=== PATIENT | male | born 1965 | race Caucasian/White ===

== ENCOUNTER 2021-10-11 10:03 | Outpatient (CLI) | payer MEDICAID, SELFPAY ==
--- NOTE | 2021-10-11 13:46 | SP.MBSS_ITS ---
Modified Barium Swallow - Patient Information Study Date: 10/11/21 Study Time: 10:00 Direct Billable Minutes: 120 Total Minutes procedure & reportin Diagnosis: Cancer of overlapping sites of lip, oral cavity, & pharynx C14.8 Referring Physician: Lacho Alonso Reason for Referral: Objectively assess swallow function, risk for aspiration, and determine recommendations for least restrictive diet texture and compensatory strategies to improve safety of swallow. 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 He had a trach placed after surgery 08/26/2021. The patient utilizes a Passy [place] Speaking Valve. He had healed well from surgery and was approximately 4.5 weeks postop prior to attending a speech therapy evaluation. He had remained NPO for those 4.5 weeks. He began radiation therapy initiated by 6 weeks postop. He was referred for speech consult to assess swallow dysfunction, aspiration risk, and manage dysphagia during and post radiation therapy. After initial speech evaluation 10/05/2021, the patient was recommended to remain NPO with recommendation for MBS study prior to diet advancement. Additionally, pt was to be considered for implementation of Garcia Free Water Protocol pending improved oral care regimen. Pt has increased oral care from 1X daily to 3X daily at this time. He was unable to attend initial MBS study due to inclement weather but has been referred for repeat study 10/11/2021. Current Diet Ordered: NPO Dentition: Edentulous Mental Status: WNL Respiratory Status: Oxygenating on Room Air - Penetration-Aspiration Scale Penetration-Aspiration Scale: OBJECTIVE ASSESSMENT OF SWALLOW FUNCTION (QUANTITATIVE ? PER TRIAL): PENETRATION / ASPIRATION SCALE (ROLAND): 1 = does not enter airway 2 = enters airway/above vocal folds/ejected 3 = enters airway/above vocal folds/not ejected 4 = enters airway/contacts vocal folds/ejected 5 = enters airway/contacts vocal folds/not ejected 6 = enters airway/below vocal folds/ejected 7 = enters airway/below vocal folds/not ejected despite effort 8 = enters airway/below vocal folds/no effort VIDEOFLOROSCOPIC SCALE SCORE (ROLAND): Grade I = aspiration of material that has penetrated into the laryngeal vestibule, intact cough reflex Grade II = aspiration < 10 % of the bolus, intact cough reflex Grade III = aspiration of < 10 % of the bolus, reduced cough reflex or aspiration of > 10 % of the bolus, intact cough reflex Grade IV = aspiration of > 10 % of the bolus, reduced cough reflex - Penetration-Aspiration Scale Score Thin Liquid via teaspoon Result: 2= enter airway/above vocal folds/ejected Thin Liquid via teaspoon Trial 2 Result: 5= enters airways/contacts vocal folds/not ejected Thin Liquid via small single sip from cup Result: 2= enter airway/above vocal folds/ejected Thin Liquid via small single sip from cup Trial 2 Result: 1= does not enter airway Thin Liquid via single sip from straw Result: 2= enter airway/above vocal folds/ejected [place] Thick Liquid via small single sip from cup Result: 1= does not enter airway Honey Thick Liquid via small single sip from cup Result: 2= enter airway/above vocal folds/ejected Pudding with esophageal screen Result: 1= does not enter airway Thin Liquid via small single sip from cup Trial 3 Result: 2= enter airway/above vocal folds/ejected Thin Liquid via small single sip from cup Trial 4 Result: 1= does not enter airway Comment: [employer] cued pt to swish to attempt clearing oral residue of pudding. Minimally effective in clearing oral residue. - Oral Phase Labial Seal: Escape beyond mid-chin Tongue Control During Bolus Hold: Posterior escape of less than half of bolus Bolus Transport/Lingual Motion: Minimal to no tongue motion Oral Residue: Majority of bolus remaining - Pharyngeal Phase Initiation of Pharyngeal Swallow: Bolus head in pyriforms Soft Palate Elevation: No bolus between soft palate and pharyngeal wall Laryngeal Elevation: Partial superior movement thyroid cart/partial apprx aryt- epig petiole Anterior Hyoid Excursion: No anterior movement Epiglottic Movement: Partial inversion Laryngeal Vestibule Closure at Height of Swallow: Incomplete; narrow column of air/contrast in laryngeal vestibule Pharyngeal Stripping Wave: Present - diminished Pharyngoesophageal Segment Opening: Minimal distension and minimal duration; marked obstruction of flow Tongue Base Retraction: Narrow column of contrast between tongue base & post. pharyngeal wall Pharyngeal Residue: Majority of contrast within or on pharyngeal structures - Esophageal Phase Esophageal Clearance: Esophageal retention w/ retrograde flow below pharyngoesophageal seg. - Treatment Strategies Effects of treatment strategies attemped:: Multiple swallows = effective. Liquid wash = little to no impact. Swish to clear oral residue = little to no impact. - Diagnosis/Impression Diagnosis: moderate-severe oropharyngeal phase dysphagia (R13.12) Impression: The patient presents with moderate to severe oral phase deficits primarily marked by poor bolus control and A-P bolus transport due to limited tongue movement s/p resection including anterior mandible, subtotal glossectomy, bilateral floor of mouth and bilateral neck dissection levels 1 through 4 with mandible reconstruction (08/26/2021). The patient was unable to propel pudding bolus to the pharynx and required manual removal of severe oral residue of pudding. Did not trial solid textures to assess mastication abilities at this time due to concerns for poor oral and pharyngeal clearance and increased risk for choking. He presented with moderate pharyngeal phase deficits characterized by decreased airway closure due to little to no anterior hyoid excursion, as well as decreased laryngeal elevation. The patient demonstrated penetration of contrast into the laryngeal vestibule with full ejection when consuming thin liquids and honey thick liquids by cup. She had increased pharyngeal residue with thicker viscosities, especially pudding which required liquid wash and multiple swallows to clear pharyngeal residue. No aspiration observed during the study; however, 1 sip of thin liquids via tsp did penetrate to the vocal folds and fully eject from the airway with subsequent swallows. - Recommendations Diet: Thin Liquids Comment: If wet vocal quality then cough and re-swallow Compensatory Strategies: Small Bites, Small Sips - Sips by cup only, Slow Rate, Multiple Swallows, Sitting upright, Remain sitting upright for 30 minutes after PO intake Recommend Repeat Modified Barium Swallow: Yes - 3 months after completion of radiation treatment in order to monitor dysphagia and aspiration risk. Need for Skilled Speech Therapy Services: Yes Comment: Will recommend the patient for continued outpatient dysphagia therapy to address deficits in oropharyngeal swallow function. Would consider the patient for oropharyngeal strengthening to improve lingual coordination, laryngeal elevation, hyoid excursion, and duration of UES opening. The patient would benefit from thorough education regarding diet recommendations and recommended compensatory strategies. Education Completed: 1. Described result of evaluation., 7. Pt requires further education on strategies & risks. - Status Active ST Patient: Active - Contact Information [facility] Speech Therapy:: Edie Marino M.A. [facility] Speech-Language Pathologist [facility] [address] [place] [address] [email or web address] [phone] 10/11/21 14:01
== END 2021-10-11 23:59 | disposition home or self-care (01) ==
LOC: RAD 10:04
PROVIDERS: Referring Provider Student in an Organized Health Care Education/Training Program; Visit Provider Student in an Organized Health Care Education/Training Program
DX: C14.8 Malignant neoplasm of overlapping sites of lip, oral cavity and pharynx (principal)
CPT/HCPCS: 74230; 92611

== ENCOUNTER → 2022-01-03 | Outpatient (CLI) | payer MEDICAID, SELFPAY ==
--- NOTE | 2022-01-03 10:14 | ST.MBS ---
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 He had a trach placed after surgery 08/26/2021. He had healed well from surgery and was approximately 4.5 weeks postop prior to attending a speech therapy evaluation. He had remained NPO for those 4.5 weeks. He began radiation therapy initiated by 6 weeks postop. He was referred for speech consult to assess swallow dysfunction, aspiration risk, and manage dysphagia during and post radiation therapy. After initial speech evaluation 10/05/2021, the patient was recommended to remain NPO with recommendation for MBS study prior to diet advancement. MBS study completed 10/11/2021 and recommended thin liquids with the following aspiration precautions: If wet vocal quality then cough and re-swallow, Small Sips - Sips by cup only, Slow Rate, Multiple Swallows, Sitting upright, Remain sitting upright for 30 minutes after PO intake. From 10/07/2021 ? 11/17/2021: received 6000 cGy delivered to the tumor bed and reconstruction and 5400 cGy delivered to the bilateral neck and supraclavicular fossa. He did not receive concurrent chemotherapy. He had his trach removed ~1 month s/p radiation. He was referred for repeat MBS study to objectively assess aspiration risk and swallow function as the patient is at risk for worsening dysphagia s/p radiation treatment. Current Diet Ordered: Garcia Free Water Protocol Dentition: Edentulous Mental Status: WNL Respiratory Status: Oxygenating on Room Air - Penetration-Aspiration Scale Penetration-Aspiration Scale: OBJECTIVE ASSESSMENT OF SWALLOW FUNCTION (QUANTITATIVE ? PER TRIAL): PENETRATION / ASPIRATION SCALE (ROLAND): 1 = does not enter airway 2 = enters airway/above vocal folds/ejected 3 = enters airway/above vocal folds/not ejected 4 = enters airway/contacts vocal folds/ejected 5 = enters airway/contacts vocal folds/not ejected 6 = enters airway/below vocal folds/ejected 7 = enters airway/below vocal folds/not ejected despite effort 8 = enters airway/below vocal folds/no effort VIDEOFLOROSCOPIC SCALE SCORE (ROLAND): Grade I = aspiration of material that has penetrated into the laryngeal vestibule, intact cough reflex Grade II = aspiration < 10 % of the bolus, intact cough reflex Grade III = aspiration of < 10 % of the bolus, reduced cough reflex or aspiration of > 10 % of the bolus, intact cough reflex Grade IV = aspiration of > 10 % of the bolus, reduced cough reflex - Penetration-Aspiration Scale Score Thin Liquid via teaspoon Result: 2= enter airway/above vocal folds/ejected Comment: Pt spit out portion of trial due to dislike of taste. Thin Liquid via teaspoon Trial 2 Result: 5= enters airways/contacts vocal folds/not ejected Thin Liquid via small single sip from cup Result: 3= enters airways/above vocal folds/not ejected Thin Liquid via small single sip from cup with cued cough and reswallow Result: 3= enters airways/above vocal folds/not ejected [place] Thick Liquid via small single sip from cup Result: 3= enters airways/above vocal folds/not ejected - reflexive cough elicited - somewhat effective in clearing contrast from laryngeal vestibule Honey Thick Liquid via small single sip from cup Result: 2= enter airway/above vocal folds/ejected Pudding via teaspoon Result: 2= enter airway/above vocal folds/ejected Comment: Little clearance with majority of bolus remaining in oral cavity Thin Liquid via small single sip from cup for liquid wash Result: 2= enter airway/above vocal folds/ejected Comment: Pudding still remained in oral cavity despite use of liquid wash. Per pt, the pudding bolus elicited his gag reflex and pt expectorated remaining thin liquid and pudding residue. DIRECTOR OF VENDOR MANAGEMENT had the patient swish with water to clear oral cavity. Additionally, DIRECTOR OF VENDOR MANAGEMENT assisted pt in removing bolus from oral cavity via spoon. Thin Liquid via single sip from straw Comment: Unable to get sufficient amount from straw to swallow Thin Liquid via single sip from straw Trial 2 Result: 1= does not enter airway Thin Liquid via small single sip from cup Effortful swallow Result: 1= does not enter airway Thin Liquid via small single sip from cup Effortful swallow Trial 2 Result: 1= does not enter airway - Oral Phase Labial Seal: Escape beyond mid-chin Tongue Control During Bolus Hold: Posterior escape of less than half of bolus Bolus Transport/Lingual Motion: Minimal to no tongue motion Oral Residue: Minimal to no clearance - Pharyngeal Phase Initiation of Pharyngeal Swallow: Bolus head at posterior laryngeal surgace of epiglottis Soft Palate Elevation: Trace column of contrast/air between soft palate and pharyngeal wall Laryngeal Elevation: Partial superior movement thyroid cart/partial apprx aryt-epig petiole Anterior Hyoid Excursion: No anterior movement Epiglottic Movement: No inversion Laryngeal Vestibule Closure at Height of Swallow: Incomplete; narrow column of air/contrast in laryngeal vestibule Pharyngeal Stripping Wave: Present - diminished Pharyngoesophageal Segment Opening: Parital distension and partial duration; parital obstruction of flow Tongue Base Retraction: Narrow column of contrast between tongue base & post. pharyngeal wall Pharyngeal Residue: Collection of residue within or on pharyngeal structures - Treatment Strategies Effects of treatment strategies attemped:: Use of straw = not effective, difficult for patient to sip from straw at this time Multiple swallows = effective Effortful swallows = effective Cough and re-swallow = somewhat effective at clearing penetrated contrast from laryngeal vestibule - Diagnosis/Impression Diagnosis: Severe oral dysphagia (R13.11), Moderate oropharyngeal dysphagia (R13.12) Impression: The patient presents with severe oral phase deficits primarily marked by poor bolus control and A-P bolus transport due to limited tongue movement. The patient was unable to propel pudding bolus to the pharynx despite use of thin liquid wash. He benefited from utilizing slight head tilt backwards for A-P transport of liquids. He presents with mild-moderate oral residue after completion of multiple swallows. Did not trial solid textures to assess mastication abilities at this time due to concerns for poor oral and pharyngeal clearance and increased risk for choking. He presented with moderate pharyngeal phase deficits characterized by decreased airway closure due to little to no anterior hyoid excursion, as well as decreased laryngeal elevation. The patient demonstrated penetration of contrast into the laryngeal vestibule without full ejection when consuming thin liquids and nectar thick liquids by cup. Thin liquids via tsp resulted in penetration to the vocal folds without ejection from the laryngeal vestibule. He did not elicit cough reflex when experiencing penetration of thin liquids via tsp to the vocal folds. No aspiration observed during the study; however, the patient is a high aspiration risk consuming liquid consistencies due to decreased bolus control and airway closure. Additionally, DIRECTOR OF VENDOR MANAGEMENT concerned the patient is at risk for silent aspiration as he did not initiate a cough reflex when penetrating thin liquids via tsp to the vocal folds. Will recommend strict adherence to use of effortful swallows on each sip and intermittent cough and re-swallow when consuming liquids to decrease aspiration risk. - Recommendations Diet: Thin Liquids Comment: Cough and re-swallow at reasonable intervals (~every 3-5 sips or if pt is experiencing wet vocal quality) Compensatory Strategies: Small Sips - Effortful swallows with each sip, Slow Rate - Sips one at a time, Multiple Swallows, Sitting upright, Remain sitting upright for 30 minutes after PO intake Recommend Repeat Modified Barium Swallow: Yes Need for Skilled Speech Therapy Services: Yes Education Completed: 1. Described result of evaluation., 7. Pt requires further education on strategies & risks. - Status Active ST Patient: Active - Contact Information [facility] Speech Therapy:: Edie Marino M.A. [facility]-DIRECTOR OF VENDOR MANAGEMENT Speech-Language Pathologist [place] [id number] [place] [address] [email or web address] [phone] 01/03/22 11:49
== END | disposition home or self-care (01) ==
LOC: RAD 09:22
PROVIDERS: PCP Student in an Organized Health Care Education/Training Program; Referring Provider Student in an Organized Health Care Education/Training Program; Visit Provider Student in an Organized Health Care Education/Training Program
DX: C14.8 Malignant neoplasm of overlapping sites of lip, oral cavity and pharynx (principal)
CPT/HCPCS: 74230; 92611

== ENCOUNTER 2022-03-02 10:30 | Outpatient (RCR) | payer MEDICAID, SELFPAY ==
--- NOTE | 2021-10-05 11:35 | HP.SP.AD_ITS ---
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 He appears to have healed well from surgery and is approximately 4-1/2 weeks postop. He was seen by his ENT and felt to be healing well. He has not been working with speech therapy and is not swallowing since his surgery. He is planning for radiation therapy to be initiated by 6 weeks postop. He was referred for speech consult to assess swallow dysfunction, aspiration risk, and manage dysphagia during and post radiation therapy. Smoking Status: Former smoker Hx Smoking: Yes Years Smokin - Pain Is pain an issue with your current prescribed condition?: Yes - Personal Right Hearing Abillity: Normal Left Hearing Abillity: Normal Patients Living Arrangements: Pt's friend who is an RN has assisted w/trach care Patient Allergies - Allergies Allergies No Known Allergies Allergy (Unverified 09/27/21 13:47) Subjective Oral Motor - Subjective Patient Reports: Slurred Speech, Difficulty being Understood - Comments Comments: Patient reports breaking his jaw as a teenager. He stated he has had decreased jaw ROM his whole life. Objective Oral Motor - Oral Status Dentition: Missing Teeth - Labial Impairment: Mild Observation at Rest: WNL Closure: WNL Pucker: WNL Retraction: Mild Involuntary Movement noted: No - Labial Comments Comments: L labial weakness evident upon retraction. - Lingual Impairment: Severe Protrusion: Severe Retraction: Severe Lateralization: Severe - Lingual Comments Comments: Pt is s/p subtotal glossectomy with graft for reconstruction. Tongue presented with minimal anterior-posterior movement. Little to no bilateral movement observed. - Jaw Impairment: Moderate Symmetry, Range, Strength, Tone: Mild deviation L when lowering jaw. Opening: Moderate Closing: WNL Opening Measurement: 25mm (lip to lip) Involuntary Movement: No - Jaw Comments Comments: Pt with sores with some bleeding to bilaterally on lower gumline. BROILER CHEF OR COOK unable to palpate contraction of muscles of mastication with jaw clench. - Oral Motor Comments Comments: The patient presents with edema throughout anterior neck and floor of mouth. - Respiratory Status Respiratory Status: Room Air, Trach, Passy [place] Speaking Valve Comments: BROILER CHEF OR COOK requested the patient place Passy Joseph Speaking Valve (PMSV) at the start of the session. Pt presented with improved loudness and speech clarity with use of PMSV. Subjective Dysphagia - Symptoms Reported Other: No attempt at oral feeding since operation. - NPO NPO - Alternative Nutrition Method: Gastrostomy Tube Objective Dysphagia - Administered by Administered by: BROILER CHEF OR COOK - Thin Liquids Administred via: Spoon Symptoms: Couging, Delayed Laryngeal Elevation: Impaired Positioning: Other (comment below) Other Positioning: Head tilt backwards to assist A-P transport due to deficits in tongue ROM. Oral Holding: No Gagging: No Patient Report: Sensation of oral residue after the swallow. Comments: The patient consumed 4 trials of tsp sips of thin liquids. BROILER CHEF [employer] COOK encouraged pt for head tilt backwards to propel bolus. He required 4-5 swallows to clear each sip. Anterior spillage following 1 sip. Coughing following 1 sip. Pt declined additional trials due to reported pain of 8/10. He additionally declined trials of applesauce. - Results Swallowing Within Normal Limits: No Swallowing Diagnosis: Oropharyngeal Phase Dysphagia Severity: Severe Dysphagia Assessment - Swallowing Impairment Contributing Factors to Swallowing Impairment: Reduced Oral Strength/Coordination/Sensation, Mastication Inefficiency, Impaired Oral- Pharyngeal Transport, Reduced Laryngeal Excursion - Impact Impact on Safety & Functioning: Risk for Aspiration, Risk for Inadequate Nutrition/Hydration - Recommendations Modified Barium Swallow/Cookie Swallow Recommended: Yes Swallowing Treatment: Yes - Diet Texture Recommendations NPO: NPO Other: Would strongly consider implementation of Garcia Free Water Protocol in upcoming sessions pending improved oral care regimen. Pt is currently completing oral care 1X daily. BROILER CHEF [employer] COOK recommended oral care at least 4-5 daily. FOIS - Functional Oral Intake Scale Nothing by mouth: Level 1 SP Oncology PSS-HN - PSS-HN Test Normalcy of Diet: Non-oral feeding-tube fed Scale Result:: 0 Public Eating: Always eats alone Public eating scale: 0 Understandability of Speech: Difficult to understand Understandability of Speech Scale: 25 Plan - Plan Plan: Will recommend the patient for skilled outpatient dysphagia therapy to address oropharyngeal dysphagia related to SCC of anterior tongue, mandibular gingiva, and floor of mouth status post composite resection including anterior mandible, subtotal glossectomy, bilateral floor of mouth and bilateral neck dissection levels 1 through 4 with mandible reconstruction and to provide the patient further education re: prophylactic oropharyngeal and jaw exercise program. Will recommend MBS study prior to initiating diet. Additionally, will provide ongoing assessment of diet tolerance during and post radiation treatment. Without skilled ST services, the patient is at risk for aspiration, weight loss, and malnutrition. - Recommendations MBS: Yes Treatment Warranted: Yes - Frequency Frequency: 1x/Week Duration: 12 Months - Prognosis Prognosis: Fair - Goals that are Established: Determination:: Goals will be added/modified as deemed necessary and appropriate. Therapy will be discontinued when results of re-evaluation indicate therapy is no longer needed or lack of progress has been documented. - Goal #1-5 Goal #1: The patient will consume least restrictive diet textures without overt s/s of aspiration with minimal verbal cues for use of compensatory strategies to decrease risk for aspiration. Goal #2: The patient will complete an oropharyngeal exercise program during and post radiation treatment independently to improve and maintain strength, ROM, and coordination of swallowing mechanism (X10 repetitions, 3-5X daily). Goal #3: The patient will complete jaw strength, coordination, and ROM exercises during and post radiation treatment independently to improve and maintain mastication and speech abilities (X10 repetitions, 3-5X daily). Goal #4: The patient will participate in ongoing education re: short-term and long-term effects of radiation treatment on swallow function and management of symptoms that contribute to dysphagia. Goal #5: The patient will participate in assessment of speech production in upcoming sessions to set additional goals to POC as needed. Education - Patient has Indicated that the Following Identified Educational Needs: None The Patient has indicated that they have no educational or learning abilities that may effect their care.: Yes - Patient Instruction Patient Education: Diagnosis, Treatment Plan, Goals, Diet Level, Home Exercise Program Other Education: Education provided regarding the potential impacts of radiation treatment on swallow function during and post treatment, including effects such as mucositis, dysgeusia, radiation fibrosis, and disuse atrophy which may result in restricted range of motion and weakness of swallowing mechanism. Discussed impaired swallowing and increased risk for aspiration, aspiration related illnesses, weight loss, and malnutrition. Discussed importance for speech therapy to monitor and address dysphagia both pre, during, and post radiation treatment to maintain optimal swallow function through continued education and prophylactic exercise program. Provided the patient a handout and demonstration of prophylactic oropharyngeal exercise program, as well as jaw ROM exercises. The patient provided return demonstration with all exercises with minimal verbal cues and demonstration. The patient would benefit from continued training to monitor proper execution of exercises and encourage strict adherence to exercise program. Educated the patient in recommendation for oral care 4-5X daily. Person Taught: Patient Teaching Method: Discussion, Demonstration, Handout, Teach back Response to teaching: Return demonstration, Verbalize understanding, Reinforcement needed
--- NOTE | 2022-01-04 11:52 | HP.SPREEV_ITS ---
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 He had a trach placed after surgery 08/26/2021. He had healed well from surgery and was approximately 4.5 weeks postop prior to attending a speech therapy evaluation. He had remained NPO for those 4.5 weeks. He began radiation therapy initiated by 6 weeks postop. He was referred for speech consult to assess swallow dysfunction, aspiration risk, and manage dysphagia during and post radiation therapy. After initial speech evaluation 10/05/2021, the patient was recommended to remain NPO with recommendation for MBS study prior to diet advancement. MBS study completed 10/11/2021 and recommended thin liquids with the following aspiration precautions: If wet vocal quality then cough and re-swallow, Small Sips - Sips by cup only, Slow Rate, Multiple Swallows, Sitting upright, Remain sitting upright for 30 minutes after PO intake. From 10/07/2021 ? 11/17/2021: received 6000 cGy delivered to the tumor bed and reconstruction and 5400 cGy delivered to the bilateral neck and supraclavicular fossa. He did not receive concurrent chemotherapy. He had his trach removed ~1 month s/p radiation. He was referred for repeat MBS study 01/03/2022 to objectively assess aspiration risk and swallow function as the patient is at risk for worsening dysphagia s/p radiation treatment. He was recommended for thin liquids with use of strict aspiration precautions (SEE details below in attached copy of the study). Smoking Status: Former smoker Hx Smoking: Yes Years Smokin - Pain Is pain an issue with your current prescribed condition?: Yes - Personal Right Hearing Abillity: Normal Left Hearing Abillity: Normal Patients Living Arrangements: Alone Patient Allergies - Allergies Allergies No Known Allergies Allergy (Verified 12/16/21 11:10) Previous/Current Goals - Goals 1-5 Previous Goal #1: The patient will consume least restrictive diet textures without overt s/s of aspiration with minimal verbal cues for use of compensatory strategies to decrease risk for aspiration. Goal 1 Status: PROGRESSING - Thin liquids with the following Compensatory Strategies: Cough and re-swallow at reasonable intervals (~every 3-5 sips or if pt is experiencing wet vocal quality), Small Sips - Effortful swallows with each sip, Slow Rate - Sips one at a time, Multiple Swallows, Sitting upright, Remain sitting upright for 30 minutes after PO intake. Additionally, RETAIL ACCOUNT REPRESENTATIVE recommends frequent oral care throughout his day to prevent risk for aspiration related illnesses. Previous Goal #2: The patient will complete an oropharyngeal exercise program during and post radiation treatment independently to improve and maintain stre ngth, ROM, and coordination of swallowing mechanism (X10 repetitions, 3-5X daily). Goal 2 Status: PROGRESSING - The patient completes oropharyngeal exercises 0-3X daily depending on pain. He would benefit from strict adherence to exercise program as tolerated to prevent risk for worsening dysphagia and to prevent risk for aspiration. He was provided updated home exercise program 01/04/2022 and he demonstrated the ability to complete increased repetitions of each exercise. He was also able to complete Thomas maneuver, which he was not able to complete earlier in POC. Previous Goal #3: The patient will complete jaw strength, coordination, and ROM exercises during and post radiation treatment independently to improve and maintain mastication and speech abilities (X10 repetitions, 3-5X daily). Goal 3 Status: PROGRESSING - He completes jaw ROM exercises intermittently due to persisting pain in jaw. He would benefit from strict adherence to exercise program as tolerated to prevent risk for worsening trismus. Jaw ROM is currently 27mm (Normal jaw opening = 35-55mm). Previous Goal #4: The patient will participate in ongoing education re: short- term and long-term effects of radiation treatment on swallow function and management of symptoms that contribute to dysphagia. Goal 4 Status: PROGRESSING - Pt verbalizes understanding of education re: long- term effects of radiation treatment that negatively impact swallow function; however, the patient requires continued education to encourage strict adherence to oropharyngeal and jaw exercise programs. Previous Goal #5: The patient will participate in assessment of speech production in upcoming sessions to set additional goals to POC as needed. Goal 5 Status: DISCONTINUE GOAL - Primary focus of therapy to be on severe oral phase dysphagia and moderate pharyngeal phase dysphagia at this time. - Goals 6-10 Previous Goal #6: The patient will participate in MBS study to objectively assess aspiration risk and recommend least restrictive diet textures and strategies to improve safety of swallow. Goal 6 Status: Most recent study 01/04/2022 - Repeat study recommended in 3-6 months. Previous Goal #7: . Objective Dysphagia - Diet Texture Recommendations Other: Would strongly consider implementation of Garcia Free Water Protocol in upcoming sessions pending improved oral care regimen. Pt is currently completing oral care 1X daily. RETAIL ACCOUNT REPRESENTATIVE recommended oral care at least 4-5 daily. Modified Barium Results Hx MBS Report Entered: Yes MBS Results (from prior exam): 01/04/22 11:50 Speech Therapy by Edie Marino [facility] Speech Pathology [address] [place] [address] Modified Barium Swallow Study MR#: [id number] Acct: [id number] Name: JALEEL DUKES Rep #:[id number] 01 : 1965 56 From: Edie Ulloa, [facility]-RETAIL ACCOUNT REPRESENTATIVE Modified Barium Swallow - Patient Information Study Date: 01/03/22 Study Time: 09:30 Direct Billable Minutes: 95 Total Minutes procedure & reportin Diagnosis: Cancer of overlapping sites of lip, oral cavity, & pharynx C14.8 Referring Physician: Lacho Alonso Reason for Referral: Objectively assess swallow function, risk for aspiration, and determine recommendations for least restrictive diet textures and compensatory strategies to improve safety of swallow. 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 He had a trach placed after surgery 08/26/2021. He had healed well from surgery and was approximately 4.5 weeks postop prior to attending a speech therapy evaluation. He had remained NPO for those 4.5 weeks. He began radiation therapy initiated by 6 weeks postop. He was referred for speech consult to assess swallow dysfunction, aspiration risk, and manage dysphagia during and post radiation therapy. After initial speech evaluation 10/05/2021, the patient was recommended to remain NPO with recommendation for MBS study prior to diet advancement. MBS study completed 10/11/2021 and recommended thin liquids with the following aspiration precautions: If wet vocal quality then cough and re-swallow, Small Sips - Sips by cup only, Slow Rate, Multiple Swallows, Sitting upright, Remain sitting upright for 30 minutes after PO intake. From 10/07/2021 ? 11/17/2021: received 6000 cGy delivered to the tumor bed and reconstruction and 5400 cGy delivered to the bilateral neck and supraclavicular fossa. He did not receive concurrent chemotherapy. He had his trach removed ~1 month s/p radiation. He was referred for repeat MBS study to objectively assess aspiration risk and swallow function as the patient is at risk for worsening dysphagia s/p radiation treatment. Current Diet Ordered: Garcia Free Water Protocol Dentition: Edentulous Mental Status: WNL Respiratory Status: Oxygenating on Room Air - Penetration-Aspiration Scale Penetration-Aspiration Scale: OBJECTIVE ASSESSMENT OF SWALLOW FUNCTION (QUANTITATIVE ? PER TRIAL): PENETRATION / ASPIRATION SCALE (ROLAND): 1 = does not enter airway 2 = enters airway/above vocal folds/ejected 3 = enters airway/above vocal folds/not ejected 4 = enters airway/contacts vocal folds/ejected 5 = enters airway/contacts vocal folds/not ejected 6 = enters airway/below vocal folds/ejected 7 = enters airway/below vocal folds/not ejected despite effort 8 = enters airway/below vocal folds/no effort VIDEOFLOROSCOPIC SCALE SCORE (ROLAND): Grade I = aspiration of material that has penetrated into the laryngeal vestibule, intact cough reflex Grade II = aspiration < 10 % of the bolus, intact cough reflex Grade III = aspiration of < 10 % of the bolus, reduced cough reflex or aspiration of > 10 % of the bolus, intact cough reflex Grade IV = aspiration of > 10 % of the bolus, reduced cough reflex - Penetration-Aspiration Scale Score Thin Liquid via teaspoon Result: 2= enter airway/above vocal folds/ejected Comment: Pt spit out portion of trial due to dislike of taste. Thin Liquid via teaspoon Trial 2 Result: 5= enters airways/contacts vocal folds/not ejected Thin Liquid via small single sip from cup Result: 3= enters airways/above vocal folds/not ejected Thin Liquid via small single sip from cup with cued cough and reswallow Result: 3= enters airways/above vocal folds/not ejected [place] Thick Liquid via small single sip from cup Result: 3= enters airways/above vocal folds/not ejected - reflexive cough elicited - somewhat effective in clearing contrast from laryngeal vestibule Honey Thick Liquid via small single sip from cup Result: 2= enter airway/above vocal folds/ejected Pudding via teaspoon Result: 2= enter airway/above vocal folds/ejected Comment: Little clearance with majority of bolus remaining in oral cavity Thin Liquid via small single sip from cup for liquid wash Result: 2= enter airway/above vocal folds/ejected Comment: Pudding still remained in oral cavity despite use of liquid wash. Per pt, the pudding bolus elicited his gag reflex and pt expectorated remaining thin liquid and pudding residue. RETAIL ACCOUNT REPRESENTATIVE had the patient swish with water to clear oral cavity. Additionally, RETAIL ACCOUNT REPRESENTATIVE assisted pt in removing bolus from oral cavity via spoon. Thin Liquid via single sip from straw Comment: Unable to get sufficient amount from straw to swallow Thin Liquid via single sip from straw Trial 2 Result: 1= does not enter airway Thin Liquid via small single sip from cup Effortful swallow Result: 1= does not enter airway Thin Liquid via small single sip from cup Effortful swallow Trial 2 Result: 1= does not enter airway - Oral Phase Labial Seal: Escape beyond mid-chin Tongue Control During Bolus Hold: Posterior escape of less than half of bolus Bolus Transport/Lingual Motion: Minimal to no tongue motion Oral Residue: Minimal to no clearance - Pharyngeal Phase Initiation of Pharyngeal Swallow: Bolus head at posterior laryngeal surgace of epiglottis Soft Palate Elevation: Trace column of contrast/air between soft palate and pharyngeal wall Laryngeal Elevation: Partial superior movement thyroid cart/partial apprx aryt- epig petiole Anterior Hyoid Excursion: No anterior movement Epiglottic Movement: No inversion Laryngeal Vestibule Closure at Height of Swallow: Incomplete; narrow column of air/contrast in laryngeal vestibule Pharyngeal Stripping Wave: Present - diminished Pharyngoesophageal Segment Opening: Parital distension and partial duration; parital obstruction of flow Tongue Base Retraction: Narrow column of contrast between tongue base & post. pharyngeal wall Pharyngeal Residue: Collection of residue within or on pharyngeal structures - Treatment Strategies Effects of treatment strategies attemped:: Use of straw = not effective, difficult for patient to sip from straw at this time Multiple swallows = effective Effortful swallows = effective Cough and re-swallow = somewhat effective at clearing penetrated contrast from laryngeal vestibule - Diagnosis/Impression Diagnosis: Severe oral dysphagia (R13.11), Moderate oropharyngeal dysphagia (R13.12) Impression: The patient presents with severe oral phase deficits primarily marked by poor bolus control and A-P bolus transport due to limited tongue movement. The patient was unable to propel pudding bolus to the pharynx despite use of thin liquid wash. He benefited from utilizing slight head tilt backwards for A-P transport of liquids. He presents with mild-moderate oral residue after completion of multiple swallows. Did not trial solid textures to assess mastication abilities at this time due to concerns for poor oral and pharyngeal clearance and increased risk for choking. He presented with moderate pharyngeal phase deficits characterized by decreased airway closure due to little to no anterior hyoid excursion, as well as decreased laryngeal elevation. The patient demonstrated penetration of contrast into the laryngeal vestibule without full ejection when consuming thin liquids and nectar thick liquids by cup. Thin liquids via tsp resulted in penetration to the vocal folds without ejection from the laryngeal vestibule. He did not elicit cough reflex when experiencing penetration of thin liquids via tsp to the vocal folds. No aspiration observed during the study; however, the patient is a high aspiration risk consuming liquid consistencies due to decreased bolus control and airway closure. Additionally, RETAIL ACCOUNT REPRESENTATIVE concerned the patient is at risk for silent aspiration as he did not initiate a cough reflex when penetrating thin liquids via tsp to the vocal folds. Will recommend strict adherence to use of effortful swallows on each sip and intermittent cough and re-swallow when consuming liquids to decrease aspiration risk. - Recommendations Diet: Thin Liquids Comment: Cough and re-swallow at reasonable intervals (~every 3-5 sips or if pt is experiencing wet vocal quality) Compensatory Strategies: Small Sips - Effortful swallows with each sip, Slow Rate - Sips one at a time, Multiple Swallows, Sitting upright, Remain sitting upright for 30 minutes after PO intake Recommend Repeat Modified Barium Swallow: Yes Need for Skilled Speech Therapy Services: Yes Education Completed: 1. Described result of evaluation., 7. Pt requires further education on strategies & risks. - Status Active ST Patient: Active - Contact Information [facility] Speech Therapy:: Edie Marino M.A. CCC-RETAIL ACCOUNT REPRESENTATIVE Speech-Language Pathologist [place] [address] [place] [address] [email or web address] [phone] 01/03/22 11:49 01/03/22 1248 <Electronically signed by Edie Marino M.A., CCC-RETAIL ACCOUNT REPRESENTATIVE> Date/Time Edie Marino M.A., CCC-RETAIL ACCOUNT REPRESENTATIVE Initialized on 01/04/22 11:50 - END OF NOTE Swallowing Performance Scale - Swallowing Performance Scale Swallowing Performance Scale Result: 7 Severe NQOL FOIS - Functional Oral Intake Scale Nothing by mouth: Level 1 Tube dependent with consistent oral intake of food or liquid: Level 3 SP Oncology PSS-HN - PSS-HN Test Normalcy of Diet: Non-oral feeding-tube fed Scale Result:: 0 Public Eating: Always eats alone Public eating scale: 0 Understandability of Speech: Difficult to understand Understandability of Speech Scale: 25 Plan - Recommendations MBS: Yes Treatment Warranted: Yes - Progress Prognosis: Fair - Frequency Frequency: 1x/Week - Goals that are Established Determination:: Goals will be added/modified as deemed necessary and appropriate. Therapy will be discontinued when results of re-evaluation indicate therapy is no longer needed or lack of progress has been documented. - Goal #1-5 Goal #1: The patient will consume least restrictive diet textures without overt s/s of aspiration with minimal verbal cues for use of compensatory strategies to decrease risk for aspiration. Goal #2: The patient will complete an oropharyngeal exercise program during and post radiation treatment independently to improve and maintain strength, ROM, and coordination of swallowing mechanism (X10 repetitions, 3-5X daily). Goal #3: The patient will complete jaw strength, coordination, and ROM exercises during and post radiation treatment independently to improve and maintain mastication and speech abilities (X10 repetitions, 3-5X daily). Goal #4: The patient will participate in ongoing education re: short-term and long-term effects of radiation treatment on swallow function and management of symptoms that contribute to dysphagia. Goal #5: The patient will participate in MBS study to objectively assess aspiration risk and recommend least restrictive diet textures and strategies to improve safety of swallow. - Goal #6-10 Goal #6: The patient will participate in MBS study to objectively assess aspiration risk and recommend least restrictive diet textures and strategies to improve safety of swallow. Goal #7: .
--- NOTE | 2022-07-26 13:50 | HP.SP.DC_ITS ---
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 He participated in OP speech therapy during treatment and had 2 MBSS completed during POC. Pt had esophageal mass following treatment and had additional chemoradiation. When re- referred to OP ST for re-evaulation, pt declined the evaluation. X [employer]IC recommended repeat MBSS to objectively assess swallow function and aspiration risk. The patient declined MBSS and has not called to reschedule with ST for over a month. Will discharge the patient from ST at this time. Will recommend re-consult to OP ST if the patient wishes to address continued dysphagia.
== END 2022-03-02 19:00 | disposition home or self-care (01) ==
LOC: SP 10:30
PROVIDERS: Referring Provider Student in an Organized Health Care Education/Training Program; Visit Provider Student in an Organized Health Care Education/Training Program
DX: C14.8 Malignant neoplasm of overlapping sites of lip, oral cavity and pharynx (principal)
CPT/HCPCS: 92526; 92610

== ENCOUNTER 2022-03-09 10:30 | Observation (INO) | payer MEDICAID, SELFPAY ==
[2022-03-09] VITALS (7 sets, daily range): BP systolic 130–139; BP diastolic 66–87; PULSE 77–88; RESP 14–18; TEMP 36.6–37.1; O2SAT 95–98; BMI 22.4; BMI 20.5
--- NOTE | 2022-03-09 10:46 | EDS_ITS ---
HPI History of Present Illness Chief Complaint: Nausea/Vomiting/Diarrhea Informant: patient Onset/Context/Timing Onset: Days (3 days) Context: Gradual Onset Current Severity: Moderate Maximum Severity: Moderate Narrative Narrative: Patient presents with 3-day history of nausea, vomiting, diarrhea. He has a history of oropharyngeal cancer. He has a PEG tube that was placed around the first of the year. He states since that time has had 3 different episodes where he gets nausea, vomiting, and diarrhea. This particular episode started 3 days ago. He states he will get sweaty but has not noticed a fever. [facility] Medical History Multiple pigmented nevi Oropharyngeal cancer Right shoulder pain Home Medications ondansetron HCl 4 mg tablet 4 mg PO Q8H PRN nausea and vomiting #30 tabs 10/25/21 [Rx Last Taken Unknown] oxycodone 20 mg/mL oral concentrate 20 mg PO DAILY pain 11/03/21 [History Last Taken Unknown] silver sulfadiazine 1 % topical cream (Silvadene) 1 applic topical TID desquamation #85 grams 11/08/21 [Rx Last Taken Unknown] oxycodone 5 mg/5 mL oral solution 10 mg PO Q4H PRN Pain 12/16/21 [History Last Taken Unknown] sennosides 8.8 mg/5 mL oral syrup (senna) 10 ml PO QHS PRN stool 01/11/22 [History Last Taken Unknown] sertraline 50 mg tablet 1 tab feeding tube DAILY 03/09/22 [History Last Taken Unknown] Allergy/AdvReac Type Severity Reaction Status Date / Time No Known Allergies Allergy Verified 03/09/22 10:31 Family History Father Cancer LUNG Brother Cancer ESOPHAGEAL Surgical History Status post reconstruction procedure Social History Smoking Status: Former smoker Tobacco: How many years used: 30 do you feel safe at home: Yes ROS ROS ED Constitutional Constitutional ED: Reports sweats; Denies chills or fever(s) Eyes Eyes: Denies change in vision or discharge from eye(s) ENT ENT ED: Denies discharge from eye(s), rhinorrhea or sore throat Cardiovascular Cardiovascular: Denies chest pain or palpitations Respiratory/Chest Respiratory/Chest: Reports cough; Denies dyspnea Gastrointestinal Gastrointestinal: Reports abdominal pain, diarrhea, nausea and vomiting Genitourinary Genitourinary ED: Denies difficulty urinating or dysuria Musculoskeletal Musculoskeletal: Denies back pain or extremity pain Integumentary Denies Abrasions or rash Neurologic Neurologic: Reports weakness; Denies headache(s) Psychiatric Psychiatric: Denies anxiety or depression Allergic/Immunologic Allergic/Immunologic ED: Denies lip swelling or urticaria EXAM Physical Exam Const Vital Signs: 03/09/22 10:31 03/09/22 12:38 Temperature 98.6 F Temperature Source Temporal Pulse Rate 85 88 Respiratory Rate 16 16 Blood Pressure 131/85 H 137/79 H Blood Pressure Mean 100 98 Pulse Ox 97 98 Oxygen Delivery Method Room Air Room Air Positive well nourished and well developed General Appearance ED: well developed HEENT Reports normocephalic and head/scalp atraumatic Eyes PERRL and EOMs intact bilaterally Neck supple Chest Wall inspection of chest normal and palpation of chest normal Resp normal respiratory effort and clear to auscultation bilaterally Cardio regular rate and regular rhythm GI non-tender Auscultation: hypoactive bowel sounds Palpation: soft Extremity normal to inspection Neuro oriented x3 and no sensory deficits noted Sensorium / Orientation: alert Motor Exam: strength 5/5 throughout Psych mental status grossly normal Skin no rashes or lesions noted MDM MDM MDM Narrative Medical decision making narrative: Patient was given IV fluids along with Reglan and Benadryl. Lab work obtained. Lab Data Attestation: I reviewed the patient's lab results. Labs: Laboratory Results - last 24 hr 03/09/22 03/09/22 10:52 10:52 WBC 6.9 RBC 4.63 Hgb 14.4 Hct 41.9 MCV 90.5 MCH 31.1 MCHC 34.4 RDW Std Deviation 41.5 RDW Coeff of Jose 12.8 Plt Count 206 MPV 9.3 Immature Gran % (Auto) 0.300 Neut % (Auto) 82.4 H Lymph % (Auto) 9.8 L [place] % (Auto) 7.4 Eos % (Auto) 0.0 Baso % (Auto) 0.1 Absolute Neuts (auto) 5.7 Absolute Lymphs (auto) 0.67 L Nucleated RBC % 0 Sodium 143 Potassium 3.1 L Chloride 107 Carbon Dioxide 27.0 Anion Gap 9 BUN 23 H Creatinine 1.04 Estim Creat Clear Calc 84.96 Est GFR (MDRD) Af Amer 95 Est GFR (MDRD) Non-Af 79 BUN/Creatinine Ratio 22.1 H Glucose 129 H Calcium 10.3 H Total Bilirubin 0.70 Direct Bilirubin 0.18 AST 14 L ALT 29 Alkaline Phosphatase 50 Total Protein 8.1 Albumin 4.1 Globulin 4.0 Lipase 53 L Treatment and Re-Evaluation Narrative: CBC is unremarkable. Chemistry studies significant for potassium of 3.1. BUN is slightly elevated at 23. LFTs and lipase normal. On repeat evaluation patient resting comfortably and does feel somewhat improved after the Reglan. IV potassium replacement is initiated. We had decided to give patient a fluid challenge through his PEG tube to see if he could tolerate feeds at home. Before this could even be done patient began vomiting again. At this time he will be given a dose of Zofran and also with hospitalist regarding admission. Discharge Plan Triage Chief Complaint: Nausea/Vomiting/Diarrhea ED Provider: Caty Blakely Dx/Rx/DC Orders Clinical Impression: Vomiting, Hypokalemia Prescriptions: No Action oxycodone 5 mg/5 mL solution 10 mg PO Q4H PRN (Reason: Pain) oxycodone 20 mg/mL concentrate 20 mg PO DAILY sennosides [senna] 8.8 mg/5 mL syrup 10 ml PO QHS PRN (Reason: stool) sertraline 50 mg tablet 1 tab feeding tube DAILY Label Comments: TAKE 1 TABLET BY MOUTH DAILY 03/01/22 ondansetron HCl 4 mg tablet 4 mg PO Q8H PRN (Reason: nausea and vomiting) Qty: 30 0RF Rx Instructions: take one tab PO prior to radiation treatment silver sulfadiazine [Silvadene] 1 % cream 1 applic topical TID Qty: 85 2RF Rx Instructions: apply a 1.5 mm thickness of areas of peeling Primary Care Provider: Shailesh Jennings Referrals: Shailesh Jennings DO [Primary Care Provider] - Disposition Disposition: [facility]
[2022-03-09] MEDS: 0.9% Normal Saline 1,000 ML 1000 ML IV (10:53)
[2022-03-09] MEDS: DiphenhydrAMINE 50 MG/ML Syringe 12.5 MG IV (10:53)
[2022-03-09] MEDS: Metoclopramide 10 MG/2 ML Vial IV (10:54)
[2022-03-09 10:59] LABS: Absolute Lymphocyte Count 0.67 X10^3/uL (0.83-4.51); Absolute Neutrophil Count 5.7 X10^3/uL (2.0-7.7); Basophil# 0.01 X10^3/uL; Basophil% 0.1 % (0-1); Hematocrit 41.9 % (40-54); Hemoglobin 14.4 g/dL (13.0-16.5); Lymphocyte # 0.67 X10^3/ul (0.83-4.51); Lymphocyte % 9.8 % (19-41); Mean Corp Hgb Conc 34.4 g/dL (32-36); Mean Corpuscular Hgb 31.1 pg (27.0-32.0); Mean Corpuscular Volume 90.5 fL (80-94); Mean Platelet Vol. 9.3 fl (6.2-12.0); Monocyte# 0.51 X10^3/uL; Monocyte% 7.4 % (0-10); NRBC Flagged by Analyzer 0 % (0-5); Neutrophil # 5.66 X10^3/uL (2.7-7.7); Neutrophil % 82.4 % (47-70); Platelet Count 206 K/mm3 (150-450); RBC Distribution Width CV 12.8 % (11.6-14.6); RBC Distribution Width SD 41.5 fl (35.1-43.9); Red Blood Count 4.63 M/mm3 (4.6-6.2); White Blood Count 6.9 K/mm3 (4.4-11.0)
[2022-03-09 11:13] LABS: AST(SGOT) 14 U/L (15-37); Alanine Aminotransfer ALT/SGPT 29 U/L (16-61); Albumin, Serum 4.1 g/dL (3.2-5.0); Alkaline Phosphatase 50 U/L (45-117); Anion Gap 9 (5-15); BUN 23 mg/dL (7-18); BUN/Creat Ratio 22.1 RATIO (10-20); Bilirubin, Direct 0.18 mg/dL (0.00-0.30); Calcium,Total 10.3 mg/dL (8.5-10.1); Chloride 107 mmol/L (98-107); Creatinine, Serum 1.04 mg/dL (0.70-1.30); EST Glomerular Filtration Rate 79 mL/min (>60); Est Glom Filt Rate - Afr Amer 95 mL/min (>60); Estimated Creatinine Clearance 84.96 ml/min; Glucose 129 mg/dL (74-106); Lipase 53 U/L (73-393); Potassium 3.1 mmol/L (3.5-5.1); Protein, Total 8.1 g/dL (6.4-8.2); Sodium Level 143 mmol/L (136-145)
[2022-03-09] MEDS: Potassium Chloride 10mEq/100mL 10 MEQ/100 ML IV.SOLN. 100 MEQ IV BOLUS ×2 (11:57→15:33)
[2022-03-09] MEDS: Potassium Chloride 10mEq/100mL 10 MEQ/100 ML IV.SOLN. 75 MEQ IV BOLUS ×2 (13:08→14:17)
[2022-03-09] MEDS: Ondansetron 4 MG/2 ML Vial IV (14:31)
[2022-03-09] MEDS: 0.9% Normal Saline 1,000 ML 150 ML IV (14:33)
--- NOTE | 2022-03-09 14:35 | NURSING ---
MED SURG OBS BOB VOMITING, HYPOKALEMIA
--- NOTE | 2022-03-09 14:43 | ED.RN ---
PT HAS 100 ML OF EMESIS AT THIS TIME. COLOR NOT OBSERVED BY THIS RN.
--- NOTE | 2022-03-09 14:44 | NURSING ---
DR ROJAS IN ER
--- NOTE | 2022-03-09 14:55 | PCM.HP.STD ---
HPI - General General Date of Admission: 03/09/22 Date of Service: 03/09/22 Chief Complaint: Nausea and vomiting HPI Narrative ORTEGA DUKES, is a 56 M who presented to the emergency department [facility] on 03/09/2022 with intractable nausea and vomiting that has been ongoing for approximately 3 days. The patient has a history of oropharyngeal cancer and has had chemo and radiation to the site as well as surgery. He has had 4 episodes now of this intractable nausea and vomiting since his PEG tube was placed at the end of July. He states typically these episodes last approximately 2 days and then they resolve. He recently followed up with gastroenterology in mid December for similar issues and it was felt that his nausea vomiting is multifactorial and they recommended an dilation of his upper GI tract with an EGD as there is significant concerns for oropharyngeal and esophageal strictures related to his radiation. He denies any concomitant fever or chills, hematemesis, coffee-ground emesis, melena or hematochezia. He reports diarrhea but only reports 2 loose stools daily and states he typically has 1 bowel movement daily. He indicates the vomitus has been blue but he is not taking any blue medications and he was most concerned about the color of the emesis and that is why presented to the emergency department today. He typically takes tube feed 7 boxes daily but indicated he would like to talk to the dietitian about possibly increasing to 8 boxes a day. He states he had been on a boxes and increased his weight some and felt like he had more energy. He does not report any ongoing weight loss at this time. He has had no sick contacts and had no abdominal pain. He indicates otherwise he has been feeling fine. Vital signs in the emergency department showed a temperature of 98.6, heart rate of 85, blood pressure 131/85, respiratory rate of 16, and a oxygen saturation 97% on room air. His CBC was unremarkable. His chemistry panel showed mild hypokalemia with potassium of 3.1, a slightly elevated BUN and creatinine however I have no baseline lab work to compare it to. His lipase is unremarkable. In the emergency department the patient was given Reglan and appeared to be improved with regards to his nausea and vomiting and IV potassium replacement was initiated. They attempted to give a fluid challenge through his PEG to see if he can tolerate feeds at home in preparation for discharge however before this could even be initiated he began vomiting again. Given the fact he is in been unable to keep down nutrition and fluids request for admission was made. [facility] Medical History (Updated 03/09/22 @ 15:[address] 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 Oropharyngeal cancer Radiation dermatitis Right shoulder pain Home Medications ondansetron HCl 4 mg tablet 4 mg PO Q8H PRN nausea and vomiting #30 tabs 10/25/21 [Rx Last Taken 03/07/22] oxycodone 5 mg/5 mL oral solution 100 mg PO Q4H PRN Pain 12/16/21 [History Last Taken 03/07/22] sennosides 8.8 mg/5 mL oral syrup (senna) 10 ml PO BID 01/11/22 [History Last Taken 03/07/22] gabapentin 250 mg/5 mL oral solution 6 ml feeding tube TID nerve pain 03/09/22 [History Last Taken 03/04/22] sertraline 50 mg tablet 1 tab feeding tube DAILY 03/09/22 [History Last Taken 03/07/22] Allergy/AdvReac Type Severity Reaction Status Date / Time No Known Allergies Allergy Verified 03/09/22 10:31 Family History Father Cancer LUNG Brother Cancer ESOPHAGEAL Surgical History Status post reconstruction procedure Social History (Updated 03/09/22 @ 15:[address] Carmina Milligan DO) Smoking Status: Former smoker Tobacco: How many years used: 30 substance use type: does not use do you feel safe at home: Yes ROS Constitutional Constitutional: Denies anorexia, change in weight, chills, fatigue, fever(s), malaise, night sweats, weakness or other Eyes Eyes: Denies blurry vision, change in eye color, change in vision, discharge from eye(s), double vision, erythema, eye pain, loss of vision or other ENT HEENT: Denies abnormal hearing, dysphagia, ear pain, epistaxis, headache(s), hearing loss, nasal congestion, nasal discharge, post nasal drip, sinus pressure, sore throat or other Cardiovascular Cardiovascular: Denies chest pain, claudication, dyspnea on exertion, edema, lightheadedness, orthopnea, palpitations, paroxysmal nocturnal dyspnea, rapid heart rate, syncope or other Respiratory/Chest Respiratory/Chest: Denies cough, dyspnea, excessive phlegm production, hemoptysis, productive cough, shortness of breath at rest, shortness of breath with exertion, wheezing or other Gastrointestinal Gastrointestinal: Reports loose stools, nausea and vomiting; Denies abdominal pain, coffee ground emesis, constipation, diarrhea, dyspepsia, hematemesis, hematochezia, melena or other Genitourinary Genitourinary: Denies burning urination, difficulty urinating, dysuria, hematuria, nocturia, urinary frequency, urinary hesitancy, urinary incontinence, urinary urgency or other Musculoskeletal Musculoskeletal: Denies arthralgias, back pain, joint pain, joint stiffness, joint swelling, myalgias, neck pain or other Neurologic Neurologic: Denies abnormal gait, abnormal speech, confusion, disequilibrium, dizziness, focal weakness, headache(s), numbness, paresthesias, seizure-like activity, seizures, syncope, tingling, tremor(s) or other Psychiatric Psychiatric: Denies anxiety, depression, homicidal ideation, suicidal ideation or other Endocrine Endocrinology: Denies change in body appearance, cold intolerance, excessive sweating, heat intolerance, polydipsia, polyuria or other Hematologic/Lymphatic Hematologic/Lymphatic: Denies anemia, easy bleeding, easy bruising, lymphadenopathy or other Allergic/Immunologic Allergic/Immunologic: Denies rhinitis, hives, eczemia, asthma or other Vital Signs Vital Signs Vital Signs: 03/09/22 10:31 03/09/22 12:38 03/09/22 14:00 Temperature 98.6 F Temperature Source Temporal Pulse Rate 85 88 80 Respiratory Rate 16 16 14 Blood Pressure 131/85 H 137/79 H 130/66 H Blood Pressure Mean 100 98 87 Pulse Ox 97 98 95 Oxygen Delivery Method Room Air Room Air Room Air Weight Weight: 74.843 kg Body Mass Index (BMI) 22.4 Physical Exam Const alert, oriented x3, no apparent distress and average body habitus Constitutional Narrative: Normal weight, middle-aged white male sitting up in bed, appears comfortable nontoxic, appears older than stated age General Appearance: cooperative HEENT normocephalic, head/scalp atraumatic and hearing grossly normal bilaterally HEENT Narrative: Mucous membranes seem to have excessive saliva, tongue mobility is diminished secondary to resection, no drooling, speech is abnormal, Mallampati is 2, no thrush, patient is a dentulous Eyes PERRL, EOMs intact bilaterally and conjunctivae normal Neck no lymphadenopathy, supple and no JVD Neck Narrative: Trachea midline, no thyroid enlargement Resp normal respiratory effort, no retractions, no use of accessory muscles and clear to auscultation bilaterally Resp Narrative: Diffusely diminished but clear Auscultation: Negative for crackles, rales, rhonchi or wheezes Cardio regular rate, regular rhythm, S1 normal heart sound, S2 normal heart sound, no murmurs, no rub, no gallops, no clicks and no JVD GI normal to inspection, nondistended, normoactive bowel sounds, soft to palpation, non-tender and non-distended GI Narrative: Tube in place left upper quadrant-no significant erythema or drainage, no signs of infection Extremity no clubbing, cyanosis or edema Neuro oriented x3, CN's II-XII intact bilaterally, moves all extremities and no focal motor deficits Sensorium / Orientation: awake, alert, oriented to person, oriented to place and oriented to time Speech: speech normal Psych affect normal Results Lab / Micro Data Result Diagrams: 03/09/22 10:52 03/09/22 10:52 Labs: Laboratory Results - last 24 hr 03/09/22 10:52: WBC 6.9, RBC 4.63, Hgb 14.4, Hct 41.9, MCV 90.5, MCH 31.1, MCHC 34.4, RDW Std Deviation 41.5, RDW Coeff of Jose 12.8, Plt Count 206, MPV 9.3, Immature Gran % (Auto) 0.300, Neut % (Auto) 82.4 H, Lymph % (Auto) 9.8 L, Charlton % (Auto) 7.4, Eos % (Auto) 0.0, Baso % (Auto) 0.1, Absolute Neuts (auto) 5.7, Absolute Lymphs (auto) 0.67 L, Nucleated RBC % 0 03/09/22 10:52: Sodium 143, Potassium 3.1 L, Chloride 107, Carbon Dioxide 27.0, Anion Gap 9, BUN 23 H, Creatinine 1.04, Estim Creat Clear Calc 84.96, Est GFR (MDRD) Af Amer 95, Est GFR (MDRD) Non-Af 79, BUN/Creatinine Ratio 22.1 H, Glucose 129 H, Calcium 10.3 H, Total Bilirubin 0.70, Direct Bilirubin 0.18, AST 14 L, ALT 29, Alkaline Phosphatase 50, Total Protein 8.1, Albumin 4.1, Globulin 4.0, Lipase 53 L Assessment & Plan Assessment/Plan (1) Hypokalemia: (2) Dysphagia: (3) Nausea: (4) Vomiting: (5) Dehydration: PLAN: Plan Intractable nausea and vomiting -Recurrent with probably 4 episodes since initiation of PEG tube at the end of July -Has been evaluated by GI and suspicion is for esophageal stricture -Check CT of the abdomen and pelvis with oral and IV contrast -IM Haldol as needed for nausea vomiting -IV fluids at 75 cc/h -We will consult GI for EGD to be performed hopefully tomorrow morning Hypokalemia -Patient was given 40 mill equivalents IV potassium in the emergency department -Repeat lab in a.m. -Check a.m. magnesium level Dehydration -BUN is up slightly however baseline BUN and creatinine are unclear as we have no previous lab -We will hydrate with IV fluids at 75 cc/h -Recheck CMP in a.m. Dysphagia -Patient has been working with speech therapy as an outpatient -Would continue outpatient speech therapy after discharge Chronic pain -Hold oral pain medication -IV as needed pain medication ordered History of oropharyngeal cancer -Patient currently at tube feed dependent -Working with speech therapy to increase oral intake and improve dysphagia -Consult dietitian as patient would like to discuss increasing amount of tube feed that he is currently on from 7 to 8 boxes daily Depression -Continue sertraline DVT prophylaxis -Lovenox CODE STATUS -Full code Charges/Coding Visit Charges Inpatient E&M: 59853 Init Hosp L3
[2022-03-09] MEDS: Haloperidol Lactate 5 MG/ML Vial 2 MG IV (14:57)
--- NOTE | 2022-03-09 15:40 | ED.RN ---
PER PT REQUEST CAREGIVER/FRIEND MUSA CALLED TO UPDATE ON ADMISSION.
[2022-03-09] MEDS: Lactated Ringers 1,000 ML 75 ML IV (17:02)
--- NOTE | 2022-03-09 17:06 | CT_ITS ---
STUDY: CT ABDOMEN AND PELVIS WITH CONTRAST REASON FOR EXAM: Male, 56 years old. intractable nausea and vomiting -- give contrast via PEG RADIATION DOSAGE (If Supplied By Facility): CTDIvol = ( 13.77 ) mGy, DLP = ( 931.17 ) mGycm TECHNIQUE: Transaxial images were obtained from the dome of the diaphragm to the symphysis pubis with oral contrast. Oral and amp; IV Gastrografin and amp; 100mL Isovue-300 was administered. Sagittal and coronal images were reconstructed. Individualized dose optimization techniques were used for this CT. COMPARISON: None. FINDINGS: The visualized lung bases are unremarkable. The visualized portions of the heart are within normal limits. Normal liver. Normal gallbladder and extrahepatic biliary system. Normal spleen. Normal pancreas. Normal bilateral adrenal glands. Normal right kidney. Normal left kidney. Percutaneous gastrostomy tube. Normal small intestine. Normal colon. The appendix is visualized and appears normal. Normal abdominal aorta. Normal inferior vena cava. Normal retroperitoneum. Normal urinary bladder. There is a small umbilical hernia containing fat. Normal osseous structures. CT/Abdomen/Pelvis WITH Contrast IMPRESSION: No acute abnormality. Electronically Signed: Esteban Dietrich MD at 17:27 EDT ,
--- NOTE | 2022-03-09 17:45 | CON.PCM_ITS ---
Assessment & Plan Assessment/Plan (1) Dysphagia: PLAN: The differential diagnosis for esophageal dysphagia and does include stricture secondary to radiation therapy, mucositis, La esophagitis, erosive esophagitis, esophageal ring or esophageal web. He should undergo an upper endoscopy with possible esophageal dilation. Would recommend to put him on a PPI drip while he is in the hospital we will start that. (2) Vomiting: PLAN: His vomiting sounds as if he has possibly a buried bumper syndrome from the PEG tube that was placed versus an outlet obstruction from the PEG tube that can obstruct the pyloric sphincter versus an acute gastroenteritis associated with gastroparesis from inability of the stomach to contract properly secondary to a functional PEG tube. He is feeling a little bit better. We can try to give him tube feedings and if he cannot tolerate it and he ends up having more vomiting then we can place his PEG tube to lower intermittent suction. HPI Consult Data Date of Consult: 03/09/22 HPI Narrative Reason for Consultation: dysphagia/nausea and vomiting HPI Narrative: ORTEGA DUKES, is a 56 M who presents 3-day history of nausea, vomiting, diarrhea.? He has a history of oropharyngeal cancer. He established with this clinic 02.23.22 with referral from PCP for evaluation of recurrent morning nausea with periodic emesis every 7-10 days and lasting for a day with a history of oropharyngeal cancer seen on 08.05.21 scan with ED presentation 08.18.21 r/t significant discomfort and inability to swallow with a feeding tube in place and history of tracheostomy. Some antiemetics utilized with effectiveness. Declined CT scan with PCP. Since surgery he has been having difficulty swallowing; continues with ST. Reports very thick saliva with an increase in quantity in the morning; also feels there is something causing him to gag in the morning. Zofran prescribed; unsure if it is helpful but did have increase symptoms when he was out of the medication. 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 Radiation treatments 10.07.21-11.17.21 with feeding tube placed with all of his nutrition through this; formula Isosource 1.5 2 boxes breakfast, lunch, dinner with additional 1box 10PM and 2AM. No chemotherapy. His weight initially was reduced during cancer treatment. 165lbs is his normal weight, reduce to 133lbs and is now back to 156lbs. Smoker for 30 years. History of drinking 6 beers a day until 08.16.21. Depression (Zoloft 50mg). 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 Oropharyngeal cancer Radiation dermatitis Right shoulder pain Home Medications ondansetron HCl 4 mg tablet 4 mg PO Q8H PRN nausea and vomiting #30 tabs 10/25/21 [Rx Last Taken 03/07/22] oxycodone 5 mg/5 mL oral solution 20 mg PO Q4H PRN Pain 12/16/21 [History Last Taken 03/07/22] sennosides 8.8 mg/5 mL oral syrup (senna) 10 ml PO BID 01/11/22 [History Last Taken 03/07/22] gabapentin 250 mg/5 mL oral solution 6 ml feeding tube TID nerve pain 03/09/22 [History Last Taken 03/04/22] sertraline 50 mg tablet 1 tab feeding tube DAILY 03/09/22 [History Last Taken 03/07/22] Allergy/AdvReac Type Severity Reaction Status Date / Time No Known Allergies Allergy Verified 03/09/22 10:31 Family History Father Cancer LUNG Brother Cancer ESOPHAGEAL Surgical History Status post reconstruction procedure Social History (Updated 03/09/22 @ 15:[address] Carmina Milligan DO) Smoking Status: Former smoker Tobacco: How many years used: 30 substance use type: does not use do you feel safe at home: Yes ROS Constitutional Constitutional: Denies anorexia, change in weight, chills, fatigue, fever(s), malaise, night sweats, weakness or other Eyes Eyes: Denies blurry vision, change in eye color, change in vision, discharge from eye(s), double vision, erythema, eye pain, loss of vision or other ENT HEENT: Denies abnormal hearing, dysphagia, ear pain, epistaxis, headache(s), hearing loss, nasal congestion, nasal discharge, post nasal drip, sinus pressure, sore throat or other Cardiovascular Cardiovascular: Denies chest pain, claudication, dyspnea on exertion, edema, lightheadedness, orthopnea, palpitations, paroxysmal nocturnal dyspnea, rapid heart rate, syncope or other Respiratory/Chest Respiratory/Chest: Denies cough, dyspnea, excessive phlegm production, hemoptysis, productive cough, shortness of breath at rest, shortness of breath with exertion, wheezing or other Gastrointestinal Gastrointestinal: Reports loose stools, nausea and vomiting; Denies abdominal pain, coffee ground emesis, constipation, diarrhea, dyspepsia, hematemesis, hematochezia, melena or other Genitourinary Genitourinary: Denies burning urination, difficulty urinating, dysuria, hematuria, nocturia, urinary frequency, urinary hesitancy, urinary incontinence, urinary urgency or other Musculoskeletal Musculoskeletal: Denies arthralgias, back pain, joint pain, joint stiffness, joint swelling, myalgias, neck pain or other Neurologic Neurologic: Denies abnormal gait, abnormal speech, confusion, disequilibrium, dizziness, focal weakness, headache(s), numbness, paresthesias, seizure-like activity, seizures, syncope, tingling, tremor(s) or other Psychiatric Psychiatric: Denies anxiety, depression, homicidal ideation, suicidal ideation or other Endocrine Endocrinology: Denies change in body appearance, cold intolerance, excessive sweating, heat intolerance, polydipsia, polyuria or other Hematologic/Lymphatic Hematologic/Lymphatic: Denies anemia, easy bleeding, easy bruising, lymphad enopathy or other Allergic/Immunologic Allergic/Immunologic: Denies rhinitis, hives, eczemia, asthma or other Physical Exam Const alert, oriented x3, no apparent distress and average body habitus Constitutional Narrative: Normal weight, middle-aged white male sitting up in bed, appears comfortable nontoxic, appears older than stated age General Appearance: cooperative HEENT normocephalic, head/scalp atraumatic and hearing grossly normal bilaterally HEENT Narrative: Mucous membranes seem to have excessive saliva, tongue mobility is diminished secondary to resection, no drooling, speech is abnormal, Mallampati is 2, no thrush, patient is a dentulous Eyes PERRL, EOMs intact bilaterally and conjunctivae normal Neck no lymphadenopathy, supple and no JVD Neck Narrative: Trachea midline, no thyroid enlargement Resp normal respiratory effort, no retractions, no use of accessory muscles and clear to auscultation bilaterally Resp Narrative: Diffusely diminished but clear Auscultation: Negative for crackles, rales, rhonchi or wheezes Cardio regular rate, regular rhythm, S1 normal heart sound, S2 normal heart sound, no murmurs, no rub, no gallops, no clicks and no JVD GI normal to inspection, nondistended, normoactive bowel sounds, soft to palpation, non-tender and non-distended GI Narrative: Tube in place left upper quadrant-no significant erythema or drainage, no signs of infection Extremity no clubbing, cyanosis or edema Neuro oriented x3, CN's II-XII intact bilaterally, moves all extremities and no focal motor deficits Sensorium / Orientation: awake, alert, oriented to person, oriented to place and oriented to time Speech: speech normal Psych affect normal Lab / Micro Data Result Diagrams: 03/09/22 10:52 03/09/22 10:52 Labs: Laboratory Results - last 24 hr 03/09/22 10:52: WBC 6.9, RBC 4.63, Hgb 14.4, Hct 41.9, MCV 90.5, MCH 31.1, MCHC 34.4, RDW Std Deviation 41.5, RDW Coeff of Jose 12.8, Plt Count 206, MPV 9.3, Immature Gran % (Auto) 0.300, Neut % (Auto) 82.4 H, Lymph % (Auto) 9.8 L, [place]clennan % (Auto) 7.4, Eos % (Auto) 0.0, Baso % (Auto) 0.1, Absolute Neuts (auto) 5.7, Absolute Lymphs (auto) 0.67 L, Nucleated RBC % 0 03/09/22 10:52: Sodium 143, Potassium 3.1 L, Chloride 107, Carbon Dioxide 27.0, Anion Gap 9, BUN 23 H, Creatinine 1.04, Estim Creat Clear Calc 84.96, Est GFR (MDRD) Af Amer 95, Est GFR (MDRD) Non-Af 79, BUN/Creatinine Ratio 22.1 H, Glucose 129 H, Calcium 10.3 H, Total Bilirubin 0.70, Direct Bilirubin 0.18, AST 14 L, ALT 29, Alkaline Phosphatase 50, Total Protein 8.1, Albumin 4.1, Globulin 4.0, Lipase 53 L Radiology Impression Abdomen/Pelvis CT 03/09/22 17:06 IMPRESSION: No acute abnormality. Electronically Signed: Esteban Dietrich MD at 17:27 EDT , Charges/Coding Visit Charges Inpatient E&M: 46272 Init Hosp L3
[2022-03-09] MEDS: Ensure Clear 120 ML Liquid GT ×2 (18:45→23:53)
[2022-03-09] MEDS: HYDROmorphone 1 MG/ML Syringe IV (20:40)
[2022-03-09] MEDS: Silver Sulfadiazine 1% Crm 50 gm Bottle 1 APPLIC TOPICAL (21:44)
[2022-03-09] MEDS: Gabapentin 300 MG Capsule GT (23:07)
[2022-03-09] MEDS: oxyCODONE Soln 5 MG/0.25 ML PO.SYRINGE 20 MG GT (23:08)
[2022-03-10] VITALS (9 sets, daily range): BP systolic 111–142; BP diastolic 64–87; PULSE 57–92; RESP 16–18; TEMP 36.4–37.6; O2SAT 93–98
--- NOTE | 2022-03-10 | IMM_PTH ---
PATIENT: ORTEGA DUKES LOC: MS3 U#:[id number] AGE/SX: 56/M ROOM: [facility] [place] RE03/09/[address]: Dr. Carmina Milligan DO : 1965 BED: 1 DIS: 03/11/2022 SPEC #: [id number] RECD: 03/11/22 11:28 STATUS: SOILA REQ #: [id number] KAILASH: 03/10/22 00:[address]: Yossi Hartmann DEPT: IMMUNOHISTOCHEMISTRY RECD BY: Patty Prado ENTERED: 03/11/22 11:31 SP TYPE: IMMUNO OTHR DR: DO Dr. Carmina Caldera DO Tissues: Esophageal mucous membrane Procedures: p16 (initial) KI-67 (add) PHYSICIAN & INSTITUTION [place] [id number] SPECIMEN INFORMATION: Tissue Source: Mid esophagus biopsy Clinical Info: Dysphagia, vomiting Specimen Number: [id number] CPT code: 39854, 02763 METHODOLOGY: Deparaffinized sections of prefer/formalin-fixed tissue or PAP/DQ stained slides are incubated with monoclonal/polyclonal antibodies/oligonucleotide probes. Localization is made via biotin free immunoperoxidase method. Appropriate controls are performed and reacted as expected. Results on target cell population are indicated in the following table: RESULTS: ANTIBODY / CLONE RESULT P16 (E6H4) positive, rare Ki-67 (30-9) positive, 70% These tests were developed and their performance characteristics determined by [facility]. They may not have been cleared or approved by the U.S. Food and Drug Administration. The FDA has determined that such clearance or approval is not necessary. The above immunohistochemical/dualISH markers are ordered and reviewed by the Pathologist. INTERPRETATION: Mid esophagus, biopsy: Squamous cell carcinoma. AM:zahraa 03/14/2022
[2022-03-10] MEDS: Silver Sulfadiazine 1% Crm 50 gm Bottle 1 APPLIC TOPICAL ×2 (04:04→16:04)
[2022-03-10] MEDS: Lactated Ringers 1,000 ML 75 ML IV ×2 (04:04→20:55)
[2022-03-10 04:44] LABS: Absolute Lymphocyte Count 1.29 X10^3/uL (0.83-4.51); Absolute Neutrophil Count 3.4 X10^3/uL (2.0-7.7); Basophil# 0.02 X10^3/uL; Basophil% 0.4 % (0-1); Eosinophil# 0.02 X10^3/uL; Eosinophils% 0.4 % (0-5); Hemoglobin 12.5 g/dL (13.0-16.5); Lymphocyte # 1.29 X10^3/ul (0.83-4.51); Lymphocyte % 24.2 % (19-41); Mean Corp Hgb Conc 33.8 g/dL (32-36); Mean Corpuscular Hgb 30.5 pg (27.0-32.0); Mean Corpuscular Volume 90.2 fL (80-94); Mean Platelet Vol. 9.6 fl (6.2-12.0); Monocyte# 0.63 X10^3/uL; Monocyte% 11.8 % (0-10); NRBC Flagged by Analyzer 0 % (0-5); Neutrophil # 3.36 X10^3/uL (2.7-7.7); Platelet Count 172 K/mm3 (150-450); RBC Distribution Width CV 12.5 % (11.6-14.6); RBC Distribution Width SD 40.8 fl (35.1-43.9); White Blood Count 5.3 K/mm3 (4.4-11.0)
[2022-03-10 05:36] LABS: AST(SGOT) 14 U/L (15-37); Alanine Aminotransfer ALT/SGPT 25 U/L (16-61); Albumin, Serum 3.2 g/dL (3.2-5.0); Alkaline Phosphatase 40 U/L (45-117); Anion Gap 5 (5-15); BUN 17 mg/dL (7-18); BUN/Creat Ratio 27.7 RATIO (10-20); Calcium,Total 8.8 mg/dL (8.5-10.1); Chloride 108 mmol/L (98-107); Creatinine, Serum 0.61 mg/dL (0.70-1.30); EST Glomerular Filtration Rate 145 mL/min (>60); Est Glom Filt Rate - Afr Amer 175 mL/min (>60); Estimated Creatinine Clearance 132.96 ml/min; Globulin 3.2 g/dL (2.2-4.2); Glucose 80 mg/dL (74-106); Magnesium 1.8 mg/dL (1.6-2.6); Phosphorus 3.3 mg/dL (2.5-4.9); Protein, Total 6.4 g/dL (6.4-8.2); Sodium Level 141 mmol/L (136-145); Thyroid Stim Hormone (TSH) 3.77 uIU/mL (0.358-3.74)
--- NOTE | 2022-03-10 06:00 | EKG12_ITS ---
Test Reason : PRE-OP Blood Pressure : / mmHG Vent. Rate : 073 BPM Atrial Rate : 073 BPM P-R Int : 138 ms QRS Dur : 078 ms QT Int : 398 ms P-R-T Axes : 065 066 075 degrees QTc Int : 438 ms Normal sinus rhythm Nonspecific ST-T changes Abnormal ECG No previous ECGs available Confirmed by JOE FRAZIER, CELI ([id number]), newspaper managing editor BRITTANY JIN ([id number]) on 03/10/2022 1:34:04 PM Referred By: JAZZY Confirmed By:LAKISHA DIAZ MD
[2022-03-10] MEDS: Lactated Ringers 1,000 ML 15 ML IV (07:05)
--- NOTE | 2022-03-10 07:15 | EGD_PTH ---
PATIENT: ORTEGA DUKES LOC: MS3 U#:[id number] AGE/SX: 56/M ROOM: [facility] [place] [facility] [place] RE03/09/[address]: Dr. Carmina Milligan DO : 1965 BED: 1 DIS: 03/11/2022 SPEC #: [id number] RECD: 03/10/22 10:25 STATUS: SOILA REQ #: [id number] KAILASH: 03/10/22 07:[address]: Yossi Hartmann DEPT: SURGICAL PATHOLOGY RECD BY: Tiff Prieto ENTERED: 03/10/22 11:07 SP TYPE: EGD BIOPSY OTHR DR: DO Dr. 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 See comment. ALEXANDER:zahraa 03/11/2022 COMMENT Extensive ulceration is also noted. Results from immunohistochemistry ([id number]) for surrogate HPV marker (p16) will be reported separately. Case has been reviewed in consultation with Dr. Montes who concurs with the above diagnosis. IDC:AM MICROSCOPIC DESCRIPTION Slides are reviewed. GROSS DESCRIPTION Received in fixative is one container labeled with the patient's name and designated mid esophagus biopsy. The specimen consists of multiple irregular fragments of light soft tissue that in aggregate measure 1.5 x 0.5 x 0.1 cm. The specimen is totally submitted in one cassette. / ALEXANDER:zahraa 03/10/2022 TC:0 CPT: 82366
--- NOTE | 2022-03-10 07:53 | OP.EGD_ITS ---
Patient Name: Jaleel Esparza Procedure Date: 03/10/2022 7:12 AM Date of : 1965 Age: 56 Procedure: Upper GI endoscopy Indications: Dysphagia Providers: Yossi Hartmann DO Medicines: Monitored Anesthesia Care Patient Profile: This is a 56 year old male. Refer to note in patient chart for documentation of history and physical. Patient has symptoms of acute nausea and acute vomiting. Complications: No immediate complications. Procedure: Pre-Anesthesia Assessment: - Prior to the procedure, a History and Physical was performed, and patient medications and allergies were reviewed. The risks and benefits of the procedure and the sedation options and risks were discussed with the patient. All questions were answered and informed consent was obtained. Patient identification and proposed procedure were verified by the physician in the pre-procedure area. Mental Status Examination: alert and oriented. Airway Examination: normal oropharyngeal airway and neck mobility. Respiratory Examination: clear to auscultation. CV Examination: normal. Prophylactic Antibiotics: The patient does not require prophylactic antibiotics. Prior Anticoagulants: The patient has taken no previous anticoagulant or antiplatelet agents. After reviewing the risks and benefits, the patient was deemed in satisfactory condition to undergo the procedure. The anesthesia plan was to use moderate sedation / analgesia (conscious sedation). Immediately prior to administration of medications, the patient was re-assessed for adequacy to receive sedatives. The heart rate, respiratory rate, oxygen saturations, blood pressure, adequacy of pulmonary ventilation, and response to care were monitored throughout the procedure. The physical status of the patient was re-assessed after the procedure. After obtaining informed consent, the endoscope was passed under direct vision. Throughout the procedure, the patient's blood pressure, pulse, and oxygen saturations were monitored continuously. The gastroscope was introduced through the mouth, and advanced to the second part of duodenum. The upper GI endoscopy was accomplished without difficulty. The patient tolerated the procedure well. Scope In: 7:18:57 AM Scope Out: 7:43:04 AM Total Procedure Duration Time 0 hours 24 minutes 7 seconds Findings: The nasopharynx and oropharynx are abnormal. A large, ulcerating mass with bleeding and stigmata of recent bleeding was found in the middle third of the esophagus, 28 cm from the incisors. The mass was partially obstructing and partially circumferential (involving two thirds of the lumen circumference). Biopsies were taken with a cold forceps for histology. Verification of patient identification for the specimen was done. Estimated blood loss was minimal. Coagulation for hemostasis using argon plasma at 0.3 liters/minute and 25 arriaga was unsuccessful. Therefore HemoSplit was used in order to stop the bleeding successfully. The entire examined stomach was normal. Many non-bleeding superficial duodenal ulcers with no stigmata of bleeding were found in the entire duodenum. The largest lesion was 6 mm in largest dimension. There was evidence of an intact gastrostomy with a patent G-tube present in the gastric antrum. Impression: - The nasopharynx and oropharynx are abnormal. 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 Biopsied. Treatment not successful. Treated with argon plasma coagulation (APC). - Normal stomach. - Multiple non-bleeding duodenal ulcers with no stigmata of bleeding. - Intact gastrostomy with a patent G-tube present. Recommendation: - [facility] - NPO today. - Give Protonix (pantoprazole): initiate therapy with 80 mg IV bolus, then 8 mg/hr IV by continuous infusion today. - Administer an IV bolus of 50 micrograms of octreotide followed by an infusion of 50 micrograms per hour today. - The patient has taken no previous anticoagulant or antiplatelet agents. Procedure Code(s): --- Professional --- 34243, 59, Esophagogastroduodenoscopy, flexible, transoral; with control of bleeding, any method 62349, 51, Esophagogastroduodenoscopy, flexible, transoral; with biopsy, single or multiple CPT copyright 2017 [employer]. All rights reserved. The codes documented in this report are preliminary and upon professional fee coder review may be revised to meet current compliance requirements. Yossi Hartmann DO 03/10/2022 7:52:52 AM This report has been signed electronically. Number of Addenda: 1 Note Initiated On: 03/10/2022 7:12 AM Addendum Number: 1 Addendum Date: 06/01/2022 6:19:23 AM MAC was used as sedation for this procedure. Yossi Hartmann DO 06/01/2022 6:19:27 AM This report has been signed electronically.
--- NOTE | 2022-03-10 07:53 | OP.CCLET_ITS ---
06/01/2022 Shailesh Jennings Do Re : Upper GI endoscopy procedure for Jaleel Esparza Dear Michaela This procedure was performed on February. My impressions and recommendations are as follows: Impressions : - The nasopharynx and oropharynx are abnormal. 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 Biopsied. Treatment not successful. Treated with argon plasma coagulation (APC). - Normal stomach. - Multiple non-bleeding duodenal ulcers with no stigmata of bleeding. - Intact gastrostomy with a patent G-tube present. Recommendations : - [facility]. - NPO today. - Give Protonix (pantoprazole): initiate therapy with 80 mg IV bolus, then 8 mg/hr IV by continuous infusion today. - Administer an IV bolus of 50 micrograms of octreotide followed by an infusion of 50 micrograms per hour today. - The patient has taken no previous anticoagulant or antiplatelet agents. My findings are described in the full procedure note, which is enclosed. If I can be of further assistance, please feel free to contact me at . Sincerely, Yossi Hartmann DO 03/10/2022 7:52:52 AM This report has been signed electronically.
--- NOTE | 2022-03-10 08:27 | NURSING ---
Arrived back to room from [facility] at this time.
[2022-03-10] MEDS: 0.9% Saline Lock 10 ML Syringe IV ×4 (08:54→18:18)
[2022-03-10] MEDS: Sertraline 50 MG Tablet GT (08:56)
[2022-03-10] MEDS: Potassium Chloride Oral Soln 20 MEQ/15 ML UDC 60 MEQ GT (08:59)
--- NOTE | 2022-03-10 11:17 | PCM.PN.HOSP ---
Subjective Subjective Acute issues overnight. Patient tolerated clears Nikhil through his PEG tube last evening without any emesis. EGD done this morning and per discussion with Dr. Hartmann from gastroenterology the patient has a large mid esophageal mass that was friable and bleeding. Bleeding has stopped after intervention but is suspected this is likely going to be squamous cell carcinoma. Objective Data Objective Data Vital Signs: Vital Signs Temp Pulse Resp BP Pulse Ox O2 Del Method 99.1 F 76 18 132/66 H 93 Room Air 03/10/22 08:27 03/10/22 08:27 03/10/22 08:27 03/10/22 08:27 03/10/22 08:27 03/10/22 08:27 Oxygen Delivery Method Room Air Weight: 68.7 kg Body Mass Index (BMI) 20.5 Intake & Output: Intake and Output for Last 24 Hours 03/08/22 03/09/22 03/10/22 23:59 23:59 23:59 Intake Total 2926.25 / 2926.25 1926.50 / 1926.50 Balance 2926.25 / 2926.25 1926.50 / 1926.50 Lab / Micro Data Result Diagrams: 03/10/22 03:51 03/10/22 03:51 Labs: Laboratory Results - last 24 hr 03/10/22 03:51: WBC 5.3, RBC 4.10 L, Hgb 12.5 L, Hct 37.0 L, MCV 90.2, MCH 30.5, MCHC 33.8, RDW Std Deviation 40.8, RDW Coeff of Jose 12.5, Plt Count 172, MPV 9.6, Immature Gran % (Auto) 0.200, Neut % (Auto) 63.0, Lymph % (Auto) 24.2, Alcorn % (Auto) 11.8 H, Eos % (Auto) 0.4, Baso % (Auto) 0.4, Absolute Neuts (auto) 3.4, Absolute Lymphs (auto) 1.29, Nucleated RBC % 0 03/10/22 03:51: Sodium 141, Potassium 3.0 L, Chloride 108 H, Carbon Dioxide 28.0, Anion Gap 5, BUN 17, Creatinine 0.61 L, Estim Creat Clear Calc 132.96, Est GFR (MDRD) Af Amer 175, Est GFR (MDRD) Non-Af 145, BUN/Creatinine Ratio 27.7 H, Glucose 80, Calcium 8.8, Phosphorus 3.3, Magnesium 1.8, Total Bilirubin 0.70, AST 14 L, ALT 25, Alkaline Phosphatase 40 L, Total Protein 6.4, Albumin 3.2, Globulin 3.2, Albumin/Globulin Ratio 1.0, TSH 3.77 H Radiography Diagnostic Testing: Radiology Impression Abdomen/Pelvis CT 03/09/22 17:06 IMPRESSION: No acute abnormality. Electronically Signed: Esteban Dietrich MD at 17:27 EDT , Physical Exam Const alert, oriented x3, no apparent distress and average body habitus Constitutional Narrative: Normal weight, middle-aged white male sitting up in bed, nursing at bedside, patient is just returned from his EGD General Appearance: cooperative HEENT normocephalic, head/scalp atraumatic and hearing grossly normal bilaterally HEENT Narrative: Old trach site noted and well-healed, trachea midline, no lymphadenopathy receded Eyes PERRL, EOMs intact bilaterally and conjunctivae normal Neck no lymphadenopathy, supple and no JVD Neck Narrative: Trachea midline, no thyroid enlargement Resp normal respiratory effort, no retractions, no use of accessory muscles and clear to auscultation bilaterally Resp Narrative: Diffusely diminished but clear Auscultation: Negative for crackles, rales, rhonchi or wheezes Cardio regular rate, regular rhythm, S1 normal heart sound, S2 normal heart sound, no murmurs, no rub, no gallops, no clicks and no JVD GI normal to inspection, nondistended, normoactive bowel sounds, soft to palpation, non-tender and non-distended GI Narrative: Tube in place left upper quadrant-no significant erythema or drainage, no signs of infection Extremity no clubbing, cyanosis or edema Neuro oriented x3, CN's II-XII intact bilaterally, moves all extremities and no focal motor deficits Sensorium / Orientation: awake, alert, oriented to person, oriented to place and oriented to time Speech: speech normal Psych affect normal Assessment & Plan Assessment/Plan (1) Hypokalemia: (2) Dysphagia: (3) Nausea: (4) Vomiting: (5) Dehydration: PLAN: Plan Esophageal mass -Patient with intermittent and recurrent nausea and vomiting with probably 4 episodes since initiation of PEG tube at the end of July -CT of the abdomen pelvis with IV and oral contrast was unremarkable -EGD done today and mid esophageal mass noted--> bleeding treated with argon beam and biopsies taken, patient also noted to have significant circumferential duodenal ulcers that were nonbleeding on exam -Suspect that this is new primary -Start Protonix drip Start octreotide drip -Continue IM Haldol as needed for nausea vomiting -Continue IV fluids at 75 cc/h -Discussed case with his primary radiation oncologist Dr. Alonso and he requested we get a CT of his chest at this time and he will follow up with him next Monday as an outpatient on 03/15/2022 at 11 AM and arrange for medical oncology appointment as well Hypokalemia -Repeat potassium bolus and use PEG -Repeat lab in a.m. -Magnesium level is normal Dehydration -Improved -We will continue IV fluids as patient remains n.p.o. Dysphagia -Secondary to the history of oropharyngeal cancer and now likely related to esophageal cancer Chronic pain -Hold oral pain medication -IV as needed pain medication ordered History of oropharyngeal cancer -Patient currently at tube feed dependent -Working with speech therapy to increase oral intake and improve dysphagia -Consult dietitian as patient would like to discuss increasing amount of tube feed that he is currently on from 7 to 8 boxes daily Depression -Continue sertraline DVT prophylaxis -Lovenox CODE STATUS -Full code Charges/Coding Visit Charges Inpatient E&M: 02799 Subs Hosp L3
--- NOTE | 2022-03-10 11:24 | CT_ITS ---
STUDY: CT CHEST WITH CONTRAST REASON FOR EXAM: Male, 56 years old. Intractable nausea and vomiting. cancer RADIATION DOSAGE (If Supplied By Facility): CTDIvol = ( 12.53 ) mGy, DLP = ( 316.46 ) mGycm TECHNIQUE: Transaxial imaging was performed following intravenous administration of IV 100mL Isovue-300. Multiplanar coronal and sagittal images were reformatted. Individualized dose optimization techniques were used for this CT. COMPARISON: No relevant priors. FINDINGS: CHEST Hyperinflation. Scarring at both lung apices. Emphysematous changes worse in the upper lobes. Findings suggest some scarring at the lung bases mild bibasilar atelectasis. There is no demonstrated pleural abnormality. Normal heart and pericardium. Normal mediastinum. Normal hilar regions. Normal unenhanced pulmonary arteries. Normal aorta arch and descending thoracic aorta. There is demineralization of the thoracic spine. Heterogeneous appearance of the T11 vertebrae. There is a 1.5 cm hypodensity within it. Correlation with a bone scan is recommended. There is diffuse circumferential wall thickening of the proximal and mid esophagus. A neoplastic process should be ruled out. CT/Chest WITH Contrast IMPRESSION: Diffuse circumferential wall thickening of the proximal and mid esophagus. Neoplastic process should be ruled out. Mild degree of scarring in the upper and lower lobes of the lungs and emphysematous changes. Abnormal appearance of the T11 vertebrae. Correlation with a bone scan is recommended. Electronically Signed: John Sanchez MD at 8:29 EDT ,
--- NOTE | 2022-03-10 11:35 | CASEMGMT ---
RN ALISSON DISASTER OR DAMAGE CONTROL SPECIALIST CM to room to meet with patient for initial transition planning/care coordination assessment. ALEC VINSON introduced self and role at [facility].? Pt voices understanding and consents to assessment at this time.? Pt resting in bed in no distress at this time.? Pt is A/O at this time and answers all questions appropriately.?? Care providers, pharmacy, and demographics verified/updated at this time. PCP: Dr Jennings Specialists: Dr Hartmann-GI. Pt states he used to see Dr Alonso-radiation oncology but states he does not f/u with him any longer. Preferred Pharmacy: [facility] Retail Insurance: [facility] Community Plan [place] Prescription Benefit:?Yes Living Will/HPOA:? Pt does not currently have LW/HCPOA and declines info at this time.? Pt made aware that he can contact SW as an out-pt and make appt in the future if he decides he would like to talk with someone about this or would like to utilize [facility] social work for advanced directive completion.???Pt has [employer] card with information and contact number. Pt expresses understanding.? LNOK: Father, Angeline Esparza. Pt states he does not want anyone listed on demographics except for friend/caregiver, Randa. He states his dad is aware he is in the hospital and Randa would know how to contact him, if needed. Living Arrangements: Lives alone in 2-story home. Has bedroom and bathroom on 2nd floor. Able to do FFSU, if needed. Independent w/ADL's and IADL's. Randa assists w/some home mgmt tasks, if needed, and drives pt to appts/stores, if needed. Transportation:?Pt states drives self and states no transportation concerns at this time.? Randa will provide transportation at times, when needed. DME: States has the following DME:?PEG tube feeding and supplies from [place]. Pt administers own tube feedings. Per physician note, pt requesting to talk to bakery and deli sales manager re: increasing frequency of feedings. Pt states the bakery and deli sales manager was just in to talk w/him prior to this assessment. Pt states no need for further DME at this time.? HHC/SNF: No hx of either. Pt declines need for HHC. Pt sees Edie for OP S.T @ [facility] every other week. Pt wishes to return home and states has no concerns with going home at time of discharge.? CM to follow for any further discharge planning/needs.? Pt voices no further concerns/needs at this time.? Advised pt to ask for CM if any further questions/concerns/needs arise.? Voices understanding. PLAN:??Home w/OP S.T, support of caregiver, and discharge plans in place. Mariajose SHARPN RN CM
[2022-03-10] MEDS: HYDROmorphone 1 MG/ML Syringe IV ×3 (12:59→21:03)
--- NOTE | 2022-03-10 15:54 | NURSING ---
Pt has only voided once today thus far but was mixed with stool. this RN bladder scanned and there was no urine scanned. Will continue to monitor. Pt has been drinking water frequently.
[2022-03-10] MEDS: Contrast Allergy Safety Check IV (16:04)
[2022-03-10] MEDS: Gabapentin 300 MG Capsule GT ×2 (16:04→23:09)
[2022-03-10] MEDS: oxyCODONE Soln 5 MG/0.25 ML PO.SYRINGE 20 MG GT ×2 (18:19→23:09)
[2022-03-11] VITALS (8 sets, daily range): BP systolic 111–134; BP diastolic 64–81; PULSE 59–67; RESP 16–18; TEMP 36.6–37.2; O2SAT 91–98
[2022-03-11] MEDS: Silver Sulfadiazine 1% Crm 50 gm Bottle 1 APPLIC TOPICAL ×2 (03:13→14:23)
[2022-03-11] MEDS: 0.9% Saline Lock 10 ML Syringe IV ×3 (03:16→17:19)
[2022-03-11] MEDS: HYDROmorphone 1 MG/ML Syringe IV ×3 (03:16→17:17)
[2022-03-11 06:24] LABS: Anion Gap 6 (5-15); BUN 14 mg/dL (7-18); BUN/Creat Ratio 21.8 RATIO (10-20); Calcium,Total 8.6 mg/dL (8.5-10.1); Chloride 106 mmol/L (98-107); Creatinine, Serum 0.64 mg/dL (0.70-1.30); EST Glomerular Filtration Rate 137 mL/min (>60); Est Glom Filt Rate - Afr Amer 166 mL/min (>60); Estimated Creatinine Clearance 126.73 ml/min; Glucose 101 mg/dL (74-106); Potassium 3.3 mmol/L (3.5-5.1); Sodium Level 140 mmol/L (136-145)
[2022-03-11] MEDS: Lactated Ringers 1,000 ML 75 ML IV (06:28)
[2022-03-11] MEDS: oxyCODONE Soln 5 MG/0.25 ML PO.SYRINGE 20 MG GT ×2 (06:32→14:23)
[2022-03-11] MEDS: Gabapentin 300 MG Capsule GT ×2 (06:32→14:22)
[2022-03-11 07:16] LABS: Absolute Lymphocyte Count 0.92 X10^3/uL (0.83-4.51); Absolute Neutrophil Count 2.8 X10^3/uL (2.0-7.7); Basophil# 0.02 X10^3/uL; Basophil% 0.5 % (0-1); Eosinophil# 0.07 X10^3/uL; Eosinophils% 1.7 % (0-5); Hematocrit 35.9 % (40-54); Hemoglobin 12.4 g/dL (13.0-16.5); Lymphocyte # 0.92 X10^3/ul (0.83-4.51); Lymphocyte % 21.7 % (19-41); Mean Corp Hgb Conc 34.5 g/dL (32-36); Mean Corpuscular Hgb 31.2 pg (27.0-32.0); Mean Corpuscular Volume 90.4 fL (80-94); Mean Platelet Vol. 9.5 fl (6.2-12.0); Monocyte# 0.46 X10^3/uL; Monocyte% 10.8 % (0-10); NRBC Flagged by Analyzer 0 % (0-5); Neutrophil # 2.77 X10^3/uL (2.7-7.7); Neutrophil % 65.3 % (47-70); Platelet Count 146 K/mm3 (150-450); RBC Distribution Width CV 12.1 % (11.6-14.6); RBC Distribution Width SD 39.8 fl (35.1-43.9); Red Blood Count 3.97 M/mm3 (4.6-6.2); White Blood Count 4.2 K/mm3 (4.4-11.0)
[2022-03-11] MEDS: Potassium Chloride 10mEq/100mL 10 MEQ/100 ML IV.SOLN. 100 MEQ IV BOLUS ×3 (08:10→15:56)
[2022-03-11] MEDS: Sertraline 50 MG Tablet GT (08:13)
[2022-03-11] MEDS: Potassium Chloride 10mEq/100mL 10 MEQ/100 ML IV.SOLN. 80 MEQ IV BOLUS (10:15)
[2022-03-11] MEDS: Lactated Ringers 1,000 ML 15 ML IV (11:10)
--- NOTE | 2022-03-11 11:54 | OP.EGD_ITS ---
Patient Name: Jaleel Esparza Procedure Date: 03/11/2022 11:27 AM Date of : 1965 Age: 56 Procedure: Upper GI endoscopy Indications: Persistent vomiting of unknown cause, Dysphagia Providers: Yossi Hartmann DO Medicines: Monitored Anesthesia Care Patient Profile: This is a 56 year old male. Refer to note in patient chart for documentation of history and physical. Patient has symptoms of acute vomiting. Complications: No immediate complications. Procedure: Pre-Anesthesia Assessment: - Prior to the procedure, a History and Physical was performed, and patient medications and allergies were reviewed. The risks and benefits of the procedure and the sedation options and risks were discussed with the patient. All questions were answered and informed consent was obtained. Patient identification and proposed procedure were verified by the physician in the pre-procedure area. Mental Status Examination: alert and oriented. Airway Examination: normal oropharyngeal airway and neck mobility. Respiratory Examination: clear to auscultation. CV Examination: normal. Prophylactic Antibiotics: The patient does not require prophylactic antibiotics. Prior Anticoagulants: The patient has taken no previous anticoagulant or antiplatelet agents. ASA Grade Assessment: II - A patient with mild systemic disease. After reviewing the risks and benefits, the patient was deemed in satisfactory condition to undergo the procedure. The anesthesia plan was to use moderate sedation / analgesia (conscious sedation). Immediately prior to administration of medications, the patient was re-assessed for adequacy to receive sedatives. The heart rate, respiratory rate, oxygen saturations, blood pressure, adequacy of pulmonary ventilation, and response to care were monitored throughout the procedure. The physical status of the patient was re-assessed after the procedure. After obtaining informed consent, the endoscope was passed under direct vision. Throughout the procedure, the patient's blood pressure, pulse, and oxygen saturations were monitored continuously. The gastroscope was introduced through the mouth, and advanced to the second part of duodenum. The upper GI endoscopy was accomplished without difficulty. The patient tolerated the procedure well. Moderate Sedation: Moderate (conscious) sedation was personally administered by an anesthesia professional. The following parameters were monitored: oxygen saturation, heart rate, blood pressure, respiratory rate, EKG, adequacy of pulmonary ventilation, and response to care. Total physician intraservice time was 15 minutes. Scope In: 11:39:34 AM Scope Out: 11:41:21 AM Total Procedure Duration Time 0 hours 1 minute 47 seconds Findings: A large, ulcerating mass with no bleeding and no stigmata of recent bleeding was found in the mid esophagus, 28 cm from the incisors. The mass was partially obstructing and partially circumferential (involving two thirds of the lumen circumference). The entire examined stomach was normal. The cardia and gastric fundus were normal on retroflexion. Many non-bleeding superficial duodenal ulcers with no stigmata of bleeding were found in the duodenal bulb. The largest lesion was 3 mm in largest dimension. Impression: - Partially obstructing, malignant esophageal tumor was found in the mid esophagus. - Normal stomach. - Multiple non-bleeding duodenal ulcers with no stigmata of bleeding. - No specimens collected. Recommendation: - [facility]. - Clear liquid diet. - Continue present medications. Procedure Code(s): --- Professional --- 26773, Esophagogastroduodenoscopy, flexible, transoral; diagnostic, including collection of specimen(s) by brushing or washing, when performed (separate procedure) CPT copyright 2017 [employer]. All rights reserved. The codes documented in this report are preliminary and upon computer technical support specialist review may be revised to meet current compliance requirements. Yossi Hartmann DO 03/11/2022 11:53:38 AM This report has been signed electronically. Number of Addenda: 1 Note Initiated On: 03/11/2022 11:27 AM Addendum Number: 1 Addendum Date: 06/01/2022 6:19:09 AM MAC was used as sedation for this procedure. Yossi Hartmann DO 06/01/2022 6:19:14 AM This report has been signed electronically.
--- NOTE | 2022-03-11 11:54 | OP.CCLET_ITS ---
06/01/2022 Shailesh Jennings Do Re : Upper GI endoscopy procedure for Jaleel Esparza Dear Michaela This procedure was performed on Friday, March 11, 2022. My impressions and recommendations are as follows: Impressions : - Partially obstructing, malignant esophageal tumor was found in the mid esophagus. - Normal stomach. - Multiple non-bleeding duodenal ulcers with no stigmata of bleeding. - No specimens collected. Recommendations : - [facility]. - Clear liquid diet. - Continue present medications. My findings are described in the full procedure note, which is enclosed. If I can be of further assistance, please feel free to contact me at . Sincerely, Yossi Hartmann DO 03/11/2022 11:53:38 AM This report has been signed electronically.
--- NOTE | 2022-03-11 12:01 | DS.PCM_ITS ---
Providers Date of Admission: 03/09/22 Date of Discharge: 03/11/22 Primary Care Physician: Dr. Shailesh Jennings, DO Consultations 03/09/22 16:29 Consult: Gastroenterology Routine Consulting Provider: [facility] Reason for Consult: Nausea and Vomiting EMERGENT Consult: No MD Notified: Yes Date Notified: 03/09/22 Time Notified: 14:54 Method of Notification: Verbal Reason For Visit: INTRACTABLE NAUSEA, VOMITING, DIARRHEA Diagnosis Discharge Diagnosis (1) Hypokalemia: Status: Acute Code(s): E87.6 - Hypokalemia (2) Dysphagia: Status: Acute Code(s): R13.10 - Dysphagia, unspecified (3) Nausea: Status: Acute Code(s): R11.0 - Nausea (4) Vomiting: Status: Acute Code(s): R11.10 - Vomiting, unspecified (5) Dehydration: Status: Acute Code(s): E86.0 - Dehydration Plan Esophageal mass -Patient with intermittent and recurrent nausea and vomiting with probably 4 episodes since initiation of PEG tube at the end of July -CT of the abdomen pelvis with IV and oral contrast was unremarkable -EGD done today and mid esophageal mass noted--> bleeding treated with argon beam and biopsies taken, patient also noted to have significant circumferential duodenal ulcers that were nonbleeding on exam -Suspect that this is new primary -Start Protonix drip Start octreotide drip -Continue IM Haldol as needed for nausea vomiting -Continue IV fluids at 75 cc/h -Discussed case with his primary radiation oncologist Dr. Alonso and he requested we get a CT of his chest at this time and he will follow up with him next Monday as an outpatient on 03/15/2022 at 11 AM and arrange for medical oncology appointment as well Hypokalemia -Repeat potassium bolus and use PEG -Repeat lab in a.m. -Magnesium level is normal Dehydration -Improved -We will continue IV fluids as patient remains n.p.o. Dysphagia -Secondary to the history of oropharyngeal cancer and now likely related to esophageal cancer Chronic pain -Hold oral pain medication -IV as needed pain medication ordered History of oropharyngeal cancer -Patient currently at tube feed dependent -Working with speech therapy to increase oral intake and improve dysphagia -Consult dietitian as patient would like to discuss increasing amount of tube feed that he is currently on from 7 to 8 boxes daily Depression -Continue sertraline DVT prophylaxis -Lovenox CODE STATUS -Full code Medications at Discharge Home Medications ondansetron HCl 4 mg tablet 4 mg PO Q8H PRN nausea and vomiting #30 tabs 10/25/21 oxycodone 5 mg/5 mL oral solution 20 mg PO Q4H PRN Pain 12/16/21 sennosides 8.8 mg/5 mL oral syrup (senna) 10 ml PO BID 01/11/22 gabapentin 250 mg/5 mL oral solution 6 ml feeding tube TID nerve pain 03/09/22 escitalopram oxalate 10 mg tablet 10 mg G-tube DAILY #30 tabs 03/11/22 lansoprazole 30 mg delayed release,disintegrating tablet 60 mg feeding tube BID #120 tabs 03/11/22 lidocaine HCl 2 % mucosal solution (Lidocaine Viscous) 10 ml PO Q6H #100 mL 0 03/11/22 Hospital Course Procedures EGD (X2) and - (CT of the abdomen pelvis/CT of the chest) Summary of Care Provided Minutes Spent on Discharge: 38 Hospital Course: ORTEGA DUKES, is a 56 M who presented to the emergency department [facility] on 03/09/2022 with intractable nausea and vomiting that has been ongoing for approximately 3 days.? The patient has a history of oropharyngeal cancer and has had chemo and radiation to the site as well as surgery.? He had 4 episodes now of this intractable nausea and vomiting since his PEG tube was placed at the end of July.? He stateed typically these episodes last approximately 2 days and then they resolve.? He recently followed up with gastroenterology in mid December for similar issues and it was felt that his nausea/vomiting is multifactorial and they recommended an dilation of his upper GI tract with an EGD as there is significant concerns for oropharyngeal and esophageal strictures related to his radiation.? He denied any concomitant fever or chills, hematemesis, coffee-ground emesis, melena or hematochezia.? He reported diarrhea but only reports 2 loose stools daily and states he typically has 1 bowel movement daily.? He indicated the vomitus had been blue but he is not taking any blue medications and he was most concerned about the color of the emesis and that is why presented to the emergency department.? He reported that he typically takes tube feed 7 boxes daily but indicated he would like to talk to the dietitian about possibly increasing to 8 boxes a day.? He stated he had been on 8 boxes and increased his weight some and felt like he had more energy.? He did not report any ongoing weight loss.? He had no sick contacts and had no abdominal pain.? He indicated otherwise he has been feeling fine. Vital signs in the emergency department showed a temperature of 98.6, heart rate of 85, blood pressure 131/85, respiratory rate of 16, and a oxygen saturation 97% on room air.? His CBC was unremarkable.? His chemistry panel showed mild hypokalemia with potassium of 3.1, a slightly elevated BUN and creatinine however I had no baseline lab work to which to compare it.? His lipase is unremarkable. In the emergency department the patient was given Reglan and appeared to be improved with regards to his nausea and vomiting and IV potassium replacement was initiated.? They attempted to give a fluid challenge through his PEG to see if he can tolerate feeds at home in preparation for discharge however before this could even be initiated he began vomiting again.? Given the fact he is in been unable to keep down nutrition and fluids, and he was admitted to the medical surgical floor for further work-up. Patient was placed on IV fluids and given antiemetics and started on PPI. The patient was evaluated by gastroenterology and taken for an EGD on 03/10/2022 at which time they found a partially obstructing, likely malignant, esophageal tumor in the middle third of the esophagus. This was biopsied and treated with argon plasma coagulation. His stomach was found to be normal and multiple nonbleeding duodenal ulcers that were circumferential in nature were noted with no stigmata of recent bleeding. His G-tube appeared to be intact. At that time he remained n.p.o. and was started on a Protonix drip as well as an octreotide drip. I discussed the case with his radiation oncologist who requested a CT of his chest be performed in addition to the CT of his abdomen and pelvis that we did on admission which was unremarkable and this demonstrated a diffuse circumferential wall thickening of the proximal and mid esophagus as well as a mild degree of scarring in the upper and lower lobes of the lung with emphysematous changes and an abnormal appearance of the T11 vertebrae. There were concerns for recurrent bleeding despite normal hemoglobin so he was taken back for an EGD on 03/11/2022 to reassess previous areas at which argon beam were utilized. Again a large ulcerating mass with no signs of bleeding or stigmata of recent bleeding was found in the middle esophagus 2 8 cm from the incisors and this was partially obstructing and partially circumferential involving the two thirds of the luminal circumference. The stomach was normal and again many nonbleeding superficial duodenal ulcers were noted in the duodenal bulb. The patient had no episodes of emesis but was having some throat discomfort related to his radiation and scope. Viscous lidocaine did help with this and Dr. Hartmann felt he was safe to continue with this upon discharge. A trial of tube feed was performed and he tolerated this well without any emesis. We also discharged him lansoprazole 60 mg via PEG tube twice daily and we switched his antidepressant from Zoloft to Lexapro 10 mg daily. Patient will have a palliative care consultation after discharge and has a follow-up appointment to see Dr. Alonso on 03/15/2022 at 11 AM. He will set up a medical oncology appointment for the patient to be seen that week as well. He is to call Dr. Hartmann's office as soon as possible to arrange for follow-up to be seen within the next 2 weeks.? There is concern that the patient may need esophageal stenting. Mr. Donovan somers was discharged in stable condition on 03/11/2022 to home. Discharge diagnoses: Esophageal mass-suspected primary malignancy Duodenal ulcers Mild anemia Proximal esophageal narrowing status post radiation Hypokalemia-resolved Dehydration-resolved Dysphagia Chronic pain History of oropharyngeal cancer Depression Physical Exam Const alert, oriented x3, no apparent distress and average body habitus Constitutional Narrative: Normal weight, middle-aged white male sitting up in bed, nursing and Dr. Hartmann at bedside General Appearance: cooperative, comfortable, well kempt and well developed Orientation / Consciousness: awake Nutritional Appearance: thin HEENT normocephalic, head/scalp atraumatic and hearing grossly normal bilaterally HEENT Narrative: Edentulous, poor tongue mobility secondary to resection, noted skin changes from radiation Eyes PERRL, EOMs intact bilaterally and conjunctivae normal Neck no lymphadenopathy, supple and no JVD Neck Narrative: Trachea midline, no thyroid enlargement, evidence of old tracheostomy site Resp normal respiratory effort, no retractions, no use of accessory muscles and clear to auscultation bilaterally Resp Narrative: Diffusely diminished but clear Auscultation: Negative for crackles, rales, rhonchi or wheezes Cardio regular rate, regular rhythm, S1 normal heart sound, S2 normal heart sound, no murmurs, no rub, no gallops, no clicks and no JVD GI normal to inspection, nondistended, normoactive bowel sounds, soft to palpation, non-tender and non-distended GI Narrative: Tube in place left upper quadrant-no significant erythema or drainage, no signs of infection Extremity no clubbing, cyanosis or edema Extremity Narrative: Decreased lean muscle mass Skin no rashes or lesions noted, no wounds, skin turgor normal and no jaundice Neuro oriented x3, CN's II-XII intact bilaterally, moves all extremities and no focal motor deficits Sensorium / Orientation: awake, alert, oriented to person, oriented to place and oriented to time Speech: speech normal Psych Psych Narrative: Affect is flattened mood is depressed Mood & Affect: depressed Weight / BMI Weight Weight: 68.7 kg Body Mass Index (BMI) 20.5 ABG / Lab / Microbiology Data Result Diagrams: 03/11/22 05:39 03/11/22 05:39 Laboratory: Laboratory Results - last 24 hr 03/11/22 05:39: Sodium 140, Potassium 3.3 L, Chloride 106, Carbon Dioxide 28.0, Anion Gap 6, BUN 14, Creatinine 0.64 L, Estim Creat Clear Calc 126.73, Est GFR (MDRD) Af Amer 166, Est GFR (MDRD) Non-Af 137, BUN/Creatinine Ratio 21.8 H, Glucose 101, Calcium 8.6 03/11/22 05:39: WBC 4.2 L, RBC 3.97 L, Hgb 12.4 L, Hct 35.9 L, MCV 90.4, MCH 31.2, MCHC 34.5, RDW Std Deviation 39.8, RDW Coeff of Jose 12.1, Plt Count 146 L, MPV 9.5, Immature Gran % (Auto) 0.000, Neut % (Auto) 65.3, Lymph % (Auto) 21.7, [place] % (Auto) 10.8 H, Eos % (Auto) 1.7, Baso % (Auto) 0.5, Absolute Neuts (auto) 2.8, Absolute Lymphs (auto) 0.92, Nucleated RBC % 0 Radiography Diagnostic Testing: Radiology Impression Chest CT 03/10/22 11:24 IMPRESSION: Diffuse circumferential wall thickening of the proximal and mid esophagus. Neoplastic process should be ruled out. Mild degree of scarring in the upper and lower lobes of the lungs and emphysematous changes. Abnormal appearance of the T11 vertebrae. Correlation with a bone scan is recommended. Electronically Signed: John Sanchez MD at 8:29 EDT , D/C Instructions Discharge Diet: - (NPO except for viscous lidocaine) Discharge Activity: Return to Normal Activity Meaningful Use Info Meaningful Use Diagnoses (Choose all that apply): None applicable Discharge Plan Admission Admit Date/Time: 03/09/22 14:32 Attending Provider: Carmina Milligan Primary Care Provider: Shailesh Jennings Discharge Orders/Prescriptions Prescriptions: New escitalopram oxalate 10 mg Tablet 10 mg G-tube DAILY Qty: 30 1RF lansoprazole 30 mg tablet,disintegrat, delay rel 60 mg feeding tube BID Qty: 120 1RF lidocaine HCl [Lidocaine Viscous] 2 % solution 10 ml PO Q6H Qty: 100 1RF Continued oxycodone 5 mg/5 mL solution 20 mg PO Q4H PRN (Reason: Pain) sennosides [senna] 8.8 mg/5 mL syrup 10 ml PO BID gabapentin 250 mg/5 mL solution 6 ml feeding tube TID Label Comments: TAKE 6ML (300MG) PER PEG THREE TIMES A DAY SCHEDULED ondansetron HCl 4 mg tablet 4 mg PO Q8H PRN (Reason: nausea and vomiting) Qty: 30 0RF Rx Instructions: take one tab PO prior to radiation treatment Discontinued sertraline 50 mg tablet 1 tab feeding tube DAILY Label Comments: TAKE 1 TABLET BY MOUTH DAILY 03/01/22 Referrals / Follow Up: Shailesh Jennings DO [Primary Care Provider] - Within 1 Month FriendYossi DO [STAFF PHYSICIAN] - Within 2 Weeks (call travon for appt to be seen within the next 2 weeks) Lacho Alonso DO [NON-STAFF] - 03/15/22 11:00 am Disposition Disposition (needs filled in before D/C Order can be placed): Home, Self Care Charges/Coding Visit Charges Inpatient E&M: 97436 Disch Hosp
--- NOTE | 2022-03-11 12:12 | CASEMGMT ---
Pt screened with [facility] Palliative Care Screening Tool pt met criteria. Order received, emailed referral to Palliative Care. Pt is down for EGD currently.
--- NOTE | 2022-03-11 13:36 | CASEMGMT ---
Notified by pharmacy that pt lansoprazole needs PA. Per pharmacy, a liquid could be compounded for $80/month but it is not covered by insurance. Otherwise pt needs to mix tablets in 10ml each of water to put down peg with a flush before and after. Spoke with hospitalist, she is fine with either. ALEC CM in to pt room, explained options to pt. He states he wants the tablets. TC to complete PA. Reference #[id number]. Rep states this will be sent to clinician to review and the turn around time is 24 hours. Updated pt.
[2022-03-11] MEDS: Pivot 1.5 Cal 1,000 ML BOTTLE 310 ML GT (14:41)
--- NOTE | 2022-03-11 17:01 | NURSING ---
310cc Bolus of Pivot given today at 1440. Flushed with tap water with 115cc before and after bolus. This RN checked residual at this time and got 300cc. Dr. Karly Milligan is aware and is okay with pt still going home.
--- NOTE | 2022-03-14 15:21 | CASEMGMT ---
TC to pharmacy, they are still unable to run the lansoprazole. RN CM to check back tomorrow as this was completed late in the day on Monday.
--- NOTE | 2022-03-15 15:45 | CASEMGMT ---
TC to [facility] Retail pharmacy, spoke with John, pt lansoprazole when trying to fill states there is a max daily dose of 1. TC to check on PA at , PA was denied. TC to pt, he does not want to pay for the liquid form. He is aware of the denial and would like his PCP to be notified. TC to 's office, left message on nurse line regarding the information and pt request to see if there is another medication that the patient could be on instead. Asked the physician's office to follow up with the patient and provided RN CM phone number for any questions.
== END 2022-03-11 17:59 | disposition home or self-care (01) | DRG 240 ==
LOC: ED 14:25 → MS3 03-10 06:22
PROVIDERS: Internal Medicine Gastroenterology; Admitting Provider Internal Medicine; Emergency Provider Emergency Medicine; PCP Student in an Organized Health Care Education/Training Program; Visit Provider Internal Medicine
PROC: 0DJ08ZZ Inspection of Upper Intestinal Tract, Via Natural or Artificial Opening Endoscopic (ICD-10-PCS; CPT 43235; principal; 2022-03-10 07:10)
DX: C15.4 Malignant neoplasm of middle third of esophagus (principal); Z93.1 Gastrostomy status; E86.0 Dehydration; E87.6 Hypokalemia; D64.9 Anemia, unspecified; R11.2 Nausea with vomiting, unspecified; K26.9 Duodenal ulcer, unspecified as acute or chronic, without hemorrhage or perforation; F32.A Depression, unspecified; R13.10 Dysphagia, unspecified; Z87.891 Personal history of nicotine dependence; Z92.21 Personal history of antineoplastic chemotherapy; Z92.3 Personal history of irradiation; G89.29 Other chronic pain; Z79.899 Other long term (current) drug therapy
CPT/HCPCS: 43255; 43239; 43235; 36415; 71260; 74177; 80048; 80053; 80076; 83690; 83735; 84100; 84443; 85025; 88305; 88341; 88342; 93005; 96365; 96366; 96367; 96368; 96375; 96376; 97802; 97803; 99221; 99251; 99285; J7030; J7050; J7120; Q9967; A4216; G0378; G0463; J2405

== ENCOUNTER 2022-04-08 06:02 | Day surgery (SDC) | payer MEDICAID, SELFPAY ==
[2022-04-08] VITALS (7 sets, daily range): BP systolic 121–142; BP diastolic 78–91; PULSE 80–93; RESP 14–18; TEMP 36.9–37.3; O2SAT 93–97; BMI 21.2
[2022-04-08] MEDS: Lactated Ringers 1,000 ML 15 ML IV (06:43)
--- NOTE | 2022-04-08 07:16 | PCM.HP.BLA ---
History and Physical Date of Admission: 04/08/22 Date of Service:? 04/07/22 MR#: [id number] Acct: [id number] Name:ORTEGA ROBISON Rep #: [id number] : 1965 ? ? Provider: Dr. Lucía Masterson MD Age/Sex:? 56/M ? ? Location: [facility] Status: Signed Intake Vital Signs ? 04/07/2210:34 Height 6 ft Weight: 157 lb BMI 21.2 BP 127/85 H Blood Pressure Location Rt brachial Position Sitting Respiration 16 Pulse 57 L Pulse Source Monitor Temp 97.7 F L Temp Source Temporal Pulse Oximetry (%) 97 Oxygen Delivery Method room air Intake Visit Reasons:?PORT PLACEMENT Chief Complaint: port placement consult Community Fundraiser Required: No Is patient in pain?: No Allergies No Known Allergies Allergy (Verified 04/07/22 10:35) Medications oxycodone 5 mg/5 mL oral solution 20 mg PO Q4H PRN Pain 12/16/21 [History Confirmed 04/07/22] sennosides 8.8 mg/5 mL oral syrup (senna) 10 ml PO BID 01/11/22 [History Confirmed 04/07/22] gabapentin 250 mg/5 mL oral solution 6 ml feeding tube TID nerve pain 03/09/22 [History Confirmed 04/07/22] escitalopram oxalate 10 mg tablet 10 mg G-tube DAILY #30 tabs 03/11/22 [Rx Confirmed 04/07/22] lidocaine HCl 2 % mucosal solution (Lidocaine Viscous) 10 ml PO Q6H #100 mL 03/11/22 [Rx Confirmed 04/07/22] lansoprazole 30 mg delayed release,disintegrating tablet 60 mg feeding tube BID #120 tabs 03/23/22 [Rx Confirmed 04/07/22] metoclopramide HCl 5 mg tablet (Reglan) 5 mg PO BID #60 tabs 04/01/22 [Rx Confirmed 04/07/22] ondansetron 8 mg disintegrating tablet 8 mg PO Q8H PRN nausea and vomiting #90 tabs 04/01/22 [Rx Confirmed 04/07/22] scopolamine base 1 mg over 3 days transdermal patch 1 patch transdermal Q72H #10 ea 04/01/22 [Rx Confirmed 04/07/22] PFSH Medical History? 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 History of mandibular surgery Status post insertion of percutaneous endoscopic gastrostomy (PEG) tube Status post reconstruction procedure Family History? Father Cancer ?? ? LUNG ?? ?Brother Cancer ?? ? ESOPHAGEAL ?? ? Social History? Smoking Status:? Former smoker quit date: 07/28/21 pack-years: 60 Tobacco: How many years used:? 30 how long ago did patient quit smoking:? July 2021, smoked [id number] substance use type:? does not use do you feel safe at home:? Yes HPI HPI HPI: ORTEGA DUKES, is a 56 M who presents to the office today for discussion of placement due to squamous cell carcinoma of esophagus as well as history of oropharyngeal cancer.? Did have discussions with Dr. Parham as well as Dr. Alonso?Dr. Alonso was able to meet with him after my appointment to talk more about his prognosis with him.? Plan for patient to start treatment on Monday.? Patient is currently having issues swallowing even his saliva and does come to the office with a bucket. ROS General General: Yes fatigue; No weight change, appetite, colon cancer or breast cancer HEENT HEENT: Yes difficulty swallowing; No eye injury, eye surgery, swollen glands or hoarseness Endo Endocrine: No thyroid disease, diabetes mellitus, thyroid cancer, Hair loss, heat intolerance or cold intolerance Skin Skin: No rash or changing moles Musc Musculoskeletal: No back problems, arthritis, rheumatoid arthritis, gout or joint pain Cardio Cardiovascular: No murmur, pacemaker, heart disease, atrial fibrillation, high blood pressure, heart attack, heart stent, palpitations, shortness of breat with exertion or chest pain Psych Psychiatric: No depression, anxiety or hearing voices Resp Respiratory: No shortness of breath, No sleep apnea, No cough, No COPD, No asthma, No emphysema and No wheezing Gastro Gastrointestinal: No abdominal pain, Yes nausea or vomiting, Yes diarrhea, No constipation, No blood in stool, Yes acid reflux, No hemorrhoids, No ulcers, No gallbladder problem and No black,tarry stools Darnell Hematologic: No blood thinners, No blood disorders, No bleeding, No anemia and No blood clots Neuro Neurologic: No confusion Exam Const General: cooperative Nutritional Appearance: thin Neck Other: Lower neck supple above clavicles, previous tracheostomy scar, superior neck incision well-healed Chest Other: Normal palpation of bilateral upper chest Resp Effort & Inspection: normal respiratory effort Cardio Rate: regular rate GI Other: Soft, nondistended, nontender, PEG tube in place Skin General: no rashes or lesions noted Neuro General: patient oriented x3 Psych Affect: flat Assessment and Plan Assessment and Plan (1) Encounter for insertion of venous access port: ?Status:?Acute (2) 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 Patient will meet with Dr. Alonso today after this appointment to further discuss his prognosis.? He will contact me and let me know if they still plan to get the port placed tomorrow. I have discussed above with the patient- Port-a-Cath placement.? Right possible left Patient has been counseled as to the risks/benefits of the procedure. I have explained the risks of the surgery, including but not limited to: infection, bleeding, injury to any blood vessels/nerves, injury to lungs (such as pneumothorax or hemothorax and need for chest tube), not having any access, nonfunctioning of port due to thrombosis, infection of port, etc.? the patient understands and agrees to proceed. I have answered all the patient's questions to the patient?s satisfaction and the patient has no further questions. Addendum: Patient is planning to have a port placed tomorrow. Lucía Masterson M.D. Pager: [phone] [facility] [address] [place] [address], [address] [place] [address] Office: [phone] Coding Level of Care Code Off vis,new,level 4 Diagnoses Encounter for insertion of venous access port? Z45.2 Squamous cell carcinoma of esophagus? C15.9 Cancer of overlapping sites of lip, oral cavity and pharynx? C14.8 04/07/22 1224 <Electronically signed by Lucía Masterson MD> Date Lucía Masterson MD
[2022-04-08] MEDS: Cefazolin 2 GM in 0.9% Normal Saline 100 ML IV (07:30)
[2022-04-08] MEDS: Lidocaine 1% /Epi 1:100 (20ml) 20 ML Vial (07:45)
[2022-04-08] MEDS: Bupivacaine 0.25% 30 ML Vial (07:45)
--- NOTE | 2022-04-08 08:14 | OP.PCM_ITS ---
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 Placement of right IJ Port-A-Cath 2. Use of fluoroscopy 3. Use of ultrasound Surgeon: Lucía Masterson Type of Anesthesia: Local MAC Anesthesiologist: Peterson Pizano Special Medications: Ancef 2 g IV x1 Estimated Blood Loss (mL): < 10 cc Description of Procedure: After informed consent was given, the patient was brought to the operating room and placed in the supine position. Appropriate time out protocol was followed. Patient was then given IV conscious sedation for anesthesia. The patient's right upper chest and neck were then prepped with a surgical skin preparation and sterile surgical drapes were placed. After proper landmarks were ascertained, the skin at the upper right chest area was then infiltrated with 1:1 mixture of 1% lidocaine with epinephrine and 0.25% marcaine. A needle trocar was then inserted into the right internal jugular vein with ultrasound guidance-multiple vessels were viewed with u/s and the right IJ was chosen-- and there was good aspiration of venous blood. A wire was then threaded into the needle trocar and this was visualized under fluoroscopy to ensure that the wire was in the superior vena cava. Once this was done, then the needle trocar was removed. A small skin michaelle was made with an 11 blade knife at the wire entrance site. The dilator with the introducer sheath attach ed was then placed over the wire into the right internal jugular vein via the Seldinger technique and this was visualized under fluoroscopy. The dilator and sheath were in proper position as visualized by fluoroscopy. A subcutaneous pocket was then created caudad to the catheter insertion site. A transverse skin incision was made after the skin and subcutaneous tissues were infiltrated with local anesthetic. Blunt dissection was then used to create a space large enough for placement of the subcutaneous port. The catheter was then tunneled into the subcutaneous pocket. The wire and dilator were then removed. The catheter was then threaded into the introducer sheath and was positioned with its tip at the junction of the superior vena cava and the right atrium as visualized under fluoroscopy. The excess catheter was transected. The catheter was then attached to the subcutaneous port using manufacturers guidelines. The catheter was flushed with a heparin saline mixture prior to placement. Hemostasis was carefully controlled with electrocautery. The port was sutured to the subcutaneous fascia using 2-0 Vicryl suture at two sites. The port was then placed in the subcutaneous pocket. The incision were reapproximated with interrupted subdermal 3-0 vicryl sutures. The skin was reapproximated with 3-0 nylon suture in a interrupted fashion. Steristrips were used for reinforcement of the skin closure at IJ insertion site and a sterile opsite dressings were applied. The patient tolerated the procedure well. Implants Used: [employer] PowerPort isp M.R.I. 6Fr Lot [id number] Complications none
--- NOTE | 2022-04-08 08:17 | DCINST_ITS ---
Discharge Instructions Procedure Port-A-Cath Diet Discharge Diet: Light diet - advance as tolerated Activity May shower in (days): 5 (Keep port site clean and dry x5 days. Neck incision okay to get wet after 1 day. Okay to lower shower and upper sponge bath. OR okay to taper off port site with a Ziploc bag to shower) Lifting Restrictions: No lifting > 15 pounds for 3 days with the arm on the side of the port Dressing / Incision Call your doctor if your incision/area has: Continuous Slow Oozing, Sudden Increased Bleeding, Increased Pain/ Swelling, Increased Redness, Foul Smelling Discharge and Swelling at the incision site Call your doctor if you observe: Fever of 101 or Higher Change Dressing in: 2 days Follow Up Care Please Follow Up With: Lucía Masterson MD When: In 10 days for permanent suture removal?call office for appointment Test Results: Test results from this visit will be discussed in further detail at your follow- up appointment, if applicable. Discharge Plan Admission Attending Provider: Lucía Masterson Primary Care Provider: Shailesh Jennings Discharge Orders/Prescriptions Prescriptions: Continued oxycodone 5 mg/5 mL solution 20 mg PO Q4H PRN (Reason: Pain) sennosides [senna] 8.8 mg/5 mL syrup 10 ml feeding tube BID ondansetron 8 mg tablet,disintegrating 8 mg PO Q8H PRN (Reason: nausea and vomiting) Qty: 90 3RF scopolamine base 1 mg over 3 days patch 3 day 1 patch transdermal Q72H Qty: 10 0RF gabapentin 250 mg/5 mL solution 6 ml feeding tube TID Label Comments: TAKE 6ML (300MG) PER PEG THREE TIMES A DAY SCHEDULED lidocaine HCl [Lidocaine Viscous] 2 % solution 10 ml PO Q6H Qty: 100 1RF lorazepam 0.5 mg tablet 0.5 mg feeding tube PRN MDD ANXIETY PRN (Reason: BID) Label Comments: TAKE 1 TABLET BY MOUTH TWICE DAILY NEEDED FOR PANIC/ANXIETY sertraline 25 mg tablet 50 mg feeding tube DAILY Label Comments: GIVE 1 TABLET VIA PEG TUBE DAILY metoclopramide HCl [Reglan] 5 mg tablet 5 mg feeding tube BID Rx Instructions: administer 30 minutes before meals lansoprazole 30 mg tablet,disintegrat, delay rel 60 mg feeding tube BID Qty: 120 1RF Referrals / Follow Up: Shailesh Jennings DO [Primary Care Provider] - Disposition Disposition (needs filled in before D/C Order can be placed): Home, Self Care
--- NOTE | 2022-04-08 08:30 | RAD_ITS ---
STUDY: X-RAY CHEST REASON FOR EXAM: Male, 56 years old. Chest pain/pressure TECHNIQUE: Single AP portable view of the chest. COMPARISON: None. FINDINGS: EKG leads overlie the chest. Satisfactory appearance of a right subclavian port The lungs are clear and expanded. There is no demonstrated pleural abnormality. Normal size heart. Normal mediastinum and janett. Normal visualized pulmonary arteries. Normal visualized aortic arch and descending thoracic aorta. Normal visualized thoracic spine. Normal visualized ribs, clavicles, and shoulders. There is no demonstrated abnormality of the visualized soft tissue structures of the upper abdomen. RAD/CXR for Line Placement IMPRESSION: No acute pulmonary process Electronically Signed: Alvaro Brown MD at 8:47 EDT ,
[2022-04-08] MEDS: HYDROCODONE/APAP 7.5-325/15ML 15 ML UDC 20 ML PO (09:27)
== END 2022-04-08 09:43 | disposition home or self-care (01) ==
LOC: SDC 06:03 → AC 06:05
PROVIDERS: PCP Student in an Organized Health Care Education/Training Program; Referring Provider Surgery; Visit Provider Surgery
PROC: (CPT 36561; principal; 2022-04-08 07:15)
DX: Z45.2 Encounter for adjustment and management of vascular access device (principal); C15.9 Malignant neoplasm of esophagus, unspecified; Z93.1 Gastrostomy status; C14.8 Malignant neoplasm of overlapping sites of lip, oral cavity and pharynx; Z87.891 Personal history of nicotine dependence
CPT/HCPCS: 36561; 00532; 71045; 77001; J7120; J2405

== ENCOUNTER 2022-04-18 15:24 | Emergency (ER) | payer MEDICAID, SELFPAY ==
[2022-04-18 15:25] VITALS: BP 131/87; PULSE 113; RESP 16; TEMP 36.6; O2SAT 98; BMI 20.3
--- NOTE | 2022-04-18 15:51 | EDS_ITS ---
HPI History of Present Illness Chief Complaint: Nausea/Vomiting Informant: patient and family Narrative Narrative: Patient presents with gagging nausea vomiting anxiety. He has had this problem for a while. 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 It has involvement now in the esophagus. He did have surgery. He had radiation. Because of the local recurrence he is starting radiation again. He just had a recent surgical radiation this past week. He states his saliva is hard to swallow. This has been a problem. This causes him to gag. Because he gags he actually still is able to vomit up tube feeds. When he puts tube feeds in his stomach it seems to worsen sometimes but not always. He has not been able to take the Zofran because it makes him gag. He has not been able to take the Ativan. On Monday he got these meds and he felt much better. But the day or 2 before that she had yesterday and today he cannot get them in. He does not want to even try. He is wearing a scopolamine patch. He also wants to get s utures out of his med port that was placed in his right upper chest 10 days ago. He is having no symptoms or complaints related to this. He was due today to be seen in the office for suture removal. He is still moving bowels. He states his stomach hurts due to the gagging but not really having pain. [facility] Medical History Anemia Anxiety Back pain Cancer Cancer of overlapping sites of lip, oral cavity and pharynx Depression Dysphagia Ex-cigarette smoker Former smoker Gastric reflux History of GI bleed Mucositis due to radiation therapy Multiple pigmented nevi Oropharyngeal cancer Radiation dermatitis Right shoulder pain Wears glasses Home Medications oxycodone 5 mg/5 mL oral solution 20 mg PO Q4H PRN Pain 12/16/21 [History Last Taken 03/07/22] sennosides 8.8 mg/5 mL oral syrup (senna) 10 ml feeding tube BID 01/11/22 [History Last Taken 03/07/22] gabapentin 250 mg/5 mL oral solution 6 ml feeding tube TID nerve pain 03/09/22 [History Last Taken 03/04/22] lidocaine HCl 2 % mucosal solution (Lidocaine Viscous) 10 ml PO Q6H #100 mL 03/11/22 [Rx Last Taken Unknown] lansoprazole 30 mg delayed release,disintegrating tablet 60 mg feeding tube BID #120 tabs 03/23/22 [Rx Last Taken Unknown] ondansetron 8 mg disintegrating tablet 8 mg PO Q8H PRN nausea and vomiting #90 tabs 04/01/22 [Rx Last Taken Unknown] lorazepam 0.5 mg tablet 0.5 mg feeding tube PRN PRN BID 04/07/22 [History Last Taken Unknown] metoclopramide HCl 5 mg tablet (Reglan) 5 mg feeding tube BID 04/07/22 [History Last Taken Unknown] sertraline 25 mg tablet 50 mg feeding tube DAILY 04/07/22 [History Last Taken Unknown] guaifenesin 100 mg/5 mL oral liquid 200 mg PO Q4H PRN 04/13/22 [History Last Taken Unknown] scopolamine base 1 mg over 3 days transdermal patch 1 patch transdermal Q72H #10 ea 04/14/22 [Rx Last Taken Unknown] promethazine 25 mg rectal suppository (Promethegan) 25 mg RECTAL Q6H PRN PRN Nausea ##6 04/18/22 [Rx Last Taken Unknown] Allergy/AdvReac Type Severity Reaction Status Date / Time No Known Allergies Allergy Verified 04/13/22 09:28 Family History Father Cancer LUNG Brother Cancer ESOPHAGEAL Surgical History History of mandibular surgery Status post insertion of percutaneous endoscopic gastrostomy (PEG) tube Status post reconstruction procedure Social History Smoking Status: Former smoker quit date: 07/28/21 pack-years: 60 Tobacco: How many years used: 30 how long ago did patient quit smoking: July 2021, smoked [id number] substance use type: does not use do you feel safe at home: Yes ROS ROS ED Constitutional Constitutional ED: Denies chills, fever(s) or subjective Eyes Eyes: Denies change in vision ENT ENT ED: Reports other Details: See history of present illness Cardiovascular Cardiovascular: Denies chest pain Respiratory/Chest Respiratory/Chest: Denies cough or dyspnea Gastrointestinal Gastrointestinal: Reports nausea and vomiting; Denies abdominal pain, constipat ion, diarrhea or melena Genitourinary Genitourinary ED: Denies dysuria Musculoskeletal Musculoskeletal: Denies arthralgias Integumentary Denies rash Neurologic Neurologic: Denies headache(s) Psychiatric Psychiatric: Reports anxiety Endocrine Endocrinology: Denies polydipsia or polyuria Hematologic/Lymphatic Hematologic/Lymphatic: Denies easy bleeding EXAM Physical Exam Const Vital Signs: 04/18/22 15:25 04/18/22 16:15 Temperature 97.8 F Temperature Source Temporal Pulse Rate 113 H 101 H Respiratory Rate 16 18 Blood Pressure 131/87 H 129/86 H Blood Pressure Mean 101 100 Pulse Ox 98 96 Oxygen Delivery Method Room Air Room Air Positive well nourished Constitutional Narrative: Patient looks as though he does not feel well. He is nontoxic though. HEENT HEENT Narrative: Moist oral cavity. Speech is intact. He does have a little trouble managing all his saliva. But he is having no issues breathing. No sign of abscess or infection. Eyes General Eye ED: Negative for scleral icterus Neck Neck Narrative: No stridor. No JVD Chest Wall inspection of chest normal Chest Narrative: Med port is visible in the upper right chest. Site looks clean. He also has an area at the base of the right neck that looks clean. Resp normal respiratory effort and clear to auscultation bilaterally Cardio regular rhythm and no murmurs Rate: tachycardic GI Negative for normal to inspection, nondistended, normoactive bowel sounds, non- tender, non-distended, hepatosplenomegaly or no masses GI Narrative: PEG tube is intact. There is some tube feeds in the tube. Site is not infected. Abdomen is not distended. Bowel sounds are normal. No notable tenderness. Back/Spine no CVA tenderness Extremity normal to inspection Neuro oriented x3 Psych mental status grossly normal Psych Narrative: Patient does admit to feeling anxious. He has not been getting his Ativan and and would like to try to get some of this. Mood & Affect: anxious Skin no rashes or lesions noted MDM MDM MDM Narrative Medical decision making narrative: Patient's blood work overall looks good. No sign of significant dehydration. Minimal rise of ALT and alk phos but his abdomen is benign and is not having pain. I went and rechecked the patient. He was relaxed and resting. He was easily woken. He admits he is feeling much better. He thinks that the Ativan may be doing a lot of the relaxation. He would prefer to try to go home. He has Ativan meds for pain as well as Zofran. We discussed ways that he can take Zofran. I will also write for Phenergan that he can use as an option. We discussed returning if he is worsening. He does have another radiation treatment tomorrow. Of note, he is also is handling his secretions fine now. I think the relaxation has helped him quite a bit. Lab Data Attestation: I reviewed the patient's lab results. Labs: Laboratory Results - last 24 hr 04/18/22 04/18/22 15:57 15:57 WBC 5.6 RBC 3.97 L Hgb 12.4 L Hct 35.3 L MCV 88.9 MCH 31.2 MCHC 35.1 RDW Std Deviation 36.5 RDW Coeff of Jose 11.3 L Plt Count 166 MPV 9.5 Immature Gran % (Auto) 0.500 Neut % (Auto) 90.1 H Lymph % (Auto) 2.9 L Dolores % (Auto) 5.9 Eos % (Auto) 0.2 Baso % (Auto) 0.4 Absolute Neuts (auto) 5.0 Absolute Lymphs (auto) 0.16 L Nucleated RBC % 0 Differential Comment SEE COMMENT Platelet Estimate ADEQUATE RBC Morphology N CHROM Anisocytosis RARE Sodium 137 Potassium 3.8 Chloride 101 Carbon Dioxide 29.0 Anion Gap 7 BUN 15 Creatinine 0.56 L Estim Creat Clear Calc 143.44 Est GFR (MDRD) Af Amer 192 Est GFR (MDRD) Non-Af 159 BUN/Creatinine Ratio 26.5 H Glucose 118 H Calcium 9.5 Total Bilirubin 0.70 AST 92 H ALT 276 H Alkaline Phosphatase 141 H Total Protein 7.9 Albumin 3.3 Globulin 4.6 H Albumin/Globulin Ratio 0.7 L Lipase 79 Discharge Plan Triage Chief Complaint: Nausea/Vomiting ED Provider: Wilver Lorenzo Dx/Rx/DC Orders Clinical Impression: Nausea & vomiting, SCC (squamous cell carcinoma of esophagus) Instructions: ED Vomiting (Adult) Prescriptions: New promethazine [Promethegan] 25 mg suppository 25 mg RECTAL Q6H PRN PRN (Reason: Nausea) Qty: 6 0RF No Action oxycodone 5 mg/5 mL solution 20 mg PO Q4H PRN (Reason: Pain) sennosides [senna] 8.8 mg/5 mL syrup 10 ml feeding tube BID ondansetron 8 mg tablet,disintegrating 8 mg PO Q8H PRN (Reason: nausea and vomiting) Qty: 90 3RF guaifenesin 100 mg/5 mL liquid 200 mg PO Q4H PRN gabapentin 250 mg/5 mL solution 6 ml feeding tube TID Label Comments: TAKE 6ML (300MG) PER PEG THREE TIMES A DAY SCHEDULED lidocaine HCl [Lidocaine Viscous] 2 % solution 10 ml PO Q6H Qty: 100 1RF lorazepam 0.5 mg tablet 0.5 mg feeding tube PRN MDD ANXIETY PRN (Reason: BID) Label Comments: TAKE 1 TABLET BY MOUTH TWICE DAILY NEEDED FOR PANIC/ANXIETY sertraline 25 mg tablet 50 mg feeding tube DAILY Label Comments: GIVE 1 TABLET VIA PEG TUBE DAILY metoclopramide HCl [Reglan] 5 mg tablet 5 mg feeding tube BID Rx Instructions: administer 30 minutes before meals lansoprazole 30 mg tablet,disintegrat, delay rel 60 mg feeding tube BID Qty: 120 1RF scopolamine base 1 mg over 3 days patch 3 day 1 patch transdermal Q72H Qty: 10 11RF Primary Care Provider: Shailesh Jennings Referrals: Shailesh Jennings DO [Primary Care Provider] - 1-2 Days if not improving Disposition Disposition: Home, Self Care
[2022-04-18] MEDS: LORazepam 2 MG/ML Syringe 1 MG IV (16:05)
[2022-04-18] MEDS: 0.9% Normal Saline 1,000 ML 1000 ML IV (16:05)
[2022-04-18] MEDS: Ondansetron 4 MG/2 ML Vial IV (16:05)
[2022-04-18] MEDS: Morphine 4 MG/ML Syringe IV (16:06)
[2022-04-18 16:07] LABS: Absolute Lymphocyte Count 0.16 X10^3/uL (0.83-4.51); Basophil# 0.02 X10^3/uL; Basophil% 0.4 % (0-1); Eosinophil# 0.01 X10^3/uL; Eosinophils% 0.2 % (0-5); Hematocrit 35.3 % (40-54); Hemoglobin 12.4 g/dL (13.0-16.5); Lymphocyte # 0.16 X10^3/ul (0.83-4.51); Lymphocyte % 2.9 % (19-41); Mean Corp Hgb Conc 35.1 g/dL (32-36); Mean Corpuscular Hgb 31.2 pg (27.0-32.0); Mean Corpuscular Volume 88.9 fL (80-94); Mean Platelet Vol. 9.5 fl (6.2-12.0); Monocyte# 0.33 X10^3/uL; Monocyte% 5.9 % (0-10); NRBC Flagged by Analyzer 0 % (0-5); Neutrophil # 5.01 X10^3/uL (2.7-7.7); Neutrophil % 90.1 % (47-70); POSITIVE DIFFERENTIAL YES; Platelet Count 166 K/mm3 (150-450); RBC Distribution Width CV 11.3 % (11.6-14.6); RBC Distribution Width SD 36.5 fl (35.1-43.9); Red Blood Count 3.97 M/mm3 (4.6-6.2); White Blood Count 5.6 K/mm3 (4.4-11.0)
[2022-04-18 16:08] LABS: Differential Indicated SCAN CRITERIA MET
[2022-04-18 16:15] VITALS: BP 129/86; PULSE 101; RESP 18; O2SAT 96
[2022-04-18 16:21] LABS: ALB/GLOB Ratio 0.7 RATIO (0.9-2.4); AST(SGOT) 92 U/L (15-37); Alanine Aminotransfer ALT/SGPT 276 U/L (16-61); Albumin, Serum 3.3 g/dL (3.2-5.0); Alkaline Phosphatase 141 U/L (45-117); Anion Gap 7 (5-15); BUN 15 mg/dL (7-18); BUN/Creat Ratio 26.5 RATIO (10-20); Calcium,Total 9.5 mg/dL (8.5-10.1); Chloride 101 mmol/L (98-107); Creatinine, Serum 0.56 mg/dL (0.70-1.30); EST Glomerular Filtration Rate 159 mL/min (>60); Est Glom Filt Rate - Afr Amer 192 mL/min (>60); Estimated Creatinine Clearance 143.44 ml/min; Globulin 4.6 g/dL (2.2-4.2); Glucose 118 mg/dL (74-106); Lipase 79 U/L (73-393); Potassium 3.8 mmol/L (3.5-5.1); Protein, Total 7.9 g/dL (6.4-8.2); Sodium Level 137 mmol/L (136-145)
[2022-04-18 16:36] LABS: Anisocytosis RARE; Platelet Estimate ADEQUATE (ADEQ); Red Cell Morphology N CHROM NORMAL (NORM C&C)
[2022-04-18 17:49] VITALS: BP 142/96; PULSE 114; RESP 18; O2SAT 98
== END 2022-04-18 19:03 | disposition home or self-care (01) ==
PROVIDERS: Emergency Provider Emergency Medicine; PCP Student in an Organized Health Care Education/Training Program; Visit Provider Emergency Medicine
DX: R11.2 Nausea with vomiting, unspecified (principal); C15.9 Malignant neoplasm of esophagus, unspecified; Z87.891 Personal history of nicotine dependence
CPT/HCPCS: 36415; 80053; 83690; 85025; 96361; 96374; 96375; 99282; J7030; A4216; J2405

== ENCOUNTER → 2022-04-28 | Outpatient (CLI) | payer MEDICAID, SELFPAY ==
--- NOTE | 2022-04-28 12:28 | CT_ITS ---
STUDY: CT CHEST WITH CONTRAST REASON FOR EXAM: Male, 56 years old. Follow up treated locally advanced H N SCC RADIATION DOSAGE (If Supplied By Facility): CTDIvol = ( 9.52 ) mGy, DLP = ( 608.92 ) mGycm TECHNIQUE: Transaxial imaging was performed following intravenous administration of IV 75mL Isovue-370. Multiplanar coronal and sagittal images were reformatted. Individualized dose optimization techniques were used for this CT. COMPARISON: No relevant priors. FINDINGS: CHEST A right-sided port catheter is seen with the tip in the superior vena cava. Diffuse circumferential wall thickening of the esophagus with narrowing of the esophageal lumen more prominent in the upper and midportion of the esophagus. Hyperinflation. Mild degree of emphysematous changes. Stable mild scarring at the lung bases slightly worse on the right lung base. There is no demonstrated pleural abnormality. Normal heart and pericardium. Normal mediastinum. Normal hilar regions. Normal unenhanced pulmonary arteries. Normal aorta arch and descending thoracic aorta. There is demineralization of the thoracic spine. Heterogeneous appearance of the T11 vertebrae. This is more pronounced in the superior endplate with a lytic lesion within it. CT/Chest WITH Contrast IMPRESSION: Stable examination. Electronically Signed: John Sanchez MD at 13:41 EDT ,
--- NOTE | 2022-04-28 12:28 | CT_ITS ---
STUDY: CT SOFT TISSUE NECK WITH CONTRAST REASON FOR EXAM: Male, 56 years old. Follow up treated locally advanced H N SCC RADIATION DOSAGE (If Supplied By Facility): CTDIvol = ( 9.52 ) mGy, DLP = ( 608.92 ) mGycm TECHNIQUE: The patient was scanned in a multi-detector CT scanner. High resolution transaxial imaging was performed following intravenous administration of IV 75mL Isovue-370. Sagittal and coronal images were reconstructed. Individualized dose optimization techniques were used for this CT. COMPARISON: None. FINDINGS: Diffuse circumferential thickening of the visualized portion of the mid and upper esophagus with narrowing of the esophageal lumen. There is evidence of prior open reduction and internal fixation with screw and plate fixation device of the mandibular fractures. The fracture of the left mandible is not healed. Surgical clips are seen in the cervical regions bilaterally. Normal bilateral parotid glands. Normal bilateral automobile damage field appraiser spaces. Normal bilateral parapharyngeal spaces. Normal bilateral carotid spaces. Normal bilateral sublingual and submandibular glands and spaces. There is a 2.2 cm x 4 cm slightly hyperdense mass in the posterior aspect of the oral cavity extending to the left side of midline and involves the tongue base. The visualized cervical lymph nodes (levels I-) are within normal size limits, and maintain normal morphology. There is no demonstrated solid or cystic mass lesion. There is no abnormal contrast enhancement. Normal epiglottis, bilateral vallecula and hypopharynx. The pre-epiglottic and paraglottic adipose spaces are normal. Normal visualized bilateral piriform sinuses, aryepiglottic folds, vocal cords, and arytenoid-cricoid articulations. Normal subglottic trachea. Normal bilateral lobes of the thyroid gland. Mild scarring at the lung apices. Normal visualized paranasal sinuses. There is mild degenerative changes of the cervical spine. CT/Soft Tissue Neck WITH Contrast IMPRESSION: Diffuse circumferential wall thickening of the visualized portion of the esophagus with narrowing of the esophageal lumen. 2.2 sign by 4 cm hyperdense mass in the posterior aspect of the oral cavity extending to the left-sided Interval history left lung base. Electronically Signed: John Sanchez MD at 13:36 EDT ,
[2022-04-28] MEDS: 0.9% Saline Lock 10 ML Syringe IV (12:50)
== END | disposition home or self-care (01) ==
PROVIDERS: PCP Student in an Organized Health Care Education/Training Program; Referring Provider Student in an Organized Health Care Education/Training Program; Visit Provider Student in an Organized Health Care Education/Training Program
DX: C14.8 Malignant neoplasm of overlapping sites of lip, oral cavity and pharynx (principal)
CPT/HCPCS: 70491; 71260; Q9967

== ENCOUNTER 2022-08-02 11:38 | Day surgery (SDC) | payer MEDICAID, SELFPAY ==
[2022-08-02] VITALS (7 sets, daily range): BP systolic 119–142; BP diastolic 78–95; PULSE 78–92; RESP 18; TEMP 36.6–37.2; O2SAT 94–99; BMI 24.9
--- NOTE | 2022-08-02 | ESO_PTH ---
PATIENT: ORTEGA DUKES LOC: [facility] U#:[id number] AGE/SX: 56/M ROOM: RE08/02/[address]: Dr. Yossi Hartmann DO : 1965 BED: DIS: 08/02/2022 SPEC #: [id number] RECD: 08/02/22 13:45 STATUS: SOILA REJoan #: [id number] KAILASH: 08/02/22 00:[address]: Yossi Hartmann DEPT: SURGICAL PATHOLOGY RECD BY: Charles Ansari ENTERED: 08/02/22 13:45 SP TYPE: KENTRELL RYAN DR: Dr. Shailesh Jennings DO Tissues: A - Esophagus, NOS B - Esophageal mucous membrane Procedures: Special Stain Group I Surgery Specimen Level IV GMS Stain (control) HEADER OPERATION: EGD (MAC), biopsy, APC, dilation PRE-OP DIAGNOSIS: Follow up esophageal carcinoma TISSUE SUBMITTED: A ? Esophageal stricture biopsy, B ? Random esophagus biopsy MICROSCOPIC DIAGNOSIS A. Esophageal stricture, biopsy: Fragments of squamous mucosa with ulceration, acute and chronic inflammation and granulation tissue reaction. Negative for malignancy. See comment. B. Esophagus, random biopsy: Fragments of squamous mucosa with ulceration, acute and chronic inflammation and granulation tissue reaction. Negative for malignancy. See comment. SJ:zahraa 08/03/2022 COMMENT A & B. Special stain for fungi is negative for organisms; matched control is appropriate. The specimen also shows reactive changes consistent with clinical history of status post chemoradiation therapy. Correlation with clinical, endoscopic findings and appropriate follow up are necessary. 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 MICROSCOPIC DESCRIPTION Slides are reviewed. GROSS DESCRIPTION A - Received in fixative is one container labeled with the patient's name and designated esophageal stricture biopsy. The specimen consists of multiple irregular fragments of light soft tissue that in aggregate measure 0.5 x 0.1 x 0.1 cm. The specimen is totally submitted in one cassette. B - Received in fixative is one container labeled with the patient's name and designated random esophageal biopsy. The specimen consists of multiple irregular fragments of light soft tissue that in aggregate measure 1 x 0.2 x 0.1 cm. The specimen is totally submitted in one cassette. / SJ:rg 08/02/2022 TC:2 CPT: 65596 x2, 02917 x2
[2022-08-02] MEDS: Lactated Ringers 1,000 ML 15 ML IV (12:10)
--- NOTE | 2022-08-02 13:11 | OP.EGD_ITS ---
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 Refer to note in patient chart for documentation of history and physical. Patient has symptoms of dysphagia with both liquids and solids. Complications: No immediate complications. Procedure: Pre-Anesthesia Assessment: - Prior to the procedure, a History and Physical was performed, and patient medications and allergies were reviewed. The patient is competent. The risks and benefits of the procedure and the sedation options and risks were discussed with the patient. All questions were answered and informed consent was obtained. Patient identification and proposed procedure were verified by the physician. Mental Status Examination: alert and oriented. Airway Examination: normal oropharyngeal airway and neck mobility. Respiratory Examination: clear to auscultation. CV Examination: normal. Prophylactic Antibiotics: The patient does not require prophylactic antibiotics. Prior Anticoagulants: The patient has taken no previous anticoagulant or antiplatelet agents. ASA Grade Assessment: II - A patient with mild systemic disease. After reviewing the risks and benefits, the patient was deemed in satisfactory condition to undergo the procedure. The anesthesia plan was to use monitored anesthesia care (MAC). Immediately prior to administration of medications, the patient was re-assessed for adequacy to receive sedatives. The heart rate, respiratory rate, oxygen saturations, blood pressure, adequacy of pulmonary ventilation, and response to care were monitored throughout the procedure. The physical status of the patient was re-assessed after the procedure. After obtaining informed consent, the endoscope was passed under direct vision. Throughout the procedure, the patient's blood pressure, pulse, and oxygen saturations were monitored continuously. The gastroscope was introduced through the mouth, and advanced to the second part of duodenum. The upper GI endoscopy was accomplished without difficulty. The patient tolerated the procedure well. Scope In: 12:45:18 PM Scope Out: 1:01:01 PM Total Procedure Duration Time 0 hours 15 minutes 43 seconds Findings: One benign-appearing, intrinsic stenosis was found 27 to 32 cm from the incisors. This stenosis was severe (stenosis; an endoscope cannot pass) and measured 3 mm (inner diameter) x 4 cm (in length). The stenosis was traversed after dilation. A TTS dilator was passed through the scope. Dilation with a 12-13.5-15 mm balloon dilator was performed to 15 mm under fluoroscopic guidance. The dilation site was examined following endoscope reinsertion and showed complete resolution of luminal narrowing. Biopsies were taken with a cold forceps for histology. Verification of patient identification for the specimen was done. Estimated blood loss was minimal. Coagulation for hemostasis using argon plasma at 0.5 liters/minute and 20 arriaga was successful. Estimated blood loss was minimal. A medium-sized hiatal hernia was present. There was evidence of an intact gastrostomy with a patent G-tube present in the gastric body. This was characterized by healthy appearing mucosa. No gross lesions were noted in the duodenal bulb. Impression: - Benign-appearing esophageal stenosis. Dilated. Biopsied. Treated with argon plasma coagulation (APC). - Medium-sized hiatal hernia. - Intact gastrostomy with a patent G-tube present characterized by healthy appearing mucosa. - No gross lesions in the duodenal bulb. Recommendation: - Discharge patient to home. - Resume previous diet. - Continue present medications. - Await pathology results. - Repeat upper endoscopy in 3 months for surveillance. Procedure Code(s): --- Professional --- 52364, 59, Esophagogastroduodenoscopy, flexible, transoral; with control of bleeding, any method 04563, 51, Esophagogastroduodenoscopy, flexible, transoral; with transendoscopic balloon dilation of esophagus (less than 30 mm diameter) 20368, 59, Esophagogastroduodenoscopy, flexible, transoral; with biopsy, single or multiple 85358, 26, Intraluminal dilation of strictures and/or obstructions (eg, esophagus), radiological supervision and interpretation CPT copyright 2017 [employer]. All rights reserved. The codes documented in this report are preliminary and upon upfitter review may be revised to meet current compliance requirements. Yossi Hartmann DO 08/02/2022 1:10:52 PM This report has been signed electronically. Number of Addenda: 0 Note Initiated On: 08/02/2022 12:26 PM
--- NOTE | 2022-08-02 13:11 | OP.CCLET_ITS ---
08/02/2022 Shailesh Jennings Do Re : Upper GI endoscopy procedure for Jaleel Esparza Dear Michaela This procedure was performed on Tuesday, August 02, 2022. My impressions and recommendations are as follows: Impressions : - Benign-appearing esophageal stenosis. Dilated. Biopsied. Treated with argon plasma coagulation (APC). - Medium-sized hiatal hernia. - Intact gastrostomy with a patent G-tube present characterized by healthy appearing mucosa. - No gross lesions in the duodenal bulb. Recommendations : - Discharge patient to home. - Resume previous diet. - Continue present medications. - Await pathology results. - Repeat upper endoscopy in 3 months for surveillance. My findings are described in the full procedure note, which is enclosed. If I can be of further assistance, please feel free to contact me at . Sincerely, Yossi Hartmann, 08/02/2022 1:10:52 PM This report has been signed electronically.
[2022-08-02] MEDS: 0.9% Saline Lock 10 ML Syringe IV (14:00)
--- NOTE | 2022-08-04 07:13 | HP.PCM_ITS ---
History and Physical Date of Admission: 08/02/22 ORTEGA DUKES, is a 56 M who presents to the office today for Follow up. Ortega established with this clinic 01.11.22 with referral from PCP for evaluation of recurrent morning nausea with periodic emesis every 7-10 days and lasting for a day with a history of oropharyngeal cancer seen on 08.05.21 scan with ED presentation 08.18.21 r/t significant discomfort and inability to swallow with a feeding tube in place and history of tracheostomy. Antiemetics utilized with effectiveness. Declined CT scan with PCP. Since surgery he has been having difficulty swallowing; continues with ST. Reports very thick saliva with an increase in quantity in the morning; also feels there is something causing him to gag in the morning. Zofran prescribed; unsure if it is helpful but did have increase symptoms when he was out of the medication. 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 Radiation treatments 10.07.21-11.17.21 with feeding tube placed with all of his nutrition through this; formula Isosource 1.5 2 boxes breakfast, lunch, dinner with additional 1box 10PM and 2AM. No chemotherapy. Weight was reduced during cancer treatment. 165lbs is his normal weight, reduce to 133lbs and is now back to 156lbs. Smoker for 30 years. History of drinking 6 beers a day until 08.16.21. [facility] ED presentation 03.09.22 with nausea/vomiting/diarrhea resulting in dehydration requiring admission. 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 He was discharged 03.11.22. CT abd/pel 03.09.22 without acute/chronic abnormality noted. EGD 03.10.22 finding nasopharynx and oropharynx abnormal; partially obstructing, likely malignant esophageal tumor in middle third of the esophagus, treatment with APC not successful, squamous cell carcinoma; multiple non-bleeding duodenal ulcer without stigmata of bleeding; intact gastrostomy with patent G-tube present. EGD 03.11.22 with partially obstructing, malignant esophageal tumor found mid esophagus; multiple non-bleeding duodenal ulcers without stigmata of bleed. No specimens collected. PET CT scan 03.23.22 with abnormal exam indicative of malignant viable neoplasm. He has been having daily nausea that lasts whenever he is awake. Zofran has been mildly effective. Reports thick white sputum that is difficult to clear. Denies active bleed at this time. ROS Const Constitutional: No anorexia, fatigue, fever(s), weight change or sleep problems Eyes Eyes: No change in vision ENT ENT: Positive for difficulty swallowing; No abnormal hearing, tongue swelling or throat swelling Resp Respiratory: No cough or shortness of breath Cardio Cardiology: No chest pain at rest, chest pain with exertion, shortness of breath or dyspnea on exertion Gastro GI: Positive for difficulty swallowing Genitourinary Male: No difficulty urinating or burning urination Musc Musculoskeletal: No joint pain, joint swelling, muscle weakness or decreased muscle mass Skin Skin: No hair loss in leg, yellowing of the eye, itchy eyes, rash, skin ulcer or skin swelling Neuro Neurology: No abnormal hearing, abnormal movements, confusion, unsteady gait/balance or memory loss Psych Psychiatric: No anxiety, No confusion and No memory loss Endo Endocrine: No fatigue or weight change Aller/Imm Allergy/Immunologic: No itchy eyes, throat swelling or tongue swelling Darnell/Lymp Hematologic/Lymphatic: No easy bleeding, easy bruising or enlarged lymph nodes Exam Const General: cooperative and comfortable Nutritional Appearance: average body habitus and well nourished [facility] Head: normal to inspection Ears: hearing grossly normal bilaterally Nose: external nose normal Face and sinus: normal facial exam Mouth: oral mucosae normal Throat: posterior oropharynx normal Eyes General: appearance normal, both eyes and all related structures Neck Neck: normal visual inspection Chest Chest palpation & inspection: normal inspection of the chest and normal palpation of entire chest wall Resp Effort & Inspection: normal respiratory effort Auscultation: Bilateral: Clear to Auscultation Cardio Palpation: normal PMI Rate: regular rate Rhythm: regular rhythm GI Inspection: normal to inspection Auscultation: normal bowel sounds Percussion: normal to percussion Palpation: no hepatosplenomegaly Skin General: no rashes or lesions noted Neuro General: patient alert Extrem General: normal to inspection Psych Affect: normal affect Quality Reporting Tobacco Screening ([facility] 138) Smoking Status: Former smoker Assessment and Plan Assessment and Plan (1) Squamous cell carcinoma of esophagus: ?Status:?Chronic ?Plan: I will talk to his oncologist and radiation oncologist and regarding a plan for chemotherapy and radiation.? I think he would benefit from a esophageal stent due to the fact that most of his nausea and his symptoms come from his inability to swallow his secretions. (2) Nausea: ?Status:?Chronic ?Plan: I will give him a scopolamine patch and he can continue the as needed Reglan and and Zofran that was already started as an outpatient. ? ? ? Medications: New metoclopramide HCl (Reglan) ?? administer 30 minutes before meals 5 mg PO BID 60 tabs 3RF ? ? ondansetron 8 mg PO Q8H PRN 90 tabs 3RF nausea and v omiting ? ? Discontinued ondansetron HCl ?? take one tab PO prior to radiation treatment ?? Discontinued Reason:? Order Changed 4 mg? PO Q8H PRN 30 tabs 0RF nausea and vomiting R11.0 - Nausea ? I have examined the patient and the H&P has been reviewed. There are no clinical changes since date of exam.
== END 2022-08-02 14:17 | disposition home or self-care (01) ==
LOC: EN 11:38 → AC 11:40
PROVIDERS: PCP Student in an Organized Health Care Education/Training Program; Referring Provider Student in an Organized Health Care Education/Training Program; Visit Provider Internal Medicine Gastroenterology
PROC: 0DJ08ZZ Inspection of Upper Intestinal Tract, Via Natural or Artificial Opening Endoscopic (ICD-10-PCS; CPT 43235; principal; 2022-08-02 12:40)
DX: K22.2 Esophageal obstruction (principal); Z93.1 Gastrostomy status; K44.9 Diaphragmatic hernia without obstruction or gangrene; F41.9 Anxiety disorder, unspecified; F32.A Depression, unspecified; K21.9 Gastro-esophageal reflux disease without esophagitis; Z79.899 Other long term (current) drug therapy; Z87.891 Personal history of nicotine dependence
CPT/HCPCS: 43239; 43249; 43255; 88305; 88312; 97803; J7120; A4216; J2405

== ENCOUNTER 2022-10-13 08:28 | Day surgery (SDC) | payer MEDICAID, SELFPAY ==
[2022-10-13 08:56] VITALS: BP 126/84; PULSE 109; RESP 18; TEMP 36.9; O2SAT 98; BMI 27.3
[2022-10-13] MEDS: Lactated Ringers 1,000 ML 15 ML IV (09:06)
--- NOTE | 2022-10-13 09:24 | HP.PCM_ITS ---
History and Physical Date of Admission: 10/13/22 08/05/2021: CT neck soft tissue was completed.? There is a heterogeneous lobulated hyperdense/enhancing mass involving the oral tongue, genioglossus muscle complex and floor of mouth eccentric to the right.? This erodes through the mandibular alveolar ridge near midline and measures 5.5 x 4.5 x 4.4 cm in aggregate.? Mass effaces the fatty lingual septum and extends into the right sublingual space with effacement of the fat.? There is involvement of the right hyoglossus muscle suggests encroachment on the right neurovascular bundle, the lesion abuts the right aspect of the mild hyoid with possible invasion, there is no direct extension into the right submandibular space identified.? There is prominence of the bilateral lingual tonsils, palatine tonsils and adenoid tissues are within normal limits.? Nasopharynx and oropharynx are otherwise unremarkable.? There are several bilateral prominent rounded lymph nodes with loss of fatty janett suspicious for metastatic lymph node involvement. 08/18/2021: Patient was sent to the emergency room due to having a large oral cavity cancer with significant discomfort and not being on to swallow properly.? Patient had lost about 25 pounds.? On exam there is a large lesion involving the floor of mouth and anterior tongue, on palpation there is induration to the posterior tongue.? There is good mandibular excursion.? Palpation of the neck demonstrated probable level 2 adenopathy on the right.? NPL was completed which demonstrated no further evidence of mucosal lesions. 08/18/2021: CT chest with contrast was performed.? This demonstrated a couple of enlarged lymph nodes in the lower paraesophageal region.? No suspicious pulmonary nodules are seen. 08/19/2021: Underwent DL and biopsy of tongue.? Also underwent bronchoscopy and esophagoscopy.? There was a large lesion noted involving the anterior floor of mouth on both sides anteriorly but extending more so to the right posteriorly and involving the anterior gum.? It also extends submucosally into the substance of most of the anterior tongue on both sides.? No other abnormalities were noted.? 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 08/26/2021: Patient underwent tracheotomy, composite resection including anterior mandible, subtotal glossectomy, and bilateral floor of mouth resection, bilateral neck dissection of levels 1 through 4 and mandibular reconstruction.? Pathology demonstrated a 3.6 cm unifocal conventional/keratinizing poorly diff erentiated squamous cell carcinoma involving the anterior tongue, mandibular gingiva, and floor of mouth.? There is at least 11 mm depth of invasion, margins negative with the closest margin being 4 mm, perineural invasion is present, lymph vascular invasion is not present, 0/62 lymph nodes contained metastatic disease.? pT4a pN0? From 10/07/2021 ? 11/17/2021: received 6000 cGy delivered to the tumor bed and reconstruction and 5400 cGy delivered to the bilateral neck and supraclavicular fossa.? He did not receive concurrent chemotherapy. 11/24/2021: Patient was evaluated by ENT.? No evidence of disease was noted on exam.? Plan was to continue with trach for 1 more month prior to removal. 03/09/2022: Patient presented to the emergency room with 3-day history of nausea and vomiting. 03/09/2022: CT abdomen/pelvis with contrast was performed.? This demonstrated no acute abnormalities. 03/10/2022: Due to suspicion for esophageal stricture EGD was completed.? This demonstrated a large ulcerating mass with bleeding and stigmata of recent bleeding found at the middle third of the esophagus 20 cm from the incisors.? The mass was partially obstructing and partially circumferential involving about two thirds of the lumen circumference.? Biopsies were taken.? The entire stomach exam was normal.? Many nonbleeding superficial duodenal ulcers were demonstrated in the duodenum and G-tube was present in the gastric antrum. 03/10/2022: CT chest with contrast was performed.? This demonstrated diffuse circumferential wall thickening of the proximal and mid esophagus.? There is mild degree of scarring in the upper and lower lobes of the lungs and emphysematous changes.? There is an abnormal appearance of the T11 vertebral body.? Recommend correlation with bone scan. From ? 05/20/2022: received definitive chemoradiation consisting of 5400 cGy delivered to the gross esophageal/LN disease and 4860 cGy delivered at risk esophagus and paraesophageal lymphatics in 27 fractions with concurrent carbo/Taxol.? He was treated with a simultaneous integrated boost technique using a VMAT plan with 6 MV photons.? There was minimal overlap with his prior radiation therapy which was evaluated using a plan sum. 06/01/2022: EGD was performed.? This demonstrated a large ulcerating mass with no bleeding and no stigmata of recent bleeding found in the mid esophagus about 28 cm from the incisors, the mass was partially obstructing and partially circumferential involving about two thirds of the lumen.? Biopsies were taken. 08/02/2022: EGD was completed.? There was a benign-appearing intrinsic stenosis found at 27 to 32 cm from the incisors the stenosis was fairly severe and was traversed after dilation.? A medium size hiatal hernia was present.? G-tube is present.? Area of stenosis was biopsied and was consistent with fragments of squamous mucosa with ulceration, acute and chronic inflammation and granulation tissue and no malignancy. 08/24/2022: PET scan was performed.? This demonstrated persistent increased radiopharmaceutical concentration redefined in the mid esophagus for filling quantitative criteria for viable neoplasm but there has been interval quantitative partial metabolic response.? There is continued increased uptake noted in the pharyngeal mucosal space/tongue base region with the current calculated maximum SUV of 10.8 compared to 10.06 on the prior exam with the largest axial diameter of the abnormality being 2.9 cm compared to 2.1 cm on the prior exam.? This may warrant direct visualization.? No other evidence of disease is identified. Radiation Treatment History:? 1) From 10/07/2021 ? 11/17/2021: received 6000 cGy delivered to the tumor bed and reconstruction and 5400 cGy delivered to the bilateral neck and supraclavicular fossa.? He did not receive concurrent chemotherapy. 2) From ? 05/20/2022: received definitive chemoradiation consisting of 5400 cGy delivered to the gross esophageal/LN disease and 4860 cGy delivered at risk esophagus and paraesophageal lymphatics in 27 fractions with concurrent carbo/Taxol.? He was treated with a simultaneous integrated boost technique using a VMAT plan with 6 MV photons.? There was minimal overlap with his prior radiation therapy which was evaluated using a plan sum. Interval History:? Patient presents for follow-up approximately 10 months after completing adjuvant radiation therapy to head and neck cancer and about 3 month after completing radiation therapy for mid esophageal SCC.? He does not swallow any liquids by mouth and does struggle with his saliva as well.? He spits into a bucket most of the time.? He is taking about 8 PEG tube feedings per day and has gained weight and now is up to 186 pounds.? He has chronic pain in the head and neck area with some referred pain to the right ear, he is taking 25 mg oxycodone every 3 hours per palliative care and this does control his pain to be about 4/10.? With PEG tube feedings he does have some nausea and occasional regurgitation.? He denies having shortness of breath, cough, hemoptysis.? He also continues to have fairly severe dysfunction with his right shoulder and has a hard time raising it and this remains stable.? He denies shortness of breath, chest pain.? His energy level also remains relatively stable.? He continues to have a high amount of thick mucus production and is using Mucinex and rinses for some relief.? He denies hoarseness, headaches, vision changes, bone pain.? He completes all ADLs without much difficulty and denies having other problems or concerns at this time. Review of Systems: A 12-point review of systems was completed and was negative except for what is noted in the HPI/Interval History and by the nurse. Physical Exam: Weight: 186 lbs 4 oz (weight at end of treatment 11/17/21: 139 lbs 3 oz) ECO KARNOFSKY SCORE: 80% CONSTITUTIONAL: Well-developed, well-nourished, and in no apparent distress. HEENT: Mucous membranes moist. No evidence of thrush or lesions within the visualized oropharynx or oral cavity.? Well-healed flap based reconstruction, no apparent disease with palpation of BOT area, does have some diffuse oral cavity pain.? 3 finger trismus.? Edentulous.? Pupils are equal, round, and reactive to light and accommodation. Extraocular movements are intact. Sclerae are anicteric. NECK: Supple, no thyromegaly, and non-tender. Trachea midline. Tracheostomy removed and well healed.? No cervical or supraclavicular adenopathy noted.? Mildly reduced ROM with left rotation, otherwise intact. No lymphedema. CARDIAC: Regular rate and rhythm. Normal S1, S2. No murmurs, rubs, or gallops. PULMONARY/CHEST: Lungs are clear to auscultation and percussion bilaterally. No wheezes, rhonchi, or crackles noted. No increased work of breathing. ABDOMINAL: Abdomen soft, non-tender, non-distended. No hepatomegaly. Normoactive bowel sounds in all four quadrants. No guarding, rebound. BACK: Straight and aligned. No CVA tenderness. Axial skeleton non-tender to percussion. EXTREMITIES: Reduced right arm ROM and weakness.? Otherwise full range of motion in all four extremities. No evidence of edema. NEUROLOGICAL EXAM: Alert and oriented x 3. Answers questions and follows commands appropriately.? Cranial nerves II through XII are grossly intact.? No focal neurological deficit. Speech is fluent.? Muscle strength is 5/5 in all muscle groups. Gait and posture without abnormality. PSYCHIATRIC: Appropriate mood and affect for the clinical situation. Imaging:? 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 From 10/07/2021 ? 11/17/2021 he received adjuvant radiation therapy.? Due to nausea and vomiting with some increase in dysphagia he had EGD (03/10/2022) demonstrating an ulcerating mass in the middle third of the esophagus with pathology consistent for squamous cell carcinoma and has had CT abdomen/pelvis (03/09/2022), CT chest (03/10/2022), and PET scan (03/23/2022).? From ? 05/20/2022 he received definitive chemoradiation to the esophageal SCC. Plan: Patient returns for follow-up approximately 4 months after completing definitive chemoradiation for midesophagus squamous cell carcinoma, he is about 11 months status post completion of adjuvant radiation therapy for locally advanced squamous cell carcinoma of the oral cavity.? There is no evidence of disease on exam.? Interval PET scan was completed on 08/24/2022, I reviewed this study and also compared it with prior studies.? There does not appear to be a very nice response with decreased PET avidity and size of the mid esophageal squamous cell carcinoma, persistent activity in the oral cavity and oropharynx remains stable to may be slightly improved.? There is no evidence for metastatic disease.? Overall there is activity remaining in the mid esophagus but I am encouraged that this activity has significantly improved and his prior EGD completed in early July demonstrated stenosis which was benign-appearing and biopsied did not demonstrate malignancy.? He does have persistent extreme difficulty with swallowing and is taking all nutrition through his PEG tube, we discussed the potential benefits of considering an esophageal stent.? He also has persistent mucus production and oral cavity pain, continues to have pain management per palliative care and this is adequate.? PET activity within the head and neck area is stable and does not appear to be disease, he is no longer seeing ENT and is unwilling to go back to see his ENT at this time.? He is also no longer seeing speech therapy due to personal preference.? Overall I do feel like he has had a nice disease response as determined by imaging and physical exam but recommend continued close observation, he is planned to have repeat EGD and likely dilation with GI in September? I have examined the patient and the H&P has been reviewed. There are no clinical changes since date of exam.
--- NOTE | 2022-10-13 09:30 | EGD_PTH ---
PATIENT: ORTEGA DUKES LOC: EN U#:[id number] AGE/SX: 57/M ROOM: RE10/13/[address]: Dr. Yossi Hartmann DO : 1965 BED: DIS: 10/13/2022 SPEC #: [id number] RECD: 10/13/22 13:35 STATUS: SOILA TYLERJoan #: [id number] KAILASH: 10/13/22 09:[address]: Yossi Hartmann DEPT: SURGICAL PATHOLOGY RECD BY: Tiff Prieto ENTERED: 10/13/22 14:06 SP TYPE: EGD BIOPSY OT DR: Dr. Shailesh Jennings DO Tissues: Esophagus, NOS Procedures: Special Stain Group I Surgery Specimen Level IV GMS Stain (control) HEADER OPERATION: Esophagoscopy RFA, EGD with biopsy and dilation PRE-OP DIAGNOSIS: Squamous cell carcinoma of esophagus TISSUE SUBMITTED: Esophageal stricture MICROSCOPIC DIAGNOSIS Esophageal stricture, biopsy: Fragments of squamous mucosa with focal ulceration, fibrinous exudation and acute and chronic inflammation. Negative for malignancy. See comment. ALEXANDER:zahraa 10/14/2022 COMMENT Special stain for fungi is negative for organisms; matched control is appropriate. Correlation with clinical, endoscopic findings and appropriate follow up are necessary. Please make reference to previous specimen ([id number]), mid esophagus, biopsy with diagnosis of ?squamous cell carcinoma in situ with focal area highly suspicious for invasive squamous cell carcinoma? and ([id number]), esophageal stricture, biopsy with diagnosis of ?fragments of squamous mucosa with ulceration, acute and chronic inflammation and granulation tissue reaction? and esophagus, random biopsy with diagnosis of ?fragments of squamous mucosa with ulceration, acute and chronic inflammation and granulation tissue reaction.? MICROSCOPIC DESCRIPTION Slides are reviewed. GROSS DESCRIPTION Received in fixative is one container labeled with the patient's name and designated esophageal stricture biopsy. The specimen consists of multiple irregular fragments of light soft tissue that in aggregate measure 1.0 x 0.3 x 0.1 cm. The specimen is totally submitted in one cassette. / SJ:zahraa 10/13/2022 TC:2 CPT: 18348, 95980
[2022-10-13 10:00] VITALS: BP 116/76; BP 126/84; PULSE 107; RESP 16; TEMP 36.3; O2SAT 95
[2022-10-13 10:05] VITALS: BP 116/79; BP 126/84; PULSE 108; RESP 16; O2SAT 91
--- NOTE | 2022-10-13 10:09 | OP.EGD_ITS ---
Patient Name: Jaleel Esparza Procedure Date: 10/13/2022 9:04 AM Date of : 1965 Age: 57 Procedure: Upper GI endoscopy Indications: Dysphagia Providers: Yossi Hartmann DO Medicines: Monitored Anesthesia Care Patient Profile: This is a 57 year old male. Refer to note in patient chart for documentation of history and physical. Patient has symptoms of chronic dysphagia. He is status post EGD for dilation and EGD for PEG placement within the past three months. Complications: No immediate complications. Procedure: Pre-Anesthesia Assessment: - Prior to the procedure, a History and Physical was performed, and patient medications and allergies were reviewed. The patient is competent. The risks and benefits of the procedure and the sedation options and risks were discussed with the patient. All questions were answered and informed consent was obtained. Patient identification and proposed procedure were verified by the physician in the pre-procedure area. Mental Status Examination: alert and oriented. Airway Examination: normal oropharyngeal airway and neck mobility. Prophylactic Antibiotics: The patient does not require prophylactic antibiotics. Prior Anticoagulants: The patient has taken no previous anticoagulant or antiplatelet agents. ASA Grade Assessment: III - A patient with severe systemic disease. After reviewing the risks and benefits, the patient was deemed in satisfactory condition to undergo the procedure. The anesthesia plan was to use monitored anesthesia care (MAC). Immediately prior to administration of medications, the patient was re-assessed for adequacy to receive sedatives. The heart rate, respiratory rate, oxygen saturations, blood pressure, adequacy of pulmonary ventilation, and response to care were monitored throughout the procedure. The physical status of the patient was re-assessed after the procedure. After obtaining informed consent, the endoscope was passed under direct vision. Throughout the procedure, the patient's blood pressure, pulse, and oxygen saturations were monitored continuously. The gastroscope was introduced through the mouth, and advanced to the second part of duodenum. The upper GI endoscopy was accomplished without difficulty. The patient tolerated the procedure well. Scope In: 9:33:21 AM Scope Out: 9:50:18 AM Total Procedure Duration Time 0 hours 16 minutes 57 seconds Findings: One benign-appearing, intrinsic stenosis was found 27 to 31 cm from the incisors. This stenosis was severe and measured 4 cm (in length). The stenosis was traversed after dilation. A TTS dilator was passed through the scope. Dilation with a 15-16.5-18 mm balloon dilator was performed to 15 mm. The dilation site was examined following endoscope reinsertion and showed complete resolution of luminal narrowing. Estimated blood loss was minimal. A TTS dilator was passed through the scope. Dilation with a 15-16.5-18 mm balloon dilator was performed to 15 mm. The dilation site was examined and showed complete resolution of luminal narrowing. Estimated blood loss was minimal. LA Grade D (one or more mucosal breaks involving at least 75% of esophageal circumference) esophagitis with bleeding was found 33 to 40 cm from the incisors. Biopsies were taken with a cold forceps for histology. 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 The maximum longitudinal extent of these mucosal changes was 3 cm in length. Focal radiofrequency ablation of Anton's esophagus was performed. With the endoscope in place, the position and extent of the Anton's mucosa and the anatomic landmarks including proximal and distal extent of Anton's mucosa were noted. Endoscopic visualization identified an ablation site including the entire visible Anton's segment. The Anton's mucosa was irrigated with N-acetylcysteine (Mucomyst) 1% mixed with water. Esophageal contents were suctioned. The endoscope was then removed from the patient. The Barrx-90 radiofrequency ablation catheter was attached to the tip of the endoscope. The endoscope with the attached radiofrequency ablation catheter was then passed transorally under direct vision into the esophagus and advanced to the areas of Naton's mucosa. The areas included circumferential areas of Anton's mucosa. The radiofrequency ablation catheter was placed in contact with the surface of the Anton's mucosa under direct visualization and energy was applied twice at 12 J/cm2. The ablation zone was cleaned of coagulative debris. The ablation catheter and endoscope were then removed and the catheter was cleaned. The catheter and endoscope were reinserted into the esophagus. A second round of ablation was then performed. Energy was applied twice at 12 J/cm2 to retreat the areas of Anton's epithelium that had been treated with the first series of ablation. The areas of the esophagus where Anton's mucosa had been ablated were examined. Areas of Anton's esophagus were partially ablated. Estimated blood loss was minimal. There was evidence of a patent gastrostomy with no G-tube present in the gastric body. No gross lesions were noted in the first portion of the duodenum. Impression: - Benign-appearing esophageal stenosis. Dilated. - LA Grade D erosive esophagitis. Biopsied. - Esophageal mucosal changes secondary to established short-segment Anton's disease. Treated with radiofrequency ablation. - Patent gastrostomy with no G-tube present. - No gross lesions in the first portion of the duodenum. Recommendation: - Discharge patient to home. - Full liquid diet. - Continue present medications. Procedure Code(s): --- Professional --- 58241, Esophagogastroduodenoscopy, flexible, transoral; with ablation of tumor(s), polyp(s), or other lesion(s) (includes pre- and post-dilation and guide wire passage, when performed) 07007, 59, Esophagogastroduodenoscopy, flexible, transoral; with biopsy, single or multiple CPT copyright 2017 [employer]. All rights reserved. The codes documented in this report are preliminary and upon inpatient care manager rn review may be revised to meet current compliance requirements. Yossi Hartmann DO 10/13/2022 10:08:49 AM This report has been signed electronically. Number of Addenda: 0 Note Initiated On: 10/13/2022 9:04 AM
--- NOTE | 2022-10-13 10:09 | OP.CCLET_ITS ---
10/13/2022 Shailesh Jennings Do Re : Upper GI endoscopy procedure for Jaleel Esparza Dear Michaela This procedure was performed on September. My impressions and recommendations are as follows: Impressions : - Benign-appearing esophageal stenosis. Dilated. - LA Grade D erosive esophagitis. Biopsied. - Esophageal mucosal changes secondary to established short-segment Anton's disease. Treated with radiofrequency ablation. - Patent gastrostomy with no G-tube present. - No gross lesions in the first portion of the duodenum. Recommendations : - Discharge patient to home. - Full liquid diet. - Continue present medications. My findings are described in the full procedure note, which is enclosed. If I can be of further assistance, please feel free to contact me at . Sincerely, Yossi Hartmann, 10/13/2022 10:08:49 AM This report has been signed electronically.
[2022-10-13 10:10] VITALS: BP 120/79; BP 126/84; PULSE 98; RESP 16; O2SAT 92
[2022-10-13 10:16] VITALS: BP 122/83; BP 126/84; PULSE 102; RESP 16; TEMP 37; O2SAT 92
[2022-10-13 10:28] VITALS: BP 126/84
== END 2022-10-13 10:43 | disposition home or self-care (01) ==
LOC: EN 08:29 → AC 08:30
PROVIDERS: PCP Student in an Organized Health Care Education/Training Program; Referring Provider Student in an Organized Health Care Education/Training Program; Visit Provider Internal Medicine Gastroenterology
PROC: 0DJ08ZZ Inspection of Upper Intestinal Tract, Via Natural or Artificial Opening Endoscopic (ICD-10-PCS; CPT 43235; principal; 2022-10-13 09:25)
DX: C02.3 Malignant neoplasm of anterior two-thirds of tongue, part unspecified (principal); K22.2 Esophageal obstruction; K20.80 Other esophagitis without bleeding; R13.10 Dysphagia, unspecified; R11.2 Nausea with vomiting, unspecified; Z92.3 Personal history of irradiation
CPT/HCPCS: 43239; 43270; 88305; 88312; J7120; A4216; J2405

== ENCOUNTER 2022-10-21 15:10 | Inpatient (IN) | payer MEDICAID, SELFPAY ==
[2022-10-21 15:12] VITALS: BP 141/101; PULSE 123; RESP 18; TEMP 36.2; O2SAT 95; BMI 26.4
--- NOTE | 2022-10-21 15:27 | EKG12_ITS ---
Test Reason : NAUSEA Blood Pressure : / mmHG Vent. Rate : 109 BPM Atrial Rate : 109 BPM P-R Int : 134 ms QRS Dur : 074 ms QT Int : 330 ms P-R-T Axes : 031 039 032 degrees QTc Int : 444 ms Sinus tachycardia Low voltage QRS Confirmed by SINGH FRAZIER, EDWARDO ([id number]), online editor BRITTANY JIN ([id number]) on 10/25/2022 9:04:08 AM Referred By: EK Confirmed By:EDWARDO WINTERS MD
--- NOTE | 2022-10-21 15:28 | EDS_ITS ---
HPI History of Present Illness Chief Complaint: Nausea/Vomiting Detail of Chief Complaint: Chest pain, vomiting Informant: patient Narrative Narrative: Patient presents secondary to chest pain and vomiting. He has a history of oral cancer and has a mass in his esophagus. Last patient underwent an EGD for dilation as well as focal radiation treatment. Patient states since that time has been coughing up blood. He has just recently began vomiting and had some blood streaks in his vomitus as well. He complains of pain to the lower chest. He denies fever or chills. Family states that he is even been vomiting up his tube feeds. [facility] Medical History Anemia Anxiety Back pain Cancer Cancer of overlapping sites of lip, oral cavity and pharynx Depression Dietary restriction Dysphagia Edentulous Ex-cigarette smoker Former smoker Gastric reflux History of GI bleed Mucositis due to radiation therapy Multiple pigmented nevi Oral candidiasis Oropharyngeal cancer Radiation dermatitis Right shoulder pain Uses wheelchair Wears glasses Home Medications oxycodone 5 mg/5 mL oral solution 40 mg PO Q4H PRN Pain 12/16/21 [History Last Taken 10/13/22] sennosides 8.8 mg/5 mL oral syrup (senna) 10 ml feeding tube BID 01/11/22 [History Last Taken 03/07/22] gabapentin 250 mg/5 mL oral solution 6 ml feeding tube TID nerve pain 03/09/22 [History Last Taken 03/04/22] lansoprazole 30 mg delayed release,disintegrating tablet 60 mg feeding tube BID #120 tabs 03/23/22 [Rx Last Taken Unknown] ondansetron 8 mg disintegrating tablet 8 mg PO Q8H PRN nausea and vomiting #90 tabs 04/01/22 [Rx Last Taken Unknown] lorazepam 0.5 mg tablet 0.5 mg feeding tube PRN PRN BID 04/07/22 [History Last Taken Unknown] metoclopramide HCl 5 mg tablet (Reglan) 5 mg feeding tube BID 04/07/22 [History Last Taken Unknown] sertraline 25 mg tablet 50 mg feeding tube DAILY 04/07/22 [History Last Taken Unknown] guaifenesin 100 mg/5 mL oral liquid 200 mg (10 mL) PO Q4H PRN congestion #1,000 mL 04/26/22 [Rx Last Taken Unknown] lidocaine-prilocaine 2.5 %-2.5 % topical cream 1 applic topical ONCE PRN port access 30 days #30 grams 10/14/22 [Rx Last Taken Unknown] Allergy/AdvReac Type Severity Reaction Status Date / Time No Known Allergies Allergy Verified 10/13/22 08:54 Family History Father Cancer LUNG Brother Cancer ESOPHAGEAL Surgical History History of esophagogastroduodenoscopy (EGD) History of mandibular surgery History of removal of Port-a-Cath Status post insertion of percutaneous endoscopic gastrostomy (PEG) tube Status post reconstruction procedure Social History Smoking Status: Former smoker quit date: 07/28/21 pack-years: 60 Tobacco: How many years used: 30 how long ago did patient quit smoking: July 2021, smoked [id number] substance use type: does not use do you feel safe at home: Yes ROS ROS ED Constitutional Constitutional ED: Denies chills or fever(s) Eyes Eyes: Denies change in vision or discharge from eye(s) ENT ENT ED: Denies discharge from eye(s), rhinorrhea or sore throat Cardiovascular Cardiovascular: Reports chest pain; Denies palpitations Respiratory/Chest Respiratory/Chest: Denies cough or dyspnea Gastrointestinal Gastrointestinal: Reports abdominal pain, nausea and vomiting; Denies diarrhea Genitourinary Genitourinary ED: Denies dysuria Musculoskeletal Musculoskeletal: Denies back pain or extremity pain Integumentary Denies Abrasions or rash Neurologic Neurologic: Denies headache(s) or weakness Psychiatric Psychiatric: Denies anxiety or depression Allergic/Immunologic Allergic/Immunologic ED: Denies lip swelling or urticaria EXAM Physical Exam Const Vital Signs: 10/21/22 15:12 Temperature 97.1 F L Temperature Source Temporal Pulse Rate 123 H Respiratory Rate 18 Blood Pressure 141/101 H Blood Pressure Mean 114 Pulse Ox 95 Oxygen Delivery Method Room Air Positive well nourished and well developed General Appearance ED: well developed HEENT Reports normocephalic and head/scalp atraumatic Eyes PERRL and EOMs intact bilaterally Neck supple Chest Wall inspection of chest normal and palpation of chest normal Resp normal respiratory effort and clear to auscultation bilaterally Cardio regular rhythm Rate: tachycardic GI non-tender Auscultation: hypoactive bowel sounds Palpation: soft Extremity normal to inspection Neuro oriented x3 and no sensory deficits noted Sensorium / Orientation: alert Motor Exam: strength 5/5 throughout Psych mental status grossly normal Skin no rashes or lesions noted MDM MDM MDM Narrative Medical decision making narrative: Patient placed on classroom monitor. EKG obtained secondary to patient's tachycardia. Lab work obtained to evaluate for leukocytosis, anemia, electrolyte derangement. Chest x-ray obtained given the patient's chest pain. Patient given morphine and Zofran along with IV fluids. Lab Data Attestation: I reviewed the patient's lab results. Labs: Laboratory Results - last 24 hr 10/21/22 10/21/22 10/21/22 15:54 15:54 15:54 WBC 8.6 RBC 4.36 L Hgb 13.3 Hct 39.6 L MCV 90.8 MCH 30.5 MCHC 33.6 RDW Std Deviation 41.9 RDW Coeff of Jose 12.8 Plt Count 211 MPV 8.7 Immature Gran % (Auto) 0.100 Neut % (Auto) 85.1 H Lymph % (Auto) 5.2 L [place] % (Auto) 8.5 Eos % (Auto) 0.8 Baso % (Auto) 0.3 Absolute Neuts (auto) 7.3 Absolute Lymphs (auto) 0.45 L Nucleated RBC % 0 Differential Comment PT 14.3 INR 1.1 APTT 28.6 Sodium 135 L Potassium 3.5 Chloride 100 Carbon Dioxide 29.0 Anion Gap 6 BUN 19 H Creatinine 0.80 Estim Creat Clear Calc 109.81 Est GFR (MDRD) Af Amer 129 Est GFR (MDRD) Non-Af 106 BUN/Creatinine Ratio 23.8 H Glucose 120 H Calcium 9.5 Total Bilirubin 0.40 Direct Bilirubin 0.14 AST 18 ALT 24 Alkaline Phosphatase 60 Total Protein 7.3 Albumin 3.5 Globulin 3.8 Radiography Chest X-Ray - ED: 1 View, Read by ED Physician, Normal, Heart, Lungs and Mediastinum Diagnostic Testing: Clinical Impression(s) from Imaging Studies Chest X-Ray 10/21/22 15:56 IMPRESSION: COPD Electronically Signed: Naeem Willams MD at 16:26 EST Reading Location ID and State: [facility] / [place] , Service support , EKG Initial EKG: Attestation: I personally reviewed and interpreted this EKG as follows: Interpretation: Sinus Tachycardia (Sinus tach at 109 with no acute ischemia.) Treatment and Re-Evaluation Narrative: CBC and chemistry studies are rather unremarkable. Hemoglobin is 13.3, stable when compared to prior values. Chemistry studies reveal a BUN of 19 and creatinine of 0.80. This is consistent with the patient's baseline. Chest x- ray per my interpretation reveals no acute abnormalities including no evidence of pneumomediastinum. Radiology interpretation is reviewed and agrees. On repeat evaluation patient states his pain is improved with morphine. He does not take anything by mouth and uses only tube feeds for nutrition. He is concerned about the amount of blood that he was vomiting and was not sure if Dr. Hartmann would need to do another scope and cauterize anything. I spoke with Dr. Hartmann. Given the patient's stable hemoglobin at this time he recommended admission to the hospitalist service for observation overnight with a Protonix drip. He said viscous lidocaine can be given if needed for pain. I will speak with the hospitalist. Discharge Plan Triage Chief Complaint: Nausea/Vomiting Other Complaint: GI Bleed ED Provider: Caty Blakely Dx/Rx/DC Orders Clinical Impression: Hematemesis, Esophagitis Prescriptions: No Action oxycodone 5 mg/5 mL solution 40 mg PO Q4H PRN (Reason: Pain) sennosides [senna] 8.8 mg/5 mL syrup 10 ml feeding tube BID ondansetron 8 mg tablet,disintegrating 8 mg PO Q8H PRN (Reason: nausea and vomiting) Qty: 90 3RF guaifenesin 100 mg/5 mL liquid 200 mg PO Q4H PRN (Reason: congestion) Qty: 1000 0RF gabapentin 250 mg/5 mL solution 6 ml feeding tube TID Label Comments: TAKE 6ML (300MG) PER PEG THREE TIMES A DAY SCHEDULED lorazepam 0.5 mg tablet 0.5 mg feeding tube PRN MDD ANXIETY PRN (Reason: BID) Label Comments: TAKE 1 TABLET BY MOUTH TWICE DAILY NEEDED FOR PANIC/ANXIETY sertraline 25 mg tablet 50 mg feeding tube DAILY Label Comments: GIVE 1 TABLET VIA PEG TUBE DAILY metoclopramide HCl [Reglan] 5 mg tablet 5 mg feeding tube BID Rx Instructions: administer 30 minutes before meals lansoprazole 30 mg tablet,disintegrat, delay rel 60 mg feeding tube BID Qty: 120 1RF lidocaine-prilocaine 2.5-2.5 % cream 1 applic topical ONCE PRN (Reason: port access) 30 Days Qty: 30 2RF Primary Care Provider: Shailesh Jennings Referrals: Shailesh Jennings DO [Primary Care Provider] - Disposition Disposition: Acute Care Hospital [facility]
[2022-10-21] MEDS: Ondansetron 4 MG/2 ML Vial IV (15:51)
[2022-10-21] MEDS: 0.9% Normal Saline 1,000 ML 1000 ML IV (15:51)
[2022-10-21] MEDS: Morphine 4 MG/ML Syringe IV (15:51)
--- NOTE | 2022-10-21 15:56 | RAD_ITS ---
STUDY: X-RAY CHEST REASON FOR EXAM: Male, 57 years old. pain TECHNIQUE: Single frontal view of the chest. COMPARISON: April 08, 2022 report only. FINDINGS: Lungs are hyper aerated. Right IJ MediPort terminates in the SVC. The lungs are clear and expanded. There is no demonstrated pleural abnormality. Normal size heart. Normal mediastinum and janett. Normal visualized pulmonary arteries. Normal visualized aortic arch and descending thoracic aorta. Normal visualized thoracic spine. Normal visualized ribs, clavicles, and shoulders. There is no demonstrated abnormality of the visualized soft tissue structures of the upper abdomen. RAD/Chest 1 View (Portable) IMPRESSION: COPD Electronically Signed: Naeem Willams MD at 16:26 EST ,
[2022-10-21 16:07] LABS: Absolute Lymphocyte Count 0.45 X10^3/uL (0.83-4.51); Absolute Neutrophil Count 7.3 X10^3/uL (2.0-7.7); Basophil# 0.03 X10^3/uL; Basophil% 0.3 % (0-1); Eosinophil# 0.07 X10^3/uL; Eosinophils% 0.8 % (0-5); Hematocrit 39.6 % (40-54); Hemoglobin 13.3 g/dL (13.0-16.5); Lymphocyte # 0.45 X10^3/ul (0.83-4.51); Lymphocyte % 5.2 % (19-41); Mean Corp Hgb Conc 33.6 g/dL (32-36); Mean Corpuscular Hgb 30.5 pg (27.0-32.0); Mean Corpuscular Volume 90.8 fL (80-94); Mean Platelet Vol. 8.7 fl (6.2-12.0); Monocyte# 0.73 X10^3/uL; Monocyte% 8.5 % (0-10); NRBC Flagged by Analyzer 0 % (0-5); Neutrophil # 7.33 X10^3/uL (2.7-7.7); Neutrophil % 85.1 % (47-70); POSITIVE DIFFERENTIAL YES; Platelet Count 211 K/mm3 (150-450); RBC Distribution Width CV 12.8 % (11.6-14.6); RBC Distribution Width SD 41.9 fl (35.1-43.9); Red Blood Count 4.36 M/mm3 (4.6-6.2); White Blood Count 8.6 K/mm3 (4.4-11.0)
[2022-10-21 16:15] LABS: Differential Indicated SCAN CRITERIA MET
[2022-10-21 16:38] LABS: International Normalized Ratio 1.1; Prothrombin Time (Protime)PT. 14.3 SECONDS (11.7-14.9)
[2022-10-21 16:39] LABS: Partial Thromboplast Time 28.6 Seconds (24.1-36.2)
[2022-10-21 16:42] LABS: AST(SGOT) 18 U/L (15-37); Alanine Aminotransfer ALT/SGPT 24 U/L (16-61); Albumin, Serum 3.5 g/dL (3.2-5.0); Alkaline Phosphatase 60 U/L (45-117); Anion Gap 6 (5-15); BUN 19 mg/dL (7-18); BUN/Creat Ratio 23.8 RATIO (10-20); Bilirubin, Direct 0.14 mg/dL (0.00-0.30); Calcium,Total 9.5 mg/dL (8.5-10.1); Chloride 100 mmol/L (98-107); EST Glomerular Filtration Rate 106 mL/min (>60); Est Glom Filt Rate - Afr Amer 129 mL/min (>60); Estimated Creatinine Clearance 109.81 ml/min; Globulin 3.8 g/dL (2.2-4.2); Glucose 120 mg/dL (74-106); Potassium 3.5 mmol/L (3.5-5.1); Protein, Total 7.3 g/dL (6.4-8.2); Sodium Level 135 mmol/L (136-145)
[2022-10-21] MEDS: 0.9% Normal Saline 1,000 ML 150 ML IV (17:15)
--- NOTE | 2022-10-21 18:35 | PCM.HP.STD ---
HPI - General General Date of Admission: 10/21/22 Date of Service: 10/21/22 Chief Complaint: Hematemesis since 10/13 after EGD, mid chest/xiphisternal pain HPI Narrative ORTEGA DUKES, is a 57 M with history of oropharyngeal cancer, locally advanced to esophagus status post surgery and status post adjuvant chemotherapy, radiotherapy between 04/11/2022 to a 05/20/2022 came to ED for hematemesis after EGD by Dr. Hartmann which was done on 10/13/2022. Patient is stated after procedure he had vomiting dark blood and then continued to have on Monday, Monday until Monday/Monday. Patient also having vomiting mainly gastric type from Monday until Monday/Monday. Patient has decreased tube feed 1 to 2 boxes/day as compared to usual 7 boxes/day and completely did not use tube feed since Monday. Patient is flushing PEG tube with water. Patient also complained of midsternal and xiphisternal/epigastric pain, constant for last 2 to 3 days. This might be aggravated from persistent vomiting. Patient also has esophageal dilatation about a week ago on 10/13 for benign-appearing stenosis. He denies fever or chills. Patient not feeling dizzy or lightheaded or syncope vitals in the ED. Denies fall. Shows tachycardia 123 beats minute, BP 141/101. No hypoxia or tachypnea. Twelve-lead EKG shows sinus tachycardia 109 bpm, QTc 444 ms. Basic blood work in ED shows H&H 13.3/39% on baseline. In the ED physician discussed with Dr. Hartmann and advised to start on Protonix drip and IV fluid and admission. [facility] Medical History Anemia Anxiety Back pain Cancer Cancer of overlapping sites of lip, oral cavity and pharynx Depression Dietary restriction Dysphagia Edentulous Ex-cigarette smoker Former smoker Gastric reflux History of GI bleed Mucositis due to radiation therapy Multiple pigmented nevi Oral candidiasis Oropharyngeal cancer Radiation dermatitis Right shoulder pain Uses wheelchair Wears glasses Home Medications oxycodone 5 mg/5 mL oral solution 40 mg PO Q4H PRN Pain 12/16/21 [History Last Taken 10/13/22] sennosides 8.8 mg/5 mL oral syrup (senna) 10 ml feeding tube BID 01/11/22 [History Last Taken 03/07/22] gabapentin 250 mg/5 mL oral solution 6 ml feeding tube TID nerve pain 03/09/22 [History Last Taken 03/04/22] lansoprazole 30 mg delayed release,disintegrating tablet 60 mg feeding tube BID #120 tabs 03/23/22 [Rx Last Taken Unknown] ondansetron 8 mg disintegrating tablet 8 mg PO Q8H PRN nausea and vomiting #90 tabs 04/01/22 [Rx Last Taken Unknown] lorazepam 0.5 mg tablet 0.5 mg feeding tube PRN PRN BID 04/07/22 [History Last Taken Unknown] metoclopramide HCl 5 mg tablet (Reglan) 5 mg feeding tube BID 04/07/22 [History Last Taken Unknown] sertraline 25 mg tablet 50 mg feeding tube DAILY 04/07/22 [History Last Taken Unknown] guaifenesin 100 mg/5 mL oral liquid 200 mg (10 mL) PO Q4H PRN congestion #1,000 mL 04/26/22 [Rx Last Taken Unknown] lidocaine-prilocaine 2.5 %-2.5 % topical cream 1 applic topical ONCE PRN port access 30 days #30 grams 10/14/22 [Rx Last Taken Unknown] Allergy/AdvReac Type Severity Reaction Status Date / Time No Known Allergies Allergy Verified 10/13/22 08:54 Family History Father Cancer LUNG Brother Cancer ESOPHAGEAL Surgical History History of esophagogastroduodenoscopy (EGD) History of mandibular surgery History of removal of Port-a-Cath Status post insertion of percutaneous endoscopic gastrostomy (PEG) tube Status post reconstruction procedure Social History Smoking Status: Former smoker quit date: 07/28/21 pack-years: 60 Tobacco: How many years used: 30 how long ago did patient quit smoking: July 2021, smoked [id number] substance use type: does not use do you feel safe at home: Yes ROS ROS Narrative 14 system ROS somewhat limited as patient does not have done and reconstructive surgery in jaw and mouth due to cancer with altered speech. Constitutional: Reports fatigue and weakness. No fever. HEENT: Cancer of oropharyngeal region, floor of mouth, jaw status post resection and reconstructive surgery. Done by [facility] oncology surgeon Respiratory/Chest: Denies chest pain, shortness of breath at rest Gastrointestinal: As described in HPI. PEG tube. Genitourinary: Denies burning urination or new urinary tract symptoms Musculoskeletal: Chronic pain over right side of jaw after reconstructive surgery with titanium plate. Neurologic: Denies seizure-like activity. No strokelike symptoms skin: No ulcer. No rash Endocrinology: Reports systems reviewed and no addt'l complaints, except as documented Hematologic/Lymphatic: Reports systems reviewed and no addt'l complaints, except as documented Rest 14 ROS are negative except as mentioned in HPI Vital Signs Vital Signs Vital Signs: 10/21/22 15:12 Temperature 97.1 F L Temperature Source Temporal Pulse Rate 123 H Respiratory Rate 18 Blood Pressure 141/101 H Blood Pressure Mean 114 Pulse Ox 95 Oxygen Delivery Method Room Air Weight Weight: 189 lb 3.2 oz Body Mass Index (BMI) 26.4 Physical Exam Narrative Physical exam General: Alert, Oriented x3, Cooperative HEENT: Surgical scar of reconstructive surgery. Skin and soft tissue thickening of submandibular and neck region, radiation changes. Tenderness present over right jaw and right neck from titanium plate/chronic postsurgical pain Oral: Status post resection of anterior tongue, muscles of floor of mouth, mandibular region. Neck: Surgical scar changes in neck. No JVD, Negative Carotid Bruits Lungs: Air entry diminished in bilateral lung bases. No crepitation/rhonchi Cardiovascular: Sinus tachycardia , Normal S1, Normal S2, No murmurs Abdomen: Soft mild tenderness present over xiphisternum and lower midsternal region. Bowel Sounds Present, Soft, Non-Distended : Dark-colored urine in ED. No renal angle tenderness. No suprapubic tenderness. Extremities: No edema, Capillary Refill Less than 3 Seconds Skin: No rashes, No breakdown Musculoskeletal: No Tenderness to Palpation of Joints or Extremities. Moderate muscle atrophy of extremities. Muscle strength 5/5 at hip and knee joints Neurological: Cranial nerves II-XII grossly intact, DTR 2+/4 Psych/Mental Status: Flat affect with Results Lab / Micro Data Result Diagrams: 10/21/22 15:54 10/21/22 15:54 Labs: Laboratory Results - last 24 hr 10/21/22 15:54: WBC 8.6, RBC 4.36 L, Hgb 13.3, Hct 39.6 L, MCV 90.8, MCH 30.5, MCHC 33.6, RDW Std Deviation 41.9, RDW Coeff of Jose 12.8, Plt Count 211, MPV 8.7, Immature Gran % (Auto) 0.100, Neut % (Auto) 85.1 H, Lymph % (Auto) 5.2 L, [place] % (Auto) 8.5, Eos % (Auto) 0.8, Baso % (Auto) 0.3, Absolute Neuts (auto) 7.3, Absolute Lymphs (auto) 0.45 L, Nucleated RBC % 0, Differential Comment 10/21/22 15:54: PT 14.3, INR 1.1, APTT 28.6 10/21/22 15:54: Sodium 135 L, Potassium 3.5, Chloride 100, Carbon Dioxide 29.0, Anion Gap 6, BUN 19 H, Creatinine 0.80, Estim Creat Clear Calc 109.81, Est GFR (MDRD) Af Amer 129, Est GFR (MDRD) Non-Af 106, BUN/Creatinine Ratio 23.8 H, Glucose 120 H, Calcium 9.5, Total Bilirubin 0.40, Direct Bilirubin 0.14, AST 18, ALT 24, Alkaline Phosphatase 60, Total Protein 7.3, Albumin 3.5, Globulin 3.8 Radiology Impression Chest X-Ray 10/21/22 15:56 IMPRESSION: COPD Electronically Signed: Naeem Willams MD at 16:26 EST , Assessment & Plan Assessment/Plan (1) Acute upper GI bleed: PLAN: Plan 1. Acute upper GI bleed after EGD on 10/13/2022: H&H 13.3/31.6%. Platelet count 211. Normal WC count. EGD on 10/13 reported benign-appearing esophageal stenosis dilated. LA grade D erosive esophagitis biopsied. 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 No gross lesion in first portion of duodenum. Monitor H&H every 6 hourly. GI is consulted. Patient started on Protonix drip. Possible EGD tomorrow. Supportive treatment for nausea and vomiting. Type and cross ordered by ER physician. Patient had history of anemia of chronic disease but hemoglobin recently in August 2022 has been 13.4 gram percent. 2. 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 Patient had adjuvant radiation treatment from 10/07/2021 to 11/17/2021. EGD on 03/10/2022 showed ulcerating mass in the middle third of esophagus and pathology consistent with squamous cell carcinoma. Patient had definitive radiation from 04/11/2022 to 05/20/[address] Dr. Alonso. Patient follows Dr. Perry Patient has PEG tube with a small altered residual blood. Nursing care. Continue IV fluid. 3. Mild hyponatremia: Sodium 135, potassium 3.5. IV fluid normal saline with KCl started. Patient had normal saline in the ED. 4. Chronic pain due to oropharyngeal and neck resection surgery and reconstruction: Patient on opioid at home. Started on morphine as needed. 5. Anxiety and depression: Chronic issue 6. COPD: Chest x-ray done in ED shows chronic changes of COPD. Not in exacerbation. DuoNeb as needed. Advised follow-up in pulmonary clinic. DVT prophylaxis: Pharmacological prophylaxis contraindicated due to upper GI bleed. Bilateral SCDs. Living will/advanced directive/end of life care: Patient does not have living will or advanced directive. His next of kin is his father. 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 After discussion of benefits/risks procedures involved with full code, DNR CC arrest and DNR CC, the patient opted for DNRCC arrest with no intubation. Patient doesn't want artificial life support including intubation, tube feed, ventilator and/chest compression, central venous catheter, vasopressor and DC shock if needed Total time spent in [id number] encounter in discussion of advanced directive 17 minutes. Laboratory Results 10/21/22 15:54: WBC 8.6, RBC 4.36 L, Hgb 13.3, Hct 39.6 L, MCV 90.8, MCH 30.5, MCHC 33.6, RDW Std Deviation 41.9, RDW Coeff of Jose 12.8, Plt Count 211, MPV 8.7, Immature Gran % (Auto) 0.100, Neut % (Auto) 85.1 H, Lymph % (Auto) 5.2 L, [place] % (Auto) 8.5, Eos % (Auto) 0.8, Baso % (Auto) 0.3, Absolute Neuts (auto) 7.3, Absolute Lymphs (auto) 0.45 L, Nucleated RBC % 0, Differential Comment 10/21/22 15:54: PT 14.3, INR 1.1, APTT 28.6 10/21/22 15:54: Sodium 135 L, Potassium 3.5, Chloride 100, Carbon Dioxide 29.0, Anion Gap 6, BUN 19 H, Creatinine 0.80, Estim Creat Clear Calc 109.81, Est GFR (MDRD) Af Amer 129, Est GFR (MDRD) Non-Af 106, BUN/Creatinine Ratio 23.8 H, Glucose 120 H, Calcium 9.5, Total Bilirubin 0.40, Direct Bilirubin 0.14, AST 18, ALT 24, Alkaline Phosphatase 60, Total Protein 7.3, Albumin 3.5, Globulin 3.8 10/21/22 16:26: Blood Type A POSITIVE, Antibody Screen NEGATIVE Clinical Impression(s) from Imaging Studies Chest X-Ray 10/21/22 15:56 IMPRESSION: COPD Charges/Coding Visit Charges Inpatient E&M: 00806 Init Hosp L3 Procedures Hospitalists Procedures: 58047 Advncd Care Plan 30 Min
[2022-10-21 19:33] VITALS: BP 129/87; PULSE 94; RESP 14; TEMP 36.2; O2SAT 94
[2022-10-21 19:49] VITALS: BP 102/81; PULSE 94; RESP 16; TEMP 36.9; O2SAT 96
[2022-10-21 19:50] VITALS: BMI 26.1
[2022-10-21] MEDS: 0.9% Saline Lock 10 ML Syringe IV ×2 (20:50→23:57)
[2022-10-21] MEDS: Morphine 2 MG/ML Syringe IV ×2 (20:51→23:55)
[2022-10-21] MEDS: KCL 20MEQ in 0.9% NS 20 MEQ/1,000 ML IV.SOLN. 150 MEQ IV (20:52)
[2022-10-21 21:36] LABS: Hematocrit 34.8 % (40-54); Hemoglobin 11.5 g/dL (13.0-16.5)
[2022-10-21] MEDS: LORazepam 2 MG/ML Syringe 0.5 MG IV (23:02)
[2022-10-22] VITALS (7 sets, daily range): BP systolic 129–141; BP diastolic 73–83; PULSE 88–97; RESP 16–18; TEMP 36.6–37; O2SAT 94–96; BMI 26.2
[2022-10-22] MEDS: KCL 20MEQ in 0.9% NS 20 MEQ/1,000 ML IV.SOLN. 150 MEQ IV (03:32)
[2022-10-22] MEDS: Morphine 2 MG/ML Syringe IV ×6 (03:58→21:12)
[2022-10-22] MEDS: 0.9% Saline Lock 10 ML Syringe IV ×3 (04:01→21:14)
[2022-10-22 07:28] LABS: Absolute Lymphocyte Count 0.61 X10^3/uL (0.83-4.51); Absolute Neutrophil Count 3.1 X10^3/uL (2.0-7.7); Basophil# 0.02 X10^3/uL; Basophil% 0.5 % (0-1); Eosinophil# 0.12 X10^3/uL; Eosinophils% 2.7 % (0-5); Hematocrit 37.1 % (40-54); Hemoglobin 12.1 g/dL (13.0-16.5); Lymphocyte # 0.61 X10^3/ul (0.83-4.51); Lymphocyte % 13.9 % (19-41); Mean Corp Hgb Conc 32.6 g/dL (32-36); Mean Corpuscular Hgb 30.4 pg (27.0-32.0); Mean Corpuscular Volume 93.2 fL (80-94); Mean Platelet Vol. 9.2 fl (6.2-12.0); Monocyte# 0.48 X10^3/uL; NRBC Flagged by Analyzer 0 % (0-5); Neutrophil # 3.14 X10^3/uL (2.7-7.7); Neutrophil % 71.7 % (47-70); Platelet Count 209 K/mm3 (150-450); RBC Distribution Width CV 13.2 % (11.6-14.6); RBC Distribution Width SD 44.7 fl (35.1-43.9); Red Blood Count 3.98 M/mm3 (4.6-6.2); White Blood Count 4.4 K/mm3 (4.4-11.0)
[2022-10-22 08:03] LABS: Anion Gap 5 (5-15); BUN 11 mg/dL (7-18); BUN/Creat Ratio 14.8 RATIO (10-20); Calcium,Total 9.2 mg/dL (8.5-10.1); Chloride 109 mmol/L (98-107); Creatinine, Serum 0.74 mg/dL (0.70-1.30); EST Glomerular Filtration Rate 116 mL/min (>60); Est Glom Filt Rate - Afr Amer 140 mL/min (>60); Estimated Creatinine Clearance 118.72 ml/min; Glucose 97 mg/dL (74-106); Potassium 4.5 mmol/L (3.5-5.1); Sodium Level 141 mmol/L (136-145)
--- NOTE | 2022-10-22 08:27 | PN.HOSP_ITS ---
Reason for Visit Reason for Visit: Diagnoses Gastrointestinal hemorrhage, unspecified (10/21/22) Subjective Subjective No further hematemesis. Objective Data Objective Data Vital Signs: Vital Signs Temp Pulse Resp BP Pulse Ox O2 Del Method 36.8 C 88 18 140/79 H 95 Room Air 10/22/22 05:38 10/22/22 05:38 10/22/22 05:38 10/22/22 05:38 10/22/22 08:10 10/22/22 08:10 Oxygen Delivery Method Room Air Weight: 85.3 kg Body Mass Index (BMI) 26.2 Intake & Output: Intake and Output for Last 24 Hours 10/20/22 10/21/22 10/22/22 23:59 23:59 23:59 Intake Total 1667.5 / 1667.5 1089.17 / 1089.17 Output Total 300 / 300 Balance 1667.5 / 1667.5 789.17 / 789.17 Lab / Micro Data Result Diagrams: 10/22/22 06:23 10/22/22 06:23 Labs: Laboratory Results - last 24 hr 10/21/22 15:54: WBC 8.6, RBC 4.36 L, Hgb 13.3, Hct 39.6 L, MCV 90.8, MCH 30.5, MCHC 33.6, RDW Std Deviation 41.9, RDW Coeff of Jose 12.8, Plt Count 211, MPV 8.7, Immature Gran % (Auto) 0.100, Neut % (Auto) 85.1 H, Lymph % (Auto) 5.2 L, [place] % (Auto) 8.5, Eos % (Auto) 0.8, Baso % (Auto) 0.3, Absolute Neuts (auto) 7.3, Absolute Lymphs (auto) 0.45 L, Nucleated RBC % 0, Differential Comment 10/21/22 15:54: PT 14.3, INR 1.1, APTT 28.6 10/21/22 15:54: Sodium 135 L, Potassium 3.5, Chloride 100, Carbon Dioxide 29.0, Anion Gap 6, BUN 19 H, Creatinine 0.80, Estim Creat Clear Calc 109.81, Est GFR (MDRD) Af Amer 129, Est GFR (MDRD) Non-Af 106, BUN/Creatinine Ratio 23.8 H, Glucose 120 H, Calcium 9.5, Total Bilirubin 0.40, Direct Bilirubin 0.14, AST 18, ALT 24, Alkaline Phosphatase 60, Total Protein 7.3, Albumin 3.5, Globulin 3.8 10/21/22 15:54: Magnesium 2.0 10/21/22 16:26: Blood Type A POSITIVE, Antibody Screen NEGATIVE 10/21/22 20:48: Hgb 11.5 L, Hct 34.8 L 10/22/22 06:23: WBC 4.4, RBC 3.98 L, Hgb 12.1 L, Hct 37.1 L, MCV 93.2, MCH 30.4, MCHC 32.6, RDW Std Deviation 44.7 H, RDW Coeff of Jose 13.2, Plt Count 209, MPV 9.2, Immature Gran % (Auto) 0.200, Neut % (Auto) 71.7 H, Lymph % (Auto) 13.9 L, [place] % (Auto) 11.0 H, Eos % (Auto) 2.7, Baso % (Auto) 0.5, Absolute Neuts (auto) 3.1, Absolute Lymphs (auto) 0.61 L, Nucleated RBC % 0 10/22/22 06:23: Sodium 141, Potassium 4.5, Chloride 109 H, Carbon Dioxide 27.0, Anion Gap 5, BUN 11, Creatinine 0.74, Estim Creat Clear Calc 118.72, Est GFR (MDRD) Af Amer 140, Est GFR (MDRD) Non-Af 116, BUN/Creatinine Ratio 14.8, G lucose 97, Calcium 9.2 Radiography Diagnostic Testing: Radiology Impression Chest X-Ray 10/21/22 15:56 IMPRESSION: COPD Electronically Signed: Naeem Willams MD at 16:26 EST Reading Location ID and State: [facility] / [place] , Service support , Physical Exam Const alert Resp normal respiratory effort, no retractions, no use of accessory muscles and clear to auscultation bilaterally Cardio regular rate, regular rhythm, S1 normal heart sound and S2 normal heart sound GI normal to inspection, nondistended, normoactive bowel sounds, soft to palpation, non-tender and non-distended Extremity normal to inspection Assessment & Plan Assessment/Plan (1) Acute upper GI bleed: PLAN: Acute upper GI bleed after EGD on 10/13/2022: EGD on 10/13 reported benign-appearing esophageal stenosis dilated. LA grade D erosive esophagitis biopsied. 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 No gross lesion in first portion of duodenum. Monitor H&H every 6 hourly. GI is consulted. Patient started on Protonix drip. Possible EGD tomorrow. Supportive treatment for nausea and vomiting. Type and cross ordered by ER physician (no need from transfusion at this time) . 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 Patient had adjuvant radiation treatment from 10/07/2021 to 11/17/2021. EGD on 03/10/2022 showed ulcerating mass in the middle third of esophagus and pathology consistent with squamous cell carcinoma. Patient had definitive radiation from 04/11/2022 to 05/20/[address] Alonso. Patient follows Dr. Perry. Patient has PEG tube with a small altered residual blood. Nursing care. Continue IV fluid. * Chronic pain due to oropharyngeal and neck resection surgery and reconstruction: Patient on opioid at home. Started on morphine as needed. * Anxiety and depression: Chronic issue * COPD: Chest x-ray done in ED shows chronic changes of COPD. Not in exacerbation. DuoNeb as needed. Advised follow-up in pulmonary clinic. DVT prophylaxis: Pharmacological prophylaxis contraindicated due to upper GI bleed. Bilateral SCDs. Charges/Coding Visit Charges Inpatient E&M: 28317 Subs Hosp L2
[2022-10-22] MEDS: 0.9% Normal Saline 1,000 ML 100 ML IV ×2 (10:57→20:22)
--- NOTE | 2022-10-22 13:46 | CPS ---
patient states he is not feeling well at this time
--- NOTE | 2022-10-22 13:50 | CASEMGMT ---
ALEC VINSON RESEARCH MANAGER CM to room to meet with patient for initial transition planning/care coordination assessment. ALEC VINSON introduced self and role at [facility].? Pt voices understanding and consents to assessment at this time.? Pt resting in bed in no distress at this time.? Pt is A/O at this time and answers all questions appropriately.?? Care providers, pharmacy, and demographics verified/updated at this time. PCP: Dr Jennings Specialists: Dr Hartmann-GI. Dr Alonso-radiation oncology. Dr Parham- oncology. Pt states he is active w/[facility]. E-mail sent to Marta Formisimo to notify her of pt's admission. Preferred Pharmacy: [facility] in [place] Insurance: [facility] Community Plan [place] Prescription Benefit:?Yes Living Will/HPOA:? Pt does not currently have LW/HCPOA and declines info at this time.? LNOK: Father, Robbie Esparza. Pt states he does not want anyone listed on demographics except for friend/caregiver, Randa. He states Randa would know how to contact him, if needed. Living Arrangements: Lives alone in 2-story home. FFSU. Independent w/ADL's and IADL's. Randa assists w/some home mgmt tasks, if needed, and drives pt to appts/stores, if needed. Pt manages his PEG tube/feedings. Transportation:?Pt states drives self and states no transportation concerns at this time.? Randa will provide transportation at times, when needed. He states either Randa or her may be available @ d/c to take him home, but he is not sure. DME: States has the following DME:?PEG tube feeding and supplies from [place]. Pt administers own tube feedings. Pt states no need for further DME at this time.? HHC/SNF: No hx of either. Pt declines need for HHC. Pt used to see [facility], but does not do this any longer. Pt wishes to return home and states has no concerns with going home at time of discharge.? CM to follow for any further discharge planning/needs.? Pt voices no further concerns/needs at this time.? Advised pt to ask for CM if any further questions/concerns/needs arise.? Voices understanding. PLAN:??Home Mariajose CISNEROS RN, CM
[2022-10-23] MEDS: Morphine 2 MG/ML Syringe IV ×7 (00:24→23:45)
[2022-10-23 03:03] VITALS: BP 138/82; PULSE 97; RESP 18; TEMP 36.7; O2SAT 96
[2022-10-23 04:08] VITALS: BMI 25.5
[2022-10-23] MEDS: 0.9% Saline Lock 10 ML Syringe IV ×4 (05:05→23:45)
[2022-10-23] MEDS: 0.9% Normal Saline 1,000 ML 100 ML IV ×2 (05:12→15:46)
[2022-10-23 06:38] LABS: Absolute Lymphocyte Count 0.51 X10^3/uL (0.83-4.51); Basophil# 0.01 X10^3/uL; Basophil% 0.3 % (0-1); Eosinophil# 0.06 X10^3/uL; Eosinophils% 1.5 % (0-5); Hematocrit 34.5 % (40-54); Hemoglobin 11.7 g/dL (13.0-16.5); Lymphocyte # 0.51 X10^3/ul (0.83-4.51); Lymphocyte % 12.8 % (19-41); Mean Corp Hgb Conc 33.9 g/dL (32-36); Mean Corpuscular Hgb 30.7 pg (27.0-32.0); Mean Corpuscular Volume 90.6 fL (80-94); Mean Platelet Vol. 8.7 fl (6.2-12.0); Monocyte# 0.39 X10^3/uL; Monocyte% 9.8 % (0-10); NRBC Flagged by Analyzer 0 % (0-5); Neutrophil # 2.99 X10^3/uL (2.7-7.7); Neutrophil % 75.3 % (47-70); POSITIVE DIFFERENTIAL YES; Platelet Count 175 K/mm3 (150-450); RBC Distribution Width CV 12.7 % (11.6-14.6); RBC Distribution Width SD 41.5 fl (35.1-43.9); Red Blood Count 3.81 M/mm3 (4.6-6.2)
[2022-10-23 06:47] LABS: Differential Indicated SCAN CRITERIA MET
[2022-10-23 07:00] LABS: Anion Gap 9 (5-15); BUN 10 mg/dL (7-18); Calcium,Total 9.3 mg/dL (8.5-10.1); Chloride 109 mmol/L (98-107); Creatinine, Serum 0.53 mg/dL (0.70-1.30); EST Glomerular Filtration Rate 172 mL/min (>60); Est Glom Filt Rate - Afr Amer 208 mL/min (>60); Estimated Creatinine Clearance 165.75 ml/min; Glucose 85 mg/dL (74-106); Potassium 3.6 mmol/L (3.5-5.1); Sodium Level 142 mmol/L (136-145)
[2022-10-23 07:08] LABS: Differential Comment SCANNED
--- NOTE | 2022-10-23 07:53 | PN.HOSP_ITS ---
Reason for Visit Reason for Visit: Diagnoses Hypo-osmolality and hyponatremia (10/21/22) Gastrointestinal hemorrhage, unspecified (10/21/22) Subjective Subjective No complaints at this time. Though wants to eat. Does complain of chronic facial pain but helped by the pain medications that he takes. Objective Data Objective Data Vital Signs: Vital Signs Temp Pulse Resp BP Pulse Ox O2 Del Method 36.7 C 97 18 138/82 H 96 Room Air 10/23/22 03:03 10/23/22 03:03 10/23/22 03:03 10/23/22 03:03 10/23/22 03:03 10/23/22 03:10 Oxygen Delivery Method Room Air Weight: 83.2 kg Body Mass Index (BMI) 25.5 Intake & Output: Intake and Output for Last 24 Hours 10/21/22 10/22/22 10/23/22 23:59 23:59 23:59 Intake Total 1667.5 / 1667.5 3130.84 / 3130.84 982.33 / 982.33 Output Total 950 / 1550 1400 / 1400 Balance 1667.5 / 1667.5 2180.84 / 1580.84 -417.67 / -417.67 Medical Nutrition Assessment Dietitian: Malnutrition Criteria Met Start: 10/22/22 11:55 Freq: Status: Active Protocol: Document 10/22/22 11:56 RMA (Rec: 10/22/22 11:56 RMA [id number]) Nutrition Malnutrition Evidence of Malnutrition Exists Yes Malnutrition (severe): Acute Illness/Injury Evidenced By Suboptimal Energy Intake ( Severe),Weight Loss (Severe) Intake Problem Inadequate Oral Intake Etiology related to altered GI function Signs/Symptoms as evidenced by NPO and nothing via PEG at this time Status Active Problem Clinical Problem Acute Disease or Injury Related Malnutrition Etiology Severe protein-ambrocio malnutrition in the context of acute illness/GI bleed and persistent vomiting x 1 week as evidenced by GI dysfunction Signs/Symptoms as evidenced by ~4% wt loss x 1 week, NPO, PEG TF meeting less than 50% estimated nutrition needs x past 1 week Status Active Problem Recommendation Dietitian Recommendations/Changes Pt is NPO and does not take nutrition by mouth; TF to meet 100% estimated nutrition needs. When ready to resume TF via PEG recommend start with Jevity 1.5 Ambrocio @ 30 ml/hr and increase rate as tolerated by 10ml/hr Q 6-8 hours until goal rate of 60 ml/hr achieved. Flush with 180 ml water Q 4 hours. TF and water flushes will provide 2160 kcal, 92 gm pro and 2175 ml free water per day. Transition to bolus TF as tolerated prior to d/c. Diet education for homegoing as needed prior to d/c. Lab / Micro Data Result Diagrams: 10/23/22 05:33 10/23/22 05:33 Labs: Laboratory Results - last 24 hr 10/22/22 06:23: Sodium 141, Potassium 4.5, Chloride 109 H, Carbon Dioxide 27.0, Anion Gap 5, BUN 11, Creatinine 0.74, Estim Creat Clear Calc 118.72, Est GFR (MDRD) Af Amer 140, Est GFR (MDRD) Non-Af 116, BUN/Creatinine Ratio 14.8, Glucose 97, Calcium 9.2 10/23/22 05:33: WBC 4.0 L, RBC 3.81 L, Hgb 11.7 L, Hct 34.5 L, MCV 90.6, MCH 30.7, MCHC 33.9, RDW Std Deviation 41.5, RDW Coeff of Jose 12.7, Plt Count 175, MPV 8.7, Immature Gran % (Auto) 0.300, Neut % (Auto) 75.3 H, Lymph % (Auto) 12.8 L, [place] % (Auto) 9.8, Eos % (Auto) 1.5, Baso % (Auto) 0.3, Absolute Neuts (auto) 3.0, Absolute Lymphs (auto) 0.51 L, Nucleated RBC % 0, Differential Comment SCANNED, Diff Path Review December foll 10/23/22 05:33: Sodium 142, Potassium 3.6, Chloride 109 H, Carbon Dioxide 24.0, Anion Gap 9, BUN 10, Creatinine 0.53 L, Estim Creat Clear Calc 165.75, Est GFR (MDRD) Af Amer 208, Est GFR (MDRD) Non-Af 172, BUN/Creatinine Ratio 19.0, Glucose 85, Calcium 9.3 Physical Exam Const alert Resp normal respiratory effort, no retractions, no use of accessory muscles and clear to auscultation bilaterally Cardio regular rate, regular rhythm, S1 normal heart sound and S2 normal heart sound GI normal to inspection, nondistended, normoactive bowel sounds and soft to palpation Extremity normal to inspection Neuro moves all extremities Sensorium / Orientation: awake and alert Assessment & Plan Assessment/Plan (1) Acute upper GI bleed: PLAN: Acute upper GI bleed after EGD on 10/13/2022: EGD on 10/13 reported benign-appearing esophageal stenosis dilated. LA grade D erosive esophagitis biopsied. 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 No gross lesion in first portion of duodenum. Monitor H&H every 6 hourly. GI is consulted. Patient started on Protonix drip. Possible EGD tomorrow. Supportive treatment for nausea and vomiting. Type and cross ordered by ER physician (no need from transfusion at this time) . Discussed with Dr. 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 Patient had adjuvant radiation treatment from 10/07/2021 to 11/17/2021. EGD on 03/10/2022 showed ulcerating mass in the middle third of esophagus and pathology consistent with squamous cell carcinoma. Patient had definitive radiation from 04/11/2022 to 05/20/[address] Dr. Alonso. Patient follows Dr. Perry. Patient has PEG tube with a small altered residual blood. Nursing care. Continue IV fluid. * Chronic pain due to oropharyngeal and neck resection surgery and reconstruction: Patient on opioid at home. Started on morphine as needed. * Anxiety and depression: Chronic issue * COPD: Chest x-ray done in ED shows chronic changes of COPD. Not in exacerbation. DuoNeb as needed. Advised follow-up in pulmonary clinic. DVT prophylaxis: Pharmacological prophylaxis contraindicated due to upper GI bleed. Bilateral SCDs. Charges/Coding Visit Charges Inpatient E&M: 39766 Subs Hosp L2
[2022-10-23 08:08] VITALS: O2SAT 94
[2022-10-23 09:24] VITALS: BP 139/83; PULSE 99; RESP 16; TEMP 37.3; O2SAT 96
--- NOTE | 2022-10-23 10:00 | CPS ---
Pt refused working on I.S. and PEP.
--- NOTE | 2022-10-23 10:00 | CPS ---
Pt refusing I.S. and PEP.
--- NOTE | 2022-10-23 12:22 | EX.PCM.CON.G ---
HPI Consult Data Date of Consult: 10/23/22 HPI Narrative Reason for Consultation: Hematemesis HPI Narrative: ORTEGA DUKES, is a 57 M who presents with hematemesis. ?He has a history of oropharyngeal cancer, locally advanced to esophagus status post surgery and status post adjuvant chemotherapy, radiotherapy between 04/11/2022 to a 05/20/2022 came to ED for hematemesis after EGD by Dr. Hartmann which was done on 10/13/2022.? Patient is stated after procedure he had vomiting dark blood and then continued to have on Monday, Monday until Monday/Monday.? Patient also having vomiting mainly gastric type from Monday until Monday/Monday.? Patient has decreased tube feed 1 to 2 boxes/day as compared to usual 7 boxes/day and completely did not use tube feed since Monday.? Patient is flushing PEG tube with water. Patient also complained of midsternal and xiphisternal/epigastric pain, constant for last 2 to 3 days.? This might be aggravated from persistent vomiting.? Patient also has esophageal dilatation about a week ago on 10/13 for benign-appearing stenosis. His esophageal dysphagia looks a little better. That is in regards to his liquid intake in his secretions. [facility] Medical History Anemia Anxiety Back pain Cancer Cancer of overlapping sites of lip, oral cavity and pharynx Depression Dietary restriction Dysphagia Edentulous Ex-cigarette smoker Former smoker Gastric reflux History of GI bleed Mucositis due to radiation therapy Multiple pigmented nevi Oral candidiasis Oropharyngeal cancer Radiation dermatitis Right shoulder pain Uses wheelchair Wears glasses Home Medications oxycodone 5 mg/5 mL oral solution 40 mg PO Q4H PRN Pain 12/16/21 [History Last Taken 10/13/22] sennosides 8.8 mg/5 mL oral syrup (senna) 10 ml feeding tube BID 01/11/22 [History Last Taken 03/07/22] gabapentin 250 mg/5 mL oral solution 6 ml feeding tube TID nerve pain 03/09/22 [History Last Taken 03/04/22] lansoprazole 30 mg delayed release,disintegrating tablet 60 mg feeding tube BID #120 tabs 03/23/22 [Rx Last Taken Unknown] ondansetron 8 mg disintegrating tablet 8 mg PO Q8H PRN nausea and vomiting #90 tabs 04/01/22 [Rx Last Taken Unknown] lorazepam 0.5 mg tablet 0.5 mg feeding tube PRN PRN BID 04/07/22 [History Last Taken Unknown] metoclopramide HCl 5 mg tablet (Reglan) 5 mg feeding tube BID 04/07/22 [History Last Taken Unknown] sertraline 25 mg tablet 50 mg feeding tube DAILY 04/07/22 [History Last Taken Unknown] guaifenesin 100 mg/5 mL oral liquid 200 mg (10 mL) PO Q4H PRN congestion #1,000 mL 04/26/22 [Rx Last Taken Unknown] lidocaine-prilocaine 2.5 %-2.5 % topical cream 1 applic topical ONCE PRN port access 30 days #30 grams 10/14/22 [Rx Last Taken Unknown] Allergy/AdvReac Type Severity Reaction Status Date / Time No Known Allergies Allergy Verified 10/13/22 08:54 Family History Father Cancer LUNG Brother Cancer ESOPHAGEAL Surgical History History of esophagogastroduodenoscopy (EGD) History of mandibular surgery History of removal of Port-a-Cath Status post insertion of percutaneous endoscopic gastrostomy (PEG) tube Status post reconstruction procedure Social History (Updated 10/21/22 @ 19:54 by Nyla Pastrana) household members: none housing: house number of children: 0 current occupational status: disabled pets and animals: No Smoking Status: Former smoker quit date: 07/28/21 pack-years: 60 Tobacco: How many years used: 30 how long ago did patient quit smoking: July 2021, smoked [id number] substance use type: does not use do you feel safe at home: Yes ROS ROS Narrative 14 system ROS somewhat limited as patient does not have done and reconstructive surgery in jaw and mouth due to cancer with altered speech. Constitutional: Reports fatigue and weakness. No fever. HEENT: Cancer of oropharyngeal region, floor of mouth, jaw status post resection and reconstructive surgery. Done by [facility] oncology surgeon Respiratory/Chest: Denies chest pain, shortness of breath at rest Gastrointestinal: As described in HPI. PEG tube. Genitourinary: Denies burning urination or new urinary tract symptoms Musculoskeletal: Chronic pain over right side of jaw after reconstructive surgery with titanium plate. Neurologic: Denies seizure-like activity. No strokelike symptoms skin: No ulcer. No rash Endocrinology: Reports systems reviewed and no addt'l complaints, except as documented Hematologic/Lymphatic: Reports systems reviewed and no addt'l complaints, except as documented Rest 14 ROS are negative except as mentioned in HPI Physical Exam Const alert Resp normal respiratory effort, no retractions, no use of accessory muscles and clear to auscultation bilaterally Cardio regular rate, regular rhythm, S1 normal heart sound and S2 normal heart sound GI normal to inspection, nondistended, normoactive bowel sounds, soft to palpation, non-tender and non-distended Extremity normal to inspection Medical Records Data Medical Nutrition Assessment Dietitian: Malnutrition Criteria Met Start: 10/22/22 11:55 Freq: Status: Active Protocol: Document 10/22/22 11:56 RMA (Rec: 10/22/22 11:56 RMA [id number]) Nutrition Malnutrition Evidence of Malnutrition Exists Yes Malnutrition (severe): Acute Illness/Injury Evidenced By Suboptimal Energy Intake ( Severe),Weight Loss (Severe) Intake Problem Inadequate Oral Intake Etiology related to altered GI function Signs/Symptoms as evidenced by NPO and nothing via PEG at this time Status Active Problem Clinical Problem Acute Disease or Injury Related Malnutrition Etiology Severe protein-cristy malnutrition in the context of acute illness/GI bleed and persistent vomiting x 1 week as evidenced by GI dysfunction Signs/Symptoms as evidenced by ~4% wt loss x 1 week, NPO, PEG TF meeting less than 50% estimated nutrition needs x past 1 week Status Active Problem Recommendation Dietitian Recommendations/Changes Pt is NPO and does not take nutrition by mouth; TF to meet 100% estimated nutrition needs. When ready to resume TF via PEG recommend start with Jevity 1.5 Cristy @ 30 ml/hr and increase rate as tolerated by 10ml/hr Q 6-8 hours until goal rate of 60 ml/hr achieved. Flush with 180 ml water Q 4 hours. TF and water flushes will provide 2160 kcal, 92 gm pro and 2175 ml free water per day. Transition to bolus TF as tolerated prior to d/c. Diet education for homegoing as needed prior to d/c. Lab / Micro Data Result Diagrams: 10/23/22 05:33 10/23/22 05:33 Labs: Laboratory Results - last 24 hr 10/23/22 05:33: WBC 4.0 L, RBC 3.81 L, Hgb 11.7 L, Hct 34.5 L, MCV 90.6, MCH 30.7, MCHC 33.9, RDW Std Deviation 41.5, RDW Coeff of Jose 12.7, Plt Count 175, MPV 8.7, Immature Gran % (Auto) 0.300, Neut % (Auto) 75.3 H, Lymph % (Auto) 12.8 L, [place] % (Auto) 9.8, Eos % (Auto) 1.5, Baso % (Auto) 0.3, Absolute Neuts (auto) 3.0, Absolute Lymphs (auto) 0.51 L, Nucleated RBC % 0, Differential Comment SCANNED, Diff Path Review December10/23/22 05:33: Sodium 142, Potassium 3.6, Chloride 109 H, Carbon Dioxide 24.0, Anion Gap 9, BUN 10, Creatinine 0.53 L, Estim Creat Clear Calc 165.75, Est GFR (MDRD) Af Amer 208, Est GFR (MDRD) Non-Af 172, BUN/Creatinine Ratio 19.0, Glucose 85, Calcium 9.3 Assessment & Plan Assessment/Plan (1) Acute upper GI bleed: PLAN: Plan Acute upper GI bleed after EGD on 10/13/2022: H&H 13.3/31.6%. Platelet count 211. Normal WC count. EGD on 10/13 reported benign-appearing esophageal stenosis dilated. LA grade D erosive esophagitis biopsied. 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 No gross lesion in first portion of duodenum. Possible EGD tomorrow. Supportive treatment for nausea and vomiting. Charges/Coding Visit Charges Inpatient E&M: 93829 Init Hosp L2
[2022-10-23 15:54] VITALS: BP 137/81; PULSE 105; RESP 15; TEMP 37.2; O2SAT 96
[2022-10-23] MEDS: Pivot 1.5 Cal 1,000 ML BOTTLE 250 ML GT (17:17)
[2022-10-23 17:35] VITALS: BP 137/81; PULSE 105; RESP 15; TEMP 37.2; O2SAT 96
[2022-10-23 21:02] VITALS: BP 137/71; PULSE 102; RESP 18; TEMP 37; O2SAT 98
[2022-10-24] VITALS (11 sets, daily range): BP systolic 110–141; BP diastolic 70–85; PULSE 83–98; RESP 16–22; TEMP 36.7–37.2; O2SAT 94–98; BMI 24.5
[2022-10-24] MEDS: 0.9% Normal Saline 1,000 ML 100 ML IV ×2 (00:54→11:09)
[2022-10-24] MEDS: Morphine 2 MG/ML Syringe IV ×4 (03:01→14:29)
[2022-10-24] MEDS: 0.9% Saline Lock 10 ML Syringe IV ×3 (03:10→14:30)
--- NOTE | 2022-10-24 05:55 | EKG12_ITS ---
Test Reason : MORNING EKG Blood Pressure : / mmHG Vent. Rate : 089 BPM Atrial Rate : 089 BPM P-R Int : 130 ms QRS Dur : 076 ms QT Int : 376 ms P-R-T Axes : 044 022 044 degrees QTc Int : 457 ms Normal sinus rhythm Normal ECG Confirmed by SINGH FRAZIER, EDWARDO ([id number]), make up editor BRITTANY JIN ([id number]) on 10/26/2022 1:22:36 PM Referred By: SARITHA Confirmed By:EDWARDO WINTERS MD
[2022-10-24 06:53] LABS: Absolute Lymphocyte Count 0.57 X10^3/uL (0.83-4.51); Absolute Neutrophil Count 2.6 X10^3/uL (2.0-7.7); Basophil# 0.02 X10^3/uL; Basophil% 0.5 % (0-1); Eosinophil# 0.06 X10^3/uL; Eosinophils% 1.6 % (0-5); Hematocrit 33.6 % (40-54); Hemoglobin 11.4 g/dL (13.0-16.5); Lymphocyte # 0.57 X10^3/ul (0.83-4.51); Lymphocyte % 15.3 % (19-41); Mean Corp Hgb Conc 33.9 g/dL (32-36); Mean Corpuscular Hgb 30.6 pg (27.0-32.0); Mean Corpuscular Volume 90.3 fL (80-94); Mean Platelet Vol. 8.6 fl (6.2-12.0); Monocyte# 0.44 X10^3/uL; Monocyte% 11.8 % (0-10); NRBC Flagged by Analyzer 0 % (0-5); Neutrophil # 2.62 X10^3/uL (2.7-7.7); Neutrophil % 70.5 % (47-70); POSITIVE DIFFERENTIAL YES; Platelet Count 166 K/mm3 (150-450); RBC Distribution Width SD 42.3 fl (35.1-43.9); Red Blood Count 3.72 M/mm3 (4.6-6.2); White Blood Count 3.7 K/mm3 (4.4-11.0)
[2022-10-24 07:01] LABS: Differential Indicated SCAN CRITERIA MET
[2022-10-24 07:04] LABS: International Normalized Ratio 1.3; Prothrombin Time (Protime)PT. 15.9 SECONDS (11.7-14.9)
[2022-10-24 07:18] LABS: Differential Comment SCANNED
[2022-10-24 07:21] LABS: AST(SGOT) 12 U/L (15-37); Alanine Aminotransfer ALT/SGPT 15 U/L (16-61); Albumin, Serum 2.9 g/dL (3.2-5.0); Alkaline Phosphatase 49 U/L (45-117); Bilirubin, Direct 0.16 mg/dL (0.00-0.30); Globulin 3.2 g/dL (2.2-4.2); Protein, Total 6.1 g/dL (6.4-8.2)
--- NOTE | 2022-10-24 13:23 | OP.CCLET_ITS ---
10/24/2022 Shailesh Jennings Do Re : Upper GI endoscopy procedure for Jaleel Esparza Dear Michaela This procedure was performed on Monday, October 24, 2022. My impressions and recommendations are as follows: Impressions : - LA Grade D erosive esophagitis. Treated with a heater probe. - Benign-appearing esophageal stenosis. Dilated. - Eroding gastrostomy tube present. - Normal first portion of the duodenum. - The PEG was removed because it had been in place for an extended length of time, and replaced with an endoscopically removable PEG. - No specimens collected. Recommendations : - [facility]. - Resume previous diet. - Continue present medications. My findings are described in the full procedure note, which is enclosed. If I can be of further assistance, please feel free to contact me at . Sincerely, Yossi Hartmann, 10/24/2022 1:22:18 PM This report has been signed electronically.
--- NOTE | 2022-10-24 13:23 | OP.EGD_ITS ---
Patient Name: Jaleel Esparza Procedure Date: 10/24/2022 12:46 PM Date of : 1965 Age: 57 Procedure: Upper GI endoscopy Indications: Dysphagia Providers: Yossi Hartmann DO Medicines: Monitored Anesthesia Care Patient Profile: This is a 57 year old male. Refer to note in patient chart for documentation of history and physical. Patient has symptoms of dysphagia with both liquids and solids. Complications: No immediate complications. Procedure: Pre-Anesthesia Assessment: - Prior to the procedure, a History and Physical was performed, and patient medications and allergies were reviewed. The risks and benefits of the procedure and the sedation options and risks were discussed with the patient. All questions were answered and informed consent was obtained. Patient identification and proposed procedure were verified by the physician. Mental Status Examination: normal. Prophylactic Antibiotics: The patient does not require prophylactic antibiotics. Prior Anticoagulants: The patient has taken no previous anticoagulant or antiplatelet agents. After reviewing the risks and benefits, the patient was deemed in satisfactory condition to undergo the procedure. The anesthesia plan was to use monitored anesthesia care (MAC). Immediately prior to administration of medications, the patient was re-assessed for adequacy to receive sedatives. The heart rate, respiratory rate, oxygen saturations, blood pressure, adequacy of pulmonary ventilation, and response to care were monitored throughout the procedure. The physical status of the patient was re-assessed after the procedure. After obtaining informed consent, the endoscope was passed under direct vision. Throughout the procedure, the patient's blood pressure, pulse, and oxygen saturations were monitored continuously. The Endoscope was introduced through the mouth, and advanced to the second part of duodenum. The upper GI endoscopy was accomplished without difficulty. The patient tolerated the procedure well. Scope In: 1:07:40 PM Scope Out: 1:16:06 PM Total Procedure Duration Time 0 hours 8 minutes 26 seconds Findings: LA Grade D (one or more mucosal breaks involving at least 75% of esophageal circumference) esophagitis with bleeding was found 25 to 33 cm from the incisors. Coagulation for hemostasis using heater probe was successful. Estimated blood loss: none. One benign-appearing, intrinsic stenosis was found 24 to 26 cm from the incisors. This stenosis was severe and. The stenosis was traversed after dilation. A TTS dilator was passed through the scope. Dilation with a 12-13.5-15 mm balloon dilator was performed to 13.5 mm. The dilation site was examined and showed complete resolution of luminal narrowing. Estimated blood loss was minimal. There was evidence of an eroding gastrostomy tube present on the greater curvature of the stomach. The PEG required removal because it had been in place for an extended length of time. The PEG was removed percutaneously. Removal was easily accomplished. An endoscopically removable 20 Fr Bard gastrostomy tube was lubricated. The guide wire was passed through the existing G-tube port and snared endoscopically. The endoscope and snare were then removed, pulling the wire out through the mouth. The g-tube was tied to the guidewire, pulled through the mouth into the stomach and then pulled out from the stomach through the skin. The bumper was attached to the gastrostomy tube. The feeding tube was then cut to an appropriate length. The final position of the gastrostomy tube was confirmed by relook endoscopy, and skin marking noted to be 4 cm at the external bumper. The final tension and compression of the abdominal wall by the PEG tube and external bumper were checked and revealed that the bumper was loose and lightly touching the skin. The tube was capped, and the tube site was cleaned and dressed. The first portion of the duodenum was normal. Impression: - LA Grade D erosive esophagitis. Treated with a heater probe. - Benign-appearing esophageal stenosis. Dilated. - Eroding gastrostomy tube present. - Normal first portion of the duodenum. - The PEG was removed because it had been in place for an extended length of time, and replaced with an endoscopically removable PEG. - No specimens collected. Recommendation: - [facility]. - Resume previous diet. - Continue present medications. Procedure Code(s): --- Professional --- 06845, 59, Esophagogastroduodenoscopy, flexible, transoral; with control of bleeding, any method 25675, Esophagogastroduodenoscopy, flexible, transoral; with directed placement of percutaneous gastrostomy tube 38811, Esophagogastroduodenoscopy, flexible, transoral; with transendoscopic balloon dilation of esophagus (less than 30 mm diameter) CPT copyright 2017 [employer]. All rights reserved. The codes documented in this report are preliminary and upon cone cleaner review may be revised to meet current compliance requirements. Yossi Hartmann DO 10/24/2022 1:22:18 PM This report has been signed electronically. Number of Addenda: 0 Note Initiated On: 10/24/2022 12:46 PM
[2022-10-24 14:18] LABS: Pathologist Review Reviewed
[2022-10-24 14:30] LABS: Pathologist Review Reviewed
--- NOTE | 2022-10-24 15:03 | PCM.DC ---
Discharge Instructions Diet Discharge Diet: - (Resume previous diet, resume previous tube feeds and water through your tube) Activity Discharge Activity: Return to Normal Activity Weight Bearing Status: Full weight bearing Follow Up Care Test Results: Test results from this visit will be discussed in further detail at your follow-up appointment, if applicable. Discharge Plan Admission Admit Date/Time: 10/21/22 18:35 Primary Reason for Your Visit: esophagitis Attending Provider: Horacio Boogie Primary Care Provider: Shailesh Jennings Consulting Providers: Imtiaz Espinosa Eric Discharge Orders/Prescriptions Prescriptions: Continued oxycodone 5 mg/5 mL solution 40 mg PO Q4H PRN (Reason: Pain) sennosides [senna] 8.8 mg/5 mL syrup 10 ml feeding tube BID ondansetron 8 mg tablet,disintegrating 8 mg PO Q8H PRN (Reason: nausea and vomiting) Qty: 90 3RF guaifenesin 100 mg/5 mL liquid 200 mg PO Q4H PRN (Reason: congestion) Qty: 1000 0RF gabapentin 250 mg/5 mL solution 6 ml feeding tube TID Label Comments: TAKE 6ML (300MG) PER PEG THREE TIMES A DAY SCHEDULED lorazepam 0.5 mg tablet 0.5 mg feeding tube PRN MDD ANXIETY PRN (Reason: BID) Label Comments: TAKE 1 TABLET BY MOUTH TWICE DAILY NEEDED FOR PANIC/ANXIETY sertraline 25 mg tablet 50 mg feeding tube DAILY Label Comments: GIVE 1 TABLET VIA PEG TUBE DAILY metoclopramide HCl [Reglan] 5 mg tablet 5 mg feeding tube BID Rx Instructions: administer 30 minutes before meals lansoprazole 30 mg tablet,disintegrat, delay rel 60 mg feeding tube BID Qty: 120 1RF lidocaine-prilocaine 2.5-2.5 % cream 1 applic topical ONCE PRN (Reason: port access) 30 Days Qty: 30 2RF Referrals / Follow Up: Shailesh Jennings DO [Primary Care Provider] - See Referral Note (at your next scheduled visit) Mariya Parham MD [Med Staff - Active Staff] - See Referral Note (call the office to make follow up appointment) Yossi Hartmann DO [Med Staff - Active Staff] - See Referral Note (call for follow up appointment) Disposition Disposition (needs filled in before D/C Order can be placed): Home, Self Care
--- NOTE | 2022-10-24 15:28 | DS.PCM_ITS ---
Providers Date of Admission: 10/21/22 Date of Discharge: 10/24/22 Primary Care Physician: Dr. Shailesh Jennings, Consultations 10/21/22 20:12 Consult: Gastroenterology Routine Consulting Provider: R[facility] Reason for Consult: GI Bleed EMERGENT Consult: No MD Notified: Yes Date Notified: 10/21/22 Time Notified: 20:12 Method of Notification: ED Physician Initiated Reason For Visit: UPPER GI BLEED, OROPHARYNGEAL,EOPHAGUS? CA Diagnosis Discharge Diagnosis (1) Acute upper GI bleed: Status: Acute Code(s): K92.2 - Gastrointestinal hemorrhage, unspecified (2) Hyponatremia: Status: Acute Code(s): E87.1 - Hypo-osmolality and hyponatremia Plan Acute upper GI bleed secondary to erosive esophagitis #2 benign esophageal stenosis #3 hyponatremia Medications at Discharge Home Medications oxycodone 5 mg/5 mL oral solution 40 mg PO Q4H PRN Pain 12/16/21 sennosides 8.8 mg/5 mL oral syrup (senna) 10 ml feeding tube BID 01/11/22 gabapentin 250 mg/5 mL oral solution 6 ml feeding tube TID nerve pain 03/09/22 lansoprazole 30 mg delayed release,disintegrating tablet 60 mg feeding tube BID #120 tabs 03/23/22 ondansetron 8 mg disintegrating tablet 8 mg PO Q8H PRN nausea and vomiting #90 tabs 04/01/22 lorazepam 0.5 mg tablet 0.5 mg feeding tube PRN PRN BID 04/07/22 metoclopramide HCl 5 mg tablet (Reglan) 5 mg feeding tube BID 04/07/22 sertraline 25 mg tablet 50 mg feeding tube DAILY 04/07/22 guaifenesin 100 mg/5 mL oral liquid 200 mg (10 mL) PO Q4H PRN congestion #1,000 mL 04/26/22 lidocaine-prilocaine 2.5 %-2.5 % topical cream 1 applic topical ONCE PRN port access 30 days #30 grams 10/14/22 Hospital Course Procedures EGD (With esophageal dilatation and replacement of PEG tube) Summary of Care Provided Minutes Spent on Discharge: 31 Hospital Course: This 57-year-old white female was seen in the emergency room at [facility] with complaints of hematemesis and chest discomfort for approximately a week since he has had a past EGD. Patient has a history of head and neck cancer, he does have a PEG tube in place chronically. Work-up in the emergency room showed the patient's hemoglobin to be 13.3, he was put on a Pr otonix drip and given IV fluid administration and admitted to PCU. Patient was seen by gastroenterology who performed an EGD which showed esophagitis and a benign-appearing stenosis of the esophagus which was dilated. Patient also had his PEG tube replaced. Patient did not require blood transfusion during his hospitalization. On 10/24/2022, patient was seen and examined: On examination he appeared in good health and spirits. Vital signs as documented. Skin warm and dry and without overt rashes. Neck without JVD, neck was supple, trachea midline, thyroid was normal. Lungs clear bilaterally, normal air movement was noted. Heart exam notable for regular rhythm, normal sounds and absence of murmurs, rubs or gallops. Abdomen unremarkable and without evidence of organomegaly, masses, or abdominal aortic enlargement. Bowel sounds are present, abdomen is not distended. Extremities nonedematous, no cyanosis was noted, no clubbing was noted. Neuro: Cranial nerves II through XII are grossly intact, no focal motor deficits were noted, sensation to light touch and pinprick intact, motor exam 5/5 throughout. Psych: Patient is alert and oriented x3, he does not appear anxious or depressed, he does not appear agitated. Patient appeared in stable condition on 10/24/2022 and was discharged home. Medical Records Data Medical Nutrition Assessment Dietitian: Malnutrition Criteria Met Start: 10/22/22 11:55 Freq: Status: Active Protocol: Document 10/24/22 11:44 LO (Rec: 10/24/22 11:44 [id number]) Nutrition Malnutrition Evidence of Malnutrition Exists Yes Malnutrition (severe): Acute Illness/Injury Evidenced By Suboptimal Energy Intake ( Severe),Weight Loss (Severe) Intake Problem Inadequate Oral Intake Etiology related to altered GI function Signs/Symptoms as evidenced by NPO and nothing via PEG at this time Status Active Problem Clinical Problem Acute Disease or Injury Related Malnutrition Etiology Severe protein-cristy malnutrition in the context of acute illness/GI bleed and persistent vomiting x 1 week as evidenced by GI dysfunction Signs/Symptoms as evidenced by 9.9lbs (5.3%) wt loss in 14 days, NPO, PEG TF meeting less than 50% estimated nutrition needs x past 1 week Status Active Problem Recommendation Dietitian Recommendations/Changes Pt is NPO and does not take nutrition by mouth; TF to meet 100% estimated nutrition needs. RD will order Jevity 1.5 Cristy 290mL bolus 5x daily with 130mL feeding tube flush pre and post bolus to provide 2175 kcal, 92 gm pro and 2402 ml free water per day. Weight / BMI Weight Weight: 80 kg Body Mass Index (BMI) 24.5 ABG / Lab / Microbiology Data Result Diagrams: 10/24/22 06:27 10/23/22 05:33 Laboratory: Laboratory Results - last 24 hr 10/23/22 05:33: Diff Path Review Reviewed 10/24/22 06:27: WBC 3.7 L, RBC 3.72 L, Hgb 11.4 L, Hct 33.6 L, MCV 90.3, MCH 30.6, MCHC 33.9, RDW Std Deviation 42.3, RDW Coeff of Jose 13.0, Plt Count 166, MPV 8.6, Immature Gran % (Auto) 0.300, Neut % (Auto) 70.5 H, Lymph % (Auto) 15.3 L, [place] % (Auto) 11.8 H, Eos % (Auto) 1.6, Baso % (Auto) 0.5, Absolute Neuts (auto) 2.6, Absolute Lymphs (auto) 0.57 L, Nucleated RBC % 0, Differential Comment SCANNED, Diff Path Review Reviewed 10/24/22 06:27: PT 15.9 H, INR 1.3 10/24/22 06:27: Total Bilirubin 0.70, Direct Bilirubin 0.16, AST 12 L, ALT 15 L, Alkaline Phosphatase 49, Total Protein 6.1 L, Albumin 2.9 L, Globulin 3.2 D/C Instructions Discharge Diet: - (Resume previous diet, resume previous tube feeds and water through your tube) Weight Bearing Status: Full weight bearing Meaningful Use Info Meaningful Use Diagnoses (Choose all that apply): None applicable Discharge Plan Admission Admit Date/Time: 10/21/22 18:35 Primary Reason for Your Visit: esophagitis Attending Provider: Horacio Boogie Primary Care Provider: Shailesh Jennings Consulting Providers: Imtiaz Espinosa ; Peterson Huertas Discharge Orders/Prescriptions Prescriptions: Continued oxycodone 5 mg/5 mL solution 40 mg PO Q4H PRN (Reason: Pain) sennosides [senna] 8.8 mg/5 mL syrup 10 ml feeding tube BID ondansetron 8 mg tablet,disintegrating 8 mg PO Q8H PRN (Reason: nausea and vomiting) Qty: 90 3RF guaifenesin 100 mg/5 mL liquid 200 mg PO Q4H PRN (Reason: congestion) Qty: 1000 0RF gabapentin 250 mg/5 mL solution 6 ml feeding tube TID Label Comments: TAKE 6ML (300MG) PER PEG THREE TIMES A DAY SCHEDULED lorazepam 0.5 mg tablet 0.5 mg feeding tube PRN MDD ANXIETY PRN (Reason: BID) Label Comments: TAKE 1 TABLET BY MOUTH TWICE DAILY NEEDED FOR PANIC/ANXIETY sertraline 25 mg tablet 50 mg feeding tube DAILY Label Comments: GIVE 1 TABLET VIA PEG TUBE DAILY metoclopramide HCl [Reglan] 5 mg tablet 5 mg feeding tube BID Rx Instructions: administer 30 minutes before meals lansoprazole 30 mg tablet,disintegrat, delay rel 60 mg feeding tube BID Qty: 120 1RF lidocaine-prilocaine 2.5-2.5 % cream 1 applic topical ONCE PRN (Reason: port access) 30 Days Qty: 30 2RF Referrals / Follow Up: Shailesh Jennings DO [Primary Care Provider] - See Referral Note (at your next scheduled visit) Mariya Parham MD [Med Staff - Active Staff] - See Referral Note (call the office to make follow up appointment) Yossi Hartmann DO [Med Staff - Active Staff] - See Referral Note (call for follow up appointment) Disposition Disposition (needs filled in before D/C Order can be placed): Home, Self Care Charges/Coding Visit Charges Inpatient E&M: 91831 Disch Hosp >30min
--- NOTE | 2022-10-24 15:44 | CASEMGMT ---
Patient has order for discharge, RN CM back to discuss needs at discharge. Patient denied needs at discharge. Patient had no further questions or concerns at this time.
== END 2022-10-24 16:56 | disposition home or self-care (01) | DRG 243 ==
LOC: ED 18:27 → PCU 20:36
PROVIDERS: Anesthesiology; Internal Medicine Gastroenterology; Admitting Provider Internal Medicine; Emergency Provider Emergency Medicine; PCP Student in an Organized Health Care Education/Training Program; Visit Provider Internal Medicine
PROC: 0DJ08ZZ Inspection of Upper Intestinal Tract, Via Natural or Artificial Opening Endoscopic (ICD-10-PCS; CPT 43235; principal; 2022-10-24 12:25)
DX: K20.81 Other esophagitis with bleeding (principal); E43 Unspecified severe protein-calorie malnutrition; K22.11 Ulcer of esophagus with bleeding; K22.2 Esophageal obstruction; K21.01 Gastro-esophageal reflux disease with esophagitis, with bleeding; Z43.1 Encounter for attention to gastrostomy; E87.1 Hypo-osmolality and hyponatremia; C10.9 Malignant neoplasm of oropharynx, unspecified; C14.8 Malignant neoplasm of overlapping sites of lip, oral cavity and pharynx; J44.9 Chronic obstructive pulmonary disease, unspecified; Z93.1 Gastrostomy status; K22.70 Barrett's esophagus without dysplasia; F41.9 Anxiety disorder, unspecified; R13.10 Dysphagia, unspecified; Z66 Do not resuscitate; Z92.3 Personal history of irradiation; Z87.891 Personal history of nicotine dependence; Z79.899 Other long term (current) drug therapy; Z68.24 Body mass index [BMI] 24.0-24.9, adult; F32.A Depression, unspecified; G89.29 Other chronic pain
CPT/HCPCS: 36415; 36591; 71045; 80048; 80076; 83735; 85014; 85018; 85025; 85610; 85730; 86850; 86900; 86901; 93005; 94668; 97802; 97803; 99252; 99285; 99406; J7030; A4216; G0463; J2405

== ENCOUNTER 2022-11-29 11:33 | Inpatient (IN) | payer MEDICAID, SELFPAY ==
[2022-11-29] VITALS (7 sets, daily range): BP systolic 111–144; BP diastolic 65–114; PULSE 98–107; RESP 18–19; TEMP 36.6–38.4; O2SAT 92–96; BMI 25.9; BMI 24.7
--- NOTE | 2022-11-29 11:49 | CT_ITS ---
INDICATION: Pain EXAMINATION: CT ABDOMEN AND PELVIS WITHOUT CONTRAST - CT Abdomen And Pelvis W/O Contrast Injection TECHNIQUE: Helically acquired images were obtained of the abdomen and pelvis without oral or IV contrast. A radiation dose optimization technique was used for this scan. IV Contrast dosage and agent: None. Oral contrast: None. RADIATION DOSAGE (If Supplied By Facility): CTDIvol = ( 13.33 ) mGy, DLP = ( 662.72 ) mGycm COMPARISON: PET/CT dated November 15, 2022 FINDINGS: LOWER CHEST: There is circumferential wall thickening of the distal esophagus. Lung bases are clear. There is a stable pericardial effusion. The lack of intravenous contrast limits evaluation of solid visceral organs. LIVER: Homogeneous. No focal mass. GALLBLADDER AND BILIARY TREE: No calcified gallstones. No gallbladder distension or wall edema. No intra- or extrahepatic biliary ductal dilation. PANCREAS: No focal cystic or solid mass. SPLEEN: Normal size without focal cystic or solid mass. ADRENAL GLANDS: No nodules. KIDNEYS AND URETERS: Normal renal size and position. No hydronephrosis. PERITONEUM: No ascites or free air. No other fluid collection. BOWEL: There is a percutaneous gastrostomy tube in place. No evidence of acute appendicitis. No stomach or bowel distension. There is extraluminal air adjacent to the ascending colon. There are scattered diverticula arising from the colon. No pericolonic fluid collection nor stranding is visualized. LYMPH NODES: No enlarged mesenteric or retroperitoneal lymph nodes. VESSELS: Aorta is non-dilated. There are peripheral calcifications of the abdominal aorta consistent with atherosclerosis. URINARY BLADDER: Unremarkable. REPRODUCTIVE ORGANS: No pelvic masses. ABDOMINAL WALL: No discrete abdominal or pelvic wall hernia. BONES: No lytic or blastic abnormality. CT/Abdomen/Pelvis without Cont IMPRESSION: Extraluminal air adjacent to the ascending colon consistent with bowel perforation of uncertain etiology, possibly mild diverticulitis. Circumferential wall thickening of the distal esophagus consistent with known malignancy. Atherosclerosis. Stable pericardial effusion. N.B. : The above Results were Read Back by Clementine Dukes MD to Emre Rosado MD, and understanding confirmed on 11/29/2022 13:17:10 (ET). Electronically Signed: Clementine Dukes MD at 13:18 EDT ,
--- NOTE | 2022-11-29 11:49 | EX.ED.DYSGE1 ---
HPI History of Present Illness Chief Complaint: Nausea/Vomiting/Diarrhea Detail of Chief Complaint: Vomiting and diarrhea and abdominal pain Informant: patient Narrative Narrative: Vomiting and diarrhea for 3 days. Patient presents with vomiting every couple of hours. Fewer watery stools. No blood in his vomit or stool. Patient does not eat or drink as he has history of esophageal cancer and has a feeding tube. Patient denies sick contacts. He denies fever. He describes diffuse abdominal pain. Patient last chemotherapy was about a year ago. Patient denies eating any undercooked or unusual foods. [facility] Medical History Anemia Anxiety Back pain Cancer Cancer of overlapping sites of lip, oral cavity and pharynx Depression Dietary restriction Dysphagia Edentulous Esophagitis Ex-cigarette smoker Former smoker Gastric reflux History of GI bleed Mucositis due to radiation therapy Multiple pigmented nevi Oral candidiasis Oropharyngeal cancer Radiation dermatitis Right shoulder pain Uses wheelchair Wears glasses Home Medications oxycodone 5 mg/5 mL oral solution 40 mg PO Q4H PRN Pain 12/16/21 [History Last Taken 10/13/22] sennosides 8.8 mg/5 mL oral syrup (senna) 10 ml feeding tube BID 01/11/22 [History Last Taken 03/07/22] gabapentin 250 mg/5 mL oral solution 6 ml feeding tube TID nerve pain 03/09/22 [History Last Taken 03/04/22] lansoprazole 30 mg delayed release,disintegrating tablet 60 mg feeding tube BID #120 tabs 03/23/22 [Rx Last Taken Unknown] ondansetron 8 mg disintegrating tablet 8 mg PO Q8H PRN nausea and vomiting #90 tabs 04/01/22 [Rx Last Taken Unknown] lorazepam 0.5 mg tablet 0.5 mg feeding tube PRN PRN BID 04/07/22 [History Last Taken Unknown] metoclopramide HCl 5 mg tablet (Reglan) 5 mg feeding tube BID 04/07/22 [History Last Taken Unknown] sertraline 25 mg tablet 50 mg feeding tube DAILY 04/07/22 [History Last Taken Unknown] guaifenesin 100 mg/5 mL oral liquid 200 mg (10 mL) PO Q4H PRN congestion #1,000 mL 04/26/22 [Rx Last Taken Unknown] lidocaine-prilocaine 2.5 %-2.5 % topical cream 1 applic topical ONCE PRN port access 30 days #30 grams 10/14/22 [Rx Last Taken Unknown] Allergy/AdvReac Type Severity Reaction Status Date / Time No Known Allergies Allergy Verified 11/29/22 11:34 Family History Father Cancer LUNG Brother Cancer ESOPHAGEAL Surgical History History of esophagogastroduodenoscopy (EGD) History of mandibular surgery History of removal of Port-a-Cath Status post insertion of percutaneous endoscopic gastrostomy (PEG) tube Status post reconstruction procedure Social History household members: none housing: house number of children: 0 current occupational status: disabled pets and animals: No Smoking Status: Former smoker quit date: 07/28/21 pack-years: 60 Tobacco: How many years used: 30 how long ago did patient quit smoking: July 2021, smoked [id number] substance use type: does not use do you feel safe at home: Yes ROS ROS ED Review of Systems ROS Unobtainable: other Constitutional Constitutional ED: Reports lethargy; Denies chills, fever(s), sweats or weight loss Eyes Eyes: Denies blurry vision, change in vision or diplopia ENT ENT ED: Denies rhinorrhea or sore throat Cardiovascular Cardiovascular: Denies chest pain, orthopnea or racing heartbeat Respiratory/Chest Respiratory/Chest: Denies cough, dyspnea, dyspnea on exertion, orthopnea or sputum Gastrointestinal Gastrointestinal: Reports abdominal pain, diarrhea, nausea and vomiting Genitourinary Genitourinary ED: Denies dysuria, hematuria or urinary frequency Musculoskeletal Musculoskeletal: Denies arthralgias, back pain, myalgias or neck pain Integumentary Denies abscess, Abrasions or rash Neurologic Neurologic: Denies headache(s) or weakness Psychiatric Psychiatric: Denies anxiety, depression or suicidal thoughts Endocrine Endocrinology: Denies polydipsia, polyphagia or polyuria Hematologic/Lymphatic Hematologic/Lymphatic: Denies easy bleeding, easy bruising or lymphadenopathy Allergic/Immunologic Allergic/Immunologic ED: Denies mouth swelling, tongue swelling or urticaria EXAM Physical Exam Const Vital Signs: 11/29/22 11:34 Temperature 97.8 F Temperature Source Temporal Pulse Rate 103 H Respiratory Rate 18 Blood Pressure 144/114 H Blood Pressure Mean 124 Pulse Ox 93 Oxygen Delivery Method Room Air Positive well nourished and well developed General Appearance ED: well developed and NAD HEENT Reports TM's clear and moist mucous membranes normocephalic and atraumatic; Negative for trauma or tenderness Tympanic Membrane ED: Yes TM's clear Eyes PERRL and EOMs intact bilaterally General Eye ED: Negative for pale conjunctiva or scleral icterus Neck no lymphadenopathy, supple and no JVD General: Negative for tenderness Chest Wall inspection of chest normal and palpation of chest normal Chest: Negative for tenderness Resp normal respiratory effort and clear to auscultation bilaterally Effort and Inspection: Negative for respiratory distress or pain with movement Auscultation: Negative for rhonchi, wheezes or diminished lung sounds Cardio regular rate, regular rhythm, S1 normal heart sound, S2 normal heart sound and no murmurs Peripheral Pulses: pulses 2+ throughout GI normal to inspection, nondistended, normoactive bowel sounds, non-distended and no masses GI Narrative: Patient has a feeding tube in the left upper quadrant. He has some mild diffuse tenderness to palpation. There is no rebound, rigidity, or peritoneal signs Back/Spine no CVA tenderness and no thoracic nor lumbar tenderness Extremity normal to inspection General Extremety ED: Negative for edema General Extremity: Negative for edema Neuro oriented x3, CN's II-XII intact bilaterally, no sensory deficits noted and gait normal Sensorium / Orientation: awake, alert, oriented to person, oriented to place and oriented to time Motor Exam: strength 5/5 throughout and strength abnormal Psych mental status grossly normal Skin no rashes or lesions noted and no wounds MDM MDM MDM Narrative Medical decision making narrative: Patient presents with vomiting and diarrhea. Suspected viral gastroenteritis however he was complaining of abdominal pain and given his history of gastric tube and esophageal cancer was concerned about possibility for bowel obstruction. Patient had IV line established was given normal saline as well as Zofran and Bentyl as well as morphine. CBC with differential obtained showed a normal white count of 10.8. Hemoglobin was 16 and hematocrit 47. Platelets 374. Chemistries showed a low potassium of 2.8. BUN was 26 and creatinine 0.99. Lactate was elevated 2.3. I did obtain a CT scan of the abdomen pelvis without contrast which was read by radiology as free air within the right side of the colon with concern for perforated bowel. I discussed case with general surgeon on-call who will admit patient and asked that I start patient on Cipro and Flagyl. Patient admitted stable condition Lab Data Attestation: I reviewed the patient's lab results. Labs: Laboratory Results - last 24 hr 11/29/22 11/29/22 11/29/22 12:10 12:10 12:10 WBC 10.8 RBC 5.20 Hgb 15.9 Hct 47.0 MCV 90.4 MCH 30.6 MCHC 33.8 RDW Std Deviation 45.7 H RDW Coeff of Jose 13.8 Plt Count 374 MPV 8.8 Immature Gran % (Auto) 0.200 Neut % (Auto) 86.1 H Lymph % (Auto) 6.2 L Mathews % (Auto) 7.4 Eos % (Auto) 0.0 Baso % (Auto) 0.1 Absolute Neuts (auto) 9.3 H Absolute Lymphs (auto) 0.67 L Nucleated RBC % 0 Sodium 143 Potassium 2.8 L Chloride 105 Carbon Dioxide 28.0 Anion Gap 10 BUN 26 H Creatinine 0.99 Est GFR (MDRD) Af Amer 101 Est GFR (MDRD) Non-Af 83 BUN/Creatinine Ratio 26.3 H Glucose 151 H Lactic Acid 2.3 H* Calcium 10.6 H Total Bilirubin 0.70 AST 14 L ALT 25 Alkaline Phosphatase 62 Total Protein 8.3 H Albumin 4.1 Globulin 4.2 Albumin/Globulin Ratio 1.0 Radiography Diagnostic Testing: Clinical Impression(s) from Imaging Studies Abdomen/Pelvis CT 11/29/22 11:49 IMPRESSION: Extraluminal air adjacent to the ascending colon consistent with bowel perforation of uncertain etiology, possibly mild diverticulitis. Circumferential wall thickening of the distal esophagus consistent with known malignancy. Atherosclerosis. Stable pericardial effusion. N.B. : The above Results were Read Back by Clementine Dukes MD to Emre Rosado MD, and understanding confirmed on 11/29/2022 13:17:10 (ET). Electronically Signed: Clementine Dukes MD at 13:18 EDT , ADDENDUM: 11/29/22 1325 IMPRESSION: Extraluminal air adjacent to the ascending colon consistent with bowel perforation of uncertain etiology, possibly mild diverticulitis. Circumferential wall thickening of the distal esophagus consistent with known malignancy. Atherosclerosis. Stable pericardial effusion. N.B. : The above Results were Read Back by Clementine Dukes MD to Emre Rosado MD, and understanding confirmed on 11/29/2022 13:17:10 (ET). Electronically Signed: Clementine Dukes MD at 13:18 EDT , Discharge Plan Triage Chief Complaint: Nausea/Vomiting/Diarrhea ED Provider: Emre Iqbal Dx/Rx/DC Orders Clinical Impression: Nausea, vomiting and diarrhea, Perforated bowel, History of esophageal cancer Prescriptions: No Action oxycodone 5 mg/5 mL solution 40 mg PO Q4H PRN (Reason: Pain) sennosides [senna] 8.8 mg/5 mL syrup 10 ml feeding tube BID ondansetron 8 mg tablet,disintegrating 8 mg PO Q8H PRN (Reason: nausea and vomiting) Qty: 90 3RF guaifenesin 100 mg/5 mL liquid 200 mg PO Q4H PRN (Reason: congestion) Qty: 1000 0RF gabapentin 250 mg/5 mL solution 6 ml feeding tube TID Label Comments: TAKE 6ML (300MG) PER PEG THREE TIMES A DAY SCHEDULED lorazepam 0.5 mg tablet 0.5 mg feeding tube PRN MDD ANXIETY PRN (Reason: BID) Label Comments: TAKE 1 TABLET BY MOUTH TWICE DAILY NEEDED FOR PANIC/ANXIETY sertraline 25 mg tablet 50 mg feeding tube DAILY Label Comments: GIVE 1 TABLET VIA PEG TUBE DAILY metoclopramide HCl [Reglan] 5 mg tablet 5 mg feeding tube BID Rx Instructions: administer 30 minutes before meals lansoprazole 30 mg tablet,disintegrat, delay rel 60 mg feeding tube BID Qty: 120 1RF lidocaine-prilocaine 2.5-2.5 % cream 1 applic topical ONCE PRN (Reason: port access) 30 Days Qty: 30 2RF Primary Care Provider: Shailesh Jennings Referrals: Shailesh Jennings DO [Primary Care Provider] - Disposition Disposition: Acute Care Hospital [facility]
[2022-11-29 12:29] LABS: Absolute Lymphocyte Count 0.67 X10^3/uL (0.83-4.51); Absolute Neutrophil Count 9.3 X10^3/uL (2.0-7.7); Basophil# 0.01 X10^3/uL; Basophil% 0.1 % (0-1); Hemoglobin 15.9 g/dL (13.0-16.5); Lymphocyte # 0.67 X10^3/ul (0.83-4.51); Lymphocyte % 6.2 % (19-41); Mean Corp Hgb Conc 33.8 g/dL (32-36); Mean Corpuscular Hgb 30.6 pg (27.0-32.0); Mean Corpuscular Volume 90.4 fL (80-94); Mean Platelet Vol. 8.8 fl (6.2-12.0); Monocyte% 7.4 % (0-10); NRBC Flagged by Analyzer 0 % (0-5); Neutrophil # 9.34 X10^3/uL (2.7-7.7); Neutrophil % 86.1 % (47-70); Platelet Count 374 K/mm3 (150-450); RBC Distribution Width CV 13.8 % (11.6-14.6); RBC Distribution Width SD 45.7 fl (35.1-43.9); White Blood Count 10.8 K/mm3 (4.4-11.0)
[2022-11-29] MEDS: 0.9% Normal Saline 1,000 ML 1000 ML IV (12:29)
[2022-11-29] MEDS: Dicyclomine 20 MG/2 ML Vial IM (12:31)
[2022-11-29] MEDS: Metoclopramide 10 MG/2 ML Vial IV (12:32)
[2022-11-29 12:37] LABS: AST(SGOT) 14 U/L (15-37); Alanine Aminotransfer ALT/SGPT 25 U/L (16-61); Albumin, Serum 4.1 g/dL (3.2-5.0); Alkaline Phosphatase 62 U/L (45-117); Anion Gap 10 (5-15); BUN 26 mg/dL (7-18); BUN/Creat Ratio 26.3 RATIO (10-20); Calcium,Total 10.6 mg/dL (8.5-10.1); Chloride 105 mmol/L (98-107); Creatinine, Serum 0.99 mg/dL (0.70-1.30); EST Glomerular Filtration Rate 83 mL/min (>60); Est Glom Filt Rate - Afr Amer 101 mL/min (>60); Globulin 4.2 g/dL (2.2-4.2); Glucose 151 mg/dL (74-106); Potassium 2.8 mmol/L (3.5-5.1); Protein, Total 8.3 g/dL (6.4-8.2); Sodium Level 143 mmol/L (136-145)
[2022-11-29 12:58] LABS: Lactic Acid 2.3 mmol/L (0.4-1.9)
[2022-11-29] MEDS: Morphine 4 MG/ML Syringe IV ×3 (13:04→23:38)
--- NOTE | 2022-11-29 13:39 | NURSING ---
MED SURG ROBOTHAM GASTROENTERITIS, PERFORATED BOWEL, VOMITING, DIARRHEA
--- NOTE | 2022-11-29 13:40 | CON.PCM.SX_ITS ---
Assessment & Plan Assessment/Plan (1) Perforated diverticulum of large intestine: (2) Nausea, vomiting and diarrhea: (3) Squamous cell carcinoma of esophagus: (4) Cancer of overlapping sites of lip, oral cavity and pharynx: PLAN: Plan Discussed with patient would plan to admit keep n.p.o. IV fluids and anti biotics. We will plan to treat conservatively however if he has worsening pain white blood cell count or unstable vital signs it would consider more emergent surgery which would likely entail a right hemicolectomy initially laparoscopic possible open. Patient currently has no further questions this time. Zosyn IV IV PPI Appreciate hospitalist assistance with chronic pain meds Lucía Masterson M.D. Pager: [phone] [facility] [address] [place] [address], Outpatient [facility]ilion, [address] [place] [address] Office: [phone] HPI Consult Data Date of Consult: 11/29/22 HPI Narrative HPI Narrative: ORTEGA DUKES, is a 57 M who presents due to abdominal pain nausea and vomiting. Patient states this started on Monday points to the middle of his abdomen on where the pain started. Patient has not been able to keep down his normal pain regimen for his throat and mouth pain. Patient CT abdomen pelvis did show some free air outside the cecum question perforated diverticulitis. Patient does have a Rafy button in place as he takes all of his feeds via the tube feeds and nothing by mouth. Patient's last chemotherapy was April 2022 patient is currently in remission for his throat cancer squamous cell as well as mid esophageal squamous cell carcinoma status post chemo and radiation however the esophageal tumor is nonresectable. Currently patient does have nausea and vomiting and brought a bucket in from home for this?unable to specify any real abdominal pain. Patient did get some morphine for his mouth pain/possible withdrawal as he is chronically on narcotics. [facility] Medical History Anemia Anxiety Back pain Cancer Cancer of overlapping sites of lip, oral cavity and pharynx Depression Dietary restriction Dysphagia Edentulous Esophagitis Ex-cigarette smoker Former smoker Gastric reflux History of GI bleed Mucositis due to radiation therapy Multiple pigmented nevi Oral candidiasis Oropharyngeal cancer Radiation dermatitis Right shoulder pain Uses wheelchair Wears glasses Home Medications oxycodone 5 mg/5 mL oral solution 40 mg PO Q4H PRN Pain 12/16/21 [History Last Taken 10/13/22] sennosides 8.8 mg/5 mL oral syrup (senna) 10 ml feeding tube BID 01/11/22 [History Last Taken 03/07/22] gabapentin 250 mg/5 mL oral solution 6 ml feeding tube TID nerve pain 03/09/22 [History Last Taken 03/04/22] lansoprazole 30 mg delayed release,disintegrating tablet 60 mg feeding tube BID #120 tabs 03/23/22 [Rx Last Taken Unknown] ondansetron 8 mg disintegrating tablet 8 mg PO Q8H PRN nausea and vomiting #90 tabs 04/01/22 [Rx Last Taken Unknown] lorazepam 0.5 mg tablet 0.5 mg feeding tube PRN PRN BID 04/07/22 [History Last Taken Unknown] metoclopramide HCl 5 mg tablet (Reglan) 5 mg feeding tube BID 04/07/22 [History Last Taken Unknown] sertraline 25 mg tablet 50 mg feeding tube DAILY 04/07/22 [History Last Taken Unknown] guaifenesin 100 mg/5 mL oral liquid 200 mg (10 mL) PO Q4H PRN congestion #1,000 mL 04/26/22 [Rx Last Taken Unknown] lidocaine-prilocaine 2.5 %-2.5 % topical cream 1 applic topical ONCE PRN port access 30 days #30 grams 10/14/22 [Rx Last Taken Unknown] Allergy/AdvReac Type Severity Reaction Status Date / Time No Known Allergies Allergy Verified 11/29/22 11:34 Family History Father Cancer LUNG Brother Cancer ESOPHAGEAL Surgical History History of esophagogastroduodenoscopy (EGD) History of mandibular surgery History of removal of Port-a-Cath Status post insertion of percutaneous endoscopic gastrostomy (PEG) tube Status post reconstruction procedure Social History household members: none housing: house number of children: 0 current occupational status: disabled pets and animals: No Smoking Status: Former smoker quit date: 07/28/21 pack-years: 60 Tobacco: How many years used: 30 how long ago did patient quit smoking: July 2021, smoked [id number] substance use type: does not use do you feel safe at home: Yes ROS Constitutional Constitutional: Reports anorexia Eyes Eyes: Denies loss of central vision ENT HEENT: Reports dysphagia Cardiovascular Cardiovascular: Denies chest pain Respiratory/Chest Respiratory/Chest: Denies cough Gastrointestinal Gastrointestinal: Reports abdominal pain, dysphagia, nausea and vomiting; Denies hematemesis or melena Genitourinary Genitourinary: Denies dysuria Musculoskeletal Musculoskeletal: Denies joint swelling Integumentary Integumentary: Denies rash Neurologic Neurologic: Denies focal weakness Psychiatric Psychiatric: Denies anxiety Hematologic/Lymphatic Hematologic/Lymphatic: Denies easy bleeding Physical Exam Const alert and oriented x3 General Appearance: cooperative and frail HEENT HEENT Narrative: Previous neck incision is well-healed. Chest Chest Narrative: Right IJ Port-A-Cath incision clean dry and intact no signs of infection. Resp Resp Narrative: Tachypneic Cardio Rate: tachycardic GI GI Narrative: Abdomen soft, no obvious tenderness on exam, Rafy button hooked up to low intermittent wall suction 200 out?brownish drainage, no peritoneal signs Inspection: GI tube present Extremity normal to inspection Skin no rashes or lesions noted Psych affect normal Lab / Micro Data Result Diagrams: 11/29/22 12:10 11/29/22 12:10 Labs: Laboratory Results - last 24 hr 11/29/22 12:10: WBC 10.8, RBC 5.20, Hgb 15.9, Hct 47.0, MCV 90.4, MCH 30.6, MCHC 33.8, RDW Std Deviation 45.7 H, RDW Coeff of Jose 13.8, Plt Count 374, MPV 8.8, Immature Gran % (Auto) 0.200, Neut % (Auto) 86.1 H, Lymph % (Auto) 6.2 L, Hubbard % (Auto) 7.4, Eos % (Auto) 0.0, Baso % (Auto) 0.1, Absolute Neuts (auto) 9.3 H, Absolute Lymphs (auto) 0.67 L, Nucleated RBC % 0 11/29/22 12:10: Sodium 143, Potassium 2.8 L, Chloride 105, Carbon Dioxide 28.0, Anion Gap 10, BUN 26 H, Creatinine 0.99, Est GFR (MDRD) Af Amer 101, Est GFR (MDRD) Non-Af 83, BUN/Creatinine Ratio 26.3 H, Glucose 151 H, Calcium 10.6 H, Total Bilirubin 0.70, AST 14 L, ALT 25, Alkaline Phosphatase 62, Total Protein 8.3 H, Albumin 4.1, Globulin 4.2, Albumin/Globulin Ratio 1.0 11/29/22 12:10: Lactic Acid 2.3 H* Radiology Impression Abdomen/Pelvis CT 11/29/22 11:49 IMPRESSION: Extraluminal air adjacent to the ascending colon consistent with bowel perforation of uncertain etiology, possibly mild diverticulitis. Circumferential wall thickening of the distal esophagus consistent with known malignancy. Atherosclerosis. Stable pericardial effusion. N.B. : The above Results were Read Back by Clementine Dukes MD to Emre Rosado MD, and understanding confirmed on 11/29/2022 13:17:10 (ET). Electronically Signed: Clementine Dukes MD at 13:18 EDT , ADDENDUM: 11/29/22 1325 IMPRESSION: Extraluminal air adjacent to the ascending colon consistent with bowel perforation of uncertain etiology, possibly mild diverticulitis. Circumferential wall thickening of the distal esophagus consistent with known malignancy. Atherosclerosis. Stable pericardial effusion. N.B. : The above Results were Read Back by Clementine Dukes MD to Emre Rosado MD, and understanding confirmed on 11/29/2022 13:17:10 (ET). Electronically Signed: Clementine Dukes MD at 13:18 EDT , Charges/Coding Visit Charges Inpatient E&M: 69656 Init Hosp L3
[2022-11-29] MEDS: Ciprofloxacin 400 MG/200 ML BAG 200 MG IV (13:56)
[2022-11-29] MEDS: Ondansetron 4 MG/2 ML Vial IV (13:56)
--- NOTE | 2022-11-29 14:22 | PCM.CONS.GEN ---
Assessment & Plan Assessment/Plan (1) Perforated diverticulum of large intestine: PLAN: Plan The patient is a 57 y/o M w/ PMHx: COPD, Anxiety and Depression, Chronic pain syndrome, Former tobacco use, Former EtOH Abuse (sober since 07/2021), Oral SCC (stage IV, T4, N0, M0) s/p composite resection anterior mandible, subtotal glossectomy, BL floor of mouth, BL neck dissection levels 1-4 with mandible reconstruction 08/26/2021 followed by adjuvant R.T. 10/07/21?11/17/21 eventually advanced to the esophagus s/p surgical intervention as well as adjuvant chemotherapy, radiotherapy 04/11/22-05/20/[address] Parham, recent discharge 10/24/22 following treatment/evaluation of acute upper GI bleed with EGD notable for erosive esophagitis with concern for esophageal CA w/ associated esophageal stenosis and Acute Hyponatremia w/ chronic PEG tube which was replaced who now presents to the [facility] ED on 11/29/22 with history of persistent nausea, emesis and loose stools x3 days with the stools reported as watery in appearance with no bloody emesis or blood in his stool with inability to have any appropriate oral intake nor any recent ill contacts but persistent diffuse abdominal discomfort prompting eventual ED evaluation. #1. Acute Sepsis (SIRS, intra-abdominal infection with perforated bowel with lactic acidosis) secondary to Acute Intractable abdominal pain with nausea, emesis and diarrhea of unclear specific etiology with associated acutely perforated diverticulum of the large intestine: Patient admitted to medical surgical floor per general surgery, maintain on IV fluids, IV PPI, G-tube to suction per their direction, maintained on IV Zosyn therapy, trending CBC, CMP, initial plan per surgery to treat conservatively however if becomes unstable unfortunately may require surgical intervention with discussions with patient at that time as it would entail a right hemicolectomy initially laparoscopic although could certainly lead to an open surgery and patient has been hesitant about aggressive interventions. Patient is on chronic pain medicine and given the situation we will transition to transdermal fentanyl patch with IV breakthrough medications but certainly can increase fentanyl pending his response. #2. 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 10/07/21?11/17/21 eventually advanced to the esophagus s/p surgical intervention as well as adjuvant chemotherapy, radiotherapy 04/11/22-05/20/[address] Parham. Mag and phos levels requested. Will initiate BMX painting only and also nystatin painting only. Holding patient GT chronic pain regimen and will place TD fentanyl patch with PRN morphine, but certainly pending pain may increase fentanyl as needed. Temporarily holding GT gabapentin regimen. #3. Recent admission with associated acute upper GI bleed secondary to erosive esophagitis: As noted holding GT PPI and transition to IV PPI in the interim. #4. Chronic COPD: Per patient chronic regimen not on chronic inhalers, will have as needed albuterol, encourage head of bed and I-S. #5. Anxiety and depression: Temporarily holding patient GT sertraline as well as Ativan GT regimen, transitioning to twice daily IV as needed Ativan in the interim. #6. Former tobacco use: Current continued tobacco cessation. #7. Former alcohol abuse: Encouraged continued sobriety, noted to be sober since 07/2021. #8. Severe protein calorie malnutrition: Evidenced by significant reduction in intake ability over the last at least 3 days with underlying metastatic cancer as noted, obvious muscle loss, nutrition consulted for recommendations especially given current presentation #1. #9. GERD: We will hold GT PPI and transition to IV PPI in the interim. #10. DVT prophylaxis: SCDs. #11. CODE status: Patient does not have HCPOA or living will in place. Randa Robles is his caregiver he notes. Discussed CODE status at length including difference between FULL code, DNR-CCA and DNR-CC status. Following discussions about the differences in these status, requested DNR-CCA, no intubation, no aggressive interventions. Advanced Care Planning Face to Face Time: 16 minutes. Admission Evaluation Time spent evaluating chart, patient history, patient evaluation, care planning and discussion with specialists: 70 minutes. HPI Consult Data Date of Consult: 11/29/22 HPI Narrative Reason for Consultation: Medical consultation, acute opiate withdrawal HPI Narrative: The patient is a 57 y/o M w/ PMHx: COPD, Anxiety and Depression, Chronic pain syndrome, Former tobacco use, Former EtOH Abuse (sober since 07/2021), Oral SCC (stage IV, T4, N0, M0) s/p composite resection anterior mandible, subtotal glossectomy, BL floor of mouth, BL neck dissection levels 1-4 with mandible reconstruction 08/26/2021 followed by adjuvant R.T. 10/07/21?11/17/21 eventually advanced to the esophagus s/p surgical intervention as well as adjuvant chemotherapy, radiotherapy 04/11/22-05/20/[address] Parham, recent discharge 10/24/22 following treatment/evaluation of acute upper GI bleed with EGD notable for erosive esophagitis with concern for esophageal CA w/ associated esophageal stenosis and Acute Hyponatremia w/ chronic PEG tube which was replaced who now presents to the [facility] ED on 11/29/22 with history of persistent nausea, emesis and loose stools x3 days with the stools reported as watery in appearance with no bloody emesis or blood in his stool with inability to have any appropriate oral intake nor any recent ill contacts but persistent diffuse abdominal discomfort prompting eventual ED evaluation. In the ED patient does have fever as well as chills. Patient because of these events has missed his narcotic pain medication x 3 days. He reports severe 10/10 throat pain and difficulty controlling his oral sections secondary to the pain with swallowing. He does not do anything by mouth. Work-up in the ED included T97.8, heart rate 103, BP 144/114, respiratory rate 18, 93% room air, CBC with WC 10.8, hemoglobin 15.9, platelet 374 with left shift and lymphopenia, CMP with potassium 2.8, BUN/creatinine 26/0.99, glucose 151, lactic acid 2.3, calcium 10.6, hepatic profile unremarkable, CT abdomen and pelvis without any contrast with extraluminal air adjacent to the ascending colon consistent with a bowel perforation of uncertain etiology possibly mild diverticulitis with circumferential wall thickening of the distal esophagus consistent with known malignancy, stable pericardial effusion atherosclerosis. In the ED patient ministered 1 L normal saline, potassium 40 mill equivalent x1, Zofran 4 mg IV x1, morphine 4 mg IV x1, ciprofloxacin and Flagyl, Reglan 10 mg IV x1, Bentyl 20 mg IM x1. Discussed patient with Dr. Campos who admitted and requested hospitalist medical consultation. [facility] Medical History Anemia Anxiety Back pain Cancer Cancer of overlapping sites of lip, oral cavity and pharynx Chronic pain Depression Dietary restriction Dysphagia Edentulous Esophagitis Ex-cigarette smoker Former smoker Gastric reflux History of GI bleed Mucositis due to radiation therapy Multiple pigmented nevi Oral candidiasis Oropharyngeal cancer Radiation dermatitis Right shoulder pain Uses wheelchair Wears glasses Home Medications oxycodone 5 mg/5 mL oral solution 40 mg PO Q4H PRN Pain 12/16/21 [History Last Taken 10/13/22] sennosides 8.8 mg/5 mL oral syrup (senna) 10 ml feeding tube BID 01/11/22 [History Last Taken 03/07/22] gabapentin 250 mg/5 mL oral solution 6 ml feeding tube TID nerve pain 03/09/22 [History Last Taken 03/04/22] lansoprazole 30 mg delayed release,disintegrating tablet 60 mg feeding tube BID #120 tabs 03/23/22 [Rx Last Taken Unknown] ondansetron 8 mg disintegrating tablet 8 mg PO Q8H PRN nausea and vomiting #90 tabs 04/01/22 [Rx Last Taken Unknown] lorazepam 0.5 mg tablet 0.5 mg feeding tube PRN PRN BID 04/07/22 [History Last Taken Unknown] metoclopramide HCl 5 mg tablet (Reglan) 5 mg feeding tube BID 04/07/22 [History Last Taken Unknown] sertraline 25 mg tablet 50 mg feeding tube DAILY 04/07/22 [History Last Taken Unknown] guaifenesin 100 mg/5 mL oral liquid 200 mg (10 mL) PO Q4H PRN congestion #1,000 mL 04/26/22 [Rx Last Taken Unknown] lidocaine-prilocaine 2.5 %-2.5 % topical cream 1 applic topical ONCE PRN port access 30 days #30 grams 10/14/22 [Rx Last Taken Unknown] Allergy/AdvReac Type Severity Reaction Status Date / Time No Known Allergies Allergy Verified 11/29/22 11:34 Family History Father Cancer LUNG Brother Cancer ESOPHAGEAL other (Denies any marked maternal family history including HD, DM, CA.) Surgical History History of esophagogastroduodenoscopy (EGD) History of mandibular surgery History of removal of Port-a-Cath Status post insertion of percutaneous endoscopic gastrostomy (PEG) tube Status post reconstruction procedure Social History (Updated 11/29/22 @ 16:[address] Beht Rincon MD) household members: none housing: house number of children: 0 current occupational status: disabled pets and animals: No Smoking Status: Former smoker quit date: 07/28/21 pack-years: 60 Tobacco: How many years used: 30 how long ago did patient quit smoking: July 2021, smoked [id number] alcohol intake: former year quit: 2020 details: Sober since 07/2021. substance use type: does not use do you feel safe at home: Yes ROS ROS Narrative Admission Review of Systems: CONSTITUTIONAL: No weight loss, + weakness or fatigue, fever, chills. HEENT: + Severe sore throat, difficulty with secretions. Eyes: No visual loss, blurred vision, double vision or yellow sclerae. Ears, Nose, Throat: No hearing loss, sneezing, congestion, runny nose or sore throat. SKIN: + Occasional various staged ecchymoses, stasis changes. CARDIOVASCULAR: No chest pain, chest pressure or chest discomfort, palpitations, edema, orthopnea, syncopal events. RESPIRATORY: No shortness of breath, cough or sputum, wheezing, hemoptysis. GASTROINTESTINAL: + anorexia, nausea, vomiting, diarrhea, abdominal pain, No melena, BRBPR. GENITOURINARY: No dysuria, frequency, urgency or retention. NEUROLOGICAL: No headache, dizziness, syncope, paralysis, ataxia, numbness or tingling in the extremities, focal weakness, change in bowel or bladder control, seizure. MUSCULOSKELETAL: + muscle, back pain, joint pain or stiffness. HEMATOLOGIC: + anemia, bleeding or bruising. LYMPHATICS: No enlarged nodes. No history of splenectomy. PSYCHIATRIC: + history of depression or anxiety. ENDOCRINOLOGIC: + reports of sweating, cold or heat intolerance. No polyuria or polydipsia. ALLERGIES: No history of asthma, hives, eczema or rhinitis. 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 Skin: Normal color, normal turgor, no icterus, no cyanosis except for occasional staged ecchymoses, abrasion. HEENT: AT/NC, EOMI, PERRLA, severely dry MM, no carotid bruits or JVD noted, notable oral candidiasis to remaining anatomy, difficulty managing his oral secretions secondary to pain with swallowing. Lungs: Significantly diminished, greater bases, mildly increased respiratory rate but no distress, no rales, ronchi or wheezing. Heart: Tachycardic with regular rhythm; no gallop, rub audible. Abdomen: Soft, severe diffuse discomfort with palpation with voluntary guarding but no marked rebound despite findings, moderately distended, mildly tympanitic, mildly hyperactive BS, difficulty assessing HSM secondary to pain. Extremities: No cyanosis, no clubbing, bilateral lower extremity edema which is chronic per patient. Neurological: Patient awake, alert, oriented as noted, cognitive function intact; pupils equally reactive to light and accommodation, cranial nerves II-XII grossly normal, moving all 4 extremities, no focal deficits, strength severely global decrease secondary to acute presentation. Psychiatric: Affect appears severely uncomfortable, admits to ongoing depression and anxiety, no SI. Lab / Micro Data Result Diagrams: 11/29/22 12:10 11/29/22 12:10 Labs: Laboratory Results - last 24 hr 11/29/22 12:10: WBC 10.8, RBC 5.20, Hgb 15.9, Hct 47.0, MCV 90.4, MCH 30.6, MCHC 33.8, RDW Std Deviation 45.7 H, RDW Coeff of Jose 13.8, Plt Count 374, MPV 8.8, Immature Gran % (Auto) 0.200, Neut % (Auto) 86.1 H, Lymph % (Auto) 6.2 L, [place] % (Auto) 7.4, Eos % (Auto) 0.0, Baso % (Auto) 0.1, Absolute Neuts (auto) 9.3 H, Absolute Lymphs (auto) 0.67 L, Nucleated RBC % 0 11/29/22 12:10: Sodium 143, Potassium 2.8 L, Chloride 105, Carbon Dioxide 28.0, Anion Gap 10, BUN 26 H, Creatinine 0.99, Est GFR (MDRD) Af Amer 101, Est GFR (MDRD) Non-Af 83, BUN/Creatinine Ratio 26.3 H, Glucose 151 H, Calcium 10.6 H, Total Bilirubin 0.70, AST 14 L, ALT 25, Alkaline Phosphatase 62, Total Protein 8.3 H, Albumin 4.1, Globulin 4.2, Albumin/Globulin Ratio 1.0 11/29/22 12:10: Lactic Acid 2.3 H* Radiology Impression Abdomen/Pelvis CT 11/29/22 11:49 IMPRESSION: Extraluminal air adjacent to the ascending colon consistent with bowel perforation of uncertain etiology, possibly mild diverticulitis. Circumferential wall thickening of the distal esophagus consistent with known malignancy. Atherosclerosis. Stable pericardial effusion. N.B. : The above Results were Read Back by Clementine Dukes MD to Emre Rosado MD, and understanding confirmed on 11/29/2022 13:17:10 (ET). Electronically Signed: Clementine Dukes MD at 13:18 EDT , ADDENDUM: 11/29/22 1325 IMPRESSION: Extraluminal air adjacent to the ascending colon consistent with bowel perforation of uncertain etiology, possibly mild diverticulitis. Circumferential wall thickening of the distal esophagus consistent with known malignancy. Atherosclerosis. Stable pericardial effusion. N.B. : The above Results were Read Back by Clementine Dukes MD to Emre Rosado MD, and understanding confirmed on 11/29/2022 13:17:10 (ET). Electronically Signed: Clementine Dukes MD at 13:18 EDT , Charges/Coding Visit Charges Office Visits / Consults: 84515 IP Consult L4 Procedures Hospitalists Procedures: 20292 Advncd Care Plan 30 Min
[2022-11-29] MEDS: 0.9% Normal Saline 1,000 ML 999 ML IV ×2 (14:28→20:48)
[2022-11-29 14:47] LABS: Magnesium 2.3 mg/dL (1.6-2.6); Phosphorus 3.2 mg/dL (2.5-4.9)
[2022-11-29 16:18] LABS: Reflex Lactate? Y
[2022-11-29] MEDS: fentaNYL 25 MCG Patch TD (16:52)
[2022-11-29] MEDS: NYSTATIN 500,000 UNIT/5 ML UDC 500000 UNIT PO ×2 (16:53→23:02)
[2022-11-29] MEDS: metroNIDAZOLE 500 MG/100 ML BAG 100 MG IV (17:56)
[2022-11-29 17:57] LABS: Lactic Acid 2.2 mmol/L (0.4-1.9)
[2022-11-29] MEDS: 0.9% Saline Lock 10 ML Syringe IV ×4 (17:58→23:37)
[2022-11-29] MEDS: 0.9% Normal Saline 1,000 ML 125 ML IV (22:06)
[2022-11-29] MEDS: Lidocaine/Prilocaine HCl 5 GM Tube 1 GM TOPICAL (22:10)
[2022-11-29] MEDS: BMX LIQUID 180 ML 10 ML PO (22:29)
[2022-11-29] MEDS: Potassium Chloride 20mEq/100mL 20 MEQ/100 ML IV.SOLN. 100 MEQ IV ×2 (22:53→23:58)
[2022-11-30 00:45] LABS: Lactic Acid 0.8 mmol/L (0.4-1.9)
[2022-11-30] MEDS: Potassium Chloride 20mEq/100mL 20 MEQ/100 ML IV.SOLN. 100 MEQ IV (01:03)
[2022-11-30 05:10] VITALS: BP 123/83; PULSE 87; RESP 12; TEMP 36.9; O2SAT 93
[2022-11-30] MEDS: 0.9% Normal Saline 1,000 ML 125 ML IV (05:13)
[2022-11-30] MEDS: Morphine 4 MG/ML Syringe IV ×2 (05:43→09:24)
[2022-11-30] MEDS: 0.9% Saline Lock 10 ML Syringe IV ×3 (05:43→20:22)
[2022-11-30 06:07] LABS: Absolute Lymphocyte Count 0.74 X10^3/uL (0.83-4.51); Absolute Neutrophil Count 5.8 X10^3/uL (2.0-7.7); Basophil# 0.01 X10^3/uL; Basophil% 0.1 % (0-1); Hemoglobin 12.1 g/dL (13.0-16.5); Lymphocyte # 0.74 X10^3/ul (0.83-4.51); Mean Corp Hgb Conc 32.7 g/dL (32-36); Mean Corpuscular Hgb 30.6 pg (27.0-32.0); Mean Corpuscular Volume 93.7 fL (80-94); Mean Platelet Vol. 8.7 fl (6.2-12.0); Monocyte# 0.81 X10^3/uL; Monocyte% 10.9 % (0-10); NRBC Flagged by Analyzer 0 % (0-5); Neutrophil # 5.82 X10^3/uL (2.7-7.7); Neutrophil % 78.7 % (47-70); Platelet Count 208 K/mm3 (150-450); RBC Distribution Width CV 13.8 % (11.6-14.6); RBC Distribution Width SD 47.2 fl (35.1-43.9); Red Blood Count 3.95 M/mm3 (4.6-6.2); White Blood Count 7.4 K/mm3 (4.4-11.0)
[2022-11-30 06:38] LABS: ALB/GLOB Ratio 1.1 RATIO (0.9-2.4); AST(SGOT) 15 U/L (15-37); Alanine Aminotransfer ALT/SGPT 21 U/L (16-61); Albumin, Serum 3.2 g/dL (3.2-5.0); Alkaline Phosphatase 46 U/L (45-117); Anion Gap 7 (5-15); BUN 20 mg/dL (7-18); BUN/Creat Ratio 27.4 RATIO (10-20); Calcium,Total 9.1 mg/dL (8.5-10.1); Chloride 115 mmol/L (98-107); Creatinine, Serum 0.73 mg/dL (0.70-1.30); EST Glomerular Filtration Rate 118 mL/min (>60); Est Glom Filt Rate - Afr Amer 143 mL/min (>60); Estimated Creatinine Clearance 120.34 ml/min; Globulin 2.9 g/dL (2.2-4.2); Glucose 113 mg/dL (74-106); Protein, Total 6.1 g/dL (6.4-8.2); Sodium Level 149 mmol/L (136-145)
[2022-11-30] MEDS: 0.45% Normal Saline 1,000 ML 100 ML IV ×2 (07:28→17:20)
[2022-11-30 07:35] VITALS: O2SAT 92
[2022-11-30 07:41] LABS: Magnesium 1.9 mg/dL (1.6-2.6)
[2022-11-30] MEDS: LORazepam 2 MG/ML Syringe 0.5 MG IV (07:46)
[2022-11-30 07:56] VITALS: BP 142/72; PULSE 84; RESP 18; TEMP 36.9; O2SAT 93
[2022-11-30] MEDS: Potassium Chloride 20mEq/100mL 20 MEQ/100 ML IV.SOLN. 50 MEQ IV BOLUS ×3 (08:38→13:28)
--- NOTE | 2022-11-30 08:38 | PN.SURG_ITS ---
Subjective Subjective no Further nausea and vomiting. Patient currently has 300 in the canister from the PEG site which is to suction. Patient is continuing to get pain meds due to his throat pain which she is on at home as well. Repeat lactic acid was 0.8 after patient was properly hydrated. Objective Data Objective Data Vital Signs: Vital Signs Temp Pulse Resp BP Pulse Ox O2 Del Method O2 Flow Rate 98.5 F 84 18 142/72 H 93 Room Air 2 11/30/22 07:56 11/30/22 07:56 11/30/22 07:56 11/30/22 07:56 11/30/22 07:56 11/30/22 08:05 11/29/22 23:39 Oxygen Flow Rate (L/min) 2 Oxygen Delivery Method Room Air Weight: 186 lb 4.65 oz Body Mass Index (BMI) 24.7 Intake & Output: Intake and Output for Last 24 Hours 11/28/22 11/29/22 11/30/22 23:59 23:59 23:59 Intake Total 4045.25 / 4045.25 1466.08 / 1466.08 Output Total 1050 / 1050 650 / 650 Balance 2995.25 / 2995.25 816.08 / 816.08 Lab / Micro Data Result Diagrams: 11/30/22 05:45 11/30/22 05:45 Labs: Laboratory Results - last 24 hr 11/29/22 12:10: WBC 10.8, RBC 5.20, Hgb 15.9, Hct 47.0, MCV 90.4, MCH 30.6, MCHC 33.8, RDW Std Deviation 45.7 H, RDW Coeff of Jose 13.8, Plt Count 374, MPV 8.8, Immature Gran % (Auto) 0.200, Neut % (Auto) 86.1 H, Lymph % (Auto) 6.2 L, [place] % (Auto) 7.4, Eos % (Auto) 0.0, Baso % (Auto) 0.1, Absolute Neuts (auto) 9.3 H, Absolute Lymphs (auto) 0.67 L, Nucleated RBC % 0 11/29/22 12:10: Sodium 143, Potassium 2.8 L, Chloride 105, Carbon Dioxide 28.0, Anion Gap 10, BUN 26 H, Creatinine 0.99, Est GFR (MDRD) Af Amer 101, Est GFR (MDRD) Non-Af 83, BUN/Creatinine Ratio 26.3 H, Glucose 151 H, Calcium 10.6 H, Total Bilirubin 0.70, AST 14 L, ALT 25, Alkaline Phosphatase 62, Total Protein 8.3 H, Albumin 4.1, Globulin 4.2, Albumin/Globulin Ratio 1.0 11/29/22 12:10: Lactic Acid 2.3 H* 11/29/22 12:10: Phosphorus 3.2, Magnesium 2.3 11/29/22 15:20: Lactic Acid 2.2 H* 11/30/22 00:05: Lactic Acid 0.8 11/30/22 05:45: WBC 7.4, RBC 3.95 L, Hgb 12.1 L, Hct 37.0 L, MCV 93.7, MCH 30.6, MCHC 32.7, RDW Std Deviation 47.2 H, RDW Coeff of Jose 13.8, Plt Count 208, MPV 8.7, Immature Gran % (Auto) 0.300, Neut % (Auto) 78.7 H, Lymph % (Auto) 10.0 L, [place] % (Auto) 10.9 H, Eos % (Auto) 0.0, Baso % (Auto) 0.1, Absolute Neuts (auto) 5.8, Absolute Lymphs (auto) 0.74 L, Nucleated RBC % 0 11/30/22 05:45: Sodium 149 H, Potassium 3.0 L, Chloride 115 H, Carbon Dioxide 27.0, Anion Gap 7, BUN 20 H, Creatinine 0.73, Estim Creat Clear Calc 120.34, Est GFR (MDRD) Af Amer 143, Est GFR (MDRD) Non-Af 118, BUN/Creatinine Ratio 27.4 H, Glucose 113 H, Calcium 9.1, Total Bilirubin 0.80, AST 15, ALT 21, Alkaline Phosphatase 46, Total Protein 6.1 L, Albumin 3.2, Globulin 2.9, Albumin/Globulin Ratio 1.1 11/30/22 05:45: Magnesium 1.9 Radiography Diagnostic Testing: Radiology Impression Abdomen/Pelvis CT 11/29/22 11:49 IMPRESSION: Extraluminal air adjacent to the ascending colon consistent with bowel perforation of uncertain etiology, possibly mild diverticulitis. Circumferential wall thickening of the distal esophagus consistent with known malignancy. Atherosclerosis. Stable pericardial effusion. N.B. : The above Results were Read Back by Clementine Dukes MD to Emre Rosado MD, and understanding confirmed on 11/29/2022 13:17:10 (ET). Electronically Signed: Clementine Dukes MD at 13:18 EDT , ADDENDUM: 11/29/22 1325 IMPRESSION: Extraluminal air adjacent to the ascending colon consistent with bowel perforation of uncertain etiology, possibly mild diverticulitis. Circumferential wall thickening of the distal esophagus consistent with known malignancy. Atherosclerosis. Stable pericardial effusion. N.B. : The above Results were Read Back by Clementine Dukes MD to Emre Rosado MD, and understanding confirmed on 11/29/2022 13:17:10 (ET). Electronically Signed: Clementine Dukes MD at 13:18 EDT , Physical Exam Const oriented x3 and no apparent distress Resp normal respiratory effort Cardio regular rate GI soft to palpation GI Narrative: Tender mid abdomen to deep palpation and also right lower quadrant, no peritoneal signs Inspection: Negative for abdominal distention Extremity normal to inspection Assessment & Plan Assessment/Plan (1) Perforated diverticulum of large intestine: (2) Nausea, vomiting and diarrhea: (3) Squamous cell carcinoma of esophagus: (4) Cancer of overlapping sites of lip, oral cavity and pharynx: PLAN: Plan It is difficult to assess patient's abdominal exam as he is currently getting pain meds due to his throat and is on it chronically at home. Currently patient is not having much pain does have some tenderness to deep palpation rates it a 4/10. We will continue to monitor. Likely will repeat CAT scan late tomorrow or Robert as sooner may just show the same picture and not give us any new information. Would consider repeating CAT scan sooner if patient had fever or increased white blood cell count or change in vitals. Zosyn IV?white blood cell count improved Hypokalemia replaced PPI Appreciate hospitalist assistance with chronic pain meds Lucía Masterson M.D. Pager: [phone] [facility] [address] [place] [address], Outpatient [place], [address] [place] [address] Office: [phone] Charges/Coding Visit Charges Inpatient E&M: 33688 Subs Hosp L3
[2022-11-30] MEDS: NYSTATIN 500,000 UNIT/5 ML UDC 500000 UNIT PO ×2 (09:26→14:39)
[2022-11-30] MEDS: HYDROmorphone 1 MG/ML Syringe IV ×2 (11:15→20:21)
[2022-11-30 11:20] VITALS: BP 129/74; PULSE 90; RESP 18; TEMP 36.9; O2SAT 95
--- NOTE | 2022-11-30 11:20 | CASEMGMT ---
ALEC VINSON Assessment: Face to Face with pt for initial transition planning/care coordination assessment. RN ALISSON introduced self and role at [facility], pt voices understanding and consents to assessment. Pt lying in bed in no distress. Pt is A/O x4 and answers all questions appropriately at this time. Care providers, pharmacy, and demographics verified/updated. Admitting Dx: gastroenteritis, perforated bowel, vomiting, diarrhea PCP:Michaela Specialists: Dione, onc; Celeste, onc; Friend, GI Preferred Pharmacy: [facility] Insurance: [facility] Community Plan [facility] Prescription Benefit: yes LNOK: Randa Robles, gift manager Living Arrangements: Pt lives alone in a two story home, pt uses main level with 3 steps to enter with a rail. Pt reports he is I in ADL's and denies concerns at home. Transportation: Pt reports his neighbor or gift manager transport him to medical appts. DME/HHC/SNF: Pt has a ww but does not use. Pt has a PEG and performs his own feedings and gets his supplies from [facility]. Pt denies hx of HHC or SNF stays. Pt states no concerns with going home at time of dc. Pt states no further concerns/needs. CM to follow. Advised pt to ask CM if any further question/concerns/needs arise, voices understanding. Pt Goal: Home Plan: Home, will follow for needs.
[2022-11-30 14:50] VITALS: BP 128/79; PULSE 87; RESP 16; TEMP 36.9; O2SAT 95
[2022-11-30] MEDS: oxyCODONE 5 MG Tablet 40 MG GT ×2 (15:24→23:52)
--- NOTE | 2022-11-30 16:16 | PN_ITS ---
Subjective Subjective Patient seen and examined. He did complain of some abdominal pain. He denied any fever, chills, nausea or vomiting or any other symptoms. Review of systems otherwise negative. Objective Data Objective Data Vital Signs: Vital Signs Temp Pulse Resp BP Pulse Ox O2 Del Method O2 Flow Rate 98.5 F 87 16 128/79 H 95 Room Air 2 11/30/22 14:50 11/30/22 14:50 11/30/22 14:50 11/30/22 14:50 11/30/22 14:50 11/30/22 14:50 11/29/22 23:39 Oxygen Flow Rate (L/min) 2 Oxygen Delivery Method Room Air Weight: 186 lb 4.65 oz Body Mass Index (BMI) 24.7 Intake & Output: Intake and Output for Last 24 Hours 11/28/22 11/29/22 11/30/22 23:59 23:59 23:59 Intake Total 4045.25 / 4045.25 1926.08 / 1926.08 Output Total 1050 / 1050 1000 / 1000 Balance 2995.25 / 2995.25 926.08 / 926.08 Lab / Micro Data Result Diagrams: 11/30/22 05:45 11/30/22 05:45 Labs: Laboratory Results - last 24 hr 11/29/22 15:20: Lactic Acid 2.2 H* 11/30/22 00:05: Lactic Acid 0.8 11/30/22 05:45: WBC 7.4, RBC 3.95 L, Hgb 12.1 L, Hct 37.0 L, MCV 93.7, MCH 30.6, MCHC 32.7, RDW Std Deviation 47.2 H, RDW Coeff of Jose 13.8, Plt Count 208, MPV 8.7, Immature Gran % (Auto) 0.300, Neut % (Auto) 78.7 H, Lymph % (Auto) 10.0 L, [place] % (Auto) 10.9 H, Eos % (Auto) 0.0, Baso % (Auto) 0.1, Absolute Neuts (auto) 5.8, Absolute Lymphs (auto) 0.74 L, Nucleated RBC % 0 11/30/22 05:45: Sodium 149 H, Potassium 3.0 L, Chloride 115 H, Carbon Dioxide 27.0, Anion Gap 7, BUN 20 H, Creatinine 0.73, Estim Creat Clear Calc 120.34, Est GFR (MDRD) Af Amer 143, Est GFR (MDRD) Non-Af 118, BUN/Creatinine Ratio 27.4 H, Glucose 113 H, Calcium 9.1, Total Bilirubin 0.80, AST 15, ALT 21, Alkaline Phosphatase 46, Total Protein 6.1 L, Albumin 3.2, Globulin 2.9, Albumin/Globulin Ratio 1.1 11/30/22 05:45: Magnesium 1.9 Physical Exam Const alert and no apparent distress General Appearance: cooperative HEENT head/scalp atraumatic and moist oral mucous membranes Eyes PERRL and EOMs intact bilaterally Neck no lymphadenopathy and supple Lymph Lymphatic: no lymphadenopathy noted and no lymphedema noted Resp Resp Narrative: mildly diminished breath sounds bibasally, no wheezes or crackles. on room air. Cardio regular rate, regular rhythm, S1 normal heart sound, S2 normal heart sound and no murmurs GI GI Narrative: abdomen soft, with PEG tube in place. PEG tube draining bloody fluid. Auscultation: hypoactive bowel sounds Extremity normal capillary refill and no clubbing, cyanosis or edema Skin General Skin Exam: no breakdown Neuro CN's II-XII intact bilaterally and no focal motor deficits Motor Exam: strength 5/5 throughout Psych thought process normal Appearance: appropriate Assessment & Plan Assessment/Plan (1) Nausea, vomiting and diarrhea: (2) Perforated bowel: (3) Perforated diverticulum of large intestine: PLAN: Plan #Perforated diverticulum of large intestine * on IV PPI * general surgery on board. * on IV zosyn. * on IV dilaudid. * management as per general surgery; recommends conservative management for now, if he doesnt improve, will require surgical intervention * #Oral squamous cell carcinoma * stage IV * Complicated by severe chronic pain syndrome and oral candidiasis. He is s/p resection of the anterior mandible and subtotal glossectomy as well as bilateral neck dissection with mandible reconstruction and s/p adjuvant chemotherapy and radiotherapy. * On nystatin and BMX for pain. * Also on fentanyl patch. Gabapentin currently on hold. * #COPD: Not in exacerbation. On breathing bronchodilators. #Anxiety and depression: Sertraline held due to perforated diverticula. On IV Ativan twice daily #Severe protein calorie malnutrition: Due to malignancy. Nutrition on board. #GERD: On PPI IV DVT prophylaxis: SCDs Total time spent on evaluation and management of patient, reviewing chart and specialist notes, discussing plan with patient and his , discussion with nursing and ancillary staff as well as documentation: 45 mins Charges/Coding Visit Charges Inpatient E&M: 03322 Subs Hosp L3
[2022-11-30 21:48] VITALS: BP 126/73; PULSE 91; RESP 16; TEMP 36.6; O2SAT 95
[2022-11-30 23:33] LABS: Potassium 3.3 mmol/L (3.5-5.1)
[2022-12-01] VITALS (7 sets, daily range): BP systolic 111–132; BP diastolic 61–77; PULSE 59–91; RESP 16; TEMP 36.4–36.6; O2SAT 95–98
[2022-12-01] MEDS: HYDROmorphone 1 MG/ML Syringe IV ×5 (00:53→20:13)
[2022-12-01] MEDS: 0.9% Saline Lock 10 ML Syringe IV ×2 (00:58→20:19)
[2022-12-01] MEDS: 0.45% Normal Saline 1,000 ML 100 ML IV ×2 (06:10→12:10)
[2022-12-01 07:35] LABS: Absolute Lymphocyte Count 0.79 X10^3/uL (0.83-4.51); Absolute Neutrophil Count 3.1 X10^3/uL (2.0-7.7); Basophil# 0.02 X10^3/uL; Basophil% 0.5 % (0-1); Eosinophil# 0.04 X10^3/uL; Eosinophils% 0.9 % (0-5); Hematocrit 36.8 % (40-54); Hemoglobin 11.9 g/dL (13.0-16.5); Lymphocyte # 0.79 X10^3/ul (0.83-4.51); Lymphocyte % 17.8 % (19-41); Mean Corp Hgb Conc 32.3 g/dL (32-36); Mean Corpuscular Hgb 30.7 pg (27.0-32.0); Mean Corpuscular Volume 95.1 fL (80-94); Mean Platelet Vol. 8.9 fl (6.2-12.0); Monocyte# 0.43 X10^3/uL; Monocyte% 9.7 % (0-10); NRBC Flagged by Analyzer 0 % (0-5); Neutrophil # 3.14 X10^3/uL (2.7-7.7); Neutrophil % 70.6 % (47-70); Platelet Count 168 K/mm3 (150-450); RBC Distribution Width CV 13.5 % (11.6-14.6); RBC Distribution Width SD 47.3 fl (35.1-43.9); Red Blood Count 3.87 M/mm3 (4.6-6.2); White Blood Count 4.4 K/mm3 (4.4-11.0)
[2022-12-01 08:03] LABS: Anion Gap 7 (5-15); BUN 17 mg/dL (7-18); BUN/Creat Ratio 26.5 RATIO (10-20); Calcium,Total 8.9 mg/dL (8.5-10.1); Chloride 107 mmol/L (98-107); Creatinine, Serum 0.64 mg/dL (0.70-1.30); EST Glomerular Filtration Rate 137 mL/min (>60); Est Glom Filt Rate - Afr Amer 166 mL/min (>60); Estimated Creatinine Clearance 137.27 ml/min; Glucose 69 mg/dL (74-106); Potassium 3.3 mmol/L (3.5-5.1); Sodium Level 141 mmol/L (136-145)
--- NOTE | 2022-12-01 09:19 | PCM.PN.SRG ---
Subjective Subjective Patient evaluated resting comfortably in bed. He denies abdominal pain, nausea, vomiting. He had a total of 400 cc gastric output yesterday. Objective Data Objective Data Vital Signs: Vital Signs Temp Pulse Resp BP Pulse Ox O2 Del Method O2 Flow Rate 97.6 F L 70 16 128/77 H 96 Room Air 2 12/01/22 08:03 12/01/22 08:03 12/01/22 08:03 12/01/22 08:03 12/01/22 08:03 12/01/22 08:03 11/29/22 23:39 Oxygen Flow Rate (L/min) 2 Oxygen Delivery Method Room Air Weight: 186 lb 4.65 oz Body Mass Index (BMI) 24.7 Intake & Output: Intake and Output for Last 24 Hours 11/29/22 11/30/22 12/01/22 23:59 23:59 23:59 Intake Total 4045.25 / 4045.25 3892.75 / 3992.75 646.08 / 646.08 Output Total 1050 / 1050 1050 / 1450 650 / 650 Balance 2995.25 / 2995.25 2842.75 / 2542.75 -3.92 / -3.92 Lab / Micro Data Result Diagrams: 12/01/22 05:52 12/01/22 05:52 Labs: Laboratory Results - last 24 hr 11/30/22 22:30: Potassium 3.3 L 12/01/22 05:52: WBC 4.4, RBC 3.87 L, Hgb 11.9 L, Hct 36.8 L, MCV 95.1 H, MCH 30.7, MCHC 32.3, RDW Std Deviation 47.3 H, RDW Coeff of Jose 13.5, Plt Count 168, MPV 8.9, Immature Gran % (Auto) 0.500, Neut % (Auto) 70.6 H, Lymph % (Auto) 17.8 L, [place] % (Auto) 9.7, Eos % (Auto) 0.9, Baso % (Auto) 0.5, Absolute Neuts (auto) 3.1, Absolute Lymphs (auto) 0.79 L, Nucleated RBC % 0 12/01/22 05:52: Sodium 141, Potassium 3.3 L, Chloride 107, Carbon Dioxide 27.0, Anion Gap 7, BUN 17, Creatinine 0.64 L, Estim Creat Clear Calc 137.27, Est GFR (MDRD) Af Amer 166, Est GFR (MDRD) Non-Af 137, BUN/Creatinine Ratio 26.5 H, Glucose 69 L, Calcium 8.9, Magnesium 2.0 Physical Exam GI soft to palpation Inspection: abdominal distention Auscultation: hypoactive bowel sounds Assessment & Plan Assessment/Plan (1) Perforated bowel: PLAN: Patient's abdominal exam is benign this morning. He notes tenderness however no true pain. Plan to repeat abdominal CT scan tomorrow to re-evaluate bowel Hypokalemia replaced Continue Zosyn Appreciate Hospitalist recommendations and care Will continue to closely monitor Charges/Coding Visit Charges Inpatient E&M: 43292 Subs Hosp L2
[2022-12-01] MEDS: Potassium Chloride 10mEq/100mL 10 MEQ/100 ML IV.SOLN. 100 MEQ IV BOLUS ×4 (09:51→14:22)
--- NOTE | 2022-12-01 13:39 | PN_ITS ---
Subjective Subjective Patient seen and examined. He only complains of pain in his throat from his cancer. He denies any abdominal pain, nausea or vomiting. Review of systems otherwise negative. He has remained hemodynamically stable. Objective Data Objective Data Vital Signs: Vital Signs Temp Pulse Resp BP Pulse Ox O2 Del Method O2 Flow Rate 97.7 F L 77 16 132/72 H 97 Room Air 2 12/01/22 11:21 12/01/22 11:21 12/01/22 11:21 12/01/22 11:21 12/01/22 11:21 12/01/22 11:21 11/29/22 23:39 Oxygen Flow Rate (L/min) 2 Oxygen Delivery Method Room Air Weight: 186 lb 4.65 oz Body Mass Index (BMI) 24.7 Intake & Output: Intake and Output for Last 24 Hours 11/29/22 11/30/22 12/01/22 23:59 23:59 23:59 Intake Total 4045.25 / 4045.25 3892.75 / 3992.75 1663.08 / 1663.08 Output Total 1050 / 1050 1050 / 1450 800 / 800 Balance 2995.25 / 2995.25 2842.75 / 2542.75 863.08 / 863.08 Lab / Micro Data Result Diagrams: 12/01/22 05:52 12/01/22 05:52 Labs: Laboratory Results - last 24 hr 11/30/22 22:30: Potassium 3.3 L 12/01/22 05:52: WBC 4.4, RBC 3.87 L, Hgb 11.9 L, Hct 36.8 L, MCV 95.1 H, MCH 30.7, MCHC 32.3, RDW Std Deviation 47.3 H, RDW Coeff of Jose 13.5, Plt Count 168, MPV 8.9, Immature Gran % (Auto) 0.500, Neut % (Auto) 70.6 H, Lymph % (Auto) 17.8 L, [place] % (Auto) 9.7, Eos % (Auto) 0.9, Baso % (Auto) 0.5, Absolute Neuts (auto) 3.1, Absolute Lymphs (auto) 0.79 L, Nucleated RBC % 0 12/01/22 05:52: Sodium 141, Potassium 3.3 L, Chloride 107, Carbon Dioxide 27.0, Anion Gap 7, BUN 17, Creatinine 0.64 L, Estim Creat Clear Calc 137.27, Est GFR (MDRD) Af Amer 166, Est GFR (MDRD) Non-Af 137, BUN/Creatinine Ratio 26.5 H, Glucose 69 L, Calcium 8.9, Magnesium 2.0 Physical Exam Const alert and no apparent distress General Appearance: cooperative HEENT normocephalic, head/scalp atraumatic and moist oral mucous membranes Mouth: dry mucous membranes Eyes PERRL and EOMs intact bilaterally Neck no lymphadenopathy and supple Lymph Lymphatic: no lymphadenopathy noted and no lymphedema noted Resp Resp Narrative: mildly diminished breath sounds bibasally, no wheezes or crackles. on room air. Cardio regular rate, regular rhythm, S1 normal heart sound, S2 normal heart sound and no murmurs GI GI Narrative: abdomen soft, with PEG tube in place. PEG tube draining coffee colered fluid. Auscultation: hypoactive bowel sounds Extremity normal capillary refill and no clubbing, cyanosis or edema Skin General Skin Exam: no breakdown Neuro CN's II-XII intact bilaterally and no focal motor deficits Motor Exam: strength 5/5 throughout Psych thought process normal Appearance: appropriate Assessment & Plan Assessment/Plan (1) Nausea, vomiting and diarrhea: (2) Perforated bowel: (3) Perforated diverticulum of large intestine: PLAN: Plan #Perforated diverticulum of large intestine * on IV PPI * general surgery on board. * on IV zosyn. * on IV dilaudid. * management as per general surgery; recommends conservative management for now * #Oral squamous cell carcinoma * stage IV * Complicated by severe chronic pain syndrome and oral candidiasis. He is s/p resection of the anterior mandible and subtotal glossectomy as well as bilateral neck dissection with mandible reconstruction and s/p adjuvant chemotherapy and radiotherapy. * On nystatin and BMX for pain. * Also on fentanyl patch. Gabapentin currently on hold. * * #Hypokalemia:potassium is 3.3. will replace and trend. #COPD: Not in exacerbation. On breathing bronchodilators. #Anxiety and depression: Sertraline held due to perforated diverticula. On IV Ativan twice daily #Severe protein calorie malnutrition: Due to malignancy. Nutrition on board. #GERD: On PPI IV DVT prophylaxis: SCDs Total time spent on evaluation and management of patient, reviewing chart and specialist notes, discussing plan with patient and his , discussion with nursing and ancillary staff as well as documentation: 42 mins Charges/Coding Visit Charges Inpatient E&M: 50895 Subs Hosp L2
--- NOTE | 2022-12-01 13:42 | CASEMGMT ---
Email to Palliative Care, [facility], they are active with patient.
[2022-12-01] MEDS: oxyCODONE 5 MG Tablet 40 MG GT (16:13)
[2022-12-02] MEDS: oxyCODONE 5 MG Tablet 40 MG GT ×2 (00:18→10:06)
[2022-12-02] MEDS: 0.45% Normal Saline 1,000 ML 100 ML IV (00:26)
[2022-12-02] MEDS: HYDROmorphone 1 MG/ML Syringe IV (03:07)
[2022-12-02] MEDS: 0.9% Saline Lock 10 ML Syringe IV ×3 (03:11→13:03)
[2022-12-02] MEDS: Ondansetron 4 MG/2 ML Vial IV (05:01)
[2022-12-02 05:30] VITALS: BP 127/76; PULSE 81; RESP 16; TEMP 36.7; O2SAT 93
[2022-12-02 06:28] LABS: Absolute Lymphocyte Count 0.68 X10^3/uL (0.83-4.51); Absolute Neutrophil Count 3.1 X10^3/uL (2.0-7.7); Basophil# 0.02 X10^3/uL; Basophil% 0.4 % (0-1); Eosinophil# 0.22 X10^3/uL; Eosinophils% 4.9 % (0-5); Hematocrit 36.1 % (40-54); Hemoglobin 12.3 g/dL (13.0-16.5); Lymphocyte # 0.68 X10^3/ul (0.83-4.51); Lymphocyte % 15.2 % (19-41); Mean Corp Hgb Conc 34.1 g/dL (32-36); Mean Corpuscular Hgb 30.8 pg (27.0-32.0); Mean Corpuscular Volume 90.3 fL (80-94); Mean Platelet Vol. 8.7 fl (6.2-12.0); Monocyte# 0.39 X10^3/uL; Monocyte% 8.7 % (0-10); NRBC Flagged by Analyzer 0 % (0-5); Neutrophil # 3.14 X10^3/uL (2.7-7.7); Neutrophil % 70.4 % (47-70); Platelet Count 157 K/mm3 (150-450); RBC Distribution Width SD 43.1 fl (35.1-43.9); White Blood Count 4.5 K/mm3 (4.4-11.0)
[2022-12-02 06:45] LABS: Anion Gap 9 (5-15); BUN 14 mg/dL (7-18); BUN/Creat Ratio 25.5 RATIO (10-20); Calcium,Total 8.2 mg/dL (8.5-10.1); Chloride 103 mmol/L (98-107); Creatinine, Serum 0.55 mg/dL (0.70-1.30); EST Glomerular Filtration Rate 164 mL/min (>60); Est Glom Filt Rate - Afr Amer 199 mL/min (>60); Estimated Creatinine Clearance 159.73 ml/min; Glucose 71 mg/dL (74-106); Potassium 3.4 mmol/L (3.5-5.1); Sodium Level 136 mmol/L (136-145)
--- NOTE | 2022-12-02 07:00 | CT_ITS ---
STUDY: CT ABDOMEN AND PELVIS WITH CONTRAST REASON FOR EXAM: Male, 57 years old. Perforated ascending diverticulum. Diarrhea and vomiting. RADIATION DOSAGE (If Supplied By Facility): CTDIvol = ( 16.20 ) mGy, DLP = ( 1165.93 ) mGycm TECHNIQUE: Transaxial images were obtained from the dome of the diaphragm to the symphysis pubis with oral contrast. Oral and amp; IV Gastrografin and amp; 100mL Isovue-300 was administered. Sagittal and coronal images were reconstructed. Individualized dose optimization techniques were used for this CT. COMPARISON: Comparison is made with prior study dated November 29, 2022. FINDINGS: Small bilateral pleural effusions left greater than right and mild bibasilar atelectasis. Mild degree of pericardial thickening. This is suggestive of small pericardial effusion. Normal liver. Normal gallbladder and extrahepatic biliary system. Normal spleen. Normal pancreas. Normal bilateral adrenal glands. Normal right kidney. Normal left kidney. A PEG tube is seen within the stomach. Normal small intestine. There are multiple colonic diverticula consistent with diverticulosis. There is evidence of a mural thickening of the sigmoid colon. The previously seen air collection adjacent to the antimesenteric side of the descending colon has decreased in size. The appendix is visualized and appears normal. There is scattered atherosclerotic calcification of the abdominal aorta, without a demonstrated aneurysm. Normal inferior vena cava. Normal retroperitoneum. Diffuse bladder wall thickening. Small amount of free fluid is seen in the pelvis. There is a small umbilical hernia containing fat. Small bilateral inguinal hernias containing fat. Normal osseous structures. CT/Abdomen/Pelvis WITH Contrast IMPRESSION: Small bilateral pleural effusions with bibasilar atelectasis. Small pericardial effusion. The previously seen linear air collection adjacent to the ascending colon on the antimesenteric side as decreased. Small amount of residual is seen. Electronically Signed: John Sanchez MD at 8:47 EDT ,
[2022-12-02 08:16] VITALS: O2SAT 93
--- NOTE | 2022-12-02 08:46 | PCM.PN.SRG ---
Subjective Subjective CT abdomen pelvis that shows less air near the ascending colon no obvious inflammation on my read. Contrast throughout the colon patient denies abdominal pain Objective Data Objective Data Vital Signs: Vital Signs Temp Pulse Resp BP Pulse Ox O2 Del Method O2 Flow Rate 98.1 F 81 16 127/76 H 93 Room Air 2 12/02/22 05:30 12/02/22 05:30 12/02/22 05:30 12/02/22 05:30 12/02/22 08:16 12/02/22 08:16 11/29/22 23:39 Oxygen Flow Rate (L/min) 2 Oxygen Delivery Method Room Air Weight: 186 lb 4.65 oz Body Mass Index (BMI) 24.7 Intake & Output: Intake and Output for Last 24 Hours 11/30/22 12/01/22 12/02/22 23:59 23:59 23:59 Intake Total 3892.75 / 3992.75 3023.08 / 3023.08 2134.25 / 2134.25 Output Total 1050 / 1450 1550 / 1550 900 / 900 Balance 2842.75 / 2542.75 1473.08 / 1473.08 1234.25 / 1234.25 Lab / Micro Data Result Diagrams: 12/02/22 05:57 12/02/22 05:57 Labs: Laboratory Results - last 24 hr 12/02/22 05:57: WBC 4.5, RBC 4.00 L, Hgb 12.3 L, Hct 36.1 L, MCV 90.3 D, MCH 30.8, MCHC 34.1 D, RDW Std Deviation 43.1, RDW Coeff of Jose 13.0, Plt Count 157, MPV 8.7, Immature Gran % (Auto) 0.400, Neut % (Auto) 70.4 H, Lymph % (Auto) 15.2 L, [place] % (Auto) 8.7, Eos % (Auto) 4.9, Baso % (Auto) 0.4, Absolute Neuts (auto) 3.1, Absolute Lymphs (auto) 0.68 L, Nucleated RBC % 0 12/02/22 05:57: Sodium 136, Potassium 3.4 L, Chloride 103, Carbon Dioxide 24.0, Anion Gap 9, BUN 14, Creatinine 0.55 L, Estim Creat Clear Calc 159.73, Est GFR (MDRD) Af Amer 199, Est GFR (MDRD) Non-Af 164, BUN/Creatinine Ratio 25.5 H, Glucose 71 L, Calcium 8.2 L Physical Exam Const oriented x3 and no apparent distress Resp normal respiratory effort Cardio regular rate GI soft to palpation and non-tender Inspection: Negative for abdominal distention Extremity normal to inspection Assessment & Plan Assessment/Plan (1) Perforated bowel: (2) Nausea, vomiting and diarrhea: (3) Cancer of overlapping sites of lip, oral cavity and pharynx: PLAN: Plan Patient repeat CT abdomen abdomen/pelvis did still have small amount of air but it is decreased do not see any obvious inflammation in the cecum as well contrast was throughout the colon. Patient is able to tolerate diet we will plan to send home today we will send home with p.o. antibiotics. Patient is agreeable with plan. Lucía Masterson M.D. Pager: [phone] [facility] [address] [place] [address], [facility], [address] [place] [address] Office: [phone] Charges/Coding Visit Charges Inpatient E&M: 17256 Disch Hosp
[2022-12-02 10:30] VITALS: BP 134/77; PULSE 83; RESP 16; TEMP 36.4; O2SAT 95
--- NOTE | 2022-12-02 11:14 | PCM.DC.SUM ---
Providers Date of Admission: 11/29/22 Primary Care Physician: Dr. Shailesh Jennings DO Consultations 11/29/22 14:59 Consult: Hospitalist Routine Consulting Provider: Beth Rincon Reason for Consult: Medical management EMERGENT Consult: No MD Notified: Yes Date Notified: 11/29/22 Time Notified: 15:00 Method of Notification: Text Reason For Visit: GASTORENTERITIS, PERFORATED BOWEL,VOMITING,DIARRHE Diagnosis Discharge Diagnosis (1) Perforated bowel: Status: Acute Code(s): K63.1 - Perforation of intestine (nontraumatic) (2) Nausea, vomiting and diarrhea: Status: Resolved Code(s): R11.2 - Nausea with vomiting, unspecified; R19.7 - Diarrhea, unspecified (3) Cancer of overlapping sites of lip, oral cavity and pharynx: Status: Chronic Code(s): C14.8 - Malignant neoplasm of overlapping sites of lip, oral cavity and pharynx Plan Patient repeat CT abdomen abdomen/pelvis did still have small amount of air but it is decreased do not see any obvious inflammation in the cecum as well contrast was throughout the colon. Patient is able to tolerate diet we will plan to send home today we will send home with p.o. antibiotics. Patient is agreeable with plan. Lucía Masterson M.D. Pager: [phone] [facility] [address] [place] [address], [address] [place] [address] Office: [phone] Medications at Discharge Home Medications oxycodone 5 mg/5 mL oral solution 40 mg PO Q4H PRN Pain 12/16/21 sennosides 8.8 mg/5 mL oral syrup (senna) 10 ml feeding tube BID 01/11/22 gabapentin 250 mg/5 mL oral solution 6 ml feeding tube TID nerve pain 03/09/22 lansoprazole 30 mg delayed release,disintegrating tablet 60 mg feeding tube BID #120 tabs 03/23/22 ondansetron 8 mg disintegrating tablet 8 mg PO Q8H PRN nausea and vomiting #90 tabs 04/01/22 lorazepam 0.5 mg tablet 0.5 mg feeding tube PRN PRN BID 04/07/22 metoclopramide HCl 5 mg tablet (Reglan) 5 mg feeding tube BID 04/07/22 sertraline 25 mg tablet 50 mg feeding tube DAILY 04/07/22 guaifenesin 100 mg/5 mL oral liquid 200 mg (10 mL) PO Q4H PRN congestion #1,000 mL 04/26/22 lidocaine-prilocaine 2.5 %-2.5 % topical cream 1 applic topical ONCE PRN port access 30 days #30 grams 10/14/22 amoxicillin 600 mg-potassium clavulanate 42.9 mg/5 mL oral suspension (Augmentin ES-) 7 ml feeding tube BID 7 days #98 mL 12/02/22 Hospital Course Operations None Procedures None Summary of Care Provided Minutes Spent on Discharge: 15 Hospital Course: Patient presented to the ER due to nausea and vomiting and diarrhea which started on Monday. Patient not been able to keep down his pain meds which she takes chronically for his throat due to history of cancer radiation chemotherapy. Patient CT abdomen pelvis with did show some free air around the cecum concerning for perforated diverticulitis however not much inflammation was seen at that time. Patient exam did not have much abdominal pain however it is difficult as patient is chronically on pain meds and was given some pain meds in the ER prior to being seen. In the hospital patient was kept n.p.o. did have his PEG tube to suction as he was having nausea and vomiting in the ER. Patient was also on Zosyn throughout hospitalization. On hospital day [address] abdomen pelvis which showed contrast all within the colon decreased amount of air outside the ascending colon. Patient was able to tolerate his tube feeds and DC'd home with Augmentin via his PEG. Physical Exam Const oriented x3 and no apparent distress Resp normal respiratory effort Cardio regular rate GI soft to palpation and non-tender Inspection: Negative for abdominal distention Extremity normal to inspection Weight / BMI Weight Weight: 186 lb 4.65 oz Body Mass Index (BMI) 24.7 ABG / Lab / Microbiology Data Result Diagrams: 12/02/22 05:57 12/02/22 05:57 Laboratory: Laboratory Results - last 24 hr 12/02/22 05:57: WBC 4.5, RBC 4.00 L, Hgb 12.3 L, Hct 36.1 L, MCV 90.3 D, MCH 30.8, MCHC 34.1 D, RDW Std Deviation 43.1, RDW Coeff of Jose 13.0, Plt Count 157, MPV 8.7, Immature Gran % (Auto) 0.400, Neut % (Auto) 70.4 H, Lymph % (Auto) 15.2 L, [place] % (Auto) 8.7, Eos % (Auto) 4.9, Baso % (Auto) 0.4, Absolute Neuts (auto) 3.1, Absolute Lymphs (auto) 0.68 L, Nucleated RBC % 0 12/02/22 05:57: Sodium 136, Potassium 3.4 L, Chloride 103, Carbon Dioxide 24.0, Anion Gap 9, BUN 14, Creatinine 0.55 L, Estim Creat Clear Calc 159.73, Est GFR (MDRD) Af Amer 199, Est GFR (MDRD) Non-Af 164, BUN/Creatinine Ratio 25.5 H, Glucose 71 L, Calcium 8.2 L Radiography Diagnostic Testing: Radiology Impression Abdomen/Pelvis CT 12/02/22 07:00 IMPRESSION: Small bilateral pleural effusions with bibasilar atelectasis. Small pericardial effusion. The previously seen linear air collection adjacent to the ascending colon on the antimesenteric side as decreased. Small amount of residual is seen. Electronically Signed: John Sanchez MD at 8:47 EDT , D/C Instructions Discharge Diet: - (continue previous TF) Please Follow Up With: Lucía Masterson MD When: call office for appt in 1-2 weeks Meaningful Use Info Meaningful Use Diagnoses (Choose all that apply): None applicable Discharge Plan Admission Admit Date/Time: 11/29/22 16:04 Attending Provider: Lucía Masterson Primary Care Provider: Shailesh Jennings Consulting Providers: Adriana Gonzales Discharge Orders/Prescriptions Prescriptions: New amoxicillin-pot clavulanate [Augmentin ES-600] 600-42.9 mg/5 mL suspension for reconstitution 7 ml feeding tube BID 7 Days Qty: 98 0RF Continued oxycodone 5 mg/5 mL solution 40 mg PO Q4H PRN (Reason: Pain) sennosides [senna] 8.8 mg/5 mL syrup 10 ml feeding tube BID ondansetron 8 mg tablet,disintegrating 8 mg PO Q8H PRN (Reason: nausea and vomiting) Qty: 90 3RF guaifenesin 100 mg/5 mL liquid 200 mg PO Q4H PRN (Reason: congestion) Qty: 1000 0RF gabapentin 250 mg/5 mL solution 6 ml feeding tube TID Label Comments: TAKE 6ML (300MG) PER PEG THREE TIMES A DAY SCHEDULED lorazepam 0.5 mg tablet 0.5 mg feeding tube PRN MDD ANXIETY PRN (Reason: BID) Label Comments: TAKE 1 TABLET BY MOUTH TWICE DAILY NEEDED FOR PANIC/ANXIETY sertraline 25 mg tablet 50 mg feeding tube DAILY Label Comments: GIVE 1 TABLET VIA PEG TUBE DAILY metoclopramide HCl [Reglan] 5 mg tablet 5 mg feeding tube BID Rx Instructions: administer 30 minutes before meals lansoprazole 30 mg tablet,disintegrat, delay rel 60 mg feeding tube BID Qty: 120 1RF lidocaine-prilocaine 2.5-2.5 % cream 1 applic topical ONCE PRN (Reason: port access) 30 Days Qty: 30 2RF Referrals / Follow Up: Shailesh Jennings DO [Primary Care Provider] - Disposition Disposition (needs filled in before D/C Order can be placed): Home, Self Care
--- NOTE | 2022-12-02 11:35 | CASEMGMT ---
RN CM into pt room, pt denies any homegoing needs. Pt is anxious for dc.
[2022-12-02] MEDS: Jevity 1.5. 1,000 ML Bottle 135 ML GT (12:01)
[2022-12-02 12:37] VITALS: BP 134/77; PULSE 83; RESP 18; TEMP 36.4; O2SAT 95
--- NOTE | 2022-12-02 13:22 | PN_ITS ---
Subjective Subjective Patient seen and examined. He only complained of throat pain, but had no other complaints. Review of systems is otherwise negative. There is no further output from the PEG tube. He has remained hemodynamically stable. Objective Data Objective Data Vital Signs: Vital Signs Temp Pulse Resp BP Pulse Ox O2 Del Method O2 Flow Rate 97.5 F L 83 18 134/77 H 95 Room Air 2 12/02/22 12:37 12/02/22 12:37 12/02/22 12:37 12/02/22 12:37 12/02/22 12:37 12/02/22 12:37 11/29/22 23:39 Oxygen Flow Rate (L/min) 2 Oxygen Delivery Method Room Air Weight: 186 lb 4.65 oz Body Mass Index (BMI) 24.7 Intake & Output: Intake and Output for Last 24 Hours 11/30/22 12/01/22 12/02/22 23:59 23:59 23:59 Intake Total 3892.75 / 3992.75 3023.08 / 3023.08 2625.92 / 2625.92 Output Total 1050 / 1450 1550 / 1550 900 / 900 Balance 2842.75 / 2542.75 1473.08 / 1473.08 1725.92 / 1725.92 Lab / Micro Data Result Diagrams: 12/02/22 05:57 12/02/22 05:57 Labs: Laboratory Results - last 24 hr 12/02/22 05:57: WBC 4.5, RBC 4.00 L, Hgb 12.3 L, Hct 36.1 L, MCV 90.3 D, MCH 30.8, MCHC 34.1 D, RDW Std Deviation 43.1, RDW Coeff of Jose 13.0, Plt Count 157, MPV 8.7, Immature Gran % (Auto) 0.400, Neut % (Auto) 70.4 H, Lymph % (Auto) 15.2 L, [place] % (Auto) 8.7, Eos % (Auto) 4.9, Baso % (Auto) 0.4, Absolute Neuts (auto) 3.1, Absolute Lymphs (auto) 0.68 L, Nucleated RBC % 0 12/02/22 05:57: Sodium 136, Potassium 3.4 L, Chloride 103, Carbon Dioxide 24.0, Anion Gap 9, BUN 14, Creatinine 0.55 L, Estim Creat Clear Calc 159.73, Est GFR (MDRD) Af Amer 199, Est GFR (MDRD) Non-Af 164, BUN/Creatinine Ratio 25.5 H, Glucose 71 L, Calcium 8.2 L Radiography Diagnostic Testing: Radiology Impression Abdomen/Pelvis CT 12/02/22 07:00 IMPRESSION: Small bilateral pleural effusions with bibasilar atelectasis. Small pericardial effusion. The previously seen linear air collection adjacent to the ascending colon on the antimesenteric side as decreased. Small amount of residual is seen. Electronically Signed: John Sanchez MD at 8:47 EDT , Physical Exam Const alert, oriented x3 and no apparent distress General Appearance: cooperative HEENT normocephalic, head/scalp atraumatic and moist oral mucous membranes Eyes PERRL and EOMs intact bilaterally Neck no lymphadenopathy and supple Lymph Lymphatic: no lymphadenopathy noted and no lymphedema noted Resp Resp Narrative: mildly diminished breath sounds bibasally, no wheezes or crackles. on room air. Cardio regular rate, regular rhythm, S1 normal heart sound, S2 normal heart sound and no murmurs GI GI Narrative: abdomen soft, with PEG tube in place. PEG tube no longer draining fluid Auscultation: hypoactive bowel sounds Extremity normal capillary refill and no clubbing, cyanosis or edema Skin General Skin Exam: no breakdown Neuro CN's II-XII intact bilaterally and no focal motor deficits Motor Exam: strength 5/5 throughout Psych thought process normal Appearance: appropriate Assessment & Plan Assessment/Plan (1) Nausea, vomiting and diarrhea: (2) Perforated bowel: (3) Perforated diverticulum of large intestine: PLAN: Plan #Perforated diverticulum of large intestine * on IV PPI * general surgery on board. * on IV zosyn. * on IV dilaudid. * repeat CT abdomen/pelvis showed small amount of air but it had decreased and no obvious inflammation in the cecum, as well as contrast throughout hte colon. Per general surgery, patient is able to tolerate diet today, so will dc home on PO antibiotics. * * #Oral squamous cell carcinoma * stage IV * Complicated by severe chronic pain syndrome and oral candidiasis. He is s/p resection of the anterior mandible and subtotal glossectomy as well as bilateral neck dissection with mandible reconstruction and s/p adjuvant chemotherapy and radiotherapy. * On nystatin and BMX for pain. * Also on fentanyl patch. * follow up with oncologist on outpatient basis * * #Hypokalemia:potassium is 3.4 today. will replace and trend. #COPD: Not in exacerbation. On breathing bronchodilators. #Anxiety and depression: Sertraline held due to perforated diverticula. On IV Ativan twice daily. Resume sertraline today. #Severe protein calorie malnutrition: Due to malignancy. Nutrition on board. #GERD: On PPI IV DVT prophylaxis: SCDs Total time spent on evaluation and management of patient, reviewing chart and specialist notes, discussing plan with patient and his , discussion with nursing and ancillary staff as well as documentation: 40 mins Charges/Coding Visit Charges Inpatient E&M: 68806 Subs Hosp L2
== END 2022-12-02 13:24 | disposition home or self-care (01) | DRG 244 ==
LOC: ED 13:38 → MS3 16:28
PROVIDERS: Family Medicine; Physician Assistant; Admitting Provider Surgery; Emergency Provider Emergency Medicine; PCP Student in an Organized Health Care Education/Training Program; Visit Provider Surgery
DX: K57.20 Diverticulitis of large intestine with perforation and abscess without bleeding (principal); E43 Unspecified severe protein-calorie malnutrition; I31.39 Other pericardial effusion (noninflammatory); R65.10 Systemic inflammatory response syndrome (SIRS) of non-infectious origin without acute organ dysfunction; B37.0 Candidal stomatitis; C79.9 Secondary malignant neoplasm of unspecified site; E87.20 Acidosis, unspecified; C15.4 Malignant neoplasm of middle third of esophagus; J44.9 Chronic obstructive pulmonary disease, unspecified; C14.8 Malignant neoplasm of overlapping sites of lip, oral cavity and pharynx; Z93.1 Gastrostomy status; K21.00 Gastro-esophageal reflux disease with esophagitis, without bleeding; E87.6 Hypokalemia; K21.9 Gastro-esophageal reflux disease without esophagitis; C00.9 Malignant neoplasm of lip, unspecified; Z92.21 Personal history of antineoplastic chemotherapy; G89.4 Chronic pain syndrome; Z92.3 Personal history of irradiation; A08.4 Viral intestinal infection, unspecified; Z87.891 Personal history of nicotine dependence; F32.A Depression, unspecified
CPT/HCPCS: 36415; 74176; 74177; 80048; 80053; 83605; 83735; 84100; 84132; 85025; 97802; 97803; 99284; 99406; J7030; J7050; Q9967; A4216; J0744; J2405

== ENCOUNTER 2022-12-07 12:27 | Outpatient (RCR) | payer MEDICAID, SELFPAY | END 2022-12-25 23:59 | LOC: NS 12:27 | PROVIDERS: PCP Student in an Organized Health Care Education/Training Program; Visit Provider Internal Medicine Hematology & Oncology | DX: Z71.3 Dietary counseling and surveillance (principal); C14.8 Malignant neoplasm of overlapping sites of lip, oral cavity and pharynx; R63.4 Abnormal weight loss; Z93.1 Gastrostomy status; Z68.26 Body mass index [BMI] 26.0-26.9, adult | CPT/HCPCS: 97803 ==

== ENCOUNTER → 2023-01-20 | Outpatient (CLI) | payer MEDICAID, SELFPAY | END | disposition home or self-care (01) | LOC: LABSPEC 12:36 | PROVIDERS: PCP Student in an Organized Health Care Education/Training Program; Visit Provider Surgery | DX: K58.0 Irritable bowel syndrome with diarrhea (principal) | CPT/HCPCS: 83630; 87177; 87209; 87493; 87506 ==

== ENCOUNTER 2023-02-08 16:11 | Outpatient (RCR) | payer MEDICAID, SELFPAY | END 2023-02-24 23:59 | LOC: NS 16:11 | PROVIDERS: PCP Student in an Organized Health Care Education/Training Program; Visit Provider Internal Medicine Hematology & Oncology | DX: Z71.3 Dietary counseling and surveillance (principal); E66.3 Overweight; Z87.19 Personal history of other diseases of the digestive system | CPT/HCPCS: 97803 ==

== ENCOUNTER → 2023-02-17 | Outpatient (CLI) | payer MEDICAID, SELFPAY ==
--- NOTE | 2023-02-17 12:35 | CT_ITS ---
HISTORY: follow up SCC of the mid esophagus and H N cancer -- compare to prior. TECHNIQUE: Helically acquired images were obtained of the neck after the intravenous administration of 100 mL Isovue 300. A radiation dose optimization technique was used for this scan. 280 images. COMPARISON: PET-CT 11/15/2022, CT 04/28/2022. FINDINGS: NASOPHARYNX: Unremarkable. SUPRAHYOID NECK: Ill-defined region of soft tissue enhancement in the posterior oral cavity involving the tongue base appears slightly decreased in size from prior. Otherwise unremarkable oropharynx, parapharyngeal space, and retropharyngeal space. INFRAHYOID NECK: Unchanged appearance of the epiglottis. Persistent soft tissue thickening and edema of the larynx which may reflect posttreatment change. Mild circumferential esophageal wall thickening, decreased from prior. THYROID: No focal lesions. SALIVARY GLANDS: Homogeneous parotid glands. Diminutive or resected submandibular glands. LYMPH NODES: No cervical or supraclavicular lymphadenopathy. VASCULAR STRUCTURES: Mild carotid atherosclerosis. PARANASAL SINUSES, MASTOID AIR CELLS: Clear. OSSEOUS STRUCTURES: Post surgical changes of the mandible, similar to prior. Generalized osteopenia. No suspicious osteoblastic or osteolytic lesion LUNG APICES: Mild apical scarring. CT/Soft Tissue Neck WITH Contrast IMPRESSION: Ill-defined enhancing mass in the posterior oral cavity involving the tongue base appears slightly decreased in size from prior. Decreased abnormal wall thickening of the visualized upper esophagus. Persistent laryngeal edema, which may be post treatment in etiology. Electronically Signed: Vikki Mendez MD at 15:46 EDT ,
--- NOTE | 2023-02-17 12:35 | CT_ITS ---
INDICATION: F/U ESOPHAGEAL CANCER EXAMINATION: CT Chest W/ Contrast Injection TECHNIQUE: Helically acquired images were obtained of the chest following administration of IV contrast. A radiation dose optimization technique was used for this scan. 3D postprocessing images including MIPS were reviewed. IV Contrast dosage and agent: IV 100mL Isovue-300 COMPARISON: PET/CT 11/15/2022. FINDINGS: Lungs: Benign 3 mm periFissural nodule along the right major fissure. Otherwise, no suspicious pulmonary nodules. Scattered subsegmental atelectasis. Mediastinum: The heart is borderline enlarged. No mediastinal, hilar or axillary adenopathy. Mild aortic arch and coronary artery calcifications. Trace pericardial effusion. No obvious filling defect seen within the visualized pulmonary arteries. Persistent wall thickening of the midesophagus, similar in appearance to prior PET/CT dated 11/15/2022. Pleura: Unremarkable Bones/Soft tissues: There are diffuse degenerative changes of the spine. Upper abdomen: Gastrostomy tube in place. 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 CT/Chest WITH Contrast IMPRESSION: Persistent wall thickening of the midesophagus, similar in appearance to prior PET/CT dated 11/15/2022. Cannot rule out residual or recurrent disease. No evidence of metastatic disease in the chest. Trace pericardial effusion. 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 Electronically Signed: Sundar Cat MD at 23:40 EDT ,
[2023-02-17] MEDS: 0.9% Saline Lock 10 ML Syringe IV (13:00)
== END | disposition home or self-care (01) ==
LOC: CT 12:34
PROVIDERS: PCP Student in an Organized Health Care Education/Training Program; Referring Provider Internal Medicine Hematology & Oncology; Visit Provider Internal Medicine Hematology & Oncology
DX: C15.9 Malignant neoplasm of esophagus, unspecified (principal); C14.8 Malignant neoplasm of overlapping sites of lip, oral cavity and pharynx
CPT/HCPCS: 70491; 71260; Q9967; A4216

== ENCOUNTER 2023-11-10 13:52 | Inpatient (IN) | payer MEDICARE, MEDICAID, SELFPAY ==
[2023-11-10] VITALS (8 sets, daily range): BP systolic 118–144; BP diastolic 72–93; PULSE 90–111; RESP 13–123; TEMP 36.5–36.9; O2SAT 86–97; BMI 29.5; BMI 29.2
[2023-11-10 15:18] LABS: Absolute Lymphocyte Count 0.55 X10^3/uL (0.83-4.51); Absolute Neutrophil Count 4.3 X10^3/uL (2.0-7.7); Basophil# 0.02 X10^3/uL; Basophil% 0.4 % (0-1); Eosinophil# 0.13 X10^3/uL; Eosinophils% 2.3 % (0-5); Hematocrit 35.8 % (40-54); Hemoglobin 11.7 g/dL (13.0-16.5); Lymphocyte # 0.55 X10^3/ul (0.83-4.51); Lymphocyte % 9.7 % (19-41); Mean Corp Hgb Conc 32.7 g/dL (32-36); Mean Corpuscular Hgb 29.5 pg (27.0-32.0); Mean Corpuscular Volume 90.2 fL (80-94); Mean Platelet Vol. 9.5 fl (6.2-12.0); Monocyte# 0.62 X10^3/uL; NRBC Flagged by Analyzer 0 % (0-5); Neutrophil # 4.31 X10^3/uL (2.7-7.7); Neutrophil % 76.2 % (47-70); POSITIVE DIFFERENTIAL YES; Platelet Count 260 K/mm3 (150-450); RBC Distribution Width CV 13.1 % (11.6-14.6); RBC Distribution Width SD 43.1 fl (35.1-43.9); Red Blood Count 3.97 M/mm3 (4.6-6.2); White Blood Count 5.7 K/mm3 (4.4-11.0)
[2023-11-10 15:40] LABS: Anion Gap 3 (5-15); BUN 15 mg/dL (7-18); BUN/Creat Ratio 21.2 RATIO (10-20); Calcium,Total 9.6 mg/dL (8.5-10.1); Chloride 104 mmol/L (98-107); Creatinine, Serum 0.71 mg/dL (0.70-1.30); EST Glomerular Filtration Rate 122 mL/min (>60); Est Glom Filt Rate - Afr Amer 147 mL/min (>60); Glucose 113 mg/dL (74-106); Sodium Level 137 mmol/L (136-145); Troponin-I HS 5 pg/mL (3.0-78.0)
--- NOTE | 2023-11-10 16:01 | CT_ITS ---
We are attempting to reach an attending provider to discuss findings. An addendum with communication details will be sent when the communication is complete. STUDY: CTA CHEST REASON FOR EXAM: Male, 58 years old. High pretest probability PE -- Tachycardia, hypoxia, tachypnea, history CVA RADIATION DOSAGE (If Supplied By Facility): CTDIvol = ( 19.04 ) mGy, DLP = ( 1015.34 ) mGycm TECHNIQUE: The examination was performed with the intravenous administration of IV 100mL Isovue-370. Post-processing of the angiographic images was performed, with multiplanar reformation and 3D reconstruction. Individualized dose optimization techniques were used for this CT. COMPARISON: None. FINDINGS: Normal enhancement of the main pulmonary artery and right and left pulmonary arteries. Normal enhancement of the bilateral peripheral pulmonary arteries. There is no demonstrated pulmonary embolism. Minor atherosclerotic changes of aorta without evidence for aneurysm. There is no demonstrated aortic dissection. Normal heart and pericardium. Normal mediastinum. There is a large infiltrative right hilar mass likely neoplasm encasing and nearly occluding the proximal branches of the pulmonary arteries of the upper middle and lower lobes.. There is also a tiny intraluminal clot seen within the proximal branches of the right upper lobe pulmonary artery Normal visualized trachea and bronchi. The lungs are well expanded. There are confluent areas of nonspecific groundglass opacity in the right upper lobe. There is partial collapse of the right middle lobe and consolidation of the right lower lobe in association with moderate-sized pleural effusion. There is minimal subsegmental atelectasis in left upper lobe Normal chest wall structures. Dorsal spine demonstrates degenerative changes PEG tube noted with tip in gastric body. CT/CTA Chest W/WO Contrast IMPRESSION: Diffuse groundglass opacity in right upper lobe possibly inflammatory or focal pulmonary interstitial edema. Large right infiltrative hilar mass encasing and nearly occluding the proximal branches of the right pulmonary artery. There is subsegmental atelectasis in the right middle lobe and right lower lobe consolidation with moderate size pleural effusion. There are tiny intraluminal clot noted within the proximal pulmonary artery segmental branches of the right upper lobe Electronically Signed: Josh Lara MD at 18:23 EDT ,
--- NOTE | 2023-11-10 16:01 | CT_ITS ---
EXAM: CT NECK WITH INTRAVENOUS CONTRAST CLINICAL INDICATION: Inspiratory stridor, audible. History of head and neck cancer and esophageal cancer. TECHNIQUE: Helically acquired images were obtained of the neck with intravenous contrast. This CT exam was performed using one or more of the following dose reduction techniques: automated exposure control, adjustment of the mA and/or kV according to patient size, and/or use of iterative reconstruction technique. CONTRAST: IV 100mL Isovue-370 RADIATION DOSE: CTDIvol = 26.68 mGy, DLP = 556.78 mGy-cm COMPARISON: 04/28/2022, 02/17/2023 FINDINGS: BRAIN AND EXTRA-AXIAL SPACES: Unremarkable as visualized. No gross infiltrating mass. NASOPHARYNX: Unremarkable. SUPRAHYOID NECK: Extensive postsurgical/post therapeutic changes of the oropharynx, tongue, and mandible and bilateral neck dissections, all stable. Stable thickening of the left base of the tongue. INFRAHYOID NECK: Unremarkable. The larynx, hypopharynx and supraglottis are unremarkable. SUBMANDIBULAR/PAROTID GLANDS: Unremarkable. Glands are normal in size. THYROID: Unremarkable. No enlarged or calcified nodules. BONES/JOINTS: No acute fracture. Diffuse degenerative changes. SOFT TISSUES: Unremarkable. VASCULATURE: No acute findings. LYMPH NODES: Unremarkable. No adenopathy. LUNG APICES: Focal pulmonary opacity of the right apex. CT/Soft Tissue Neck WITH Contrast IMPRESSION: Stable extensive postsurgical/postoperative changes of the oral cavity and oropharynx with no gross mass or adenopathy. Electronically Signed: Ronald Tompkins MD at 17:46 EDT ,
--- NOTE | 2023-11-10 16:03 | EDS_ITS ---
HPI History of Present Illness Chief Complaint: Shortness of Breath Detail of Chief Complaint: Increased dyspnea, hemoptysis, Informant: patient Onset/Context/Timing Onset: Yesterday Context: Sudden Onset Timing: Continuous Quality: Dyspnea, dyspnea on exertion, hemoptysis Location: Pulmonary Current Severity: Mild Maximum Severity: Severe Worsened by: Putting on his socks Relieved by: Nothing Associated Symptoms Associated Symptoms: Patient does have -colored sputum for the past couple of days. Narrative Narrative: Patient is a 58-year-old male with history of oropharyngeal cancer resected 2 years ago. Last chemoradiation was 1.5 years ago. He presents because of cough. It is -colored. Does have blood. He has had shortness of breath worse than baseline since last evening. Putting on his socks he became winded and was unable to put on more the second sock. He is not on oxygen. He quit smoking 3 years ago. He was a 2 pack/day smoker. He denies fever, chills night sweats. He states he recently had venous duplex studies of his lower extremities which were negative for blood clot. He denies history of DVT or PE. He does endorse not being as active recently. He does endorse swelling of his legs and feet. He denies history of congestive heart failure. He states has a feeding tube. It is functional. 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 Nothing allowed by mouth Oral candidiasis Oropharyngeal cancer Radiation dermatitis Right shoulder pain Sleep apnea Uses wheelchair Wears glasses Home Medications oxycodone 5 mg/5 mL oral solution 40 mg PO Q4H PRN Pain 12/16/21 [History Last Taken 10/13/22] gabapentin 250 mg/5 mL oral solution 6 ml feeding tube BID nerve pain 03/09/22 [History Last Taken 03/04/22] ondansetron 8 mg disintegrating tablet 8 mg PO Q8H PRN nausea and vomiting #90 tabs 04/01/22 [Rx Last Taken Unknown] metoclopramide HCl 5 mg tablet (Reglan) 5 mg feeding tube BID 04/07/22 [History Last Taken Unknown] guaifenesin 100 mg/5 mL oral liquid 200 mg (10 mL) PO Q4H PRN congestion #1,000 mL 04/26/22 [Rx Last Taken Unknown] famotidine 40 mg tablet 40 mg PO BID #60 tabs 05/04/23 [Rx Last Taken Unknown] lorazepam 1 mg tablet 1 mg PO BID 05/22/23 [History Last Taken Unknown] sertraline 100 mg tablet 100 mg PO DAILY 05/22/23 [History Last Taken Unknown] miscellaneous medical supply See Rx Instructions miscellaneous .COMPLEX #10 ea 05/26/23 [Rx Last Taken Unknown] Allergy/AdvReac Type Severity Reaction Status Date / Time No Known Allergies Allergy Verified 11/10/23 13:55 Family History Father Cancer LUNG Brother Cancer ESOPHAGEAL Surgical History History of esophagogastroduodenoscopy (EGD) History of mandibular surgery History of removal of Port-a-Cath Status post insertion of percutaneous endoscopic gastrostomy (PEG) tube Status post reconstruction procedure Social History household members: none housing: house number of children: 0 current occupational status: disabled pets and animals: No Smoking Status: Former smoker quit date: 07/28/21 pack-years: 60 Tobacco: How many years used: 30 how long ago did patient quit smoking: July 2021, smoked [id number] alcohol intake: former year quit: 2020 details: Sober since 07/2021. substance use type: does not use do you feel safe at home: Yes ROS ROS ED Constitutional Constitutional ED: Denies chills, fever(s), subjective, sweats or weight loss Eyes Eyes: Denies blurry vision, change in vision or diplopia ENT ENT ED: Denies ear pain, rhinorrhea or sore throat Cardiovascular Cardiovascular: Denies chest pain, orthopnea, palpitations, paroxysmal nocturnal dyspnea or racing heartbeat Respiratory/Chest Respiratory/Chest: Reports cough, dyspnea, dyspnea on exertion, sputum and other Details: Sputum is . There is blood streaks noted. ; Denies orthopnea or paroxysmal nocturnal dyspnea Gastrointestinal Gastrointestinal: Denies abdominal pain, constipation, diarrhea, melena, nausea or vomiting Genitourinary Genitourinary ED: Denies dysuria, hematuria or urinary frequency Musculoskeletal Musculoskeletal: Denies arthralgias, back pain, myalgias or neck pain Integumentary Denies abscess, Abrasions or rash Neurologic Neurologic: Denies headache(s) or paresthesias Psychiatric Psychiatric: Denies anxiety Endocrine Endocrinology: Denies cold intolerance or heat intolerance Hematologic/Lymphatic Hematologic/Lymphatic: Reports systems reviewed and no addt'l complaints, except as documented Allergic/Immunologic Allergic/Immunologic ED: Reports other Details: Trouble swallowing for the past 2 years. Has dysphonia and dysarthria. ; Denies mouth swelling, tongue swelling or urticaria EXAM Physical Exam Const Vital Signs: 11/10/23 13:53 11/10/23 13:56 11/10/23 15:52 Temperature 97.7 F L Temperature Source Temporal Pulse Rate 111 H Respiratory Rate 123 H 15 Respiratory Effort Respiratory Pattern Blood Pressure 123/93 H 144/91 H Blood Pressure Mean 103 108 Pulse Ox 86 92 96 Oxygen Delivery Method Room Air Nasal Cannula Nasal Cannula Oxygen Flow Rate (L/min) 2 3 11/10/23 16:11 11/10/23 16:11 11/10/23 16:11 Temperature Temperature Source Pulse Rate Respiratory Rate Respiratory Effort Short of Breath Labored Respiratory Pattern Tachypnea Blood Pressure Blood Pressure Mean Pulse Ox 96 96 Oxygen Delivery Method Nasal Cannula Nasal Cannula Oxygen Flow Rate (L/min) 3 3 11/10/23 17:00 Temperature Temperature Source Pulse Rate 96 Respiratory Rate 16 Respiratory Effort Respiratory Pattern Blood Pressure 126/86 H Blood Pressure Mean 99 Pulse Ox 97 Oxygen Delivery Method Nasal Cannula Oxygen Flow Rate (L/min) 3 Positive well nourished and well developed; Negative for cachectic Constitutional Narrative: Patient has conversational dyspnea. General Appearance ED: well developed and pallor; Negative for cachectic, cyanotic, diaphoretic or NAD Nutritional Appearance: Negative for cachectic HEENT Reports dry mucous membranes HEENT Narrative: Deformity of the mandible and neck due to prior surgery. Patient has audible inspiratory stridor. Difficult to assess position of trachea. Mouth ED: Yes dry mucous membranes Mouth: dry mucous membranes Eyes PERRL and EOMs intact bilaterally General Eye ED: Negative for pale conjunctiva or scleral icterus Neck no lymphadenopathy, supple and no JVD Chest Wall inspection of chest normal and palpation of chest normal Resp No normal respiratory effort and No clear to auscultation bilaterally Auscultation: wheezes inspiratory wheezes (Which is transmission from upper airway, stridor.) Cardio regular rhythm, S1 normal heart sound, S2 normal heart sound and no murmurs Rate: tachycardic GI normal to inspection, nondistended, normoactive bowel sounds, non-tender, non- distended and no masses; Negative for hepatosplenomegaly GI Narrative: Feeding tube noted. Auscultation: hypoactive bowel sounds Palpation: soft; Negative for tender Back/Spine no CVA tenderness Extremity Extremity Narrative: Otherwise normal. General Extremety ED: Yes edema General Extremity: edema Neuro oriented x3, CN's II-XII intact bilaterally and no sensory deficits noted Sensorium / Orientation: alert Motor Exam: strength 5/5 throughout Psych mental status grossly normal Skin no rashes or lesions noted and no wounds General Skin Exam: pallor; Negative for jaundice MDM MDM MDM Narrative Medical decision making narrative: Differential diagnosis includes pneumonia, bronchitis with hemoptysis, pulmonary embolus concern patient has pulmonary embolus and she is tachycardic, tachypneic and hypoxic with history of cancer. Nurse protocol was initiated. CT of the neck with IV contrast was ordered as well as CTA of the chest. Did discuss how to order with communications technician so that the test will be optimal. History & Record Review Additional record(s) reviewed:: Prior inpatient record (Inpatient admission November 2022 for perforated viscus, Dr. Sandoval's note was read.), Prior outpatient record (Note from [place] physician Dr. Hartmann regarding chronic diarrhea, Dr. Lacho Kate's note regarding patient's cancer), Prior ED visit and Prior labs Lab Data Attestation: I reviewed the patient's lab results. Lab results narrative: CBC is remarkable for anemia, which is chronic. He is lower than normal. He has fluctuated over the past 1 to 2 years. Electrolyte panel is unremarkable. Glucose is 113 which is slightly elevated with a normal CO2 anion gap. First troponin is normal. Labs: Laboratory Results - last 24 hr 11/10/23 15:07 WBC 5.7 RBC 3.97 L Hgb 11.7 L Hct 35.8 L MCV 90.2 MCH 29.5 MCHC 32.7 RDW Std Deviation 43.1 RDW Coeff of Jose 13.1 Plt Count 260 MPV 9.5 Immature Gran % (Auto) 0.400 Neut % (Auto) 76.2 H Lymph % (Auto) 9.7 L [place] % (Auto) 11.0 H Eos % (Auto) 2.3 Baso % (Auto) 0.4 Absolute Neuts (auto) 4.3 Absolute Lymphs (auto) 0.55 L Nucleated RBC % 0 Sodium 137 Potassium 5.0 Chloride 104 Carbon Dioxide 30.0 Anion Gap 3 L BUN 15 Creatinine 0.71 Est GFR (MDRD) Af Amer 147 Est GFR (MDRD) Non-Af 122 BUN/Creatinine Ratio 21.2 H Glucose 113 H Calcium 9.6 Troponin I High Sens 5 Radiography Diagnostic Testing: Clinical Impression(s) from Imaging Studies Chest CTA 11/10/23 16:01 IMPRESSION: Diffuse groundglass opacity in right upper lobe possibly inflammatory or focal pulmonary interstitial edema. Large right infiltrative hilar mass encasing and nearly occluding the proximal branches of the right pulmonary artery. There is subsegmental atelectasis in the right middle lobe and right lower lobe consolidation with moderate size pleural effusion. There are tiny intraluminal clot noted within the proximal pulmonary artery segmental branches of the right upper lobe Electronically Signed: Josh Lara MD at 18:23 EDT Reading Location ID and State: [address] [place] [address] Tel , Service support , ADDENDUM: 11/10/23 1834 IMPRESSION: Diffuse groundglass opacity in right upper lobe possibly inflammatory or focal pulmonary interstitial edema. Large right infiltrative hilar mass encasing and nearly occluding the proximal branches of the right pulmonary artery. There is subsegmental atelectasis in the right middle lobe and right lower lobe consolidation with moderate size pleural effusion. There are tiny intraluminal clot noted within the proximal pulmonary artery segmental branches of the right upper lobe N.B. : The above Results were Read Back by Josh Lara MD to Vladimir Crum MD, and understanding confirmed on 11/10/2023 18:26:14 (ET). Electronically Signed: Josh Lara MD at 18:23 EDT , Soft Tissue Neck CT 11/10/23 16:01 IMPRESSION: Stable extensive postsurgical/postoperative changes of the oral cavity and oropharynx with no gross mass or adenopathy. Electronically Signed: Ronald Tompkins MD at 17:46 EDT , CT of the neck with IV contrast was reviewed by me. There is no obvious inflammation or abscess. The epiglottis appears normal. The prevertebral space appears normal. Awaiting formal read by radiologist. The CT of the chest in my opinion has a right pleural effusion. There may be pneumonia. There is atelectasis. There is evidence of PE as well on the right side per my review. Awaiting formal read. Rhythm Strip Rhythm Strip: Sinus Tach Rate: 102 Ectopy: None EKG Initial EKG: Attestation: I personally reviewed and interpreted this EKG as follows: Interpretation: Sinus Rhythm (Rate is 99. There is evidence of low voltage. NM interval 126 ms. Cures 370 ms. QT duration 340 ms. [place] is normal. There is no findings suggestive of PE i.e. right heart strain.) Management Discussion w/another healthcare provider: Hospitalist (Spoke with Dr. Hankins at 1748. Full admit medical surge) and Other (Radiologist called to inform me of all the abnormalities on patient's CAT scan.) Treatment and Re-Evaluation :: Patient was started on heparin in the event that the hospital/consult would like the mass biopsied. Discharge Plan Dx/Rx/DC Orders Clinical Impression: Infiltrate of upper lobe of right lung present on imaging study, Acute hypoxemic respiratory failure, Mass of upper lobe of right lung, Pulmonary embolus Disposition Disposition: [facility]
[2023-11-10] MEDS: oxyCODONE Soln 5 MG/0.25 ML PO.SYRINGE 40 MG GT (16:56)
[2023-11-10 19:16] LABS: Prothrombin Time (Protime)PT. 13.6 SECONDS (11.7-14.9)
[2023-11-10] MEDS: Heparin Injection (Vial) 5,000 UNIT/ML VIAL 7500 UNIT IV (19:16)
[2023-11-10] MEDS: HEPARIN/D5w 25,000 UNITS 25,000 UNITS/250 ML IV.SOLN. 14 UNITS CONT INF (19:16)
[2023-11-10 19:17] LABS: Partial Thromboplast Time 26.4 Seconds (24.1-36.2)
--- NOTE | 2023-11-10 20:06 | HP.PCM.HOS_ITS ---
HPI - General General Date of Admission: 11/10/23 HPI Narrative ORTEGA DUKES, is a 58 M who presents with worsening shortness of breath. He says that he for started having shortness of breath a couple weeks ago and has been slowly getting worse. He also had some right-sided chest pain a few days ago that resolved but presented secondary to significant dyspnea. In the ER he was found to have a tiny PE in the right upper lobe as well as groundglass opacities in the upper lobe he has a right pleural effusion and was found to have a right central hilar mass compressing his pulmonary arteries as well as bronchus. 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 He does have a PEG tube in place as he is unable to manage his own secretions at times. In the ER he was started on a heparin drip given the possibility for a lung biopsy. He is afebr ile without leukocytosis. [facility] Medical History Anemia Anxiety Back pain Cancer Cancer of overlapping sites of lip, oral cavity and pharynx Chronic pain Depression Diarrhea Dietary restriction Diverticulitis Dysphagia Edentulous Esophagitis Ex-cigarette smoker Former smoker Gastric reflux GERD (gastroesophageal reflux disease) History of GI bleed Mucositis due to radiation therapy Multiple pigmented nevi Nothing allowed by mouth Oral candidiasis Oropharyngeal cancer Radiation dermatitis Right shoulder pain Sleep apnea Uses wheelchair Wears glasses Home Medications oxycodone 5 mg/5 mL oral solution 40 mg PO Q4H PRN Pain 12/16/21 [History Last Taken 10/13/22] gabapentin 250 mg/5 mL oral solution 6 ml feeding tube BID nerve pain 03/09/22 [History Last Taken 03/04/22] ondansetron 8 mg disintegrating tablet 8 mg PO Q8H PRN nausea and vomiting #90 tabs 04/01/22 [Rx Last Taken Unknown] metoclopramide HCl 5 mg tablet (Reglan) 5 mg feeding tube BID 04/07/22 [History Last Taken Unknown] guaifenesin 100 mg/5 mL oral liquid 200 mg (10 mL) PO Q4H PRN congestion #1,000 mL 04/26/22 [Rx Last Taken Unknown] famotidine 40 mg tablet 40 mg PO BID #60 tabs 05/04/23 [Rx Last Taken Unknown] lorazepam 1 mg tablet 1 mg PO BID 05/22/23 [History Last Taken Unknown] sertraline 100 mg tablet 100 mg PO DAILY 05/22/23 [History Last Taken Unknown] miscellaneous medical supply See Rx Instructions miscellaneous .COMPLEX #10 ea 05/26/23 [Rx Last Taken Unknown] Allergy/AdvReac Type Severity Reaction Status Date / Time No Known Allergies Allergy Verified 11/10/23 13:55 Family History Father Cancer LUNG Brother Cancer ESOPHAGEAL Surgical History History of esophagogastroduodenoscopy (EGD) History of mandibular surgery History of removal of Port-a-Cath Status post insertion of percutaneous endoscopic gastrostomy (PEG) tube Status post reconstruction procedure Social History household members: none housing: house number of children: 0 current occupational status: disabled pets and animals: No Smoking Status: Former smoker quit date: 07/28/21 pack-years: 60 Tobacco: How many years used: 30 how long ago did patient quit smoking: July 2021, smoked [id number] alcohol intake: former year quit: 2020 details: Sober since 07/2021. substance use type: does not use do you feel safe at home: Yes ROS Constitutional Constitutional: Denies chills, fatigue, fever(s) or malaise Eyes Eyes: Denies blurry vision ENT HEENT: Denies headache(s) or nasal discharge Cardiovascular Cardiovascular: Reports chest pain; Denies dyspnea on exertion or syncope Respiratory/Chest Respiratory/Chest: Reports shortness of breath at rest and shortness of breath with exertion; Denies cough Gastrointestinal Gastrointestinal: Denies constipation, diarrhea, nausea or vomiting Genitourinary Genitourinary: Denies dysuria Neurologic Neurologic: Denies focal weakness, numbness or tremor(s) Psychiatric Psychiatric: Denies anxiety or depression Vital Signs Vital Signs Vital Signs: 11/10/23 13:53 11/10/23 13:56 11/10/23 15:52 Temperature 97.7 F L Temperature Source Temporal Pulse Rate 111 H Respiratory Rate 123 H 15 Respiratory Effort Respiratory Pattern Blood Pressure 123/93 H 144/91 H Blood Pressure Mean 103 108 Pulse Ox 86 92 96 Oxygen Delivery Method Room Air Nasal Cannula Nasal Cannula Oxygen Flow Rate (L/min) 2 3 11/10/23 16:11 11/10/23 16:11 11/10/23 16:11 Temperature Temperature Source Pulse Rate Respiratory Rate Respiratory Effort Short of Breath Labored Respiratory Pattern Tachypnea Blood Pressure Blood Pressure Mean Pulse Ox 96 96 Oxygen Delivery Method Nasal Cannula Nasal Cannula Oxygen Flow Rate (L/min) 3 3 11/10/23 17:00 11/10/23 19:00 11/10/23 20:03 Temperature 98.3 F Temperature Source Pulse Rate 96 96 90 Respiratory Rate 16 13 16 Respiratory Effort Respiratory Pattern Blood Pressure 126/86 H 124/89 H 118/80 Blood Pressure Mean 99 100 92 Pulse Ox 97 96 95 Oxygen Delivery Method Nasal Cannula Nasal Cannula Oxygen Flow Rate (L/min) 3 3 Weight Weight: 211 lb 13.828 oz Body Mass Index (BMI) 29.5 Physical Exam Narrative General: Alert, Oriented x3, Cooperative, No apparent distress HEENT: Atraumatic, PERRLA, EOMI, Normocephalic, surgical changes in his neck and face Oral: Moist Mucosa Neck: Supple, No JVD Lungs: Diminished on the right greater than left, Normal air movement, No rhonchi, No wheeze, No rales Cardiovascular: Tachycardic, Regular Rhythm, Normal S1, Normal S2, No murmurs Abdomen: Soft, Non Tender, Non-Distended, No Hepato-splenomegaly, PEG tube Extremities: No edema, Capillary Refill Less than 3 Seconds Skin: No rashes, No breakdown Musculoskeletal: No Tenderness to Palpation of Joints or Extremities Neurological: No focal neurological deficits, Motor Exam 5/5 strength throughout, Sensory exam intact to light touch and pain Psych/Mental Status: Normal Affect, Appropriate Results Lab / Micro Data 11/10/23 15:07 11/10/23 15:07 Labs: Laboratory Results - last 24 hr 11/10/23 15:07: WBC 5.7, RBC 3.97 L, Hgb 11.7 L, Hct 35.8 L, MCV 90.2, MCH 29.5, MCHC 32.7, RDW Std Deviation 43.1, RDW Coeff of Jose 13.1, Plt Count 260, MPV 9.5, Immature Gran % (Auto) 0.400, Neut % (Auto) 76.2 H, Lymph % (Auto) 9.7 L, [place] % (Auto) 11.0 H, Eos % (Auto) 2.3, Baso % (Auto) 0.4, Absolute Neuts (auto) 4.3, Absolute Lymphs (auto) 0.55 L, Nucleated RBC % 0, Sodium 137, Potassium 5.0, Chloride 104, Carbon Dioxide 30.0, Anion Gap 3 L, BUN 15, Creatinine 0.71, Est GFR (MDRD) Af Amer 147, Est GFR (MDRD) Non-Af 122, BUN/Creatinine Ratio 21.2 H, Glucose 113 H, Calcium 9.6, Troponin I High Sens 5 11/10/23 18:50: PT 13.6, INR 1.0, APTT 26.4 Rhythm Strip Rhythm Strip: Sinus Tach Rate: 102 Ectopy: None Imaging Radiology Impression Chest CTA 11/10/23 16:01 IMPRESSION: Diffuse groundglass opacity in right upper lobe possibly inflammatory or focal pulmonary interstitial edema. Large right infiltrative hilar mass encasing and nearly occluding the proximal branches of the right pulmonary artery. There is subsegmental atelectasis in the right middle lobe and right lower lobe consolidation with moderate size pleural effusion. There are tiny intraluminal clot noted within the proximal pulmonary artery segmental branches of the right upper lobe Electronically Signed: Josh Lara MD at 18:23 EDT Reading Location ID and State: [facility] / [place] Tel , Service support , ADDENDUM: 11/10/23 1834 IMPRESSION: Diffuse groundglass opacity in right upper lobe possibly inflammatory or focal pulmonary interstitial edema. Large right infiltrative hilar mass encasing and nearly occluding the proximal branches of the right pulmonary artery. There is subsegmental atelectasis in the right middle lobe and right lower lobe consolidation with moderate size pleural effusion. There are tiny intraluminal clot noted within the proximal pulmonary artery segmental branches of the right upper lobe N.B. : The above Results were Read Back by Josh Lara MD to Vladimir Crum MD, and understanding confirmed on 11/10/2023 18:26:14 (ET). Electronically Signed: Josh Lara MD at 18:23 EDT , Soft Tissue Neck CT 11/10/23 16:01 IMPRESSION: Stable extensive postsurgical/postoperative changes of the oral cavity and oropharynx with no gross mass or adenopathy. Electronically Signed: Ronald Tompkins MD at 17:46 EDT , Assessment & Plan Assessment/Plan (1) Pulmonary embolus: (2) Mass of upper lobe of right lung: PLAN: Plan 1. Pulmonary embolism in his right upper lobe with a right hilar mass compressing multiple arteries and bronchi with hypoxia/right pleural effusion ? Likely malignancy related unclear whether or not this is metastatic from his esophagus or his oral and neck cancer ? Will need to consult pulmonology on Monday for bronchoscopy ? Continue with the heparin drip ? Unable to drain the pleural fluid on the right and it does not appear to be that significant though we would also be beneficial on Monday to try to get a thoracentesis to see if we can get cytology as this would help with staging potentially ? Continue with his home feeding schedule through his PEG tube and most of his medications like to be given through his PEG tube as well 2. GERD ? Stable ? Continue with his home medications 3. Anxiety/depression ? Stable ? Continue with his home medications she DVT: Heparin drip 75 minutes was spent on direct patient care, including documentation as well as chart review and collaboration with colleagues Charges/Coding Visit Charges Inpatient E&M: 92009 Init Hosp L3
[2023-11-11] MEDS: LORazepam 1 MG Tablet GT ×3 (00:12→20:59)
[2023-11-11] MEDS: oxyCODONE 5 MG Tablet 40 MG GT ×5 (00:13→20:59)
[2023-11-11] MEDS: Famotidine 20 MG Tablet 40 MG PO ×3 (00:14→20:59)
[2023-11-11 01:50] LABS: Partial Thromboplast Time 110.5 Seconds (24.1-36.2)
[2023-11-11 05:22] LABS: Absolute Neutrophil Count 3.5 X10^3/uL (2.0-7.7); Basophil# 0.03 X10^3/uL; Basophil% 0.6 % (0-1); Eosinophil# 0.13 X10^3/uL; Eosinophils% 2.7 % (0-5); Hematocrit 34.5 % (40-54); Hemoglobin 11.1 g/dL (13.0-16.5); Lymphocyte % 14.5 % (19-41); Mean Corp Hgb Conc 32.2 g/dL (32-36); Mean Corpuscular Hgb 29.3 pg (27.0-32.0); Mean Platelet Vol. 9.3 fl (6.2-12.0); Monocyte# 0.48 X10^3/uL; Monocyte% 9.9 % (0-10); NRBC Flagged by Analyzer 0 % (0-5); Neutrophil # 3.48 X10^3/uL (2.7-7.7); Neutrophil % 71.9 % (47-70); Platelet Count 221 K/mm3 (150-450); RBC Distribution Width CV 13.1 % (11.6-14.6); Red Blood Count 3.79 M/mm3 (4.6-6.2); White Blood Count 4.8 K/mm3 (4.4-11.0)
[2023-11-11 05:38] LABS: Anion Gap 5 (5-15); BUN 14 mg/dL (7-18); BUN/Creat Ratio 21.1 RATIO (10-20); Calcium,Total 9.5 mg/dL (8.5-10.1); Chloride 105 mmol/L (98-107); Creatinine, Serum 0.66 mg/dL (0.70-1.30); EST Glomerular Filtration Rate 131 mL/min (>60); Est Glom Filt Rate - Afr Amer 159 mL/min (>60); Estimated Creatinine Clearance 145.22 ml/min; Glucose 102 mg/dL (74-106); Potassium 4.3 mmol/L (3.5-5.1); Sodium Level 140 mmol/L (136-145)
[2023-11-11] MEDS: Jevity 1.5. 1,000 ML Bottle 250 ML GT (06:32)
[2023-11-11] MEDS: Metoclopramide 5 MG TABLET GT ×2 (06:37→15:05)
[2023-11-11 06:55] VITALS: BP 139/84; PULSE 98; RESP 18; TEMP 36.3; O2SAT 96
[2023-11-11 08:15] VITALS: BP 124/75; PULSE 104; RESP 18; TEMP 36.3; O2SAT 94
[2023-11-11 09:55] LABS: Partial Thromboplast Time 56.1 Seconds (24.1-36.2)
[2023-11-11] MEDS: Sertraline 100 MG Tablet GT (10:44)
[2023-11-11 10:50] VITALS: BP 113/70; PULSE 91; RESP 18; TEMP 36.1; O2SAT 92
--- NOTE | 2023-11-11 11:40 | CASEMGMT ---
ALEC VINSON Face to Face with patient for initial transition planning/care coordination assessment. RN CM introduced self and role at [facility]. Patient lying in bed, alert and oriented. Patient willing to participate in assessment and is able to answer all questions appropriately. Care providers, pharmacy, and demographics verified. PCP: Michaela Specialists: Celeste, radiology oncologist; Dione, oncologist; Friend, GI Preferred Pharmacy: [facility] Insurance: [employer] Prescription Benefit: yes Living Will/HPOA: yes, Randa Travis LNOK: friend Living Arrangements: Patient lives alone in a 2 story home with bed and bath on first floor, 5 steps and railing to enter the home. Patient is independent at home. Transportation: friends DME/HHC: Patient states he has walker at home. Denies Previous HHC or SNF. Patient states he is active with [facility]. Will monitor for HHC. Patient wishes to discharge home, denies need for home health at this time. Patient states he has no further needs or concerns at this time. CM to follow for discharge planning needs that may arise. Disposition Plan: Patient to discharge home with support from friends and follow-up plans in place. Monitor for HHC at discharge. Jocelin CISNEROS, RN, CM
[2023-11-11] MEDS: HEPARIN/D5w 25,000 UNITS 25,000 UNITS/250 ML IV.SOLN. 11 UNITS CONT INF (13:04)
[2023-11-11 15:00] VITALS: BP 129/75; PULSE 86; RESP 18; TEMP 36.3; O2SAT 94
[2023-11-11] MEDS: ISOSOURCE GT (15:06)
--- NOTE | 2023-11-11 15:29 | PN_ITS ---
Subjective Subjective Patient seen and examined. He had no active complaints. He denied any fever,l chills, couhg, chest pain, palpitations, dizziness, nausea, vomiting or any other symptoms. Review of systems is otherwise negative. He is on 3 L of oxygen. Objective Data Objective Data Vital Signs: Vital Signs Temp Pulse Resp BP Pulse Ox O2 Del Method O2 Flow Rate 97.4 F L 86 18 129/75 H 94 Nasal Cannula 3 11/11/23 15:00 11/11/23 15:00 11/11/23 15:00 11/11/23 15:00 11/11/23 15:00 11/11/23 15:15 11/11/23 15:15 Oxygen Flow Rate (L/min) 3 Oxygen Delivery Method Nasal Cannula Weight: 209 lb 3.499 oz Body Mass Index (BMI) 29.2 Intake & Output: Intake and Output for Last 24 Hours 11/09/23 11/10/23 11/11/23 23:59 23:59 23:59 Intake Total 120 / 120 723.50 / 723.50 Output Total 450 / 450 Balance 120 / -80 273.50 / 273.50 Lab / Micro Data 11/11/23 05:15 11/11/23 05:15 Labs: Laboratory Results - last 24 hr 11/10/23 15:07: Sodium 137, Potassium 5.0, Chloride 104, Carbon Dioxide 30.0, Anion Gap 3 L, BUN 15, Creatinine 0.71, Est GFR (MDRD) Af Amer 147, Est GFR (MDRD) Non-Af 122, BUN/Creatinine Ratio 21.2 H, Glucose 113 H, Calcium 9.6, Troponin I High Sens 5 11/10/23 18:50: PT 13.6, INR 1.0, APTT 26.4 11/11/23 01:16: APTT 110.5 H* 11/11/23 05:15: WBC 4.8, RBC 3.79 L, Hgb 11.1 L, Hct 34.5 L, MCV 91.0, MCH 29.3, MCHC 32.2, RDW Std Deviation 43.0, RDW Coeff of Jose 13.1, Plt Count 221, MPV 9.3, Immature Gran % (Auto) 0.400, Neut % (Auto) 71.9 H, Lymph % (Auto) 14.5 L, [place] % (Auto) 9.9, Eos % (Auto) 2.7, Baso % (Auto) 0.6, Absolute Neuts (auto) 3.5, Absolute Lymphs (auto) 0.70 L, Nucleated RBC % 0, APTT Cancelled, Sodium 140, Potassium 4.3, Chloride 105, Carbon Dioxide 30.0, Anion Gap 5, BUN 14, Creatinine 0.66 L, Estim Creat Clear Calc 145.22, Est GFR (MDRD) Af Amer 159, Est GFR (MDRD) Non-Af 131, BUN/Creatinine Ratio 21.1 H, Glucose 102, Calcium 9.5 11/11/23 09:40: APTT 56.1 H Radiography Diagnostic Testing: Radiology Impression Chest CTA 11/10/23 16:01 IMPRESSION: Diffuse groundglass opacity in right upper lobe possibly inflammatory or focal pulmonary interstitial edema. Large right infiltrative hilar mass encasing and nearly occluding the proximal branches of the right pulmonary artery. There is subsegmental atelectasis in the right middle lobe and right lower lobe consolidation with moderate size pleural effusion. There are tiny intraluminal clot noted within the proximal pulmonary artery segmental branches of the right upper lobe Electronically Signed: Josh Lara MD at 18:23 EDT , ADDENDUM: 11/10/23 1834 IMPRESSION: Diffuse groundglass opacity in right upper lobe possibly inflammatory or focal pulmonary interstitial edema. Large right infiltrative hilar mass encasing and nearly occluding the proximal branches of the right pulmonary artery. There is subsegmental atelectasis in the right middle lobe and right lower lobe consolidation with moderate size pleural effusion. There are tiny intraluminal clot noted within the proximal pulmonary artery segmental branches of the right upper lobe N.B. : The above Results were Read Back by Josh Lara MD to Vladimir Crum MD, and understanding confirmed on 11/10/2023 18:26:14 (ET). Electronically Signed: Josh Lara MD at 18:23 EDT , Soft Tissue Neck CT 11/10/23 16:01 IMPRESSION: Stable extensive postsurgical/postoperative changes of the oral cavity and oropharynx with no gross mass or adenopathy. Electronically Signed: Ronald Tompkins MD at 17:46 EDT , Rhythm Strip Rhythm Strip: Sinus Tach Rate: 102 Ectopy: None Physical Exam Const alert, oriented x3 and no apparent distress General Appearance: cooperative and well developed HEENT normocephalic, head/scalp atraumatic, moist oral mucous membranes and oropharynx normal Neck no lymphadenopathy, supple and no JVD Lymph Lymphatic: no lymphadenopathy noted and no lymphedema noted Resp Resp Narrative: diminished breath sounds bibasally, no wheezes or crackles.On 3L of oxygen by nasal canula Cardio regular rate, regular rhythm, S1 normal heart sound, S2 normal heart sound and no murmurs GI normal to inspection, nondistended, normoactive bowel sounds, soft to palpation, non-tender and non-distended GI Narrative: PEG tube in situ Extremity normal capillary refill, no clubbing, cyanosis or edema and no calf tenderness General Extremity: no tenderness to palpation of joints or extremities Neuro CN's II-XII intact bilaterally, no focal motor deficits, no sensory deficits noted and deep tendon reflexes 2+ bilaterally Motor Exam: strength 5/5 throughout Psych thought process normal, cooperative and affect normal Appearance: appropriate Assessment & Plan Assessment/Plan (1) Pulmonary embolus: (2) Mass of upper lobe of right lung: (3) Acute hypoxemic respiratory failure: (4) Infiltrate of upper lobe of right lung present on imaging study: PLAN: Plan #Right upper lobe PE * Currently on heparin drip. * will need bronchoscopy * pulmonology consulted; will benefit from bronchoscopy on Monday * #Right lung mass * CTA chest showed large right infiltrative hilar mass encasing and nearly occluding the proximal branches of the right pulmonary artery with tiny intraluminal clots within the proximal pulmonary artery. * In light of his past medical history of cancer, this may likely be malignant. Will therefore consult pulmonology and will need a biopsy of the mass. * #Dysphagia in the setting of esophageal cancer * has PEG Tube in situ. Tube feeds via PEG tube. * #Anxiety and depression: #DVT prophylaxis: heparin drip Charges/Coding Visit Charges Inpatient E&M: 68837 Subs Hosp L2
[2023-11-11 17:06] LABS: Partial Thromboplast Time 60.7 Seconds (24.1-36.2)
[2023-11-11] MEDS: GABAPENTIN 250 MG/5 ML SOLUTION 300 MG GT (17:53)
[2023-11-11 20:57] VITALS: BP 122/85; PULSE 96; RESP 18; TEMP 36.7; O2SAT 96
[2023-11-11 22:31] LABS: Partial Thromboplast Time 60.1 Seconds (24.1-36.2)
[2023-11-12] VITALS (7 sets, daily range): BP systolic 111–126; BP diastolic 74–83; PULSE 88–99; RESP 18; TEMP 36.6–36.8; O2SAT 94–98
[2023-11-12] MEDS: oxyCODONE 5 MG Tablet 40 MG GT ×5 (05:51→22:34)
[2023-11-12] MEDS: Metoclopramide 5 MG TABLET GT ×2 (05:51→16:59)
[2023-11-12] MEDS: ISOSOURCE GT ×6 (05:58→22:44)
[2023-11-12 07:00] LABS: Partial Thromboplast Time 45.9 Seconds (24.1-36.2)
[2023-11-12 08:02] LABS: Absolute Lymphocyte Count 0.41 X10^3/uL (0.83-4.51); Absolute Neutrophil Count 3.8 X10^3/uL (2.0-7.7); Basophil# 0.04 X10^3/uL; Basophil% 0.9 % (0-1); Eosinophil# 0.09 X10^3/uL; Eosinophils% 1.9 % (0-5); Hematocrit 36.7 % (40-54); Hemoglobin 11.7 g/dL (13.0-16.5); Lymphocyte # 0.41 X10^3/ul (0.83-4.51); Lymphocyte % 8.8 % (19-41); Mean Corp Hgb Conc 31.9 g/dL (32-36); Mean Corpuscular Volume 91.1 fL (80-94); Mean Platelet Vol. 9.5 fl (6.2-12.0); Monocyte# 0.32 X10^3/uL; Monocyte% 6.9 % (0-10); NRBC Flagged by Analyzer 0.4 % (0-5); Neutrophil # 3.79 X10^3/uL (2.7-7.7); Neutrophil % 81.1 % (47-70); POSITIVE DIFFERENTIAL YES; Platelet Count 264 K/mm3 (150-450); RBC Distribution Width SD 43.3 fl (35.1-43.9); Red Blood Count 4.03 M/mm3 (4.6-6.2); White Blood Count 4.7 K/mm3 (4.4-11.0)
[2023-11-12 08:25] LABS: Anion Gap 6 (5-15); BUN 13 mg/dL (7-18); BUN/Creat Ratio 18.7 RATIO (10-20); Calcium,Total 9.7 mg/dL (8.5-10.1); Chloride 104 mmol/L (98-107); Creatinine, Serum 0.69 mg/dL (0.70-1.30); EST Glomerular Filtration Rate 125 mL/min (>60); Est Glom Filt Rate - Afr Amer 151 mL/min (>60); Glucose 126 mg/dL (74-106); Potassium 3.6 mmol/L (3.5-5.1); Sodium Level 137 mmol/L (136-145)
[2023-11-12] MEDS: Sertraline 100 MG Tablet GT (08:41)
[2023-11-12] MEDS: GABAPENTIN 250 MG/5 ML SOLUTION 300 MG GT ×3 (08:42→16:59)
[2023-11-12] MEDS: Famotidine 20 MG Tablet 40 MG PO ×2 (08:42→21:39)
[2023-11-12] MEDS: LORazepam 1 MG Tablet GT ×2 (08:47→21:39)
[2023-11-12] MEDS: HEPARIN/D5w 25,000 UNITS 25,000 UNITS/250 ML IV.SOLN. 12 UNITS CONT INF (10:22)
--- NOTE | 2023-11-12 11:27 | PCM.PROGNOTE ---
Subjective Subjective Patient seen and examined. He has no active complaints. Review of systems is otherwise negative. He has remained hemodynamically stable. Objective Data Objective Data Vital Signs: Vital Signs Temp Pulse Resp BP Pulse Ox O2 Del Method O2 Flow Rate 97.9 F 88 18 126/76 H 95 Nasal Cannula 3 11/12/23 08:40 11/12/23 08:40 11/12/23 08:40 11/12/23 08:40 11/12/23 08:40 11/12/23 08:40 11/12/23 08:40 Oxygen Flow Rate (L/min) 3 Oxygen Delivery Method Nasal Cannula Weight: 209 lb 3.499 oz Body Mass Index (BMI) 29.2 Intake & Output: Intake and Output for Last 24 Hours 11/10/23 11/11/23 11/12/23 23:59 23:59 23:59 Intake Total 120 / 120 969.10 / 969.10 491.48 / 491.48 Output Total 750 / 750 300 / 300 Balance 120 / -80 219.10 / 219.10 191.48 / 191.48 Lab / Micro Data 11/12/23 06:20 11/12/23 06:20 Labs: Laboratory Results - last 24 hr 11/11/23 05:15: APTT Cancelled 11/11/23 16:00: APTT 60.7 H 11/11/23 22:05: APTT 60.1 H 11/12/23 06:13: APTT 45.9 H 11/12/23 06:20: WBC 4.7, RBC 4.03 L, Hgb 11.7 L, Hct 36.7 L, MCV 91.1, MCH 29.0, MCHC 31.9 L, RDW Std Deviation 43.3, RDW Coeff of Jose 13.0, Plt Count 264, MPV 9.5, Immature Gran % (Auto) 0.400, Neut % (Auto) 81.1 H, Lymph % (Auto) 8.8 L, Delta % (Auto) 6.9, Eos % (Auto) 1.9, Baso % (Auto) 0.9, Absolute Neuts (auto) 3.8, Absolute Lymphs (auto) 0.41 L, Nucleated RBC % 0.4, Sodium 137, Potassium 3.6, Chloride 104, Carbon Dioxide 27.0, Anion Gap 6, BUN 13, Creatinine 0.69 L, Estim Creat Clear Calc 138.90, Est GFR (MDRD) Af Amer 151, Est GFR (MDRD) Non-Af 125, BUN/Creatinine Ratio 18.7, Glucose 126 H, Calcium 9.7 Rhythm Strip Rhythm Strip: Sinus Tach Rate: 102 Ectopy: None Physical Exam Const alert, oriented x3 and no apparent distress General Appearance: cooperative and well developed HEENT normocephalic, head/scalp atraumatic, moist oral mucous membranes and oropharynx normal Neck no lymphadenopathy, supple and no JVD Lymph Lymphatic: no lymphadenopathy noted and no lymphedema noted Resp Resp Narrative: diminished breath sounds bibasally, no wheezes or crackles.On 3L of oxygen by nasal canula Cardio regular rate, regular rhythm, S1 normal heart sound, S2 normal heart sound and no murmurs GI normal to inspection, nondistended, normoactive bowel sounds, soft to palpation, non-tender and non-distended GI Narrative: PEG tube in situ Extremity normal capillary refill, no clubbing, cyanosis or edema and no calf tenderness General Extremity: no tenderness to palpation of joints or extremities Neuro CN's II-XII intact bilaterally, no focal motor deficits, no sensory deficits noted and deep tendon reflexes 2+ bilaterally Motor Exam: strength 5/5 throughout Psych thought process normal, cooperative and affect normal Appearance: appropriate Assessment & Plan Assessment/Plan (1) Pulmonary embolus: (2) Mass of upper lobe of right lung: (3) Acute hypoxemic respiratory failure: (4) Infiltrate of upper lobe of right lung present on imaging study: PLAN: Plan #Right upper lobe PE Currently on heparin drip. pulmonology consulted; will benefit from biopsy, likely through bronchoscopy due to lung mass to put on oral anticoagulant via PEG tube once biopsy is done. #Right lung mass CTA chest showed large right infiltrative hilar mass encasing and nearly occluding the proximal branches of the right pulmonary artery with tiny intraluminal clots within the proximal pulmonary artery. In light of his past medical history of cancer, this may likely be malignant. Will therefore consult pulmonology and will need a biopsy of the mass. #Dysphagia in the setting of esophageal cancer has PEG Tube in situ. Tube feeds via PEG tube. #Anxiety and depression: #DVT prophylaxis: heparin drip Charges/Coding Visit Charges Inpatient E&M: 58278 Subs Hosp L2
[2023-11-12 13:38] LABS: Partial Thromboplast Time 54.3 Seconds (24.1-36.2)
[2023-11-12 20:43] LABS: Partial Thromboplast Time 72.2 Seconds (24.1-36.2)
[2023-11-12] MEDS: Ondansetron ODT 4 MG Tablet 8 MG GT (21:39)
[2023-11-13] VITALS (14 sets, daily range): BP systolic 94–155; BP diastolic 57–93; PULSE 90–118; RESP 15–18; TEMP 36.2–36.9; O2SAT 91–96
--- NOTE | 2023-11-13 | IMM_PTH ---
PATIENT: ORTEGA DUKES LOC: MS3 U#:[id number] AGE/SX: 58/M ROOM: MS318 RE11/10/[address]: Dr. Adriana Gonzales MD : 1965 BED: 1 DIS: 11/16/2023 SPEC #: [id number] RECD: 11/14/23 12:42 STATUS: SOUT REQ #: [id number] KAILASH: 11/13/23 00:[address]: Cayden Hook DEPT: IMMUNOHISTOCHEMISTRY RECD BY: Patty Prado ENTERED: 11/14/23 12:44 SP TYPE: IMMUNO OTHR DR: MD Dr. Norbert Cavazos MD Dr. Gautam Baskaran, MD Dr. Yordanos Habtegebriel, MD Dr. Hemant Dand, MD Dr. Joey Romar, DO Dr. Kimber Foust, MD Dr. Lamia Aljundi, MD Dr. Nana Yaa Koram, MD Dr. Nicholas F Kotsonis, MD Dr. Pavan Irukulla, MD Dr. Saad Farooqi, MD Dr. Vikram Anand, MD Dr. William Haden, MD Tissues: Lung, NOS Procedures: RCC (add) NAPSIN A (add) CK20 (add) CK5-6 (add) CK7 (add) CK8 (add) HEP PAR (add) TTF1 (add) Pankeratin (initial) P40 (add) PSAP (add) PHYSICIAN [facility] INSTITUTION [address] [address] SPECIMEN INFORMATION: Tissue Source: Bronchus intermedius Clinical Info: Abnormal chest CT Specimen Number: [id number] CPT code: 26862r10 METHODOLOGY: Deparaffinized sections of prefer/formalin-fixed tissue or PAP/DQ stained slides are incubated with monoclonal/polyclonal antibodies/oligonucleotide probes. Localization is made via biotin free immunoperoxidase method. Appropriate controls are performed and reacted as expected. Results on target cell population are indicated in the following table: RESULTS: ANTIBODY / CLONE RESULT AE1-3 (AE1/AE3/PCK26) positive CK7 (OV-TL12/30) negative CK8 (92mjbkB17) negative CK20 (KS20.8) negative TTF-1 (8G7G3/1) negative Napsin A (Rabbit Polyclonal) negative HepPar (OCh1E5) negative RCC (PN-15) negative PSAP (PASE/4LJ) negative CK5-6 (D5 & 1684) positive P40 (BC28) positive These tests were developed and their performance characteristics determined by [facility]. They may not have been cleared or approved by the U.S. Food and Drug Administration. The FDA has determined that such clearance or approval is not necessary. The above immunohistochemical/dualISH markers are ordered and reviewed by the Pathologist. INTERPRETATION: Bronchus intermedius, biopsy; Moderately differentiated squamous cell carcinoma. SJ/mr 11/15/23
--- NOTE | 2023-11-13 | FLU_PTH ---
PATIENT: ORTEGA DUKES LOC: MS3 U#:[id number] AGE/SX: 58/M ROOM: PR318 RE11/10/[address]: Dr. Adriana Gonzales MD : 1965 BED: 1 DIS: 11/16/2023 SPEC #: [id number] RECD: 11/13/23 13:54 STATUS: SOUT REQ #: [id number] KAILASH: 11/13/23 00:[address]: Adriana Gonzales DEPT: CYTOLOGY RECD BY: Charles Ansari ENTERED: 11/13/23 13:54 SP TYPE: Fluid OTHR DR: MD Dr. Norbert Cavazos MD Dr. Derek Brown, DO Dr. Gautam Baskaran, MD Dr. Yordanos Habtegebriel, MD Dr. Hemant Dand, MD Dr. Joey Romar, DO Dr. Kimber Foust, MD Dr. Lamia Aljundi, MD Dr. Nicholas F Kotsonis, MD Dr. Pavan Irukulla, MD Dr. Saad Farooqi, MD Dr. Vikram Anand, MD Dr. William Haden, MD Tissues: A - Lung, NOS B - Lung, NOS C - Lung, NOS Procedures: Special Stain Group II Surgery Specimen Level IV Cytospin Fluid HEADER OPERATION: Bronchoscopy with biopsy PRE-OP DIAGNOSIS: Abnormal chest CT TISSUE SUBMITTED: A- Washings Right middle lobe, B- [place], C- Smearsx3 DIAGNOSIS CYTOLOGY A. Right middle lobe washing (cytospin and cell block); Malignant cells present derived from squamous cell carcinoma. B. [place] (cytospin and cellblock); Malignant cells present derived from squamous cell carcinoma. C. Right middle lobe brushings (smears); Rare atypical cells noted, suspicious for malignancy. /mr 11/14/2023 COMMENT Please make reference to additional surgical specimen [id number] from bronchus intermedius, biopsy diagnosis of moderately differentiated squamous cell carcinoma. Case has been reviewed in consultation with Dr. Montes who concurs with the above diagnosis. IDC:AM CYTOLOGY STUDY Slides are reviewed. CYTOLOGY GROSS A. Received is 15 ml of red cloudy fluid labeled with the patient's name and and designated per the requisition as Right middle lobe. Submitted for cytology preparation including cell block. B. Received is a metallic endoscopic cytobrush with adherent minute fragments of -red tissue brush in 2 ml of clear red fluid and labeled with the patient's name and and designated per the requisition as brush. The material is dislodged from the brush and submitted for cytology preparation including cell block. C. Received are 3 smears labeled with the patient's name and designated per the requisition as Right middle lobe. Submitted for staining. Mr 11/13/23 TC:0 CPT: 97962W2,61752R8,34821
--- NOTE | 2023-11-13 | LUNG_PTH ---
PATIENT: ORTEGA DUKES LOC: MS3 U#:[id number] AGE/SX: 58/M ROOM: LA318 RE11/10/[address]: Dr. Adriana Gonzales MD : 1965 BED: 1 DIS: 11/16/2023 SPEC #: [id number] RECD: 11/13/23 13:53 STATUS: SOILA REQ #: [id number] KAILASH: 11/13/23 00:[address]: Adriana Gonzales DEPT: SURGICAL PATHOLOGY RECD BY: Charles Ansari ENTERED: 11/13/23 13:54 SP TYPE: LUNG BX OTHR DR: MD Dr. Norbert Cavazos MD Dr. Derek Brown, DO Dr. Gautam Baskaran, MD Dr. Yordanos Habtegebriel, MD Dr. Hemant Dand, MD Dr. Joey Romar, DO Dr. Kimber Foust, MD Dr. Lamia Aljundi, MD Dr. Nicholas F Kotsonis, MD Dr. Pavan Irukulla, MD Dr. Saad Farooqi, MD Dr. Vikram Anand, MD Dr. William Haden, MD Tissues: Lung, NOS Procedures: Surgery Specimen Level IV HEADER OPERATION: Bronchoscopy with biopsy PRE-OP DIAGNOSIS: Abnormal chest CT TISSUE SUBMITTED: Bronchus Intermedius MICROSCOPIC DIAGNOSIS Bronchus intermedius , biopsy; Moderately differentiated squamous cell carcinoma. See comment. SJ/mr 11/14/2023 COMMENT Immunohistochemistry ([id number]) supports the above diagnosis. Please make reference to additional cytology specimen ([id number]) Right middle lobe washing and right middle lobe brush with diagnosis of malignant cells present derived from squamous cell carcinoma and right middle lobe brushings (smears) with diagnosis of rare atypical cells noted, suspicious for malignancy. Molecular studies on the tumor can be performed if clinically indicated. Please notify the laboratory if they are needed. Please make reference to previous specimen [id number]. Mid esophagus, biopsy with diagnosis of squamous cell carcinoma in situ to with focal area highly suspicious for invasive squamous cell carcinoma. Case has been reviewed in consultation with Dr. Montes who concurs with the above diagnosis. IDC:AM MICROSCOPIC DESCRIPTION Slides are reviewed. GROSS DESCRIPTION Received in fixative is one container labeled with the patient's name and designated Bronchus Intermedius. The specimen consists of multiple irregular fragments of light soft tissue that in aggregate measure 0.5 x 0.5 x 0.1 cm. The specimen is totally submitted in one cassette. ALEXANDER/ 11/13/23 TC:0 CPT: 28645
[2023-11-13 03:08] LABS: Partial Thromboplast Time 59.3 Seconds (24.1-36.2)
[2023-11-13] MEDS: Ipratropium/Albuterol Sulfate 3 ML AMPUL.NEB INHALATION ×3 (05:10→19:44)
[2023-11-13] MEDS: Metoclopramide 5 MG TABLET GT ×2 (06:10→16:24)
[2023-11-13] MEDS: oxyCODONE 5 MG Tablet 40 MG GT ×4 (06:10→21:27)
[2023-11-13] MEDS: ISOSOURCE GT ×4 (06:15→21:37)
[2023-11-13] MEDS: HEPARIN/D5w 25,000 UNITS 25,000 UNITS/250 ML IV.SOLN. 13 UNITS CONT INF (06:17)
[2023-11-13 06:40] LABS: Partial Thromboplast Time 55.8 Seconds (24.1-36.2)
--- NOTE | 2023-11-13 07:49 | CON.PCM.CC_ITS ---
Assessment & Plan Assessment/Plan (1) Mass of upper lobe of right lung: PLAN: Plan RECOMMENDATIONS: 1. Hold heparin infusion for now. 2. Tentative plans for bronchoscopy later this morning. 3. Recommend starting antibiotics over concerns for postobstructive pneumonia. 4. Recommend proceeding with ultrasound-guided thoracentesis, with pleural fluid to be sent for cytology. IMPRESSIONS: 1. 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 Findings noted on chest imaging are concerning for right hilar lung mass with possible postobstructive pneumonia and right-sided pleural effusion. The patient was initiated on a heparin infusion due to the incidental note of a small PE identified on the imaging study. At this time, I have recommended that his heparin be placed on hold. Plan to proceed with bronchoscopy later this morning for airway evaluation and potential biopsy. If there is no evidence of extrinsic compression or endobronchial involvement, the patient may need to be scheduled for an EBUS on an outpatient basis. In the interim, I would recommend that the patient undergo a thoracentesis as well with pleural fluid to be sent for cytology. 2. History of prior alcohol and tobacco dependency/history of oral/esophageal squamous cell carcinoma Complicates care, management, recovery and prognosis. Continue supportive measures as noted above. This note was generated with latakoo dictation software. It may contain incorrect words, spelling, and punctuation that were not noted in checking the note before signing. HPI Consult Data Date of Consult: 11/13/23 HPI Narrative Reason for Consultation: Hilar lung mass HPI Narrative: The patient is a 58-year-old male, with a history as outlined below, who presented to the emergency department on November 09 with progressive shortness of breath. The patient has a known history of prior alcohol and tobacco dependency along with a history of oral/esophageal squamous cell carcinoma status po stresection with mandible reconstruction in July 2021 followed by adjuvant radiation. The patient has been followed on an outpatient basis by Dr. Parham and Celeste. 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 From 10/07/2021 ? 11/17/2021 he received adjuvant radiation therapy. Due to nausea and vomiting with some increase in dysphagia he had EGD (03/10/2022) demonstrating an ulcerating mass in the middle third of the esophagus with pathology consistent for squamous cell carcinoma and has had CT abdomen/pelvis (03/09/2022), CT chest (03/10/2022), and PET scan (03/23/2022). From ? 05/20/2022 he received definitive chemoradiation to the esophageal SCC. The patient had pet imaging last completed in May 2023 which demonstrated uptake again in the posterior pharyngeal mucosa. The patient currently has a G- tube and receives all of his nutrition through this route. On presentation to the emergency department, the patient was documented to be afebrile and hemodynamically stable. He was initially saturating 86% on room air. Laboratory evaluation revealed no evidence of a leukocytosis. Chemistry profile was unrevealing. CTA chest demonstrated a small intraluminal clot within the proximal branch of the right upper lobe pulmonary artery. There was a large right hilar lung mass with groundglass opacities in the right upper lobe along with partial collapse of the right middle lobe and consolidation of the right lower lobe with an associated pleural effusion. The patient was subsequently placed on bronchodilators and a heparin infusion. He was admitted to the hospital for further management. 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 pigmented nevi Nothing allowed by mouth Oral candidiasis Oropharyngeal cancer Radiation dermatitis Right shoulder pain Sleep apnea Uses wheelchair Wears glasses Home Medications oxycodone 5 mg/5 mL oral solution 40 mg PO Q4H PRN Pain 12/16/21 [History Last Taken 02/16/23] gabapentin 250 mg/5 mL oral solution 6 ml feeding tube TID nerve pain 03/09/22 [History Last Taken 03/04/22] ondansetron 8 mg disintegrating tablet 8 mg PO Q8H PRN nausea and vomiting #90 tabs 04/01/22 [Rx Last Taken Unknown] metoclopramide HCl 5 mg tablet (Reglan) 5 mg feeding tube BID 04/07/22 [History Last Taken Unknown] guaifenesin 100 mg/5 mL oral liquid 200 mg (10 mL) PO Q4H PRN congestion #1,000 mL 04/26/22 [Rx Last Taken Unknown] famotidine 40 mg tablet 40 mg PO BID stomach' #60 tabs 05/04/23 [Rx Last Taken Unknown] lorazepam 1 mg tablet 1 mg PO BID 05/22/23 [History Last Taken Unknown] sertraline 100 mg tablet 100 mg PO DAILY depression 05/22/23 [History Last Taken Unknown] miscellaneous medical supply See Rx Instructions miscellaneous .COMPLEX feed' #10 ea 05/26/23 [Rx Last Taken Unknown] Allergy/AdvReac Type Severity Reaction Status Date / Time No Known Allergies Allergy Verified 11/10/23 13:55 Family History Father Cancer LUNG Brother Cancer ESOPHAGEAL Surgical History History of esophagogastroduodenoscopy (EGD) History of mandibular surgery History of removal of Port-a-Cath Status post insertion of percutaneous endoscopic gastrostomy (PEG) tube Status post reconstruction procedure Social History household members: none housing: house number of children: 0 current occupational status: disabled pets and animals: No Smoking Status: Former smoker quit date: 07/28/21 pack-years: 60 Tobacco: How many years used: 30 how long ago did patient quit smoking: July 2021, smoked [id number] alcohol intake: former year quit: 2020 details: Sober since 07/2021. substance use type: does not use do you feel safe at home: Yes ROS ROS Narrative 10 systems were reviewed with pertinent positives as noted in the HPI above. Physical Exam Const alert and no apparent distress General Appearance: cooperative HEENT head/scalp atraumatic Eyes PERRL, EOMs intact bilaterally and conjunctivae normal Neck supple General: trachea midline Chest inspection of chest normal Resp Auscultation: diminished lung sounds Cardio regular rate and regular rhythm GI soft to palpation and non-tender Inspection: GI tube present Extremity no clubbing, cyanosis or edema Skin no rashes or lesions noted Neuro CN's II-XII intact bilaterally and no focal motor deficits Psych cooperative and affect normal Lab / Micro Data 11/12/23 06:20 11/12/23 06:20 Labs: Laboratory Results - last 24 hr 11/12/23 06:20: WBC 4.7, RBC 4.03 L, Hgb 11.7 L, Hct 36.7 L, MCV 91.1, MCH 29.0, MCHC 31.9 L, RDW Std Deviation 43.3, RDW Coeff of Jose 13.0, Plt Count 264, MPV 9.5, Immature Gran % (Auto) 0.400, Neut % (Auto) 81.1 H, Lymph % (Auto) 8.8 L, Morgan % (Auto) 6.9, Eos % (Auto) 1.9, Baso % (Auto) 0.9, Absolute Neuts (auto) 3.8, Absolute Lymphs (auto) 0.41 L, Nucleated RBC % 0.4, Sodium 137, Potassium 3.6, Chloride 104, Carbon Dioxide 27.0, Anion Gap 6, BUN 13, Creatinine 0.69 L, Estim Creat Clear Calc 138.90, Est GFR (MDRD) Af Amer 151, Est GFR (MDRD) Non-Af 125, BUN/Creatinine Ratio 18.7, Glucose 126 H, Calcium 9.7 11/12/23 13:18: APTT 54.3 H 11/12/23 19:35: APTT 72.2 H 11/13/23 01:47: APTT 59.3 H 11/13/23 06:06: APTT 55.8 H Rhythm Strip Rhythm Strip: Sinus Tach Rate: 102 Ectopy: None Charges/Coding Visit Charges Inpatient E&M: 78884 Init Hosp L3
[2023-11-13 07:51] LABS: Anion Gap 6 (5-15); BUN 14 mg/dL (7-18); BUN/Creat Ratio 20.5 RATIO (10-20); Calcium,Total 9.4 mg/dL (8.5-10.1); Chloride 103 mmol/L (98-107); Creatinine, Serum 0.68 mg/dL (0.70-1.30); EST Glomerular Filtration Rate 127 mL/min (>60); Est Glom Filt Rate - Afr Amer 154 mL/min (>60); Estimated Creatinine Clearance 140.94 ml/min; Glucose 112 mg/dL (74-106); Potassium 3.9 mmol/L (3.5-5.1); Sodium Level 140 mmol/L (136-145)
[2023-11-13 08:11] LABS: Absolute Lymphocyte Count 0.84 X10^3/uL (0.83-4.51); Absolute Neutrophil Count 3.2 X10^3/uL (2.0-7.7); Basophil# 0.03 X10^3/uL; Basophil% 0.6 % (0-1); Eosinophil# 0.15 X10^3/uL; Eosinophils% 3.1 % (0-5); Hematocrit 36.4 % (40-54); Hemoglobin 11.8 g/dL (13.0-16.5); Lymphocyte # 0.84 X10^3/ul (0.83-4.51); Lymphocyte % 17.6 % (19-41); Mean Corp Hgb Conc 32.4 g/dL (32-36); Mean Corpuscular Hgb 30.1 pg (27.0-32.0); Mean Corpuscular Volume 92.9 fL (80-94); Mean Platelet Vol. 9.6 fl (6.2-12.0); Monocyte# 0.53 X10^3/uL; Monocyte% 11.1 % (0-10); NRBC Flagged by Analyzer 0 % (0-5); Neutrophil # 3.21 X10^3/uL (2.7-7.7); Neutrophil % 67.2 % (47-70); Platelet Count 281 K/mm3 (150-450); RBC Distribution Width CV 13.1 % (11.6-14.6); Red Blood Count 3.92 M/mm3 (4.6-6.2); White Blood Count 4.8 K/mm3 (4.4-11.0)
[2023-11-13 09:10] LABS: International Normalized Ratio 1.2; Prothrombin Time (Protime)PT. 15.4 SECONDS (11.7-14.9)
[2023-11-13] MEDS: Piperacil/Tazobactam 3.375 GM in 0.9% Normal Saline (50mL MB+) 50 ML IV ×3 (09:23→21:27)
--- NOTE | 2023-11-13 10:30 | PN_ITS ---
Subjective Subjective Patient seen and examined. He had no active complaints. Review of systems otherwise negative. Pulmonology consulted he is due for bronchoscopy later today. Objective Data Objective Data Vital Signs: Vital Signs Temp Pulse Resp BP Pulse Ox O2 Del Method O2 Flow Rate 97.6 F L 114 H 18 132/86 H 95 Nasal Cannula 2 11/13/23 08:00 11/13/23 08:00 11/13/23 08:00 11/13/23 08:00 11/13/23 08:00 11/13/23 10:10 11/13/23 08:00 Oxygen Flow Rate (L/min) 2 Oxygen Delivery Method Nasal Cannula Weight: 209 lb 3.499 oz Body Mass Index (BMI) 29.2 Intake & Output: Intake and Output for Last 24 Hours 11/11/23 11/12/23 11/13/23 23:59 23:59 23:59 Intake Total 969.10 / 969.10 1185.05 / 1185.05 656.80 / 656.80 Output Total 750 / 750 600 / 600 400 / 400 Balance 219.10 / 219.10 585.05 / 585.05 256.80 / 256.80 Lab / Micro Data 11/13/23 01:47 11/13/23 01:47 Labs: Laboratory Results - last 24 hr 11/12/23 13:18: APTT 54.3 H 11/12/23 19:35: APTT 72.2 H 11/13/23 01:47: WBC 4.8, RBC 3.92 L, Hgb 11.8 L, Hct 36.4 L, MCV 92.9, MCH 30.1, MCHC 32.4, RDW Std Deviation 44.0 H, RDW Coeff of Jose 13.1, Plt Count 281, MPV 9.6, Immature Gran % (Auto) 0.400, Neut % (Auto) 67.2, Lymph % (Auto) 17.6 L, [place] % (Auto) 11.1 H, Eos % (Auto) 3.1, Baso % (Auto) 0.6, Absolute Neuts (auto) 3.2, Absolute Lymphs (auto) 0.84, Nucleated RBC % 0, APTT 59.3 H, Sodium 140, Potassium 3.9, Chloride 103, Carbon Dioxide 31.0, Anion Gap 6, BUN 14, Creatinine 0.68 L, Estim Creat Clear Calc 140.94, Est GFR (MDRD) Af Amer 154, Est GFR (MDRD) Non-Af 127, BUN/Creatinine Ratio 20.5 H, Glucose 112 H, Calcium 9.4 11/13/23 06:06: PT 15.4 H, INR 1.2, APTT 55.8 H Rhythm Strip Rhythm Strip: Sinus Tach Rate: 102 Ectopy: None Physical Exam Const alert, oriented x3 and no apparent distress General Appearance: cooperative and well developed HEENT normocephalic, head/scalp atraumatic, moist oral mucous membranes and oropharynx normal Neck no lymphadenopathy, supple and no JVD Lymph Lymphatic: no lymphadenopathy noted and no lymphedema noted Resp Resp Narrative: diminished breath sounds bibasally, no wheezes or crackles.On 3L of oxygen by nasal canula Cardio regular rate, regular rhythm, S1 normal heart sound, S2 normal heart sound and no murmurs GI normal to inspection, nondistended, normoactive bowel sounds, soft to palpation, non-tender and non-distended GI Narrative: PEG tube in situ Extremity normal capillary refill, no clubbing, cyanosis or edema and no calf tenderness General Extremity: no tenderness to palpation of joints or extremities Neuro CN's II-XII intact bilaterally, no focal motor deficits, no sensory deficits noted and deep tendon reflexes 2+ bilaterally Motor Exam: strength 5/5 throughout and general weakness Psych thought process normal, cooperative and affect normal Appearance: appropriate Assessment & Plan Assessment/Plan (1) Pulmonary embolus: (2) Mass of upper lobe of right lung: (3) Acute hypoxemic respiratory failure: (4) Infiltrate of upper lobe of right lung present on imaging study: PLAN: Plan #Right upper lobe PE * Currently on heparin drip. * pulmonology consulted; for bronchoscopy today * to put on oral anticoagulant via PEG tube once biopsy is done. * #Right lung mass * CTA chest showed large right infiltrative hilar mass encasing and nearly occluding the proximal branches of the right pulmonary artery with tiny intraluminal clots within the proximal pulmonary artery. * In light of his past medical history of cancer, this may likely be malignant. * Pulmonology consulted. For bronchoscopy today * #Dysphagia in the setting of esophageal cancer * has PEG Tube in situ. Tube feeds via PEG tube. * #Anxiety and depression: #DVT prophylaxis: heparin drip Charges/Coding Visit Charges Inpatient E&M: 03948 Subs Hosp L2
[2023-11-13] MEDS: Lactated Ringers 1,000 ML 15 ML IV (10:36)
[2023-11-13] MEDS: 0.9% Normal Saline (Pres. free 10 ML Vial (11:45)
[2023-11-13] MEDS: Lidocaine Jelly 2% 20 ML Syringe (URO-JET) 1 APPLIC (11:45)
[2023-11-13] MEDS: Epinephrine (1 mg/ml) 1 MG/ML VIAL (11:45)
[2023-11-13] MEDS: Lidocaine 2% (5ml sdv) 5 ML VIAL.MPF (11:45)
--- NOTE | 2023-11-13 12:11 | OP.BRONCH_ITS ---
Patient Name: Jaleel Esparza Procedure Date: 11/13/2023 11:32 AM Date of : 1965 Age: 58 Procedure: Bronchoscopy Indications: Abnormal CT scan of chest Providers: Cayden Hook MD Medicines: Monitored Anesthesia Care Complications: No immediate complications Procedure: Pre-Anesthesia Assessment: - A History and Physical has been performed. Patient meds and allergies have been reviewed. The risks and benefits of the procedure and the sedation options and risks were discussed with the patient. All questions were answered and informed consent was obtained. Patient identification and proposed procedure were verified prior to the procedure by the physician and the nurse in the procedure room. Mental Status Examination: alert and oriented. Airway Examination: normal oropharyngeal airway. Respiratory Examination: poor air movement. CV Examination: normal. ASA Grade Assessment: III - A patient with severe systemic disease. After reviewing the risks and benefits, the patient was deemed in satisfactory condition to undergo the procedure. The anesthesia plan was to use monitored anesthesia care (MAC). Immediately prior to administration of medications, the patient was re-assessed for adequacy to receive sedatives. The heart rate, respiratory rate, oxygen saturations, blood pressure, adequacy of pulmonary ventilation, and response to care were monitored throughout the procedure. The physical status of the patient was re-assessed after the procedure. After I obtained informed consent, the scope was passed under direct vision. Throughout the procedure, the patient's blood pressure, pulse, and oxygen saturations were monitored continuously. The bronchoscope was introduced through the mouth and advanced to the tracheobronchial tree. The procedure was accomplished without difficulty. The patient tolerated the procedure well. Findings: The nasopharynx/oropharynx appears normal. The larynx appears normal. The vocal cords appear normal. The subglottic space is normal. The trachea is of normal caliber. The rachell is sharp. The tracheobronchial tree of the left lung was examined to at least the first subsegmental level. Bronchial mucosa and anatomy in the left lung are normal; there are no endobronchial lesions, and no secretions. Right Lung Abnormalities: A partially obstructing mass was found in the bronchus intermedius. The mass was endobronchial. The lesion was not traversed. Endobronchial biopsies were performed in the bronchus intermedius using forceps and sent for routine cytology. Two samples were obtained. Guided protected brushings were obtained in the bronchus intermedius with a cytology brush and sent for routine cytology. One sample was obtained. Washings were obtained in the bronchus intermedius and sent for cell count, bacterial culture, viral smears & culture, and fungal & AFB analysis and cytology. The return was bloody. Topical epinephrine 1 mg/10 mL was administered. The bleeding stopped. Impression: - Abnormal CT scan of chest - The airway examination of the left lung was normal. - An endobronchial mass was found in the bronchus intermedius. - An endobronchial biopsy was performed. - Protected brushings were obtained. - Washings were obtained. Recommendation: - Await biopsy, brushing and washing results. Procedure Code(s): --- Professional --- 21143, Bronchoscopy, rigid or flexible, including fluoroscopic guidance, when performed; with bronchial or endobronchial biopsy(s), single or multiple sites 98022, Bronchoscopy, rigid or flexible, including fluoroscopic guidance, when performed; with brushing or protected brushings Diagnosis Code(s): --- Professional --- R93.89, Abnormal findings on diagnostic imaging of other specified body structures J98.9, Respiratory disorder, unspecified CPT copyright 2021 [employer]. All rights reserved. The codes documented in this report are preliminary and upon practice billing associate review may be revised to meet current compliance requirements. DO Cayden Foley MD 11/13/2023 12:10:55 PM This report has been signed electronically. Number of Addenda: 0 Note Initiated On: 11/13/2023 11:32 AM
[2023-11-13 12:36] LABS: Cytology, Washings SEE PATHOLOGY REPORT
[2023-11-13 12:50] LABS: M R Staph aureus DNA By PCR Negative (Negative); Probe Check PASS; Specimen Processing Control PASS
[2023-11-13] MEDS: GABAPENTIN 250 MG/5 ML SOLUTION 300 MG GT ×2 (13:18→17:34)
[2023-11-13 14:49] LABS: Lymphocytes 21 %; Neutrophil (Segs) 4 %
[2023-11-13 14:53] LABS: Mesothelial Cells 5 %
[2023-11-13 14:54] LABS: Appearance/Body Fluid CLOUDY; Color/Body Fluid RED; Red Cell Count/Body Fluid 11110 /mm3; Source- Body Fluid BRONCHIAL LAVAGE
[2023-11-13 14:55] LABS: Other Cell Type/BF 70 %; White Blood Count/Body Fluid 133 /mm3
--- NOTE | 2023-11-13 16:35 | CASEMGMT ---
Social Work SW met with pt to validate advance directives. Pt has never completed documents but would like to complete at this time. SW reviewed living will and HCPOA with pt and assisted in completing. Pt naming his friend Randa Robles as HCPOA. Original given to pt and copy placed on pt chart. DAVID Tatum
[2023-11-13] MEDS: LORazepam 1 MG Tablet GT (21:26)
[2023-11-13] MEDS: Famotidine 20 MG Tablet 40 MG PO (21:26)
[2023-11-13] MEDS: Ondansetron ODT 4 MG Tablet 8 MG GT (21:27)
[2023-11-14] VITALS (12 sets, daily range): BP systolic 103–129; BP diastolic 60–80; PULSE 82–111; RESP 18–23; TEMP 36.5–36.9; O2SAT 85–97
--- NOTE | 2023-11-14 | IMM_PTH ---
PATIENT: ORTEGA DUKES LOC: MS3 U#:[id number] AGE/SX: 58/M ROOM: [facility]318 RE11/10/[address]: Dr. Adriana Gonzales MD : 1965 BED: 1 DIS: 11/16/2023 SPEC #: [id number] RECD: 11/15/23 13:38 STATUS: SOUT REQ #: [id number] KAILASH: 11/14/23 00:[address]: Adriana Gonzales DEPT: IMMUNOHISTOCHEMISTRY RECD BY: Rui Bedolla ENTERED: 11/15/23 13:41 SP TYPE: IMMUNO OTHR DR: MD Dr. Norbert Cavazos MD Dr. Derek Brown, DO Dr. Gautam Baskaran, MD Dr. Yordanos Habtegebriel, MD Dr. Hemant Dand, MD Dr. Joey Romar, DO Dr. Kimber Foust, MD Dr. Lamia Aljundi, MD Dr. Nicholas F Kotsonis, MD Dr. Pavan Irukulla, MD Dr. Saad Farooqi, MD Dr. Vikram Anand, MD Dr. William Haden, MD Tissues: THORACIC FLUID Procedures: RCC (add) NAPSIN A (add) Ambrocio Ret (add) CK20 (add) CK5-6 (add) CK7 (add) HEP PAR (add) TTF1 (add) Vimentin (add) Pankeratin (initial) P40 (add) PSAP (add) CD68 (ADD) PHYSICIAN & INSTITUTION [address] [address] SPECIMEN INFORMATION: Tissue Source: Thoracentesis Clinical Info: Right pleural effusion Specimen Number: [id number] CPT code: 59373,[id number] METHODOLOGY: Deparaffinized sections of prefer/formalin-fixed tissue or PAP/DQ stained slides are incubated with monoclonal/polyclonal antibodies/oligonucleotide probes. Localization is made via biotin free immunoperoxidase method. Appropriate controls are performed and reacted as expected. Results on target cell population are indicated in the following table: RESULTS: ANTIBODY / CLONE RESULT AE1-3 (AE1/AE3/PCK26) negative* CK7 (OV-TL12/30) negative* CK8 (70ujygU14) negative * CK20 (KS20.8) negative* Vimentin (V9) negative* CD68 (KP-1) negative (positive in macrophages) TTF-1 (8G7G3/1) negative Napsin A (Rabbit Polyclonal) negative HepPar (OCh1E5) negative RCC (PN-15) positive, rare cells (aberrant staining) PSAP (PASE/4LJ) negative CALRET (polyclonal) negative* CK5-6 (D5 & 1684) negative* P40 (BC28) negative *Positive in mesothelial cells These tests were developed and their performance characteristics determined by [facility]. They may not have been cleared or approved by the U.S. Food and Drug Administration. The FDA has determined that such clearance or approval is not necessary. The above immunohistochemical/dualISH markers are ordered and reviewed by the Pathologist. INTERPRETATION: Thoracentesis (cellblock); Negative for malignant cells. See comment. ALEXANDER/ 11/16/23 Comment: Reactive mesothelial cells are noted
[2023-11-14] MEDS: Metoclopramide 5 MG TABLET GT ×2 (05:01→16:08)
[2023-11-14] MEDS: oxyCODONE 5 MG Tablet 40 MG GT ×5 (05:02→21:46)
[2023-11-14] MEDS: ISOSOURCE GT ×5 (05:16→21:56)
[2023-11-14] MEDS: Piperacil/Tazobactam 3.375 GM in 0.9% Normal Saline (50mL MB+) 50 ML IV ×3 (05:17→21:47)
[2023-11-14] MEDS: Ipratropium/Albuterol Sulfate 3 ML AMPUL.NEB INHALATION ×3 (07:20→19:56)
[2023-11-14 07:57] LABS: Absolute Lymphocyte Count 0.51 X10^3/uL (0.83-4.51); Absolute Neutrophil Count 6.6 X10^3/uL (2.0-7.7); Basophil# 0.01 X10^3/uL; Basophil% 0.1 % (0-1); Hematocrit 36.8 % (40-54); Hemoglobin 12.1 g/dL (13.0-16.5); Lymphocyte # 0.51 X10^3/ul (0.83-4.51); Lymphocyte % 6.6 % (19-41); Mean Corp Hgb Conc 32.9 g/dL (32-36); Mean Corpuscular Hgb 29.4 pg (27.0-32.0); Mean Corpuscular Volume 89.3 fL (80-94); Mean Platelet Vol. 9.3 fl (6.2-12.0); Monocyte# 0.52 X10^3/uL; Monocyte% 6.7 % (0-10); NRBC Flagged by Analyzer 0 % (0-5); Neutrophil # 6.64 X10^3/uL (2.7-7.7); Neutrophil % 86.2 % (47-70); POSITIVE DIFFERENTIAL YES; Platelet Count 314 K/mm3 (150-450); RBC Distribution Width CV 12.7 % (11.6-14.6); RBC Distribution Width SD 41.3 fl (35.1-43.9); Red Blood Count 4.12 M/mm3 (4.6-6.2); White Blood Count 7.7 K/mm3 (4.4-11.0)
[2023-11-14 08:36] LABS: ALB/GLOB Ratio 0.6 RATIO (0.9-2.4); Globulin 4.7 g/dL (2.2-4.2); LDH 178 U/L (87-241); Protein, Total 7.5 g/dL (6.4-8.2)
[2023-11-14 08:41] LABS: Anion Gap 7 (5-15); BUN 15 mg/dL (7-18); BUN/Creat Ratio 19.8 RATIO (10-20); Calcium,Total 9.8 mg/dL (8.5-10.1); Chloride 105 mmol/L (98-107); Creatinine, Serum 0.76 mg/dL (0.70-1.30); EST Glomerular Filtration Rate 113 mL/min (>60); Est Glom Filt Rate - Afr Amer 137 mL/min (>60); Estimated Creatinine Clearance 126.11 ml/min; Glucose 153 mg/dL (74-106); Potassium 3.9 mmol/L (3.5-5.1); Sodium Level 138 mmol/L (136-145)
[2023-11-14] MEDS: Famotidine 20 MG Tablet 40 MG PO ×2 (09:05→21:46)
[2023-11-14] MEDS: GABAPENTIN 250 MG/5 ML SOLUTION 300 MG GT ×3 (09:06→17:24)
[2023-11-14] MEDS: LORazepam 1 MG Tablet GT ×2 (09:06→21:47)
[2023-11-14] MEDS: Sertraline 100 MG Tablet GT (09:06)
[2023-11-14] MEDS: Lidocaine 2% (20 ml mdv) 20 ML Vial INFILT (09:45)
--- NOTE | 2023-11-14 09:49 | FLU_PTH ---
PATIENT: ORTEGA DUKES LOC: MS3 U#:[id number] AGE/SX: 58/M ROOM: [facility]318 RE11/10/[address]: Dr. Adriana Gonzales MD : 1965 BED: 1 DIS: 11/16/2023 SPEC #: [id number] RECD: 11/14/23 10:03 STATUS: SOILA REQ #: [id number] KAILASH: 11/14/23 09:[address]: Adriana Gonzales DEPT: CYTOLOGY RECD BY: Tiff Prieto ENTERED: 11/14/23 12:54 SP TYPE: Fluid OTHR DR: MD Dr. Norbert Cavazos MD Dr. Derek Brown, DO Dr. Gautam Baskaran, MD Dr. Yordanos Habtegebriel, MD Dr. Hemant Dand, MD Dr. Joey Romar, DO Dr. Kimber Foust, MD Dr. Lamia Aljundi, MD Dr. Nicholas F Kotsonis, MD Dr. Pavan Irukulla, MD Dr. Saad Farooqi, MD Dr. Vikram Anand, MD Dr. William Haden, MD Tissues: THORACIC FLUID Procedures: Special Stain Group II Surgery Specimen Level IV Cytospin Fluid HEADER OPERATION: Ultrasound guided thoracentesis PRE-OP DIAGNOSIS: Right pleural effusion TISSUE SUBMITTED: Thoracentesis for cytology DIAGNOSIS CYTOLOGY Thoracentesis for cytology (cytospin and cellblock); Negative for malignant cells See comment. ALEXANDER/mr 11/16/2023 COMMENT Immunohistochemistry ([id number]) supports the above diagnosis. Please make reference to previous specimen [id number] Bronchus intermedius , biopsy with diagnosis of moderately differentiated squamous cell carcinoma. Case has been reviewed in consultation with Dr. Montes who concurs with the above diagnosis. IDC:AM CYTOLOGY STUDY Slides are reviewed. CYTOLOGY GROSS Received is 90 ml of reddish- cloudy fluid labeled with the patient's name and and designated per the requisition as Thoracentesis. Submitted for cytology preparation including cell block. mr 11/14/23 TC:5 CPT: 27616
--- NOTE | 2023-11-14 09:55 | RAD_ITS ---
STUDY: X-RAY CHEST REASON FOR EXAM: Male, 58 years old. Post thora TECHNIQUE: AP inspiration and expiration views. COMPARISON: Comparison is made with prior study dated October 21, 2022. FINDINGS: The patient is status post right thoracentesis. No evidence of pneumothorax. Mild residual right pleural-parenchymal changes. RAD/Chest Insp/Exp 2 View IMPRESSION: Status post right thoracentesis. No evidence of pneumothorax. Mild residual right pleural parenchymal changes. Electronically Signed: John Sanchez MD at 10:25 EDT ,
--- NOTE | 2023-11-14 10:09 | PRO.PCM_ITS ---
Procedure Report Date of Procedure: 11/14/23 Assessment & Plan Assessment/Plan (1) Pleural effusion, right: PLAN: PROCEDURE: Ultrasound Guided Thoracentesis ORDERING PROVIDER: Dr. Cayden Hook INDICATION: Male, 58 years old. Right pleural effusion. PROVIDER: JOE Hawley PROCEDURE: The risks, benefits, and alternatives to the procedure were explained to the patient. The specific risks of bleeding, infection, and pneumothorax requiring chest tube insertion were discussed and accepted. Written informed consent was obtained. The patient was placed in the sitting, upright position. Ultrasonographic evaluation of the bilateral lower pleural spaces was carried out. An adequate pocket was identified in the right lower pleural space.The overlying skin was prepped and draped in sterile fashion. 2% lidocaine was administered subcutaneously for local anesthesia. Under ultrasound guidance, a 5-Amharic thoracentesis needle/catheter system was advanced into the right posterior lower pleural fluid collection. 350 ml of cl oudy shanta colored fluid was drained. The catheter was removed, and a sterile dressing was applied. The patient tolerated the procedure well. A chest x-ray was ordered. IMPRESSION: Successful ultrasound-guided thoracentesis of right pleural effusion. Procedures Radiology Radiology US Procedures: 04832 Thoracentesis
[2023-11-14 10:11] LABS: Cytology, Body Fluid / CSF SEE PATHOLOGY REPORT
--- NOTE | 2023-11-14 10:14 | PN_ITS ---
Subjective Subjective Patient seen and examined. He had no active complaints. He had bronchoscopy yesterday with findings of an endobronchial lesion in the bronchus intermedius which couldnt be traversed. He did have a bit of bleeding after the biopsy was taken and he had epinephrine injected, and the bleeding stopped. He is for thoracentesis today. He has otherwise remianed hemodynamically stable. Objective Data Objective Data Vital Signs: Vital Signs Temp Pulse Resp BP Pulse Ox O2 Del Method O2 Flow Rate 97.8 F 104 H 18 120/76 93 Nasal Cannula 3 11/14/23 08:02 11/14/23 09:55 11/14/23 09:55 11/14/23 09:55 11/14/23 08:22 11/14/23 09:55 11/14/23 09:55 Oxygen Flow Rate (L/min) 3 Oxygen Delivery Method Nasal Cannula Weight: 209 lb 3.499 oz Body Mass Index (BMI) 29.2 Intake & Output: Intake and Output for Last 24 Hours 11/12/23 11/13/23 11/14/23 23:59 23:59 23:59 Intake Total 1185.05 / 1185.05 1972.80 / 1972.80 520 / 520 Output Total 600 / 600 1550 / 1550 650 / 650 Balance 585.05 / 585.05 422.80 / 422.80 -130 / -130 Lab / Micro Data 11/14/23 07:12 11/14/23 07:12 Labs: Laboratory Results - last 24 hr 11/13/23 09:10: MRSA (PCR) Negative 11/13/23 10:30: Fluid Source BRONCHIAL LAVAGE, Fluid Color RED, Fluid Appearance CLOUDY, Fluid WBC 133, Fluid RBC 13167, Fluid Tot Cell Count Not Reportable, Fluid Neutrophils 4, Fluid Lymphocytes 21, Fld Mesothelial Cells 5, Fluid Other Cells 70, Fl Pathologist Comment May follow, Fluid Comment 2 Not Reportable 11/14/23 07:12: WBC 7.7, RBC 4.12 L, Hgb 12.1 L, Hct 36.8 L, MCV 89.3, MCH 29.4, MCHC 32.9, RDW Std Deviation 41.3, RDW Coeff of Jose 12.7, Plt Count 314, MPV 9.3, Immature Gran % (Auto) 0.400, Neut % (Auto) 86.2 H, Lymph % (Auto) 6.6 L, [place] % (Auto) 6.7, Eos % (Auto) 0.0, Baso % (Auto) 0.1, Absolute Neuts (auto) 6.6, Absolute Lymphs (auto) 0.51 L, Nucleated RBC % 0, APTT 31.0, Sodium 138, Potassium 3.9, Chloride 105, Carbon Dioxide 26.0, Anion Gap 7, BUN 15, Creatinine 0.76, Estim Creat Clear Calc 126.11, Est GFR (MDRD) Af Amer 137, Est GFR (MDRD) Non-Af 113, BUN/Creatinine Ratio 19.8, Glucose 153 H, Calcium 9.8, Lactate Dehydrogenase 178, Total Protein 7.5, Globulin 4.7 H, Albumin/Globulin Ratio 0.6 L Micro: Microbiology 11/13/23 10:30 Wash - Right Middle Lobe Gram Stain - Final Rhythm Strip Rhythm Strip: Sinus Tach Rate: 102 Ectopy: None Physical Exam Const alert, oriented x3 and no apparent distress General Appearance: cooperative and well developed HEENT normocephalic, head/scalp atraumatic, moist oral mucous membranes and oropharynx normal Neck no lymphadenopathy, supple and no JVD Lymph Lymphatic: no lymphadenopathy noted and no lymphedema noted Resp Resp Narrative: diminished breath sounds bibasally, no wheezes or crackles.On 3L of oxygen by nasal canula Cardio regular rate, regular rhythm, S1 normal heart sound, S2 normal heart sound and no murmurs GI normal to inspection, nondistended, normoactive bowel sounds, soft to palpation, non-tender and non-distended GI Narrative: PEG tube in situ Extremity normal capillary refill, no clubbing, cyanosis or edema and no calf tenderness General Extremity: no tenderness to palpation of joints or extremities Neuro CN's II-XII intact bilaterally, no focal motor deficits, no sensory deficits noted and deep tendon reflexes 2+ bilaterally Motor Exam: strength 5/5 throughout and general weakness Psych thought process normal, cooperative and affect normal Appearance: appropriate Assessment & Plan Assessment/Plan (1) Pulmonary embolus: (2) Mass of upper lobe of right lung: (3) Acute hypoxemic respiratory failure: (4) Infiltrate of upper lobe of right lung present on imaging study: PLAN: Plan #Right upper lobe PE * Currently on heparin drip. * pulmonology consulted; had bronch which showed an endobronchial lesion in the right bronchus intermedius. Lesion was not traversed and biopsy was taken as well as guided brushings. * to have thoracentesis today, and to resume anticoagulation after * #Right lung mass * CTA chest showed large right infiltrative hilar mass encasing and nearly occluding the proximal branches of the right pulmonary artery with tiny intraluminal clots within the proximal pulmonary artery. * In light of his past medical history of cancer, this may likely be malignant. * Pulmonology consulted. bronch done as above. * had right sided pleural effusion also, and had thoracentesis today with drainage of 350cc of cloudy, shanta colored fluid. FLuid sent for cytology. * #Dysphagia in the setting of esophageal cancer * has PEG Tube in situ. Tube feeds via PEG tube. * #Anxiety and depression: on ativan and sertraline #DVT prophylaxis: SCDs. Heparin drip held for bronchoscopy and thoracentesis Charges/Coding Visit Charges Inpatient E&M: 80451 Subs Hosp L2
[2023-11-14] MEDS: 0.9% Normal Saline (250mL Bag) 250 ML 15 ML IV (10:32)
[2023-11-14 10:55] LABS: Body Fluid Mononuclear WBC % 96.7 %; Body Fluid Polynuclear WBC # 0.071 10^3/uL; Body Fluid Polynuclear WBC % 3.3 %; Body Fluid Total Cells Counted 2.537 10^3/ul; Red Cell Count/Body Fluid 0.006 10^6/ul; White Blood Count/Body Fluid 2.151 10^3/uL
[2023-11-14] MEDS: Ondansetron ODT 4 MG Tablet 8 MG GT ×2 (10:56→21:46)
[2023-11-14 11:05] LABS: Glucose, Body Fluid 126 mg/dL (40-70); LDH,Body Fluid 179 Units/L (Not Establ.); Protein, Body Fluid 4.7 g/dL (Not Establ.)
--- NOTE | 2023-11-14 11:56 | PCM.PN.INT ---
Assessment & Plan Assessment/Plan (1) Mass of upper lobe of right lung: PLAN: Plan RECOMMENDATIONS: 1. Supplemental oxygen to maintain saturations at or above 90%. 2. Arrange for home-going supplemental oxygen following ambulatory oximetry study. 3. Transition to Levaquin at discharge to complete 7 days of therapy. 4. The patient can follow-up in the pulmonary medicine clinic after discharge to review the results of his biopsies and pleural fluid cytology. 5. Please call if we can be of any additional assistance. IMPRESSIONS: 1. 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 Findings noted on chest imaging are concerning for right hilar lung mass with possible postobstructive pneumonia and right-sided pleural effusion. The patient was initiated on a heparin infusion due to the incidental note of a small PE identified on the imaging study. The patient subsequently underwent bronchoscopy on November 12 with an endobronchial lesion noted in the bronchus intermedius, which was ultimately biopsied. He then underwent an ultrasound-guided thoracentesis on November 13, with pleural fluid cytology pending. At this time, over concerns for possible postobstructive pneumonia, recommend continuing antibiotics. At discharge, the patient will be sent home on Levaquin to complete 7 days of therapy. Otherwise, he will likely require home-going supplemental O2. The patient can be set up for a follow-up office visit in the pulmonary medicine clinic after discharge, at which time, we can review the results of his endobronchial biopsies and pleural fluid cytology. 2. History of prior alcohol and tobacco dependency/history of oral/esophageal squamous cell carcinoma Complicates care, management, recovery and prognosis. Continue supportive measures as noted above. This note was generated with [employer] dictation software. It may contain incorrect words, spelling, and punctuation that were not noted in checking the note before signing. Subjective Subjective The patient was seen and examined at the bedside this morning. Events from the last 24 hours have been reviewed. The patient is currently afebrile, hemodynamically stable and maintaining appropriate oxygen saturations on 3 L/min via nasal cannula. The patient tolerated his bronchoscopy procedure yesterday without complication. He underwent ultrasound-guided thoracentesis this morning. His respiratory status remains stable. Objective Data Objective Data The patient's most recent lab work, culture data and imaging studies have all been personally reviewed. Vital Signs: Vital Signs Temp Pulse Resp BP Pulse Ox O2 Del Method O2 Flow Rate 97.8 F 104 H 18 120/76 93 Nasal Cannula 3 11/14/23 08:02 11/14/23 09:55 11/14/23 09:55 11/14/23 09:55 11/14/23 08:22 11/14/23 09:55 11/14/23 09:55 Oxygen Flow Rate (L/min) 3 Oxygen Delivery Method Nasal Cannula Weight: 209 lb 3.499 oz Body Mass Index (BMI) 29.2 Intake & Output: Intake and Output for Last 24 Hours 11/12/23 11/13/23 11/14/23 23:59 23:59 23:59 Intake Total 1185.05 / 1185.05 1972.80 / 1972.80 640 / 640 Output Total 600 / 600 1550 / 1550 750 / 750 Balance 585.05 / 585.05 422.80 / 422.80 -110 / -110 Lab / Micro Data Attestation: I reviewed the patient's lab results. 11/14/23 07:12 11/14/23 07:12 Labs: Laboratory Results - last 24 hr 11/13/23 09:10: MRSA (PCR) Negative 11/13/23 10:30: Fluid Source BRONCHIAL LAVAGE, Fluid Color RED, Fluid Appearance CLOUDY, Fluid WBC 133, Fluid RBC 47672, Fluid Tot Cell Count Not Reportable, Fluid Neutrophils 4, Fluid Lymphocytes 21, Fld Mesothelial Cells 5, Fluid Other Cells 70, Fl Pathologist Comment May follow, Fluid Comment 2 Not Reportable 11/14/23 07:12: WBC 7.7, RBC 4.12 L, Hgb 12.1 L, Hct 36.8 L, MCV 89.3, MCH 29.4, MCHC 32.9, RDW Std Deviation 41.3, RDW Coeff of Jose 12.7, Plt Count 314, MPV 9.3, Immature Gran % (Auto) 0.400, Neut % (Auto) 86.2 H, Lymph % (Auto) 6.6 L, [place] % (Auto) 6.7, Eos % (Auto) 0.0, Baso % (Auto) 0.1, Absolute Neuts (auto) 6.6, Absolute Lymphs (auto) 0.51 L, Nucleated RBC % 0, APTT 31.0, Sodium 138, Potassium 3.9, Chloride 105, Carbon Dioxide 26.0, Anion Gap 7, BUN 15, Creatinine 0.76, Estim Creat Clear Calc 126.11, Est GFR (MDRD) Af Amer 137, Est GFR (MDRD) Non-Af 113, BUN/Creatinine Ratio 19.8, Glucose 153 H, Calcium 9.8, Lactate Dehydrogenase 178, Total Protein 7.5, Globulin 4.7 H, Albumin/Globulin Ratio 0.6 L 11/14/23 09:49: Fluid WBC 2.151, Fluid RBC 0.006, Fluid Tot Cell Count 2.537, Fld Polynuclear WBCs # 0.071, Fld Polynuclear WBCs % 3.3, Fluid Mononuclear WBCs 2.080, Fld Mononuclear WBCs % 96.7, Fluid Glucose 126 H, Fluid Total Protein 4.7, Fluid LDH 179 Micro: Microbiology 11/13/23 10:30 Wash - Right Middle Lobe Gram Stain - Final Radiography Diagnostic Testing: Radiology Impression Chest X-Ray 11/14/23 09:55 IMPRESSION: Status post right thoracentesis. No evidence of pneumothorax. Mild residual right pleural parenchymal changes. Electronically Signed: John Sanchez MD at 10:25 EDT , Rhythm Strip Rhythm Strip: Sinus Tach Rate: 102 Ectopy: None Physical Exam Const alert and no apparent distress General Appearance: cooperative HEENT head/scalp atraumatic Eyes PERRL, EOMs intact bilaterally and conjunctivae normal Neck supple General: trachea midline Chest inspection of chest normal Resp Auscultation: diminished lung sounds Cardio regular rate and regular rhythm GI soft to palpation and non-tender Inspection: GI tube present Extremity no clubbing, cyanosis or edema Skin no rashes or lesions noted Neuro CN's II-XII intact bilaterally and no focal motor deficits Psych cooperative and affect normal Charges/Coding Visit Charges Inpatient E&M: 82637 Subs Hosp L2
[2023-11-14 12:27] LABS: Auto B Fluid Analyzer BKGD Ct COUNTS W/IN LIMITS (W/IN LIMITS); Lymphocytes 64 %; Macrophages 14 %; Mesothelial Cells 14 %; Monocytes 1 %; Neutrophil (Segs) 7 %; Source- Body Fluid THORACENTESIS
[2023-11-14 12:28] LABS: Appearance/Body Fluid CLOUDY; Body Fluid QC Type(s) BF1Q; Color/Body Fluid YELLOW
[2023-11-14 14:21] LABS: Pathologist Comment/Body Fluid Reviewed
[2023-11-14 21:10] LABS: Hemoglobin 11.1 g/dL (13.0-16.5); Mean Corp Hgb Conc 31.7 g/dL (32-36); Mean Corpuscular Hgb 28.5 pg (27.0-32.0); Mean Platelet Vol. 9.3 fl (6.2-12.0); Platelet Count 227 K/mm3 (150-450); RBC Distribution Width CV 13.2 % (11.6-14.6); RBC Distribution Width SD 42.9 fl (35.1-43.9); Red Blood Count 3.89 M/mm3 (4.6-6.2); White Blood Count 5.9 K/mm3 (4.4-11.0)
[2023-11-14 21:25] LABS: International Normalized Ratio 1.2; Prothrombin Time (Protime)PT. 15.3 SECONDS (11.7-14.9)
[2023-11-14 21:34] LABS: Partial Thromboplast Time 27.8 Seconds (24.1-36.2)
[2023-11-14] MEDS: HEPARIN/D5w 25,000 UNITS 25,000 UNITS/250 ML IV.SOLN. 14 UNITS CONT INF (22:10)
[2023-11-15] VITALS (12 sets, daily range): BP systolic 100–112; BP diastolic 62–72; PULSE 100–132; RESP 16–22; TEMP 36.1–36.9; O2SAT 80–96
[2023-11-15] MEDS: oxyCODONE 5 MG Tablet 40 MG GT ×5 (04:01→22:45)
[2023-11-15] MEDS: Metoclopramide 5 MG TABLET GT ×2 (04:01→15:56)
[2023-11-15] MEDS: Piperacil/Tazobactam 3.375 GM in 0.9% Normal Saline (50mL MB+) 50 ML IV ×3 (04:14→22:47)
[2023-11-15 04:25] LABS: Absolute Lymphocyte Count 0.93 X10^3/uL (0.83-4.51); Absolute Neutrophil Count 3.9 X10^3/uL (2.0-7.7); Basophil# 0.02 X10^3/uL; Basophil% 0.4 % (0-1); Eosinophil# 0.06 X10^3/uL; Eosinophils% 1.1 % (0-5); Hematocrit 36.7 % (40-54); Hemoglobin 11.5 g/dL (13.0-16.5); Lymphocyte # 0.93 X10^3/ul (0.83-4.51); Lymphocyte % 16.7 % (19-41); Mean Corp Hgb Conc 31.3 g/dL (32-36); Mean Corpuscular Hgb 28.9 pg (27.0-32.0); Mean Corpuscular Volume 92.2 fL (80-94); Monocyte# 0.61 X10^3/uL; Monocyte% 10.9 % (0-10); NRBC Flagged by Analyzer 0 % (0-5); Neutrophil # 3.94 X10^3/uL (2.7-7.7); Neutrophil % 70.5 % (47-70); Platelet Count 243 K/mm3 (150-450); RBC Distribution Width CV 13.2 % (11.6-14.6); RBC Distribution Width SD 44.1 fl (35.1-43.9); Red Blood Count 3.98 M/mm3 (4.6-6.2); White Blood Count 5.6 K/mm3 (4.4-11.0)
[2023-11-15 04:35] LABS: Partial Thromboplast Time 51.8 Seconds (24.1-36.2)
[2023-11-15 04:40] LABS: Anion Gap 5 (5-15); BUN 18 mg/dL (7-18); BUN/Creat Ratio 19.6 RATIO (10-20); Calcium,Total 9.6 mg/dL (8.5-10.1); Chloride 104 mmol/L (98-107); Creatinine, Serum 0.92 mg/dL (0.70-1.30); EST Glomerular Filtration Rate 90 mL/min (>60); Est Glom Filt Rate - Afr Amer 109 mL/min (>60); Estimated Creatinine Clearance 104.18 ml/min; Glucose 103 mg/dL (74-106); Potassium 3.7 mmol/L (3.5-5.1); Sodium Level 140 mmol/L (136-145)
[2023-11-15] MEDS: Heparin Injection (Vial) 5,000 UNIT/ML VIAL IV (04:51)
[2023-11-15] MEDS: Ipratropium/Albuterol Sulfate 3 ML AMPUL.NEB INHALATION ×4 (05:04→19:33)
[2023-11-15] MEDS: Ondansetron ODT 4 MG Tablet 8 MG GT (08:33)
[2023-11-15] MEDS: LORazepam 1 MG Tablet GT ×2 (08:33→22:47)
[2023-11-15] MEDS: Famotidine 20 MG Tablet 40 MG PO ×2 (08:33→22:46)
[2023-11-15] MEDS: GABAPENTIN 250 MG/5 ML SOLUTION 300 MG GT ×2 (08:33→14:01)
[2023-11-15] MEDS: Sertraline 100 MG Tablet GT (08:34)
[2023-11-15] MEDS: ISOSOURCE GT ×3 (08:34→22:44)
--- NOTE | 2023-11-15 08:44 | NURSING ---
O2 turned up to 4L NC
--- NOTE | 2023-11-15 10:57 | DS.PCM_ITS ---
Providers Date of Admission: 11/10/23 Primary Care Physician: Dr. Shailesh Jennings, DO Consultations 11/13/23 07:23 Consult: Senior Quality Technician / Pulmonary Medicine Routine Consulting Provider: Intensivists/Pulmonary Med Reason for Consult: right lung mass EMERGENT Consult: No MD Notified: Yes Date Notified: 11/13/23 Time Notified: 07:23 Method of Notification: Text Reason For Visit: RIGHT HILAR MASS WITH PE Diagnosis Discharge Diagnosis (1) Mass of upper lobe of right lung: Status: Acute Code(s): R91.8 - Other nonspecific abnormal finding of lung field Plan #Right upper lobe PE * Currently on heparin drip. * pulmonology consulted; had bronch which showed an endobronchial lesion in the right bronchus intermedius. Lesion was not traversed and biopsy was taken as well as guided brushings. * to have thoracentesis today, and to resume anticoagulation after * #Right lung mass * CTA chest showed large right infiltrative hilar mass encasing and nearly occluding the proximal branches of the right pulmonary artery with tiny intraluminal clots within the proximal pulmonary artery. * In light of his past medical history of cancer, this may likely be malignant. * Pulmonology consulted. bronch done as above. * had right sided pleural effusion also, and had thoracentesis today with drainage of 350cc of cloudy, shanta colored fluid. FLuid sent for cytology. * #Dysphagia in the setting of esophageal cancer * has PEG Tube in situ. Tube feeds via PEG tube. * #Anxiety and depression: on ativan and sertraline #DVT prophylaxis: SCDs. Heparin drip held for bronchoscopy and thoracentesis Medications at Discharge Home Medications oxycodone 5 mg/5 mL oral solution 40 mg PO Q4H PRN Pain 12/16/21 gabapentin 250 mg/5 mL oral solution 6 ml feeding tube TID nerve pain 03/09/22 ondansetron 8 mg disintegrating tablet 8 mg PO Q8H PRN nausea and vomiting #90 tabs 04/01/22 metoclopramide HCl 5 mg tablet (Reglan) 5 mg feeding tube BID 04/07/22 guaifenesin 100 mg/5 mL oral liquid 200 mg (10 mL) PO Q4H PRN congestion #1,000 mL 04/26/22 famotidine 40 mg tablet 40 mg PO BID stomach' #60 tabs 05/04/23 lorazepam 1 mg tablet 1 mg PO BID 05/22/23 sertraline 100 mg tablet 100 mg PO DAILY depression 05/22/23 miscellaneous medical supply See Rx Instructions miscellaneous .COMPLEX feed' #10 ea 05/26/23 amoxicillin 875 mg-potassium clavulanate 125 mg tablet 1 tab feeding tube BID #10 tabs 11/15/23 apixaban 5 mg (74 tabs) tablets in a dose pack (Eliquis DVT-PE Treat 30D Start) 5 mg feeding tube BID #74 tabs 11/15/23 Weight / BMI Weight Weight: 209 lb 3.499 oz Body Mass Index (BMI) 29.2 ABG / Lab / Microbiology Data 11/15/23 04:15 11/15/23 04:15 Laboratory: Laboratory Results - last 24 hr 11/13/23 10:30: Fluid Source BRONCHIAL LAVAGE, Fluid Color RED, Fluid Appearance CLOUDY, Fluid WBC 133, Fluid RBC 81065, Fluid Neutrophils 4, Fluid Lymphocytes 21, Fld Mesothelial Cells 5, Fluid Other Cells 70, Fl Pathologist Comment Reviewed 11/14/23 09:49: Fluid Source THORACENTESIS, Fluid Color YELLOW, Fluid Appearance CLOUDY, Fluid WBC 2.151, Fluid RBC 0.006, Fluid Tot Cell Count 2.537, Fld Polynuclear WBCs # 0.071, Fld Polynuclear WBCs % 3.3, Fluid Mononuclear WBCs 2.080, Fld Mononuclear WBCs % 96.7, Fluid Neutrophils 7, Fluid Lymphocytes 64, Fluid Monocytes 1, Fluid Macrophages 14, Fld Mesothelial Cells 14, Fl Pathologist Comment May follow, Fluid Glucose 126 H, Fluid Total Protein 4.7, Fluid LDH 179, Fluid Comment 2 SEE COMMENT 11/14/23 21:00: WBC 5.9, RBC 3.89 L, Hgb 11.1 L, Hct 35.0 L, MCV 90.0, MCH 28.5, MCHC 31.7 L, RDW Std Deviation 42.9, RDW Coeff of Jose 13.2, Plt Count 227, MPV 9.3, PT 15.3 H, INR 1.2, APTT 27.8 11/15/23 04:15: WBC 5.6, RBC 3.98 L, Hgb 11.5 L, Hct 36.7 L, MCV 92.2, MCH 28.9, MCHC 31.3 L, RDW Std Deviation 44.1 H, RDW Coeff of Jose 13.2, Plt Count 243, MPV 9.0, Immature Gran % (Auto) 0.400, Neut % (Auto) 70.5 H, Lymph % (Auto) 16.7 L, [place] % (Auto) 10.9 H, Eos % (Auto) 1.1, Baso % (Auto) 0.4, Absolute Neuts (auto) 3.9, Absolute Lymphs (auto) 0.93, Nucleated RBC % 0, APTT 51.8 H, Sodium 140, Potassium 3.7, Chloride 104, Carbon Dioxide 31.0, Anion Gap 5, BUN 18, Creatinine 0.92, Estim Creat Clear Calc 104.18, Est GFR (MDRD) Af Amer 109, Est GFR (MDRD) Non-Af 90, BUN/Creatinine Ratio 19.6, Glucose 103, Calcium 9.6 Microbiology: Microbiology 11/13/23 10:30 Wash - Right Middle Lobe Gram Stain - Final 11/13/23 10:30 Wash - Right Middle Lobe Respiratory Culture - Preliminary Gram positive jez D/C Instructions Discharge Diet: Low fat / Low cholesterol Weight Bearing Status: Weight bearing as tolerated Call your doctor if you observe: Fever of 101 or Higher, Shortness of breath, Dizziness, Swelling in the ankles, Chest pain and Increased palpitations (irregular heartbeat) Discharge Plan Admission Admit Date/Time: 11/10/23 19:11 Primary Reason for Your Visit: lung mass Attending Provider: Adriana Gonzales Primary Care Provider: Shailesh Jennings Consulting Providers: Gatito Randolph; Constantino Guaman; Norbert Pineda; Cayden Hook; Hero Drew; Dana Hutson; Bucky Curry; Cher España; Harini Clayton; Bubba Coleman; Jordan Young; Tirso Cohen; Naveed Ross Instructions Patient Instructions: Embolism Pulmonary Dc Discharge Orders/Prescriptions Prescriptions: New Eliquis DVT-PE Treat 30D Start 5 mg (74 tabs) tablets,dose pack 5 mg feeding tube BID Qty: 74 2RF Rx Instructions: take 2 tabs (10mg) twice daily for 7 days (till 11/21/2023), then continue with one tab (5mg) twice daily. amoxicillin-pot clavulanate 875-125 mg tablet 1 tab feeding tube BID Qty: 10 0RF Continued oxycodone 5 mg/5 mL solution 40 mg PO Q4H PRN (Reason: Pain) ondansetron 8 mg tablet,disintegrating 8 mg PO Q8H PRN (Reason: nausea and vomiting) Qty: 90 3RF guaifenesin 100 mg/5 mL liquid 200 mg PO Q4H PRN (Reason: congestion) Qty: 1000 0RF sertraline 100 mg tablet 100 mg PO DAILY Patient Comments: TAKE ONE (1) TABLET BY PEG TUBE DAILY lorazepam 1 mg tablet 1 mg PO BID Rx Instructions: PEG tube gabapentin 250 mg/5 mL solution 6 ml feeding tube TID Patient Comments: TAKE 6ML (300MG) PER PEG THREE TIMES A DAY SCHEDULED metoclopramide HCl [Reglan] 5 mg tablet 5 mg feeding tube BID Rx Instructions: administer 30 minutes before meals famotidine 40 mg tablet 40 mg PO BID Qty: 60 11RF miscellaneous medical supply Misc See Rx Instructions miscellaneous .COMPLEX Qty: 10 11RF Rx Instructions: Jakob-Arthur feeding tube extension set 12 inch straight Referrals / Follow Up: Cayden Hook DO [Med Staff - Active Staff] - Within 1 Week Shailesh Jennings DO [Primary Care Provider] - In 1 Week Disposition Disposition (needs filled in before D/C Order can be placed): Home, Self Care
[2023-11-15 11:11] LABS: Partial Thromboplast Time 73.5 Seconds (24.1-36.2)
--- NOTE | 2023-11-15 11:36 | CASEMGMT ---
Addendum entered by Sylvie Saab 11/15/23 15:09: Email to palliative care that dc has been cancelled for today. Addendum entered by Sylvie Saab 11/15/23 11:39: TC to [facility] pharmacy, pt cost for eliquis is $65. Original Note: ALEC CM into pt room, pt with dc order in. Pt lying in bed with oxygen on in no distress. Provided pt with a verbal local in network list of DME companies for oxygen, pt chose [facility]. Instructed on homegoing oxygen process. Pt verbalized understanding. Pt states he does get his TF supplies from [facility]. He reports being I in feedings. Pt denies any homegoing needs otherwise than oxygen. Pt nurse to complete full testing. Email to palliative care to make aware of pt dc today.
--- NOTE | 2023-11-15 11:46 | NURSING ---
ambulating pulse ox done with less than 6 minutes of walking, even when breathing through nose instead of mouth. pt states he feels SOB during this activity. O2 on 10L for recovery within 1 minute of rest, spo2 90% at rest on 10L, spo2 94% on 4L nasal cannula oxygen at rest within 4 minutes of test, resting recovery time.
[2023-11-15] MEDS: APIXABAN 5 MG TABLET 10 MG GT ×2 (14:01→22:46)
--- NOTE | 2023-11-15 14:33 | PN_ITS ---
Subjective Subjective Patient seen and examined. He had no active complaints. He denies any fever, chills, cough, chest pain, palpitations, dizziness, nausea, vomiting or any other symptoms. Review of systems is otherwise negtive. Plan was for discharge today but patient had walking pulse ox and it showed that he required 10 L of oxygen. Discharge was therefore canceled. Objective Data Objective Data Vital Signs: Vital Signs Temp Pulse Resp BP Pulse Ox O2 Del Method O2 Flow Rate 97.8 F 132 H 16 100/69 91 Nasal Cannula 4 11/15/23 14:01 11/15/23 14:01 11/15/23 14:01 11/15/23 14:01 11/15/23 14:01 11/15/23 14:01 11/15/23 14:01 Oxygen Flow Rate (L/min) [ 10 AMBULATING with Oxygen #4] Oxygen Flow Rate (L/min) [ 6 AMBULATING with Oxygen #3] Oxygen Flow Rate (L/min) [ 4 AMBULATING with Oxygen #2] Oxygen Flow Rate (L/min) [ 3 AMBULATING with Oxygen #1] Oxygen Flow Rate (L/min) [At 3 REST with Oxygen] Oxygen Flow Rate (L/min) 4 Oxygen Delivery Method Nasal Cannula Weight: 209 lb 3.499 oz Body Mass Index (BMI) 29.2 Intake & Output: Intake and Output for Last 24 Hours 11/13/23 11/14/23 11/15/23 23:59 23:59 23:59 Intake Total 1972.80 / 1972.80 1817.00 / 1817.00 645.67 / 645.67 Output Total 1550 / 1550 1150 / 1150 660 / 660 Balance 422.80 / 422.80 667.00 / 667.00 -14.33 / -14.33 Lab / Micro Data 11/15/23 04:15 11/15/23 04:15 Labs: Laboratory Results - last 24 hr 11/13/23 10:30: Fluid Source BRONCHIAL LAVAGE, Fluid Color RED, Fluid Appearance CLOUDY, Fluid WBC 133, Fluid RBC 05845, Fluid Neutrophils 4, Fluid Lymphocytes 21, Fld Mesothelial Cells 5, Fluid Other Cells 70, Fl Pathologist Comment Reviewed 11/14/23 21:00: WBC 5.9, RBC 3.89 L, Hgb 11.1 L, Hct 35.0 L, MCV 90.0, MCH 28.5, MCHC 31.7 L, RDW Std Deviation 42.9, RDW Coeff of Jose 13.2, Plt Count 227, MPV 9.3, PT 15.3 H, INR 1.2, APTT 27.8 11/15/23 04:15: WBC 5.6, RBC 3.98 L, Hgb 11.5 L, Hct 36.7 L, MCV 92.2, MCH 28.9, MCHC 31.3 L, RDW Std Deviation 44.1 H, RDW Coeff of Jose 13.2, Plt Count 243, MPV 9.0, Immature Gran % (Auto) 0.400, Neut % (Auto) 70.5 H, Lymph % (Auto) 16.7 L, [place] % (Auto) 10.9 H, Eos % (Auto) 1.1, Baso % (Auto) 0.4, Absolute Neuts (auto) 3.9, Absolute Lymphs (auto) 0.93, Nucleated RBC % 0, APTT 51.8 H, Sodium 140, Potassium 3.7, Chloride 104, Carbon Dioxide 31.0, Anion Gap 5, BUN 18, Creatinine 0.92, Estim Creat Clear Calc 104.18, Est GFR (MDRD) Af Amer 109, Est GFR (MDRD) Non-Af 90, BUN/Creatinine Ratio 19.6, Glucose 103, Calcium 9.6 11/15/23 10:44: APTT 73.5 H Micro: Microbiology 11/14/23 09:49 Fluid - Pleural (Lung) Gram Stain - Final 11/13/23 10:30 Wash - Right Middle Lobe Gram Stain - Final 11/13/23 10:30 Wash - Right Middle Lobe Respiratory Culture - Preliminary Gram positive jez Rhythm Strip Rhythm Strip: Sinus Tach Rate: 102 Ectopy: None Physical Exam Const alert, oriented x3 and no apparent distress General Appearance: cooperative and well developed HEENT normocephalic, head/scalp atraumatic, moist oral mucous membranes and oropharynx normal Neck no lymphadenopathy, supple and no JVD Lymph Lymphatic: no lymphadenopathy noted and no lymphedema noted Resp Resp Narrative: diminished breath sounds bibasally, no wheezes or crackles.On 4L of oxygen by nasal canula Cardio regular rhythm, S1 normal heart sound, S2 normal heart sound and no murmurs Cardio Narrative: tachycardia GI normal to inspection, nondistended, normoactive bowel sounds, soft to palpation, non-tender and non-distended GI Narrative: PEG tube in situ Extremity normal capillary refill, no clubbing, cyanosis or edema and no calf tenderness General Extremity: no tenderness to palpation of joints or extremities Neuro CN's II-XII intact bilaterally, no focal motor deficits, no sensory deficits noted and deep tendon reflexes 2+ bilaterally Motor Exam: strength 5/5 throughout and general weakness Psych thought process normal, cooperative and affect normal Appearance: appropriate Assessment & Plan Assessment/Plan (1) Mass of upper lobe of right lung: PLAN: Plan #Right upper lobe PE * Currently on heparin drip. * pulmonology consulted; had bronch which showed an endobronchial lesion in the right bronchus intermedius. Lesion was not traversed and biopsy was taken as well as guided brushings. * will start on eliquis treatment dose via PEG tube. * #Right lung mass * CTA chest showed large right infiltrative hilar mass encasing and nearly occluding the proximal branches of the right pulmonary artery with tiny intraluminal clots within the proximal pulmonary artery. * In light of his past medical history of cancer, this may likely be malignant. * Pulmonology consulted. bronch done as above. * had right sided pleural effusion also, and had thoracentesis with drainage of 350cc of cloudy, shanta colored fluid. FLuid sent for cytology. * * #Acute hypoxic respiratory failure * required 10L of oxygen with walking pulse ox today. * likely due to lung mass and the pleural effusion * breathing treatment with bronchodilators * titrate oxygen to maintain sats>905 * #Dysphagia in the setting of esophageal cancer * has PEG Tube in situ. Tube feeds via PEG tube. * #Anxiety and depression: on ativan and sertraline #DVT prophylaxis: SCDs. placed on eliquis. Disposition: for likely dc tomorrow. Charges/Coding Visit Charges Inpatient E&M: 63919 Subs Hosp L2
--- NOTE | 2023-11-15 16:19 | NURSING ---
All documentation by professional nursing tutor Tameka Mendoza reviewed by associate director of nursing Caty Cowan RN.
[2023-11-16] VITALS (9 sets, daily range): BP systolic 106–109; BP diastolic 61–72; PULSE 116–125; RESP 18–20; TEMP 36.6–36.7; O2SAT 4–98
[2023-11-16] MEDS: oxyCODONE 5 MG Tablet 40 MG GT ×2 (03:40→07:42)
[2023-11-16] MEDS: Piperacil/Tazobactam 3.375 GM in 0.9% Normal Saline (50mL MB+) 50 ML IV (06:04)
[2023-11-16] MEDS: Metoclopramide 5 MG TABLET GT (06:04)
--- NOTE | 2023-11-16 07:03 | NURSING ---
RN did walking pulse ox with patient; patient went to 89% at 4L, but became SOB and fatigued. Unable to walk for very long. 5L at 95%. Patient unable to walk for 5 minutes.
[2023-11-16] MEDS: Ipratropium/Albuterol Sulfate 3 ML AMPUL.NEB INHALATION (07:05)
[2023-11-16 07:34] LABS: Absolute Lymphocyte Count 0.82 X10^3/uL (0.83-4.51); Absolute Neutrophil Count 8.1 X10^3/uL (2.0-7.7); Basophil# 0.04 X10^3/uL; Basophil% 0.4 % (0-1); Eosinophil# 0.07 X10^3/uL; Eosinophils% 0.7 % (0-5); Hematocrit 38.3 % (40-54); Hemoglobin 12.2 g/dL (13.0-16.5); Lymphocyte # 0.82 X10^3/ul (0.83-4.51); Lymphocyte % 8.2 % (19-41); Mean Corp Hgb Conc 31.9 g/dL (32-36); Mean Corpuscular Volume 91.2 fL (80-94); Mean Platelet Vol. 9.2 fl (6.2-12.0); Monocyte# 0.88 X10^3/uL; Monocyte% 8.8 % (0-10); NRBC Flagged by Analyzer 0 % (0-5); Neutrophil # 8.14 X10^3/uL (2.7-7.7); Neutrophil % 81.7 % (47-70); Platelet Count 320 K/mm3 (150-450); RBC Distribution Width CV 13.3 % (11.6-14.6); RBC Distribution Width SD 43.9 fl (35.1-43.9)
--- NOTE | 2023-11-16 07:40 | RAD_ITS ---
INDICATION: Hypoxemia EXAMINATION/TECHNIQUE: X-RAY - XR Chest 1 View COMPARISON: Prior study dated: 11/14/2023 FINDINGS: LINES/DEVICES: None. LUNGS: Using patchy infiltrates in the right lower lung zones essentially new since previous exam. Small right pleural effusion is. Relative lucency in the right lower lung. No definite pneumothorax. MEDIASTINUM AND CARDIOVASCULAR STRUCTURES: Cardiac silhouette not enlarged. Central airways and mediastinal contour are unremarkable. BONES AND SOFT TISSUES: Surgical clips in the left axilla. RAD/Chest 1 View (Portable) IMPRESSION: 1. Patchy infiltrates in the right lung could be due to pneumonia or atypical pulmonary edema. 2. Slightly increased right pleural effusion. Electronically Signed: Gm Lin MD at 9:50 EDT ,
[2023-11-16] MEDS: ISOSOURCE GT (07:43)
[2023-11-16 08:04] LABS: Anion Gap 8 (5-15); BUN 17 mg/dL (7-18); BUN/Creat Ratio 18.3 RATIO (10-20); Calcium,Total 9.7 mg/dL (8.5-10.1); Chloride 104 mmol/L (98-107); Creatinine, Serum 0.93 mg/dL (0.70-1.30); EST Glomerular Filtration Rate 89 mL/min (>60); Est Glom Filt Rate - Afr Amer 108 mL/min (>60); Estimated Creatinine Clearance 103.06 ml/min; Glucose 115 mg/dL (74-106); Potassium 3.8 mmol/L (3.5-5.1); Sodium Level 138 mmol/L (136-145)
[2023-11-16] MEDS: Sertraline 100 MG Tablet GT (09:04)
[2023-11-16] MEDS: 0.9% Saline Lock 10 ML Syringe IV (09:06)
[2023-11-16] MEDS: APIXABAN 5 MG TABLET 10 MG GT (09:06)
[2023-11-16] MEDS: Famotidine 20 MG Tablet 40 MG PO (09:06)
[2023-11-16] MEDS: LORazepam 1 MG Tablet GT (09:06)
[2023-11-16] MEDS: Ondansetron ODT 4 MG Tablet 8 MG GT (09:06)
--- NOTE | 2023-11-16 10:25 | PN.CC_ITS ---
Assessment & Plan Assessment/Plan (1) Mass of upper lobe of right lung: PLAN: Plan RECOMMENDATIONS: 1. Supplemental oxygen to maintain saturations at or above 90%. 2. Arrange for home-going supplemental oxygen following ambulatory oximetry study. 3. Transition to Levaquin at discharge to complete 7 days of therapy. 4. Follow-up with oncology on outpatient basis on November 21 as scheduled. IMPRESSIONS: 1. 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 Findings noted on chest imaging are concerning for right hilar lung mass with possible postobstructive pneumonia and right-sided pleural effusion. The patient was initiated on a heparin infusion due to the incidental note of a small PE identified on the imaging study. The patient subsequently underwent bronchoscopy on November 12 with an endobronchial lesion noted in the bronchus intermedius, which was ultimately biopsied. He then underwent an ultrasound-guided thoracentesis on November 13, with pleural fluid cytology pending. At this time, over concerns for possible postobstructive pneumonia, r ecommend continuing antibiotics. At discharge, the patient will be sent home on Levaquin to complete 7 days of therapy. Otherwise, he will likely require home- going supplemental O2. The patient's endobronchial biopsy results were consistent with squamous cell carcinoma, raising the concern for a potential new lung primary. The patient is currently scheduled to follow-up with Dr. Parham of oncology next week. 2. History of prior alcohol and tobacco dependency/history of oral/esophageal squamous cell carcinoma Complicates care, management, recovery and prognosis. Continue supportive measures as noted above. This note was generated with [employer]rent dictation software. It may contain incorrect words, spelling, and punctuation that were not noted in checking the note before signing. Subjective Subjective The patient was seen and examined at the bedside this morning. Events from the last 24 hours have been reviewed. The patient was able to ambulate in the hallway today and required 4 L/min of oxygen. The results from his bronchoscopy were conveyed to the patient today. He is anxious to be discharged home. Objective Data Objective Data The patient's most recent lab work, culture data and imaging studies have all been personally reviewed. Vital Signs: Vital Signs Temp Pulse Resp BP Pulse Ox O2 Del Method O2 Flow Rate 97.9 F 116 H 18 106/72 4 Nasal Cannula 97 11/16/23 09:08 11/16/23 09:08 11/16/23 09:08 11/16/23 09:08 11/16/23 09:08 11/16/23 09:08 11/16/23 09:08 Oxygen Flow Rate (L/min) [ 10 AMBULATING with Oxygen #4] Oxygen Flow Rate (L/min) [ 6 AMBULATING with Oxygen #3] Oxygen Flow Rate (L/min) [ 5 AMBULATING with Oxygen #2] Oxygen Flow Rate (L/min) [ 4 AMBULATING with Oxygen #1] Oxygen Flow Rate (L/min) [At 3 REST with Oxygen] Oxygen Flow Rate (L/min) 97 Oxygen Delivery Method Nasal Cannula Weight: 209 lb 3.499 oz Body Mass Index (BMI) 29.2 Intake & Output: Intake and Output for Last 24 Hours 11/14/23 11/15/23 11/16/23 23:59 23:59 23:59 Intake Total 1817.00 / 1817.00 1095.67 / 1095.67 245 / 245 Output Total 1150 / 1150 985 / 985 Balance 667.00 / 667.00 110.67 / 110.67 245 / 245 Lab / Micro Data Attestation: I reviewed the patient's lab results. 11/16/23 06:40 11/16/23 06:40 Labs: Laboratory Results - last 24 hr 11/13/23 10:30: Fluid Source BRONCHIAL LAVAGE, Fluid Color RED, Fluid Appearance CLOUDY, Fluid WBC 133, Fluid RBC 63640, Fluid Neutrophils 4, Fluid Lymphocytes 21, Fld Mesothelial Cells 5, Fluid Other Cells 70, Fl Pathologist Comment Reviewed 11/15/23 10:44: APTT 73.5 H 11/16/23 06:40: WBC 10.0, RBC 4.20 L, Hgb 12.2 L, Hct 38.3 L, MCV 91.2, MCH 29.0, MCHC 31.9 L, RDW Std Deviation 43.9, RDW Coeff of Jose 13.3, Plt Count 320, MPV 9.2, Immature Gran % (Auto) 0.200, Neut % (Auto) 81.7 H, Lymph % (Auto) 8.2 L, [place] % (Auto) 8.8, Eos % (Auto) 0.7, Baso % (Auto) 0.4, Absolute Neuts (auto) 8.1 H, Absolute Lymphs (auto) 0.82 L, Nucleated RBC % 0, Sodium 138, Potassium 3.8, Chloride 104, Carbon Dioxide 26.0, Anion Gap 8, BUN 17, Creatinine 0.93, Estim Creat Clear Calc 103.06, Est GFR (MDRD) Af Amer 108, Est GFR (MDRD) Non-Af 89, BUN/Creatinine Ratio 18.3, Glucose 115 H, Calcium 9.7 Micro: Microbiology 11/13/23 10:30 Wash - Right Middle Lobe Gram Stain - Final 11/13/23 10:30 Wash - Right Middle Lobe Respiratory Culture - Preliminary Corynebacterium minutissimum Gram negative jez 11/14/23 09:49 Fluid - Pleural (Lung) Gram Stain - Final 11/14/23 09:49 Fluid - Pleural (Lung) Anaerobic Culture - Preliminary No growth in 48 hours. Radiography Diagnostic Testing: Radiology Impression Chest X-Ray 11/16/23 07:40 IMPRESSION: 1. Patchy infiltrates in the right lung could be due to pneumonia or atypical pulmonary edema. 2. Slightly increased right pleural effusion. Electronically Signed: Gm Lin MD at 9:50 EDT , Rhythm Strip Rhythm Strip: Sinus Tach Rate: 102 Ectopy: None Physical Exam Const alert and no apparent distress General Appearance: cooperative HEENT head/scalp atraumatic Eyes PERRL, EOMs intact bilaterally and conjunctivae normal Neck supple General: trachea midline Chest inspection of chest normal Resp Auscultation: diminished lung sounds Cardio regular rate and regular rhythm GI soft to palpation and non-tender Inspection: GI tube present Extremity no clubbing, cyanosis or edema Skin no rashes or lesions noted Neuro CN's II-XII intact bilaterally and no focal motor deficits Psych cooperative and affect normal Charges/Coding Visit Charges Inpatient E&M: 99007 Subs Hosp L2
--- NOTE | 2023-11-16 10:32 | DS.PCM_ITS ---
Providers Date of Admission: 11/10/23 Date of Discharge: 11/16/23 Primary Care Physician: Dr. Shailesh Jennings, DO Consultations 11/13/23 07:23 Consult: [facility] / Pulmonary Medicine Routine Consulting Provider: Intensivists/Pulmonary Med Reason for Consult: right lung mass EMERGENT Consult: No MD Notified: Yes Date Notified: 11/13/23 Time Notified: 07:23 Method of Notification: Text Reason For Visit: RIGHT HILAR MASS WITH PE Diagnosis Discharge Diagnosis (1) Mass of upper lobe of right lung: Status: Acute Code(s): R91.8 - Other nonspecific abnormal finding of lung field Plan #Right upper lobe PE * Currently on heparin drip. * pulmonology consulted; had bronch which showed an endobronchial lesion in the right bronchus intermedius. Lesion was not traversed and biopsy was taken as well as guided brushings. * will start on eliquis treatment dose via PEG tube. * #Right lung mass * CTA chest showed large right infiltrative hilar mass encasing and nearly occluding the proximal branches of the right pulmonary artery with tiny intraluminal clots within the proximal pulmonary artery. * In light of his past medical history of cancer, this may likely be malignant. * Pulmonology consulted. bronch done as above. * had right sided pleural effusion also, and had thoracentesis with drainage of 350cc of cloudy, shanta colored fluid. FLuid sent for cytology. * * #Acute hypoxic respiratory failure * required 10L of oxygen with walking pulse ox today. * likely due to lung mass and the pleural effusion * breathing treatment with bronchodilators * titrate oxygen to maintain sats>905 * #Dysphagia in the setting of esophageal cancer * has PEG Tube in situ. Tube feeds via PEG tube. * #Anxiety and depression: on ativan and sertraline #DVT prophylaxis: SCDs. placed on eliquis. Disposition: for likely dc tomorrow. Medications at Discharge Home Medications oxycodone 5 mg/5 mL oral solution 40 mg PO Q4H PRN Pain 12/16/21 gabapentin 250 mg/5 mL oral solution 6 ml feeding tube TID nerve pain 03/09/22 ondansetron 8 mg disintegrating tablet 8 mg PO Q8H PRN nausea and vomiting #90 tabs 04/01/22 metoclopramide HCl 5 mg tablet (Reglan) 5 mg feeding tube BID 04/07/22 guaifenesin 100 mg/5 mL oral liquid 200 mg (10 mL) PO Q4H PRN congestion #1,000 mL 04/26/22 famotidine 40 mg tablet 40 mg PO BID stomach' #60 tabs 05/04/23 lorazepam 1 mg tablet 1 mg PO BID 05/22/23 sertraline 100 mg tablet 100 mg PO DAILY depression 05/22/23 miscellaneous medical supply See Rx Instructions miscellaneous .COMPLEX feed' #10 ea 05/26/23 amoxicillin 875 mg-potassium clavulanate 125 mg tablet 1 tab feeding tube BID #10 tabs 11/15/23 apixaban 5 mg (74 tabs) tablets in a dose pack (Eliquis DVT-PE Treat 30D Start) 5 mg feeding tube BID #74 tabs 11/15/23 Hospital Course Operations None Procedures Bronchoscopy Summary of Care Provided Minutes Spent on Discharge: 45 Hospital Course: Patient is a 58-year-old male with a past medical history as outlined was admitted through the ED on 11/10/2023 with a complaint of shortness of breath which had been worsening weeks prior to admission. He also had right-sided chest pain which had improved a bit. On admission in the ED, imaging done showed a small PE in the right upper lobe he had groundglass opacities in the upper lobe as well as a right pleural effusion. He also had a right central lung mass compressing his pulmonary arteries as well as his bronchus. 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 He had a PEG tube in place. He was admitted and managed for PE and right pleural effusion in the setting of a new right hilar mass. He was started on heparin drip. Pulmonology was consulted. Patient had bronchoscopy on 11/13 2023 which showed an obstructing lesion in the right bronchus intermedius which could not be traversed with the bronchoscope. Biopsies were taken. He also had right-sided thoracentesis with drainage of about 350 cc of shanta-colored fluid which was sent for cytology. Lung mass biopsy results showed moderately differentiated squamous cell carcinoma though the pleural fluid sent for cytology was negative for any evidence of malignant cells. Patient was switched to Eliquis. Hospital course was complicated by increasing oxygen requirements. He was however able to wean down his oxygen requirements and required 4 L at time of discharge. Patient was discharged on 11/16/2023. He was discharged with a prescription for treatment dose of Eliquis. He is to follow-up with his primary care doctor and to follow-up with oncology on outpatient basis for initiation of treatment once biopsy and cytology results are in. Patient seen and examined prior to discharge. He had no active complaints and had an uneventful night. Review of systems otherwise negative. Labs and vitals reviewed. Home medication reviewed and reconciled. Physical Exam Const alert, oriented x3 and no apparent distress General Appearance: cooperative, comfortable, well kempt and well developed HEENT normocephalic, head/scalp atraumatic, hearing grossly normal bilaterally, moist oral mucous membranes and oropharynx normal Mouth: oral and palatal mucosa normal Eyes PERRL, EOMs intact bilaterally and conjunctivae normal Neck no lymphadenopathy, supple and no JVD Lymph Lymphatic: no lymphadenopathy noted and no lymphedema noted Resp Resp Narrative: diminished breath sounds bibasally, no wheezes or crackles.On 4L of oxygen by nasal canula Cardio regular rate, regular rhythm, S1 normal heart sound, S2 normal heart sound and no murmurs Cardio Narrative: tachycardia GI normal to inspection, nondistended, normoactive bowel sounds, soft to palpation, non-tender and non-distended GI Narrative: PEG tube in situ Extremity normal capillary refill, no clubbing, cyanosis or edema and no calf tenderness General Extremity: no tenderness to palpation of joints or extremities Neuro oriented x3, CN's II-XII intact bilaterally, moves all extremities, no focal motor deficits, no sensory deficits noted and deep tendon reflexes 2+ bilaterally Sensorium / Orientation: awake and alert Motor Exam: strength 5/5 throughout and general weakness Psych thought process normal, cooperative and affect normal Appearance: appropriate Weight / BMI Weight Weight: 209 lb 3.499 oz Body Mass Index (BMI) 29.2 ABG / Lab / Microbiology Data 11/16/23 06:40 11/16/23 06:40 Laboratory: Laboratory Results - last 24 hr 11/13/23 10:30: Fluid Source BRONCHIAL LAVAGE, Fluid Color RED, Fluid Appearance CLOUDY, Fluid WBC 133, Fluid RBC 25048, Fluid Neutrophils 4, Fluid Lymphocytes 21, Fld Mesothelial Cells 5, Fluid Other Cells 70, Fl Pathologist Comment Reviewed 11/15/23 10:44: APTT 73.5 H 11/16/23 06:40: WBC 10.0, RBC 4.20 L, Hgb 12.2 L, Hct 38.3 L, MCV 91.2, MCH 29.0, MCHC 31.9 L, RDW Std Deviation 43.9, RDW Coeff of Jose 13.3, Plt Count 320, MPV 9.2, Immature Gran % (Auto) 0.200, Neut % (Auto) 81.7 H, Lymph % (Auto) 8.2 L, [place] % (Auto) 8.8, Eos % (Auto) 0.7, Baso % (Auto) 0.4, Absolute Neuts (auto) 8.1 H, Absolute Lymphs (auto) 0.82 L, Nucleated RBC % 0, Sodium 138, Potassium 3.8, Chloride 104, Carbon Dioxide 26.0, Anion Gap 8, BUN 17, Creatinine 0.93, Estim Creat Clear Calc 103.06, Est GFR (MDRD) Af Amer 108, Est GFR (MDRD) Non-Af 89, BUN/Creatinine Ratio 18.3, Glucose 115 H, Calcium 9.7 Microbiology: Microbiology 11/13/23 10:30 Wash - Right Middle Lobe Gram Stain - Final 11/13/23 10:30 Wash - Right Middle Lobe Respiratory Culture - Preliminary Corynebacterium minutissimum Gram negative jez 11/14/23 09:49 Fluid - Pleural (Lung) Gram Stain - Final 11/14/23 09:49 Fluid - Pleural (Lung) Anaerobic Culture - Preliminary No growth in 48 hours. Radiography Diagnostic Testing: Radiology Impression Chest X-Ray 11/16/23 07:40 IMPRESSION: 1. Patchy infiltrates in the right lung could be due to pneumonia or atypical pulmonary edema. 2. Slightly increased right pleural effusion. Electronically Signed: Gm Lin MD at 9:50 EDT , D/C Instructions Discharge Diet: Low fat / Low cholesterol Discharge Activity: Return to Normal Activity Weight Bearing Status: Weight bearing as tolerated Call your doctor if you observe: Fever of 101 or Higher, Shortness of breath, Di zziness, Swelling in the ankles, Chest pain and Increased palpitations (irregular heartbeat) Meaningful Use Info Meaningful Use Diagnoses (Choose all that apply): None applicable Discharge Plan Admission Admit Date/Time: 11/10/23 19:11 Primary Reason for Your Visit: lung mass Attending Provider: Adriana Gonzales Primary Care Provider: Shailesh Jennings Consulting Providers: Gatito Randolph; Constantino Guaman; Norbert Pineda; Cayden [place]; Hero Drew; Dana Hutson; Bucky Curry; Cher España; Harini Clayton; Bubba Coleman; Jordan Young; Tirso Cohen; Naveed Ross Instructions Patient Instructions: Embolism Pulmonary Dc Discharge Orders/Prescriptions Prescriptions: New Eliquis DVT-PE Treat 30D Start 5 mg (74 tabs) tablets,dose pack 5 mg feeding tube BID Qty: 74 2RF Rx Instructions: take 2 tabs (10mg) twice daily for 7 days (till 11/21/2023), then continue with one tab (5mg) twice daily. amoxicillin-pot clavulanate 875-125 mg tablet 1 tab feeding tube BID Qty: 10 0RF Continued oxycodone 5 mg/5 mL solution 40 mg PO Q4H PRN (Reason: Pain) ondansetron 8 mg tablet,disintegrating 8 mg PO Q8H PRN (Reason: nausea and vomiting) Qty: 90 3RF guaifenesin 100 mg/5 mL liquid 200 mg PO Q4H PRN (Reason: congestion) Qty: 1000 0RF sertraline 100 mg tablet 100 mg PO DAILY Patient Comments: TAKE ONE (1) TABLET BY PEG TUBE DAILY lorazepam 1 mg tablet 1 mg PO BID Rx Instructions: PEG tube gabapentin 250 mg/5 mL solution 6 ml feeding tube TID Patient Comments: TAKE 6ML (300MG) PER PEG THREE TIMES A DAY SCHEDULED metoclopramide HCl [Reglan] 5 mg tablet 5 mg feeding tube BID Rx Instructions: administer 30 minutes before meals famotidine 40 mg tablet 40 mg PO BID Qty: 60 11RF miscellaneous medical supply Misc See Rx Instructions miscellaneous .COMPLEX Qty: 10 11RF Rx Instructions: Jakob-Arthur feeding tube extension set 12 inch straight Referrals / Follow Up: Cayden Hoko DO [Med Staff - Active Staff] - 11/23/23 10:45 am (This appointment is with Genoveva PEREZ.) Shailesh Jennings DO [Primary Care Provider] - 11/22/23 8:00 am (Please take your discharge papers to the doctors appointment with you for the doctor to see.) Mariya Parham MD [Med Staff - Active Staff] - 11/22/23 11:00 am Disposition Disposition (needs filled in before D/C Order can be placed): Home, Self Care Charges/Coding Visit Charges Inpatient E&M: 74015 Disch Hosp >30min
--- NOTE | 2023-11-16 11:02 | CASEMGMT ---
RN ALISSON sent referral to [facility] [place] at this time via [facility].
[2023-11-17 09:25] LABS: Pathologist Comment/Body Fluid Reviewed
== END 2023-11-16 12:35 | disposition home or self-care (01) | DRG 175 ==
LOC: ED 18:30 → MS3 20:36
PROVIDERS: Family Medicine; Internal Medicine Critical Care Medicine; Admitting Provider Family Medicine; Emergency Provider Emergency Medicine; PCP Student in an Organized Health Care Education/Training Program; Visit Provider Student in an Organized Health Care Education/Training Program
PROC: 0BJ08ZZ Inspection of Tracheobronchial Tree, Via Natural or Artificial Opening Endoscopic (ICD-10-PCS; CPT 31622; principal; 2023-11-13 10:45)
DX: I26.99 Other pulmonary embolism without acute cor pulmonale (principal); J96.01 Acute respiratory failure with hypoxia; J90 Pleural effusion, not elsewhere classified; J98.11 Atelectasis; Z93.1 Gastrostomy status; F32.A Depression, unspecified; F41.9 Anxiety disorder, unspecified; Z87.891 Personal history of nicotine dependence; G89.29 Other chronic pain; Z92.3 Personal history of irradiation; Z79.01 Long term (current) use of anticoagulants; R91.8 Other nonspecific abnormal finding of lung field; R13.10 Dysphagia, unspecified; Z85.01 Personal history of malignant neoplasm of esophagus
CPT/HCPCS: 32555; 36415; 70491; 71045; 71046; 71275; 80048; 82945; 83615; 84156; 84157; 84484; 85025; 85027; 85610; 85730; 87070; 87075; 87077; 87186; 87205; 87641; 88108; 88305; 88313; 88341; 88342; 89050; 93005; 94640; 94760; 97110; 97162; 97165; 97802; 97803; 99252; 99284; 99406; J7050; J7120; Q9967; A4216; G0463; J2405; J3490